=== PATIENT | female | born 1945 | race Caucasian/White ===

== ENCOUNTER 2019-07-26 09:08 | Inpatient (IN) | payer MEDICARE, SELFPAY | END 2019-07-28 12:51 | disposition home health service (06) | DRG 641 | PROVIDERS: Admitting Provider Student in an Organized Health Care Education/Training Program; Emergency Provider Emergency Medicine; Family Provider Family Medicine; Visit Provider Student in an Organized Health Care Education/Training Program | DX: E87.1 Hypo-osmolality and hyponatremia (principal); I50.32 Chronic diastolic (congestive) heart failure; I11.0 Hypertensive heart disease with heart failure; J44.9 Chronic obstructive pulmonary disease, unspecified; Z99.81 Dependence on supplemental oxygen; E86.0 Dehydration; F17.210 Nicotine dependence, cigarettes, uncomplicated ==

== ENCOUNTER → 2019-10-02 11:00 | Outpatient (BNVA) | payer OTHER, SELFPAY | PROVIDERS: Family Provider Family Medicine; PCP Family Medicine; Visit Provider Nurse Practitioner Family | DX: E78.5 Hyperlipidemia, unspecified (principal); E87.1 Hypo-osmolality and hyponatremia; I10 Essential (primary) hypertension; T74.91XA Unspecified adult maltreatment, confirmed, initial encounter; Z51.5 Encounter for palliative care | CPT/HCPCS: 80053; 80061; 81001; 84443; 85025 ==

== ENCOUNTER 2019-10-04 12:58 | Emergency (ER) | payer OTHER, SELFPAY ==
--- NOTE | 2019-10-04 13:02 | ED_ITS ---
Entered by Veda Olivier, acting as scribe for HPI - General Adult General: Chief complaint: Shortness of Breath/Dyspnea Stated complaint: BREATHING PROBLEMS Time Seen by Provider: 10/04/19 13:02 History of Present Illness: HPI narrative: 74 yo female presents with shortness of breath. Pt states that she has issues breathing and has for a few days. Pt is on hospice. Pt states she has been generally weak. She states she feels like she is unable to care for self and wants to go to the assisted. MD complaint: shortness of breath Onset (ago): day(s) Location: chest Radiation: non-radiation Severity: moderate Pain Consistency: constant Relieving factors: none Exacerbating factors: none Associated symptoms: Reports dyspnea; Deny chest pain, headache(s), nausea, rash or vomiting Review of Systems Const: Denies: fever, chills, body aches or change in appetite Eyes: Denies: blurry vision or eye discomfort ENMT: Denies: throat pain or dental pain Card: Denies: chest pain Resp: Reports: shortness of breath GI: Denies: abdominal pain, nausea, vomiting or diarrhea : Denies: painful urination Musc: Denies: neck pain or back pain Skin/Breast: Denies: rash Neuro: Denies: headache Psych: Denies: depression Edouard/Lymph: Denies: easy bruising All/Imm: Denies: hives PFSH ED PFSH: Medical History (Updated 10/04/19 @ 15:25 by Lloyd Clemente MD) Cerebral aneurysm CHF (congestive heart failure) COPD (chronic obstructive pulmonary disease) Hiatal hernia History of squamous cell carcinoma Hyperlipidemia Hypertension Surgical History (Updated 10/04/19 @ 13:06 by Veda Olivier) History of hysterectomy History of repair of hip fracture Family History (Updated 09/25/19 @ 08:47 by Yessenia Nava LPN) Sister Anesthesia complication Mother Cancer Father Embolism Social History (Updated 10/02/19 @ 08:38 by Gardenia Novak LPN, RT) Smoking and tobacco status: current every day smoker Second hand smoke exposure: Yes Alcohol intake: current Alcohol intake frequency: holidays/special occasions only Lives independently: Yes Household members: spouse Marital status: Current occupational status: retired History of recent travel: No Current gender identity: Female Physical Exam Const: COMMON NORMALS: no apparent distress, oriented x3 and healthy appearing HENMT: COMMON NORMALS: normocephalic and head/scalp atraumatic HEAD & SCALP: normocephalic and atraumatic Eye: COMMON NORMALS: PERRL and EOMs intact bilaterally PUPIL: Yes PERRL Neck/C-Spine: COMMON NORMALS: full ROM and supple Chest: COMMONS NORMALS: inspection of chest normal and palpation of chest normal Resp: COMMON NORMALS: normal respiratory effort, no retractions and no use of accessory muscles AUSCULTATION: wheezes scattered wheezes Cardio: COMMON NORMALS: regular rate, regular rhythm and no murmurs RATE: regular rate RHYTHM: regular rhythm GI: COMMON NORMALS: normal to inspection, nondistended, normoactive bowel soun ds, soft to palpation, non-tender and no masses PALPATION: Yes soft Extremity: COMMON NORMALS: normal to inspection and full ROM Neuro: COMMON NORMALS: oriented x3, moves all extremities and no focal motor deficits Psych: COMMON NORMALS: mental status grossly normal, thought process normal and cooperative THOUGHT PROCESS: normal thought process Skin: COMMON NORMALS: no rashes or lesions noted and no wounds GENERAL SKIN EXAM: no rashes or lesions noted Course Vital Signs: Vital signs: Vital Signs Temperature 97.7 F 10/04/19 13:04 Pulse Rate 91 10/04/19 13:39 Respiratory Rate 20 H 10/04/19 13:39 Blood Pressure 198/127 10/04/19 13:04 Pulse Oximetry 94 10/04/19 13:39 MDM - General Adult MDM Narrative: Medical decision making narrative: Patient presents here with multiple complaints but main complaint is of generalized weakness. Patient's hospice nurse arrived and they came to group conclusion to send her to a assisted. She is hyponatremic but they do not want any treatment here. Are sending her to assisted at [facility]. Patient discharged and will set up transfer to assisted Lab Data: Labs: Lab Results 10/04/19 10/04/19 Range/Units 13:16 13:16 WBC 7.6 (4.0-10.0) 10^3/ uL RBC 4.97 (4.1-5.3) 10^6/u L Hgb 12.8 (11.5-15.3) g/dL Hct 37.4 (37.0-47.0) % MCV 75.3 L (81-99) fL MCH 25.8 L (28.0-34.0) pg MCHC 34.2 (30.0-36.0) g/dL RDW 13.3 (12.1-15.1) % Plt Count 426 H (130-400) 10^3/c mm MPV 9.6 (7.4-10.4) fL Neut % (Auto) 76.5 % Lymph % (Auto) 14.8 % [place] % (Auto) 7.7 % Eos % (Auto) 0.5 % Baso % (Auto) 0.4 % Neut # (Auto) 5.8 (1.8-7.7) 10^3/u L Lymph # (Auto) 1.1 (0.8-4.8) 10^3/u L [place] # (Auto) 0.6 (0.2-0.9) 10^3/u L Eos # (Auto) 0.0 (0.0-0.8) 10^3/u L Baso # (Auto) 0.0 (0.0-0.1) 10^3/u L Nucleated RBC % (a uto) 0 % Nucleated RBCs # 0.0 /100WBC Sodium 114 L* (136-145) mmol/L Potassium 4.3 (3.5-5.1) mmol/L Chloride 75 L (98-107) mmol/L Carbon Dioxide 28 (22-29) mmol/L Anion Gap 15.3 (5-19) BUN 7 L (8-23) mg/dL Creatinine 0.5 (0.5-0.9) mg/dL Glucose 141 H (65-115) mg/dL Calculated Osmolal ity 236 L (285-295) mOsm/k g Calcium 9.4 (8.5-10.5) mg/dL Imaging Data^: CXR: Attestation: I personally reviewed and interpreted this imaging study as follows: Radiologist's impression: Ordering Provider/Ordering MD: Lloyd Clemente MD Date of Service: 10/04/19 Procedure(s): XR chest 1V portable [id number] Accession Number(s): [id number] Report Number: [id number] PROCEDURE INFORMATION: Exam: XR Chest, 1 View Exam date and time: 10/04/2019 1:08 PM Age: 74 years old Clinical indication: Shortness of breath; Additional info: SOB TECHNIQUE: Imaging protocol: XR of the chest Views: 1 view. COMPARISON: CR Chest 1 [place] [id number] 07/26/2019 9:27 AM FINDINGS: Lungs: Unremarkable. No consolidation. Pleural space: Unremarkable. No pleural effusion. No pneumothorax. Heart/Mediastinum: Unremarkable. No cardiomegaly. Bones/joints: Unremarkable. XR/XR chest 1V portable [id number] IMPRESSION: No acute findings. Discharge Plan Discharge Patient Disposition: Home, Self-Care Clinical Impression: COPD exacerbation, Hyponatremia Condition: Stable Prescriptions: No Action fluticasone propion-salmeterol [Advair Diskus] 250-50 mcg/dose blister with device 1 inh INHALATION Q12H RF: 0 metoprolol tartrate 50 mg tablet 50 mg PO BID RF: 0 albuterol sulfate [Ventolin HFA] 90 mcg/actuation HFA aerosol inhaler 2 puff INHALATION QID RF: 0 gabapentin 300 mg capsule 300 mg PO TID RF: 0 amlodipine 10 mg tablet 10 mg PO DAILY RF: 0 lisinopril 40 mg tablet 40 mg PO DAILY RF: 0 fluticasone propionate [Flonase Allergy Relief] 50 mcg/actuation spray,suspension 2 spray INTRANASAL DAILY RF: 0 furosemide [Lasix] 20 mg tablet 20 mg PO DAILY PRN (Reason: edema) Qty: 30 RF: 1 potassium chloride 10 mEq tablet extended release 10 meq PO DAILY PRN (Reason: DIURETIC THERAPY) Qty: 30 RF: 1 Discharge Orders: Discharge Order (Routine); Ordered 10/04/19 Ordered By: Lloyd Clemente Referrals: Liudmila Henry MD [Primary Care Provider] - 4-7 days Discharge Diet: Advance as tolerated Discharge Activity: Resume usual activity Patient Instructions: Chronic Obstructive Pulmonary Disease (ED) Coding Level of Care Code ED Yarder Boss for Chg Fwd Exam Comprehensive The documentation recorded by the Soy graham Kialy, accurately reflects the service I personally performed and the decisions made by Chyna goldstein Korby, MD Oct 04, 2019 12:58
[2019-10-04 13:04] VITALS: BP 198/127; PULSE 90; RESP 24; TEMP 36.5; O2SAT 96; BMI 17.2
--- NOTE | 2019-10-04 13:07 | XRR_ITS ---
PROCEDURE INFORMATION: Exam: XR Chest, 1 View Exam date and time: 10/04/2019 1:08 PM Age: 74 years old Clinical indication: Shortness of breath; Additional info: SOB TECHNIQUE: Imaging protocol: XR of the chest Views: 1 view. COMPARISON: CR Chest 1 [place] [id number] 07/26/2019 9:27 AM FINDINGS: Lungs: Unremarkable. No consolidation. Pleural space: Unremarkable. No pleural effusion. No pneumothorax. Heart/Mediastinum: Unremarkable. No cardiomegaly. Bones/joints: Unremarkable. XR/XR chest 1V portable [id number] IMPRESSION: No acute findings.
[2019-10-04 13:24] LABS: Basophils % 0.4 %; Eosinophils % 0.5 %; Hematocrit 37.4 % (37.0-47.0); Hemoglobin 12.8 g/dL (11.5-15.3); Lymphocytes # 1.1 10^3/uL (0.8-4.8); Lymphocytes % 14.8 %; Mean Corpuscular HGB Conc 34.2 g/dL (30.0-36.0); Mean Corpuscular Hemoglobin 25.8 pg (28.0-34.0); Mean Corpuscular Volume 75.3 fL (81-99); Mean Platelet Volume 9.6 fL (7.4-10.4); Monocytes # 0.6 10^3/uL (0.2-0.9); Monocytes % 7.7 %; Neutrophils # 5.8 10^3/uL (1.8-7.7); Neutrophils % 76.5 %; Nucleated Red Blood Cells % 0 %; Platelet Count 426 10^3/cmm (130-400); Red Blood Count 4.97 10^6/uL (4.1-5.3); Red Cell Distribution Width 13.3 % (12.1-15.1); White Blood Count 7.6 10^3/uL (4.0-10.0)
[2019-10-04] MEDS: ipratropium-albuterol 3 mL Neb INHALATION (13:32)
[2019-10-04 13:34] VITALS: PULSE 91; RESP 20; O2SAT 94
[2019-10-04 13:35] LABS: Anion Gap 15.3 (5-19); Blood Urea Nitrogen 7 mg/dL (8-23); Calcium 9.4 mg/dL (8.5-10.5); Carbon Dioxide 28 mmol/L (22-29); Chloride 75 mmol/L (98-107); Glucose 141 mg/dL (65-115); Osmolality Calculated 236 mOsm/kg (285-295); Potassium 4.3 mmol/L (3.5-5.1)
[2019-10-04 13:37] LABS: Slide Review Slide Review Perform
[2019-10-04 13:39] VITALS: PULSE 91; RESP 20; O2SAT 94
[2019-10-04 13:52] LABS: Sodium 114 mmol/L (136-145)
[2019-10-04] MEDS: LORazepam 2 mg/mL INJ 1 mL 0.5 MG IVP (14:10)
[2019-10-04] MEDS: sodium chloride 0.9% 1,000 ML 999 ML IV (14:11)
[2019-10-04] MEDS: predniSONE 20 mg Tablet 60 MG PO (14:12)
--- NOTE | 2019-10-04 17:01 | PC.NURSE ---
Patient is confused and walking down the halls. Patient directed back to treatment room. Hospital sitter with patient. Patient is now resting.
[2019-10-04 17:54] VITALS: O2SAT 96
== END 2019-10-04 17:56 | disposition home or self-care (01) ==
PROVIDERS: Emergency Provider Emergency Medicine; Family Provider Family Medicine; PCP Family Medicine
DX: J44.1 Chronic obstructive pulmonary disease with (acute) exacerbation (principal); E87.1 Hypo-osmolality and hyponatremia; I11.0 Hypertensive heart disease with heart failure; I50.9 Heart failure, unspecified; J44.9 Chronic obstructive pulmonary disease, unspecified; E78.5 Hyperlipidemia, unspecified; F17.200 Nicotine dependence, unspecified, uncomplicated; Z79.51 Long term (current) use of inhaled steroids
CPT/HCPCS: 36415; 71045; 80048; 85025; 94640; 96361; 96374; 96375; 99282; 99283; J2060; J7030; J7512; J7611

== ENCOUNTER → 2019-10-19 15:15 | Outpatient (BNVA) | payer MEDICARE, SELFPAY | PROVIDERS: Family Provider Family Medicine; PCP Family Medicine; Visit Provider Family Medicine | DX: R05 Cough (principal); R50.9 Fever, unspecified | CPT/HCPCS: 87400 ==

== ENCOUNTER 2019-12-17 12:51 | Inpatient (IN) | payer MEDICARE, SELFPAY ==
[2019-12-17] VITALS (12 sets, daily range): BP systolic 169–199; BP diastolic 85–116; PULSE 72–118; RESP 12–22; TEMP 36.9–37.2; O2SAT 85–99; BMI 15.4
--- NOTE | 2019-12-17 13:06 | XR_ITS ---
WS: [id number] RIGHT HIP HISTORY: trauma, hip pain COMPARISON: 06/12/2019 Right hip: Findings are suspicious for femoral neck fracture. Quality of the this examination is limi clifford by body habitus. No soft tissue abnormality. XR/XR hip RT 2-3V wo/w pel* [id number] IMPRESSION: 1. Suspect RIGHT subcapital hip fracture. Study is limited by body habitus. 2. Recommend follow-up RIGHT hip CT to confirm fracture.
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
--- NOTE | 2019-12-17 14:04 | XR_ITS ---
WS: [id number] PORTABLE CHEST HISTORY: fall, fracture COMPARISON: 10/04/2019 Marked pulmonary hyperinflation. Changes of emphysema with no pneumonia. Lung bases have been exclude d from this examination. No pleural effusion or pneumothorax. Cardiac size: Mildly enlarged cardiac silhouette. Mediastinum/Aorta: Mild atherosclerosis aorta. Proximal RIGHT humeral fracture. Known fracture. XR/XR chest 1V portable [id number] IMPRESSION: 1. Chronic emphysema with no pneumonia. 2. Known nondisplaced proximal RIGHT humeral fracture.
[2019-12-17] MEDS: morphine 4 mg/mL SDV 1 mL IM (14:05)
--- NOTE | 2019-12-17 15:16 | ECG_ITS ---
Measurements Intervals [place] Rate: 114 P: DE: 0 QRS: -67 QRSD: 82 T: 71 QT: 300 QTc: 414 Sinus tachycardia with PVCs INDETERMINATE AXIS POSSIBLE RIGHT VENTRICULAR CONDUCTION DELAY [RSR (QR) IN V1/V2] ANTEROSEPTAL MYOCARDIAL INFARCTION , OF INDETERMINATE AGE [40+ ms Q WAVE IN V1-V4] Compared to ECG 07/26/2019 14:45:30 Ventricular premature complex(es) now present Sinus rhythm no longer present Myocardial infarct finding still present Electronically Signed On 12-18-2019 13:02:23 CDT by Mega Maier M.D. [email or web address]
[2019-12-17] MEDS: ondansetron 2 mg/ML SDV 2 mL 4 MG IVP (15:49)
[2019-12-17] MEDS: morphine 4 mg/mL SDV 1 mL 2 MG IVP (15:49)
[2019-12-17 16:31] LABS: Basophils # 0.1 10^3/uL (0.0-0.1); Basophils % 0.5 %; Eosinophils # 0.1 10^3/uL (0.0-0.8); Eosinophils % 0.6 %; Hematocrit 39.3 % (37.0-47.0); Lymphocytes # 1.2 10^3/uL (0.8-4.8); Lymphocytes % 11.8 %; Mean Corpuscular HGB Conc 33.1 g/dL (30.0-36.0); Mean Corpuscular Hemoglobin 28.4 pg (28.0-34.0); Mean Platelet Volume 10.4 fL (7.4-10.4); Monocytes # 0.8 10^3/uL (0.2-0.9); Monocytes % 7.3 %; Neutrophils # 8.3 10^3/uL (1.8-7.7); Neutrophils % 79.2 %; Nucleated Red Blood Cells % 0 %; Platelet Count 363 10^3/cmm (130-400); Red Blood Count 4.57 10^6/uL (4.1-5.3); Red Cell Distribution Width 14.6 % (12.1-15.1); White Blood Count 10.5 10^3/uL (4.0-10.0)
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
[2019-12-17 16:47] LABS: INR 0.99 (0.8-1.2)
[2019-12-17 16:50] LABS: Alanine Aminotransferase 18 U/L (0-33); Albumin Level 4.2 g/dL (3.5-5.2); Alkaline Phosphatase 80 IU/L (35-105); Aspartate Amino Transferase 20 U/L (0-32); Blood Urea Nitrogen 12 mg/dL (8-23); Calcium 9.1 mg/dL (8.5-10.5); Carbon Dioxide 29 mmol/L (22-29); Chloride 91 mmol/L (98-107); Creatinine Clr Calc Pharmacy 37.2706; Globulin 2.4 g/dL (1.3-4.6); Glucose 89 mg/dL (65-115); Osmolality Calculated 270 mOsm/kg (285-295); Sodium 132 mmol/L (136-145); Total Bilirubin 0.5 mg/dL (0.15-1.2); Total Protein 6.6 g/dL (6.6-8.7)
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
[2019-12-17] MEDS: heparin 5,000 unit/mL INJ 1 mL 5000 UNIT SUBCUT (19:21)
[2019-12-17] MEDS: dextrose 5%-sod chloride 0.45% 1,000 ML 100 ML IV (19:21)
[2019-12-17] MEDS: ipratropium-albuterol 3 mL Neb INHALATION (19:51)
--- NOTE | 2019-12-17 19:53 | PC.NURSE ---
resting in bed sling to right arm. Alert and oriented x3 no complaints of pain voiced.
[2019-12-17] MEDS: predniSONE 20 mg Tablet 40 MG PO (20:53)
[2019-12-17] MEDS: gabapentin 300 mg Capsule PO (20:53)
[2019-12-17] MEDS: HYDROcodone-acetaminophen 5-325 mg Tablet 1 TAB PO (21:20)
--- NOTE | 2019-12-17 21:25 | PC.NURSE ---
Rosa Rt notified again of ekg order.
--- NOTE | 2019-12-17 21:26 | PC.NURSE ---
consent signed verified with Arnie Tracy Pt alert and oriented but unable to sign since in sling.
[2019-12-17 21:30] LABS: Thyroid Stimulating Hormone 3.33 uIU/mL (0.27-4.20)
[2019-12-17 21:46] LABS: Estmated Average Glucose 128; Hemoglobin A1C 6.1 % (4.0-6.0)
[2019-12-18] VITALS (19 sets, daily range): BP systolic 110–170; BP diastolic 62–90; PULSE 64–84; RESP 9–19; TEMP 36.3–36.9; O2SAT 90–100
--- NOTE | 2019-12-18 | XRR_ITS ---
PROCEDURE INFORMATION: Exam: XR Right Hip with Pelvis when Performed Exam date and time: 12/18/2019 2:56 PM Age: 74 years old Clinical indication: Condition or disease; Joint replacement status; Prior surgery; Surgery date: Post-operative (0-2 days); Surgery type: Right hip pinning; Additional info: Hip pinning, or pics TECHNIQUE: Imaging protocol: XR Right hip with pelvis when performed. Views: 1 view. COMPARISON: CR XR hip RT 2-3V wo/w pel* [id number] 12/17/2019 2:11 PM FINDINGS: Bones/joints: 2 fluoroscopic views are submitted, demonstrating 3 cannulated screws in the right femoral neck, traversing a subcapital fracture. A total of 87.1 seconds of fluoro time was utilized. XR/XR hip RT 2-3V wo/w pel* [id number] IMPRESSION: Fluoroscopic examination, as above.
--- NOTE | 2019-12-18 | SCC_ITS ---
Procedure Done: Perutaneous pinning right femoral neck fracture using cannulated screws 72.8 seconds of fluoroscopic guidance, for a cumulative dose of 6.83 mGy, was provided to Dr. Casillas by the radiology department. C-arm images of the RIGHT hip were saved for the patient's permanent record. [facility] CENTERAdriana
[2019-12-18 03:57] LABS: Basophils % 0.2 %; Hematocrit 38.7 % (37.0-47.0); Hemoglobin 12.5 g/dL (11.5-15.3); Lymphocytes # 0.2 10^3/uL (0.8-4.8); Lymphocytes % 3.7 %; Mean Corpuscular HGB Conc 32.3 g/dL (30.0-36.0); Mean Corpuscular Volume 86.8 fL (81-99); Mean Platelet Volume 10.4 fL (7.4-10.4); Monocytes # 0.1 10^3/uL (0.2-0.9); Monocytes % 2.1 %; Neutrophils # 5.8 10^3/uL (1.8-7.7); Neutrophils % 93.7 %; Nucleated Red Blood Cells % 0 %; Platelet Count 301 10^3/cmm (130-400); Red Blood Count 4.46 10^6/uL (4.1-5.3); Red Cell Distribution Width 14.6 % (12.1-15.1); White Blood Count 6.2 10^3/uL (4.0-10.0)
[2019-12-18 04:13] LABS: Alanine Aminotransferase 16 U/L (0-33); Alkaline Phosphatase 75 IU/L (35-105); Anion Gap 15.9 (5-19); Aspartate Amino Transferase 19 U/L (0-32); Blood Urea Nitrogen 11 mg/dL (8-23); Calcium 8.9 mg/dL (8.5-10.5); Carbon Dioxide 28 mmol/L (22-29); Chloride 90 mmol/L (98-107); Creatinine Clr Calc Pharmacy 37.2706; Globulin 2.1 g/dL (1.3-4.6); Glucose 245 mg/dL (65-115); Osmolality Calculated 272 mOsm/kg (285-295); Phosphorus 3.5 mg/dL (2.5-4.5); Potassium 4.9 mmol/L (3.5-5.1); Sodium 129 mmol/L (136-145); Total Bilirubin 0.6 mg/dL (0.15-1.2); Total Protein 6.1 g/dL (6.6-8.7)
[2019-12-18] MEDS: dextrose 5%-sod chloride 0.45% 1,000 ML 100 ML IV ×2 (06:43→19:49)
[2019-12-18] MEDS: ipratropium-albuterol 3 mL Neb INHALATION ×2 (07:42→20:13)
[2019-12-18] MEDS: amlodipine 10 mg Tablet PO (08:31)
[2019-12-18] MEDS: metoprolol tartrate 50 mg Tablet PO ×2 (08:31→17:08)
[2019-12-18] MEDS: gabapentin 300 mg Capsule PO ×2 (08:31→21:08)
[2019-12-18] MEDS: lisinopril 20 mg Tablet 40 MG PO (08:31)
[2019-12-18] MEDS: predniSONE 20 mg Tablet 40 MG PO (08:31)
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
[2019-12-18 11:25] LABS: Glucose Point of Care 141 mg/dL (70-110)
[2019-12-18 11:30] LABS: Add Urine Microscopic? YES; Bilirubin Urine Neg (NEGATIVE); Blood Urine 2+ (Negative); Glucose Urine UA 1+ (Normal); Ketones Urine Negative (Negative); Leukocyte Esterase Urine Trace (Negative); Nitrate Urine Negative (Negative); Protein Urine Neg (Negative); Urine Appearance Clear (CLEAR); Urine Color Yellow (Yellow); Urobilinogen Urine Norm (Negative)
[2019-12-18 11:58] LABS: Bacteria Urine TRACE; Mucus Urine 1+; Squamous Epithelial Cell Urine 0-4 (0-5); WBC Urine 15-25 /hpf (0-5)
[2019-12-18 11:59] LABS: Add Urine Culture? Yes
--- NOTE | 2019-12-18 12:20 | P.ANESASSM_ITS ---
Pre-Anesthetic Assessment Pre-Anesthetic Assessment: Height/Weight: Height 1.6 m Weight 39.463 kg Temp Pulse Resp BP Pulse Ox 98.5 F 65 18 151/78 95 12/18/19 12:04 12/18/19 12:04 12/18/19 12:04 12/18/19 12:04 12/18/19 12:04 Preop Diagnosis: hip fracure Proposed Procedure: Operation Date: 12/18/19 12:45 Proposed Procedures p Hip Screw Closed Reduction Percutaneous Pinning Hip Screw(Right) - Vinh Casillas DO Familial anesthetic complications: none Was Beta Niya taken within 24 hours: Yes Last intake: Intake Last Liquid Date 12/17/19 Last Liquid Time 18:00 Last Solid Date 12/17/19 Last Solid Time 18:00 Social: Social History: Tobacco Exam: Pre-Anes Outpt Exam: alert, oriented x 3, clear to auscultation bilaterally and regular rate & rhythm Airway: Cervical ROM: WNL MP: 2 Dentition: Chipped Pulmonary: Pulmonary: COPD (4 L NC) CV/HEM: CV/HEM: CHF and HTN : : None reported Hepatic: Hepatic: None reported GI: GI: None reported Metabolic: Metabolic: None reported Musc/skel: Comments: fracture Hip Neuropsych: Neuropsych: TIA Anesthetic Plan: ASA status: 3 Risk of > 500 ml blood loss (7ml/kg in children): Yes, adequate IV access and fluids planned Meds/Allergies Current Medications: Current Medications Generic Name Dose Route Start Last Admin Trade Name Freq PRN Reason Stop Dose Admin Hydrocodone Bitart /Acetaminophen 1 tab 12/17/19 18:46 12/17/19 21:20 [place] 5-325 Mg PO 1 tab Q4H PRN Administration MODERATE PAIN Albuterol/Ipratrop ium 3 ml 12/17/19 19:30 12/18/19 07:42 Duoneb INHALATION 3 ml Q6H ROSLYN Administration Amlodipine Besylat e 10 mg 12/18/19 09:00 12/18/19 08:31 Norvasc PO 10 mg DAILY ROSLYN Administration Gabapentin 300 mg 12/17/19 21:00 12/18/19 08:31 Neurontin PO 300 mg TID ROSLYN Administration Heparin Sodium (Be ef Lung) 5,000 unit 12/17/19 19:15 12/18/19 11:40 Heparin SUBCUT Not Given Q8H ROSLYN Dextrose/Sodium Ch loride 1,000 mls @ 100 m ls/hr 12/17/19 19:15 12/18/19 06:43 Dextrose 5%-Sod Chloride 0.45% IV 100 mls/hr .Q10H ROSLYN Administration Lisinopril 40 mg 12/18/19 09:00 12/18/19 08:31 Prinivil PO 40 mg DAILY ROSLYN Administration Metoprolol Tartrat e 50 mg 12/18/19 09:00 12/18/19 08:31 Lopressor PO 50 mg BID ROSLYN Administration Mirtazapine 15 mg 12/18/19 09:00 12/18/19 08:27 Remeron PO Not Given DAILY ROSLYN Prednisone 40 mg 12/17/19 19:25 12/18/19 08:31 Prednisone PO 40 mg DAILY ROSLYN Administration Fluticasone/Salmet ezio 1 puff 12/17/19 20:00 12/18/19 07:42 Advair Diskus 25 0-50 INHALATION 1 puff BID.RESPIRATORY S CH Administration PFSH Anesthesia PFSH: Medical History (Updated 12/17/19 @ 19:21 by Barrera Salamanca MD) Cerebral aneurysm CHF (congestive heart failure) Closed fracture of right proximal humerus COPD (chronic obstructive pulmonary disease) Fracture of femoral neck, right, closed Hiatal hernia History of squamous cell carcinoma Hyperlipidemia Hypertension Surgical History History of hysterectomy History of repair of hip fracture Family History Sister Anesthesia complication Mother Cancer Father Embolism Social History Smoking and tobacco status: current every day smoker Second hand smoke exposure: Yes Alcohol intake: current Alcohol intake frequency: holidays/special occasions only Lives independently: Yes Household members: spouse Marital status: Current occupational status: retired History of recent travel: No Current gender identity: Female Data Anesthesia CBC & Chem 7: 12/18/19 03:10 12/18/19 03:10 Other Labs: Laboratory Results - last 48 hr 12/17/19 12/17/19 12/17/19 15:53 15:53 15:53 WBC 10.5 H RBC 4.57 Hgb 13.0 Hct 39.3 MCV 86.0 MCH 28.4 MCHC 33.1 RDW 14.6 Plt Count 363 MPV 10.4 Neut % (Auto) 79.2 Lymph % (Auto) 11.8 [place] % (Auto) 7.3 Eos % (Auto) 0.6 Baso % (Auto) 0.5 Neut # (Auto) 8.3 H Lymph # (Auto) 1.2 [place] # (Auto) 0.8 Eos # (Auto) 0.1 Baso # (Auto) 0.1 Nucleated RBC % (auto) 0 Nucleated RBCs # 0.0 PT 13.40 H INR 0.99 Sodium 132 L Potassium 4.0 Chloride 91 L Carbon Dioxide 29 Anion Gap 16.0 BUN 12 Creatinine 0.8 Glucose 89 POC Glucose Estimat Average Glucose Hemoglobin A1c Calculated Osmolality 270 L Calcium 9.1 Phosphorus Magnesium Total Bilirubin 0.5 AST 20 ALT 18 Alkaline Phosphatase 80 Total Protein 6.6 Albumin 4.2 Globulin 2.4 TSH Urine Color Urine Appearance Urine pH Ur Specific [place] Urine Protein Urine Glucose (UA) Urine Ketones Urine Blood Urine Nitrate Urine Bilirubin Urine Urobilinogen Ur Leukocyte Esterase Urine RBC Urine WBC Ur Squamous Epith Cells Urine Bacteria Urine Mucus Blood Type Rho(D) Type Antibody Screen 12/17/19 12/17/19 12/17/19 15:53 15:53 16:23 WBC RBC Hgb Hct MCV MCH MCHC RDW Plt Count MPV Neut % (Auto) Lymph % (Auto) [place] % (Auto) Eos % (Auto) Baso % (Auto) Neut # (Auto) Lymph # (Auto) [place] # (Auto) Eos # (Auto) Baso # (Auto) Nucleated RBC % (auto) Nucleated RBCs # PT INR Sodium Potassium Chloride Carbon Dioxide Anion Gap BUN Creatinine Glucose POC Glucose Estimat Average Glucose 128 Hemoglobin A1c 6.1 H Calculated Osmolality Calcium Phosphorus Magnesium Total Bilirubin AST ALT Alkaline Phosphatase Total Protein Albumin Globulin TSH 3.33 Urine Color Urine Appearance Urine pH Ur Specific [place] Urine Protein Urine Glucose (UA) Urine Ketones Urine Blood Urine Nitrate Urine Bilirubin Urine Urobilinogen Ur Leukocyte Esterase Urine RBC Urine WBC Ur Squamous Epith Cells Urine Bacteria Urine Mucus Blood Type A Negative Rho(D) Type Negaive Antibody Screen Negative 12/18/19 12/18/19 12/18/19 03:10 03:10 03:10 WBC 6.2 RBC 4.46 Hgb 12.5 Hct 38.7 MCV 86.8 MCH 28.0 MCHC 32.3 RDW 14.6 Plt Count 301 MPV 10.4 Neut % (Auto) 93.7 Lymph % (Auto) 3.7 [place] % (Auto) 2.1 Eos % (Auto) 0.0 Baso % (Auto) 0.2 Neut # (Auto) 5.8 Lymph # (Auto) 0.2 L [place] # (Auto) 0.1 L Eos # (Auto) 0.0 Baso # (Auto) 0.0 Nucleated RBC % (auto) 0 Nucleated RBCs # 0.0 PT 13.50 H INR 1.00 Sodium 129 L Potassium 4.9 Chloride 90 L Carbon Dioxide 28 Anion Gap 15.9 BUN 11 Creatinine 0.7 Glucose 245 H POC Glucose Estimat Average Glucose Hemoglobin A1c Calculated Osmolality 272 L Calcium 8.9 Phosphorus 3.5 Magnesium 2.0 Total Bilirubin 0.6 AST 19 ALT 16 Alkaline Phosphatase 75 Total Protein 6.1 L Albumin 4.0 Globulin 2.1 TSH Urine Color Urine Appearance Urine pH Ur Specific [place] Urine Protein Urine Glucose (UA) Urine Ketones Urine Blood Urine Nitrate Urine Bilirubin Urine Urobilinogen Ur Leukocyte Esterase Urine RBC Urine WBC Ur Squamous Epith Cells Urine Bacteria Urine Mucus Blood Type Rho(D) Type Antibody Screen 12/18/19 12/18/19 10:00 11:14 WBC RBC Hgb Hct MCV MCH MCHC RDW Plt Count MPV Neut % (Auto) Lymph % (Auto) [place] % (Auto) Eos % (Auto) Baso % (Auto) Neut # (Auto) Lymph # (Auto) [place] # (Auto) Eos # (Auto) Baso # (Auto) Nucleated RBC % (auto) Nucleated RBCs # PT INR Sodium Potassium Chloride Carbon Dioxide Anion Gap BUN Creatinine Glucose POC Glucose 141 Estimat Average Glucose Hemoglobin A1c Calculated Osmolality Calcium Phosphorus Magnesium Total Bilirubin AST ALT Alkaline Phosphatase Total Protein Albumin Globulin TSH Urine Color Yellow Urine Appearance Clear Urine pH 5.0 Ur Specific [place] 1.020 Urine Protein Neg Urine Glucose (UA) 1+ Urine Ketones Negative Urine Blood 2+ H Urine Nitrate Negative Urine Bilirubin Neg Urine Urobilinogen Norm Ur Leukocyte Esterase Trace H Urine RBC 5-10 H Urine WBC 15-25 H Ur Squamous Epith Cells 0-4 H Urine Bacteria Trace Urine Mucus 1+ Blood Type Rho(D) Type Antibody Screen Cardiac Studies: No Data to Display
[2019-12-18] MEDS: sodium chloride 0.9% 1,000 ML 30 ML IV (12:33)
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
--- NOTE | 2019-12-18 14:12 | SUR.OPER ---
1405 - Pt's sister updated on surgery progress and pt status via her cell phone.
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
--- NOTE | 2019-12-18 14:42 | SUR.PHASEI ---
1440 PATIENT TO PACU AT THIS TIME FROM OPS. RR EVEN AND UNLABORED. PLACED ON SIMPLE MASK AT 8L, SPO2 100%. DRESSING TO RIGHT HIP, CDI WITH FIRST ICE IN PLACED. RIGHT PEDAL PULSE STRONG, INTACT, MARKED.
--- NOTE | 2019-12-18 15:29 | SUR.PHASEI ---
1516 PATIENT TO MED SURG AT THIS TIME. NO DISTRESS. DENIES NAUSEA. PATIENT RESTING COMFORTABLE IN BED, AROUSES TO VERBAL STIMULI. DRESSING TO RIGHT HIP, CDI WITH FIRST ICE IN PLACE. WALKER IN PLACE, DRAINING CLEAR, YELLOW URINE.
[2019-12-18] MEDS: heparin 5,000 unit/mL INJ 1 mL 5000 UNIT SUBCUT (17:05)
[2019-12-18] MEDS: calcium carbonate 500 mg Chew Tablet 1000 MG PO (17:06)
[2019-12-18] MEDS: HYDROcodone-acetaminophen 5-325 mg Tablet 1 TAB PO ×2 (17:06→21:07)
[2019-12-18] MEDS: sennosides-docusate Tablet 2 TAB PO (17:08)
[2019-12-18] MEDS: iron polysaccharide complex 150 mg Capsule PO (17:08)
--- NOTE | 2019-12-18 18:48 | USCV_ITS ---
Rosario Brock Age: 74 Gender: F : 1945 Exam Date: 12/18/2019 09:40 Ordering Phys: Barrera Salamanca MD Technologist: Manuela Godoy Exam Location: [facility] [place] Indication: PREOP BP: 170 / 90 HR: 60 Rhythm: Sinus Technical Quality: Adequate MEASUREMENTS (Male / Female) Normal Values 2D ECHO LV Diastolic Diameter PLAX 2.5 cm 4.2 - 5.9 / 3.9 - 5.3 cm LV Systolic Diameter PLAX 1.9 cm LV Chamber Size 3.9 cm IVS Diastolic Thickness 0.8 cm 0.6 - 1.0 / 0.6 - 0.9 cm IVS Systolic Thickness 1.3 cm LVPW Diastolic Thickness 1.8 cm 0.6 - 1.0 / 0.6 - 0.9 cm LVPW Systolic Thickness 2.3 cm RV Chamber Size 3.1 cm LVOT Diameter 2.0 cm LV Ejection Fraction 2D Teich 50.9 % LV Ejection Fraction MOD 2C 58.3 % LV Ejection Fraction 2C AL 56.7 % LA Diameter 3.1 cm LA Width 2.9 cm LA Height 4.0 cm RA Width 3.8 cm RA Height 4.5 cm Aorta at Sinotubular Diameter 2.5 cm M-MODE LV Diastolic Diameter MM 3.7 cm 4.2 - 5.9 / 3.9 - 5.3 cm LV Systolic Diameter MM 2.9 cm LV Ejection Fraction MM Teich 48.2 % IVS Diastolic Thickness MM 0.8 cm 0.6 - 1.0 / 0.6 - 0.9 cm IVS Systolic Thickness MM 1.1 cm LVPW Diastolic Thickness MM 0.7 cm 0.6 - 1.0 / 0.6 - 0.9 cm LVPW Systolic Thickness MM 1.1 cm Aortic Annulus Diameter 2.8 cm LA Ao Ratio MM 1.1 MV E Point Septal Separation 0.9 cm DOPPLER AV Peak Velocity 137.0 cm/s LVOT Peak Velocity 105.0 cm/s AV Area Cont Eq vti 2.3 cm squared AV Area Cont Eq pk 2.5 cm squared MV Area PHT 3.1 cm squared Mitral E to A Ratio 0.9 MV E' Velocity 8.0 cm/s Mitral E to MV E' Ratio 9.0 Mitral E to LV E' Lateral Ratio 9.9 Mitral E to LV E' Septal Ratio 8.3 TR Peak Velocity 354.0 cm/s TR Peak Gradient 50.1 mmHg TV Peak E Velocity 63.0 cm/s Right Atrial Pressure 3.0 mmHg Pulmonary Artery Systolic Pressu 53.1 mmHg PV Peak Velocity 52.0 cm/s RV Acceleration Time 0.1 s RV Ejection Time 0.3 s RV AcT/ET 0.5 FINDINGS Left Ventricle Normal left ventricular size, systolic function and wall thickness, with no regional wall motion abnormalities. Left ventricular ejection fraction is estimated at 65-70 %. Normal diastolic function. Right Ventricle Normal right ventricular size and systolic function. Right ventricular systolic pressure 33 mmHg. Right Atrium Normal right atrial size. Left Atrium Normal left atrial size. Mitral Valve Structurally normal mitral valve. No mitral valve stenosis. Trace mitral valve regurgitation. Aortic Valve Aortic valve not well visualized. No aortic valve stenosis. No aortic valve regurgitation. Tricuspid Valve Structurally normal tricuspid valve. Mild tricuspid valve regurgitation. Pulmonic Valve Pulmonic valve not well visualized. Pericardium No pericardial effusion. Aorta Normal-sized aortic root. CONCLUSIONS 1. Normal left ventricular size, systolic function and wall thickness, with no regional wall motion abnormalities. Left ventricular ejection fraction is estimated at 65-70 %. Normal diastolic function. 2. Normal right ventricular size and systolic function. 3. Mild tricuspid valve regurgitation. 4. Pulmonary artery pressure estimated at 33 mmHg. 5. When compared to previous echocardiogram dated 02/04/2019, there may not have been any significant change. Ysabel Ghosh MD (Electronically Signed) Final Date: 18 Dec 2019 14:42 S
[2019-12-19] VITALS (14 sets, daily range): BP systolic 111–157; BP diastolic 60–78; PULSE 62–83; RESP 13–20; TEMP 36.4–37.1; O2SAT 93–99
[2019-12-19] MEDS: heparin 5,000 unit/mL INJ 1 mL 5000 UNIT SUBCUT ×3 (02:21→18:50)
[2019-12-19] MEDS: ipratropium-albuterol 3 mL Neb INHALATION ×4 (02:30→20:27)
[2019-12-19 05:57] LABS: Basophils % 0.1 %; Eosinophils % 0.4 %; Hematocrit 33.3 % (37.0-47.0); Hemoglobin 10.4 g/dL (11.5-15.3); Lymphocytes # 1.2 10^3/uL (0.8-4.8); Lymphocytes % 14.3 %; Mean Corpuscular HGB Conc 31.2 g/dL (30.0-36.0); Mean Corpuscular Hemoglobin 27.5 pg (28.0-34.0); Mean Corpuscular Volume 88.1 fL (81-99); Monocytes # 0.9 10^3/uL (0.2-0.9); Nucleated Red Blood Cells % 0 %; Platelet Count 279 10^3/cmm (130-400); Red Blood Count 3.78 10^6/uL (4.1-5.3); Red Cell Distribution Width 14.4 % (12.1-15.1); White Blood Count 8.1 10^3/uL (4.0-10.0)
[2019-12-19 06:19] LABS: Alanine Aminotransferase 14 U/L (0-33); Albumin Level 3.3 g/dL (3.5-5.2); Alkaline Phosphatase 59 IU/L (35-105); Aspartate Amino Transferase 18 U/L (0-32); Blood Urea Nitrogen 13 mg/dL (8-23); Calcium 9.4 mg/dL (8.5-10.5); Carbon Dioxide 30 mmol/L (22-29); Chloride 91 mmol/L (98-107); Creatinine Clr Calc Pharmacy 37.2706; Globulin 2.4 g/dL (1.3-4.6); Glucose 118 mg/dL (65-115); Magnesium 1.9 mg/dL (1.7-2.3); Osmolality Calculated 265 mOsm/kg (285-295); Phosphorus 4.2 mg/dL (2.5-4.5); Sodium 129 mmol/L (136-145); Total Bilirubin 0.3 mg/dL (0.15-1.2); Total Protein 5.7 g/dL (6.6-8.7)
--- NOTE | 2019-12-19 07:00 | P.PN_ITS ---
Subjective Subjective: Interval history: 74-year-old white female seen at the bedside on 12/19/2019. Patient's postoperative day 1 status post close reduction perkiness pinning of her impacted right femoral neck fracture. She's being treated conservatively for right proximal humeral fracture. Patient with anticipated complaints of pain of right proximal humeral fracture. No significant complaints of pain in and about her right hip. Vitals/I&O/Wt Last Vital Signs Temp 97.9 F 12/22/19 04:00 Pulse 61 12/22/19 04:00 Resp 18 12/22/19 04:00 BP 172/90 12/22/19 04:00 Pulse Ox 99 12/22/19 04:00 12/21/19 12/21/19 12/22/19 14:59 22:59 06:59 Intake Total 580 / 580 420 / 1000 60 / 1060 Output Total 1350 / 1350 Balance -770 / -770 420 / -350 60 / -290 Physical Exam Narrative: EXAM NARRATIVE: 74-year-old white female distress. She is wearing a sling right upper extremity. Mild bruising about the right shoulder. Digits are sensate with normal capillary refill of the right upper extremity. Her lungs are clear heart regular rhythm examination of the sternum shows her dressing be clean dry and intact with no strikethrough. She has no calf tenderness bilaterally. Urinary Catheter Management^: Ortega: Cath Placed During This Visit: yes Urinary Catheter Date of Insertion: 12/17/19 Urinary Catheter Time of Insertion: 17:00 Data : 12/22/19 03:00 12/22/19 03:00 Micro: Microbiology 12/18/19 10:00 Urine Culture - Final Urine,Clean Catch A&P Assessment and plan (1) Fracture of femoral neck, right, closed: partial weightbearing right hip Status: Acute Qualifiers: Encounter type: initial encounter Qualified Code(s): S72.001A - Fracture of unspecified part of neck of right femur, initial encounter for closed fracture (2) Closed fracture of right proximal humerus: minimal use of right shoulder so as not the displaced comminuted proximal humeral fracture. Status: Acute Qualifiers: Encounter type: initial encounter Fracture morphology: other fracture Fracture alignment: nondisplaced Qualified Code(s): S42.294A - Other nondi splaced fracture of upper end of right humerus, initial encounter for closed fracture Attestations Medical Necessity Statement*: patient requires continued inpatient level care until able to be discharged to [facility] facility Time Spent in Patient Care: less than 15 minutes Coding Level of Care Code Acute Pattern Perforating Machine Operator for angelina Fwd Diagnoses Fracture of femoral neck, right, closed S72.001A Encounter type: initial encounter Closed fracture of right proximal humerus S42.294A Encounter type: initial encounter Fracture morphology: other fracture Fracture alignment: nondisplaced
[2019-12-19] MEDS: HYDROcodone-acetaminophen 5-325 mg Tablet 1 TAB PO ×3 (08:04→21:44)
[2019-12-19] MEDS: iron polysaccharide complex 150 mg Capsule PO ×2 (08:04→17:22)
[2019-12-19] MEDS: metoprolol tartrate 50 mg Tablet PO ×2 (08:40→17:22)
[2019-12-19] MEDS: lisinopril 20 mg Tablet 40 MG PO (08:40)
[2019-12-19] MEDS: gabapentin 300 mg Capsule PO ×3 (08:40→21:44)
[2019-12-19] MEDS: calcium carbonate 500 mg Chew Tablet 1000 MG PO ×2 (08:40→17:22)
[2019-12-19] MEDS: multivitamin therapeutic Tablet 1 TAB PO (08:40)
[2019-12-19] MEDS: sennosides-docusate Tablet 2 TAB PO ×2 (08:41→17:22)
[2019-12-19] MEDS: cholecalciferol (vitamin D3) 1,000 unit Tablet 1000 UNIT PO (08:41)
[2019-12-19] MEDS: amlodipine 10 mg Tablet PO (08:41)
[2019-12-19] MEDS: predniSONE 20 mg Tablet 40 MG PO (08:41)
[2019-12-19] MEDS: mirtazapine 15 mg Tablet PO (08:41)
[2019-12-19] MEDS: dextrose 5%-sod chloride 0.45% 1,000 ML 100 ML IV ×2 (08:44→18:51)
[2019-12-19] MEDS: vancomycin 500 MG in sodium chloride 0.9% (plus) 100 ML 200 MG IV (12:06)
--- NOTE | 2019-12-19 14:26 | PC.RESP ---
Smoking Cessation and Pulmonary Rehab information to pt with a schedule of classes.
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
[2019-12-20] VITALS (13 sets, daily range): BP systolic 110–150; BP diastolic 58–74; PULSE 58–87; RESP 14–21; TEMP 36.6–37.1; O2SAT 93–100
[2019-12-20] MEDS: HYDROcodone-acetaminophen 5-325 mg Tablet 1 TAB PO ×4 (01:49→21:34)
[2019-12-20] MEDS: heparin 5,000 unit/mL INJ 1 mL 5000 UNIT SUBCUT ×3 (02:33→19:02)
[2019-12-20] MEDS: ipratropium-albuterol 3 mL Neb INHALATION ×4 (04:17→21:11)
[2019-12-20] MEDS: dextrose 5%-sod chloride 0.45% 1,000 ML 100 ML IV (05:24)
[2019-12-20 06:00] LABS: Basophils % 0.1 %; Eosinophils % 0.2 %; Hematocrit 31.9 % (37.0-47.0); Hemoglobin 10.1 g/dL (11.5-15.3); Lymphocytes # 1.2 10^3/uL (0.8-4.8); Lymphocytes % 15.1 %; Mean Corpuscular HGB Conc 31.7 g/dL (30.0-36.0); Mean Corpuscular Hemoglobin 28.1 pg (28.0-34.0); Mean Corpuscular Volume 88.9 fL (81-99); Mean Platelet Volume 10.6 fL (7.4-10.4); Monocytes % 12.6 %; Neutrophils # 5.8 10^3/uL (1.8-7.7); Neutrophils % 71.6 %; Nucleated Red Blood Cells % 0 %; Platelet Count 283 10^3/cmm (130-400); Red Blood Count 3.59 10^6/uL (4.1-5.3); Red Cell Distribution Width 14.4 % (12.1-15.1); White Blood Count 8.1 10^3/uL (4.0-10.0)
[2019-12-20 06:20] LABS: Alanine Aminotransferase 12 U/L (0-33); Alkaline Phosphatase 57 IU/L (35-105); Anion Gap 10.3 (5-19); Aspartate Amino Transferase 19 U/L (0-32); Blood Urea Nitrogen 13 mg/dL (8-23); Calcium 8.9 mg/dL (8.5-10.5); Carbon Dioxide 31 mmol/L (22-29); Chloride 96 mmol/L (98-107); Creatinine Clr Calc Pharmacy 37.2706; Globulin 2.6 g/dL (1.3-4.6); Glucose 134 mg/dL (65-115); Osmolality Calculated 274 mOsm/kg (285-295); Potassium 4.3 mmol/L (3.5-5.1); Sodium 133 mmol/L (136-145); Total Bilirubin 0.2 mg/dL (0.15-1.2); Total Protein 5.6 g/dL (6.6-8.7)
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
[2019-12-20] MEDS: lisinopril 20 mg Tablet 40 MG PO (08:19)
[2019-12-20] MEDS: calcium carbonate 500 mg Chew Tablet 1000 MG PO ×2 (08:23→17:50)
[2019-12-20] MEDS: cholecalciferol (vitamin D3) 1,000 unit Tablet 1000 UNIT PO (08:23)
[2019-12-20] MEDS: predniSONE 20 mg Tablet 40 MG PO (08:23)
[2019-12-20] MEDS: amlodipine 10 mg Tablet PO (08:23)
[2019-12-20] MEDS: sennosides-docusate Tablet 2 TAB PO ×2 (08:23→17:51)
[2019-12-20] MEDS: metoprolol tartrate 50 mg Tablet PO ×2 (08:23→17:51)
[2019-12-20] MEDS: multivitamin therapeutic Tablet 1 TAB PO (08:24)
[2019-12-20] MEDS: mupirocin oint 22 gm 1 APPLIC NASAL ×2 (08:24→17:52)
[2019-12-20] MEDS: mirtazapine 15 mg Tablet PO (08:24)
[2019-12-20] MEDS: gabapentin 300 mg Capsule PO ×3 (08:24→21:34)
[2019-12-20] MEDS: iron polysaccharide complex 150 mg Capsule PO ×2 (08:24→17:51)
--- NOTE | 2019-12-20 09:40 | PC.SOCIAL ---
IMM Page 2 of IMM given to patient. Initialed, dated, and timed and placed in chart.
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
--- NOTE | 2019-12-20 22:19 | PC.NURSE ---
When entering the room the pt was standing up, chair alarm alarming, and yelling at the day shift nurse she just wants to get up on her own. This script writer attempted to de-escalate pt and she began to calm down after stating I just want to get up by myself and walk around my room. Explained the importance of being carefully d/t being weak and asking for help when ambulating. Pt agreed and bed alarm was set when she laid down.
--- NOTE | 2019-12-20 22:35 | PC.NURSE ---
Pt agreed to let this play writer lock up here money and cigarettes. $400.00 was counted in front of the pt with Elina Birmingham CNA as witness. The $400.00 randall and cigarettes are locked inside the pyxis. A note was placed on the front of the chart to remind to give items back with d/c.
[2019-12-21] VITALS (13 sets, daily range): BP systolic 120–166; BP diastolic 60–86; PULSE 66–77; RESP 16–18; TEMP 36.3–36.9; O2SAT 92–99
[2019-12-21] MEDS: heparin 5,000 unit/mL INJ 1 mL 5000 UNIT SUBCUT ×3 (02:15→20:20)
[2019-12-21] MEDS: ipratropium-albuterol 3 mL Neb INHALATION ×4 (02:30→21:23)
[2019-12-21] MEDS: mupirocin oint 22 gm 1 APPLIC NASAL (08:24)
[2019-12-21] MEDS: calcium carbonate 500 mg Chew Tablet 1000 MG PO ×2 (08:25→17:22)
[2019-12-21] MEDS: lisinopril 20 mg Tablet 40 MG PO (08:25)
[2019-12-21] MEDS: amlodipine 10 mg Tablet PO (08:26)
[2019-12-21] MEDS: gabapentin 300 mg Capsule PO ×3 (08:26→20:19)
[2019-12-21] MEDS: cholecalciferol (vitamin D3) 1,000 unit Tablet 1000 UNIT PO (08:26)
[2019-12-21] MEDS: iron polysaccharide complex 150 mg Capsule PO ×2 (08:26→17:22)
[2019-12-21] MEDS: multivitamin therapeutic Tablet 1 TAB PO (08:26)
[2019-12-21] MEDS: metoprolol tartrate 50 mg Tablet PO ×2 (08:26→17:22)
[2019-12-21] MEDS: sennosides-docusate Tablet 2 TAB PO ×2 (08:26→17:22)
[2019-12-21] MEDS: mirtazapine 15 mg Tablet PO (08:26)
[2019-12-21] MEDS: predniSONE 20 mg Tablet 40 MG PO (08:27)
--- NOTE | 2019-12-21 09:00 | PM.PN ---
Subjective Subjective: Interval history: 74-year-old white female seen at the bedside on 12/21/2019 at the bedside. I believe the plan is for her to be discharged today to a skilled facility. Patient complaints of right shoulder pain. She seemed somewhat confused today about her fracture and plans for discharge. She offers no complaints of right hip pain states is unable to walk without difficulty. Vitals/I&O/Wt Last Vital Signs Temp 97.9 F 12/22/19 04:00 Pulse 61 12/22/19 04:00 Resp 18 12/22/19 04:00 BP 172/90 12/22/19 04:00 Pulse Ox 99 12/22/19 04:00 12/21/19 12/21/19 12/22/19 14:59 22:59 06:59 Intake Total 580 / 580 420 / 1000 60 / 1060 Output Total 1350 / 1350 Balance -770 / -770 420 / -350 60 / -290 Physical Exam Narrative: EXAM NARRATIVE: to 4-year-old white female in acute distress. Patient seems confused this morning. Otherwise she is cooperative. She is alert does not appear obtunded. Her right shoulder is in a sling. She has some bruising as one would anticipate about the right shoulder. Incision in her right hip for perkiness pinning is healing nicely with no evidence of infection no drainage skin is closed with Dermabond and Steri-Strips. She has no calf tenderness bilaterally Urinary Catheter Management^: Ortega: Cath Placed During This Visit: yes Urinary Catheter Date of Insertion: 12/17/19 Urinary Catheter Time of Insertion: 17:00 Data : 12/22/19 03:00 12/22/19 03:00 Micro: Microbiology 12/18/19 10:00 Urine Culture - Final Urine,Clean Catch A&P Assessment and plan (1) Closed fracture of right proximal humerus: continued conservative treatment of her right comminuted proximal humeral fracture with use of the sling. Limited activity to coming out of the sling for range of motion of her elbow forearm and wrist. Pendulum exercises to be started in 2 weeks after f/u x-rays are obtained in the office no interval displacement of her proximal humeral fracture Status: Acute Qualifiers: Encounter type: initial encounter Fracture morphology: other fracture Fracture alignment: nondisplaced Qualified Code(s): S42.294A - Other nondisplaced fracture of upper end of right humerus, initial encounter for closed fracture (2) Fracture of femoral neck, right, closed: Status post percutaneous pinning right femoral neck fracture. Continue partial weightbearing for 4 weeks following surgery. Patient will require reminders to limit her activity to this extent. Prescription written for pain medication as well as enteric-coated baby aspirin one twice a day to be taken for 15 days for VTE prophylaxis upon discharge. Status: Acute Qualifiers: Encounter type: initial encounter Qualified Code(s): S72.001A - Fracture of unspecified part of neck of right femur, initial encounter for closed fracture Attestations Medical Necessity Statement*: patient be discharged to skilled facility from orthopedic perspective. Follow-up in the office December 29 for follow-up x-rays of both the shoulder and right hip Time Spent in Patient Care: less than 15 minutes Coding Level of Care Code Acute Therapeutic Recreation Specialist for [facility] Diagnoses Closed fracture of right proximal humerus S42.294A Encounter type: initial encounter Fracture morphology: other fracture Fracture alignment: nondisplaced Fracture of femoral neck, right, closed S72.001A Encounter type: initial encounter
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
--- NOTE | 2019-12-21 17:46 | CTR_ITS ---
PROCEDURE INFORMATION: Exam: CT Head Without Contrast Exam date and time: 12/21/2019 5:58 PM Age: 74 years old Clinical indication: Altered mental status/memory loss; Additional info: Increased confusion TECHNIQUE: Imaging protocol: Computed tomography of the head without contrast. Radiation optimization: All CT scans at this facility use at least one of these dose optimization techniques: automated exposure control; mA and/or kV adjustment per patient size (includes targeted exams where dose is matched to clinical indication); or iterative reconstruction. COMPARISON: CT head wo con* [id number] 07/26/2019 12:19 PM RADIATION DOSE METRICS: Total DLP: 705.93 mGy-cm FINDINGS: Brain: Moderate diffuse cortical volume loss. Mild hypodensities in supratentorial periventricular and subcortical white matter. No intracranial hemorrhage. Ventricles: Normal. No ventriculomegaly. Bones/joints: Unremarkable. No acute fracture. Sinuses: Visualized sinuses are unremarkable. No fluid levels. Mastoid air cells: Visualized mastoid air cells are well aerated. Soft tissues: Unremarkable. Vasculature: No hyperdense artery. CT/CT head wo con* [id number] IMPRESSION: 1. No acute intracranial abnormality. 2. Mild chronic microangiopathy. Radiation Dose CTDIVOL = (mGy): DLP = 705.93 (mGy-cm)
--- NOTE | 2019-12-21 17:46 | PC.NURSE ---
patient more confused and has no idea where she is or why she is in the hospital. Dr Leon notified. per Dr Leon, continue to reorientate, order fall precautions, bed alarm and CT of head without Contrast stat. health underwriter put orders in.
[2019-12-21] MEDS: donepezil 5 MG Tablet PO (20:19)
[2019-12-22] VITALS (9 sets, daily range): BP systolic 131–190; BP diastolic 70–91; PULSE 59–78; RESP 16–18; TEMP 36.6–36.9; O2SAT 94–100
[2019-12-22] MEDS: heparin 5,000 unit/mL INJ 1 mL 5000 UNIT SUBCUT (03:13)
[2019-12-22 03:17] LABS: Hematocrit 31.8 % (37.0-47.0); Lymphocytes # 1.2 10^3/uL (0.8-4.8); Lymphocytes % 17.2 %; Mean Corpuscular HGB Conc 31.4 g/dL (30.0-36.0); Mean Corpuscular Hemoglobin 27.7 pg (28.0-34.0); Mean Corpuscular Volume 88.1 fL (81-99); Mean Platelet Volume 10.2 fL (7.4-10.4); Monocytes # 0.9 10^3/uL (0.2-0.9); Monocytes % 12.2 %; Neutrophils % 70.2 %; Nucleated Red Blood Cells % 0 %; Platelet Count 304 10^3/cmm (130-400); Red Blood Count 3.61 10^6/uL (4.1-5.3); Red Cell Distribution Width 14.7 % (12.1-15.1); White Blood Count 7.2 10^3/uL (4.0-10.0)
[2019-12-22] MEDS: ipratropium-albuterol 3 mL Neb INHALATION ×2 (03:23→08:32)
[2019-12-22 03:34] LABS: Alanine Aminotransferase 11 U/L (0-33); Albumin Level 3.2 g/dL (3.5-5.2); Alkaline Phosphatase 58 IU/L (35-105); Anion Gap 11.5 (5-19); Aspartate Amino Transferase 14 U/L (0-32); Blood Urea Nitrogen 18 mg/dL (8-23); Calcium 9.8 mg/dL (8.5-10.5); Carbon Dioxide 33 mmol/L (22-29); Chloride 95 mmol/L (98-107); Globulin 2.6 g/dL (1.3-4.6); Glucose 103 mg/dL (65-115); Osmolality Calculated 277 mOsm/kg (285-295); Potassium 4.5 mmol/L (3.5-5.1); Sodium 135 mmol/L (136-145); Total Bilirubin 0.3 mg/dL (0.15-1.2); Total Protein 5.8 g/dL (6.6-8.7)
[2019-12-22] MEDS: calcium carbonate 500 mg Chew Tablet 1000 MG PO (08:51)
[2019-12-22] MEDS: iron polysaccharide complex 150 mg Capsule PO (08:51)
[2019-12-22] MEDS: sennosides-docusate Tablet 2 TAB PO (08:52)
[2019-12-22] MEDS: cholecalciferol (vitamin D3) 1,000 unit Tablet 1000 UNIT PO (08:52)
[2019-12-22] MEDS: lisinopril 20 mg Tablet 40 MG PO (08:52)
[2019-12-22] MEDS: multivitamin therapeutic Tablet 1 TAB PO (08:53)
[2019-12-22] MEDS: amlodipine 10 mg Tablet PO (08:53)
[2019-12-22] MEDS: metoprolol tartrate 50 mg Tablet PO (08:53)
[2019-12-22] MEDS: predniSONE 20 mg Tablet 40 MG PO (08:53)
[2019-12-22] MEDS: mirtazapine 15 mg Tablet PO (08:53)
[2019-12-22] MEDS: gabapentin 300 mg Capsule PO (08:53)
[2019-12-22] MEDS: mupirocin oint 22 gm 1 APPLIC NASAL (08:54)
--- NOTE | 2019-12-22 09:36 | PC.NURSE ---
patient seems more confused today than yesterday. Dr Leon notified of increased confusion. patient wanting to call her , patient gave phone number to marine underwriter. marine underwriter called number as requested. phone when to answering machine. marine underwriter explained to patient that there was no answer and said he might answer if she called him from her cell phone. patient said He is sitting there and he isn't going to answer if I call either but I will call him.
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
--- NOTE | 2019-12-22 11:37 | PC.NURSE ---
PT IS BEING DISCHARGED TO [facility]. GAVE REPORT TO BETI TAVAREZ LPN, NOTIFIED HER THAT THE PT HAD $400 WHEELER AND CIGARETTES, SHE REQUESTED THAT THEY BE SENT IN THE PTS SNF PACKET THAT GOES WITH THE PT UPON DISCHARGE.
--- NOTE | 2019-12-22 11:54 | DCPLANNER ---
pg 2 of IM updated and reviewed with Pt. She states that she is ready to go to rehab! No questions, copy provided.
--- NOTE | 2019-12-22 12:25 | PC.NURSE ---
Patient taken to [facility] by transport in wheelchair. patient's $400.00 and cigarettes sent to [facility] in facility packet as requested by [facility] staff.
== END 2019-12-22 12:27 | disposition skilled nursing facility (03) | DRG 481 ==
LOC: ER 17:27 → MEDSURG 17:57
PROVIDERS: Emergency Medicine; Orthopaedic Surgery; Admitting Provider Family Medicine; PCP Family Medicine; Visit Provider Student in an Organized Health Care Education/Training Program
PROC: 0QH634Z Insertion of Internal Fixation Device into Right Upper Femur, Percutaneous Approach (ICD-10-PCS; CPT 27236; principal; 2019-12-18 12:25)
DX: S72.011A Unspecified intracapsular fracture of right femur, initial encounter for closed fracture (principal); S42.201A Unspecified fracture of upper end of right humerus, initial encounter for closed fracture; I50.30 Unspecified diastolic (congestive) heart failure; E87.1 Hypo-osmolality and hyponatremia; Y04.2XXA Assault by strike against or bumped into by another person, initial encounter; I11.0 Hypertensive heart disease with heart failure; J44.9 Chronic obstructive pulmonary disease, unspecified; K44.9 Diaphragmatic hernia without obstruction or gangrene; Z85.828 Personal history of other malignant neoplasm of skin; E78.5 Hyperlipidemia, unspecified; F17.210 Nicotine dependence, cigarettes, uncomplicated; Z99.81 Dependence on supplemental oxygen; Z79.51 Long term (current) use of inhaled steroids
CPT/HCPCS: 12345; 36415; 36416; 51702; 70450; 71045; 73030; 73502; 73700; 76000; 80053; 81001; 82962; 83036; 83735; 84100; 84443; 85025; 85610; 86850; 86900; 87086; 93005; 93306; 94640; 94664; 96365; 96372; 97110; 97116; 97162; 97167; 97530; 97535; 99283; C1713; J0330; J1580; J1644; J2001; J2270; J2370; J2405; J2704; J2710; J3010; J3490; J7030; J7050; J7512; J7799

== ENCOUNTER → 2020-01-08 10:12 | Outpatient (BNVA) | payer OTHER, SELFPAY | PROVIDERS: PCP Family Medicine; Visit Provider Orthopaedic Surgery | DX: S72.001A Fracture of unspecified part of neck of right femur, initial encounter for closed fracture (principal); S42.294A Other nondisplaced fracture of upper end of right humerus, initial encounter for closed fracture; S72.001D Fracture of unspecified part of neck of right femur, subsequent encounter for closed fracture with routine healing; S42.294D Other nondisplaced fracture of upper end of right humerus, subsequent encounter for fracture with routine healing; T74.91XD Unspecified adult maltreatment, confirmed, subsequent encounter; X58.XXXA Exposure to other specified factors, initial encounter; X58.XXXD Exposure to other specified factors, subsequent encounter | CPT/HCPCS: 73030; 73502 ==

== ENCOUNTER → 2020-02-24 10:59 | Outpatient (BNVA) | payer MEDICARE, SELFPAY | PROVIDERS: PCP Family Medicine; Visit Provider Orthopaedic Surgery | DX: S72.001A Fracture of unspecified part of neck of right femur, initial encounter for closed fracture (principal); S42.294A Other nondisplaced fracture of upper end of right humerus, initial encounter for closed fracture; X58.XXXA Exposure to other specified factors, initial encounter | CPT/HCPCS: 73030; 73502 ==

== ENCOUNTER 2020-03-02 15:22 | Inpatient (IN) | payer MEDICARE, SELFPAY ==
[2020-03-02] VITALS (8 sets, daily range): BP systolic 132–177; BP diastolic 61–101; PULSE 78–99; RESP 18–28; TEMP 36.8–37.4; O2SAT 96–100; BMI 16.1
--- NOTE | 2020-03-02 15:38 | ED_ITS ---
HPI - Altered Mental Status General: Chief Complaint: Altered Mental Status Stated Complaint: AMS, CONFUSED Time Seen by Provider: 03/02/20 15:25 Source: patient and EMS Mode of arrival: EMS History of Present Illness: HPI narrative: Patient is a 75-year-old female with a history of COPD and chronic respiratory failure on oxygen via nasal cannula at 4 L/min. Earlier today she needed to go to the restroom and was confused and did not know what to do. This frightened her and she called the ambulance to be evaluated. The patient states she is back to her normal self. She had a low-grade temperature at home. She has a mild cough, no urinary symptoms. No chest pain, no difficulty breathing. No abdominal pain, no nausea no vomiting MD complaint: confusion Onset (ago): hour(s) Consistency of symptoms: Waxing and Waning Context: COPD Review of Systems General: Reports: 10 or more systems reviewed and unremarkable except in HPI and below Const: Reports: fever(s); Denies: chills or body aches Eyes: Denies: change in vision or blurry vision ENMT: Denies: throat pain, enlarged tonsils, odynophagia, hoarseness, mouth pain or swelling of lips/tongue Card: Denies: palpitations, irregular heart rhythm, edema or swelling of feet/ankles Resp: Reports: non-productive cough; Denies: dyspnea or productive cough GI: Denies: abdominal pain, nausea or vomiting : Denies: flank pain, difficulty voiding, dysuria, urinary frequency, urinary urgency or urinary hesitancy Musc: Denies: neck pain, back pain or extremity swelling Skin/Breast: Denies: rash, pruritus or erythema Neuro: Reports: confusion; Denies: headache(s), numbness in extremities or weakness in extremities Endo: Denies: polyuria, polydipsia or tired all the time PFS ED PFSH: Medical History (Reviewed 03/02/20 @ 15:40 by Rach Frederick MD, [facility] – [place]) Allergic rhinitis Cerebral aneurysm Closed fracture of right proximal humerus COPD (chronic obstructive pulmonary disease) Fracture of femoral neck, right, closed Hiatal hernia History of fracture of left hip History of squamous cell carcinoma Hyperlipidemia Hypertension Surgical History History of hysterectomy History of repair of hip fracture Family History (Reviewed 03/02/20 @ 15:40 by Rach Frederick MD, [facility] – [place]) Sister Anesthesia complication Mother Cancer Father Embolism Social History (Reviewed 03/02/20 @ 15:40 by Rach Frederick MD, [facility] – [place]) Smoking and tobacco status: current every day smoker Second hand smoke exposure: Yes Alcohol intake: current Alcohol intake frequency: holidays/special occasions only Lives independently: Yes Household members: spouse Marital status: Current occupational status: retired History of recent travel: No Current gender identity: Female Physical Exam Const: COMMON NORMALS: no acute distress, average body habitus, patient oriented x3, no limitations, healthy appearing, alert and well nourished HENMT: COMMON NORMALS: normocephalic, atraumatic and moist oral mucous membranes HEAD & SCALP: normocephalic and atraumatic Eye: COMMON NORMALS: Equal, round and reactive pupils present, EOMs intact bilaterally, conjunctivae normal and no scleral icterus CONJUNCTIVA: Yes conjunctivae normal PUPIL: Yes Equal, round and reactive pupils present Neck/C-Spine: COMMON NORMALS: full ROM, supple, no meningeal signs, no JVD and No carotid bruits Resp: COMMON NORMALS: normal respiratory effort, No retractions, No use of accessory muscles, clear to auscultation bilaterally and percussion normal AUSCULTATION: clear to auscultation bilaterally PERCUSSION: percussion normal Cardio: COMMON NORMALS: no JVD, regular rate, regular rhythm, S1 normal heart sound present, S2 normal heart sound present, No gallops present (Cardio), No clicks present (Cardio), No murmurs present (Cardio), No rub (Cardio) and Peripheral pulses 2+ throughout RATE: regular rate RHYTHM: regular rhythm HEART SOUNDS: S1 normal heart sound present and S2 normal heart sound present PERIPHERAL PULSES: Peripheral pulses 2+ throughout GI: COMMON NORMALS: Normal to inspection, nondistended, normoactive bowel sounds present, Soft to palpation, non-tender, No hepatosplenomegaly present, no masses and no bruits PALPATION: Yes Soft to palpation and Yes No hepatosplenomegaly present : COMMON NORMALS: Yes no CVA tenderness BLADDER/KIDNEY EXAM: Yes no CVA tenderness Back/Pelvis: COMMON NORMALS: no CVA tenderness Extremity: COMMON NORMALS: normal to inspection, full ROM, capillary refill normal, no calf tenderness and no pedal edema Neuro: COMMON NORMALS: patient oriented x3 SENSORIUM/ORIENTATION: Yes alert MENINGEAL SIGNS: Yes no meningeal signs OTHER: She is currently alert and oriented to time, place, person, situation. She was able to tell me her name and date of . She knew where she was, she knows what year it is, she knows with the president is. Skin: COMMON NORMALS: no rashes or lesions noted, no wounds, turgor normal, no jaundice, no petechiae and no mottling GENERAL SKIN EXAM: no rashes or lesions noted and turgor normal Course Reevaluation(s): Reevaluation #1: Discussed her labs and imaging findings with her - she has significant hyponatremia, leucocytosis. Negative head CT and cxr. Will advise admission for hyponatremia. She voiced understanding and all questions answered. Time: 17:40 Consultations: Consultation #1: Discussed with Dr. Sagastume, hospitalist and she kindly accepted the patient to her service Time: 17:52 Vital Signs: Vital signs: Vital Signs Temperature 99.3 F 03/02/20 15:23 Pulse Rate 82 03/02/20 19:43 Respiratory Rate 18 03/02/20 19:43 Blood Pressure 132/61 03/02/20 19:43 Pulse Oximetry 98 03/02/20 19:43 MDM - Altered Mental Status MDM Narrative: Medical decision making narrative: Patient with AMS likely secondary to hyponatremia. No other significant findings on evaluation. She is admitted to the hospital for further evaluation and management. Differential Diagnosis: Differential diagnosis altered mental status: Likely altered mental status, dementia, hypoglycemia and hyponatremia Lab Data: Labs: Lab Results 03/02/20 03/02/20 03/02/20 Range/Units 15:49 15:49 15:49 WBC 14.2 H (4.0-10.0) 10^3/ uL RBC 4.17 (4.1-5.3) 10^6/u L Hgb 11.8 (11.5-15.3) g/dL Hct 35.7 L (37.0-47.0) % MCV 85.6 (81-99) fL MCH 28.3 (28.0-34.0) pg MCHC 33.1 (30.0-36.0) g/dL RDW 12.6 (12.1-15.1) % Plt Count 367 (130-400) 10^3/c mm MPV 9.9 (7.4-10.4) fL Neut % (Auto) 90.4 % Lymph % (Auto) 4.2 % [place] % (Auto) 4.7 % Eos % (Auto) 0.1 % Baso % (Auto) 0.2 % Neut # (Auto) 12.86 H (1.8-7.7) 10^3/u L Lymph # (Auto) 0.6 L (0.8-4.8) 10^3/u L [place] # (Auto) 0.7 (0.2-0.9) 10^3/u L Eos # (Auto) 0.0 (0.0-0.8) 10^3/u L Baso # (Auto) 0.0 (0.0-0.1) 10^3/u L Nucleated RBC % (a uto) 0 % Nucleated RBCs # 0.0 /100WBC Sodium 121 L (136-145) mmol/L Potassium 3.9 (3.5-5.1) mmol/L Chloride 86 L (98-107) mmol/L Carbon Dioxide 25 (22-29) mmol/L Anion Gap 13.9 (5-19) BUN 8 (8-23) mg/dL Creatinine 0.4 L (0.5-0.9) mg/dL GFR Calculation Not Reportable Glucose 119 H (65-115) mg/dL Calculated Osmolal ity 249 L (285-295) mOsm/k g Lactate 0.6 (0.5-2.2) mmol/L Calcium 8.1 L (8.5-10.5) mg/dL Total Bilirubin 0.7 (0.15-1.2) mg/dL AST 17 (0-32) U/L ALT 7 (0-33) U/L Alkaline Phosphata se 83 (35-105) IU/L C-Reactive Protein 84.3 H (0.0-4.9) mg/L Total Protein 6.5 L (6.6-8.7) g/dL Albumin 3.4 L (3.5-5.2) g/dL Globulin 3.1 (1.3-4.6) g/dL Urine Color (Yellow) Urine Appearance (CLEAR) Urine pH (5-7) Ur Specific Gravit y (1.005-1.030) Urine Protein (Negative) Urine Glucose (UA) (Normal) Urine Ketones (Negative) Urine Blood (Negative) Urine Nitrate (Negative) Urine Bilirubin (NEGATIVE) Prot Sulfosalicyli c Acd (Negative) Urine Urobilinogen (Negative) mg/dL Ur Leukocyte Lelo ase (Negative) Urine RBC (0-2) /hpf Urine WBC (0-5) /hpf Ur Squamous Epith Cells (0-5) Amorphous Sediment Urine Bacteria (NONE) 03/02/20 Range/Units 16:26 WBC (4.0-10.0) 10^3/ uL RBC (4.1-5.3) 10^6/u L Hgb (11.5-15.3) g/dL Hct (37.0-47.0) % MCV (81-99) fL MCH (28.0-34.0) pg MCHC (30.0-36.0) g/dL RDW (12.1-15.1) % Plt Count (130-400) 10^3/c mm MPV (7.4-10.4) fL Neut % (Auto) % Lymph % (Auto) % [place] % (Auto) % Eos % (Auto) % Baso % (Auto) % Neut # (Auto) (1.8-7.7) 10^3/u L Lymph # (Auto) (0.8-4.8) 10^3/u L [place] # (Auto) (0.2-0.9) 10^3/u L Eos # (Auto) (0.0-0.8) 10^3/u L Baso # (Auto) (0.0-0.1) 10^3/u L Nucleated RBC % (a uto) % Nucleated RBCs # /100WBC Sodium (136-145) mmol/L Potassium (3.5-5.1) mmol/L Chloride (98-107) mmol/L Carbon Dioxide (22-29) mmol/L Anion Gap (5-19) BUN (8-23) mg/dL Creatinine (0.5-0.9) mg/dL GFR Calculation Glucose (65-115) mg/dL Calculated Osmolal ity (285-295) mOsm/k g Lactate (0.5-2.2) mmol/L Calcium (8.5-10.5) mg/dL Total Bilirubin (0.15-1.2) mg/dL AST (0-32) U/L ALT (0-33) U/L Alkaline Phosphata se (35-105) IU/L C-Reactive Protein (0.0-4.9) mg/L Total Protein (6.6-8.7) g/dL Albumin (3.5-5.2) g/dL Globulin (1.3-4.6) g/dL Urine Color Yellow (Yellow) Urine Appearance Clear (CLEAR) Urine pH 8 H (5-7) Ur Specific Gravit y 1.010 (1.005-1.030) Urine Protein Neg (Negative) Urine Glucose (UA) Norm (Normal) Urine Ketones Negative (Negative) Urine Blood 2+ H (Negative) Urine Nitrate Negative (Negative) Urine Bilirubin Neg (NEGATIVE) Prot Sulfosalicyli c Acd Negative (Negative) Urine Urobilinogen Norm (Negative) mg/dL Ur Leukocyte Lelo ase Negative (Negative) Urine RBC 25-40 H (0-2) /hpf Urine WBC None (0-5) /hpf Ur Squamous Epith Cells 15-25 H (0-5) Amorphous Sediment Not Reportable Urine Bacteria Trace (NONE) Imaging Data^: CXR: Radiologist's impression: [address] [address] XRay Report Signed Patient: Gato Brock #: [id number] : 3Acct#:[id number] Age/Sex: 75 / FADM Date: 03/02/20 Loc: ERRoom/Bed: Attending Dr: Ordering Provider/Ordering MD: Rach Frederick MD, [facility] – [place] Date of Service: 03/02/20 Procedure(s): XR chest 1V portable [id number] Accession Number(s): [id number] Report Number: [id number] PROCEDURE INFORMATION: Exam: XR Chest, 1 View Exam date and time: 03/02/2020 4:04 PM Age: 75 years old Clinical indication: Cough and fever; Smoker's cough; Additional info: Cough, fever, AMS TECHNIQUE: Imaging protocol: XR of the chest Views: 1 view. COMPARISON: CR XR chest 1V portable [id number] 12/17/2019 2:33 PM FINDINGS: Lungs: Calcified granuloma in the left upper lobe. Hyperinflated lungs. Pleural space: Unremarkable. No pleural effusion. No pneumothorax. Heart/Mediastinum: Unremarkable. No cardiomegaly. Vasculature: Atherosclerotic calcification of the aortic arch. Bones/joints: Degenerative changes of the spine. Old fracture deformity of the right humeral head. XR/XR chest 1V portable [id number] IMPRESSION: 1. Hyperinflated lungs. Clinical correlation with chronic obstructive airway disease. 2. No acute abnormality. Dictated By:Ko Ferro MD Signed By:Ko Ferro MDSigned Date/Time:03/02/201626 DD/ 24 CT Head: Radiologist's impression: [place] [address] CT Scan Report Signed Patient: Gato Brock #: [id number] : 3Acct#:[id number] Age/Sex: 75 / FADM Date: 03/02/20 [facility] Attending Dr: Ordering Provider/Ordering MD: Rach Frederick MD, [facility] – [place] Date of Service: 03/02/20 Procedure(s): CT head wo con* [id number] Accession Number(s): [id number] Report Number: [id number] PROCEDURE INFORMATION: Exam: CT Head Without Contrast Exam date and time: 03/02/2020 3:50 PM Age: 75 years old Clinical indication: Altered mental status/memory loss; Additional info: AMS TECHNIQUE: Imaging protocol: Computed tomography of the head without contrast. Radiation optimization: All CT scans at this facility use at least one of these dose optimization techniques: automated exposure control; mA and/or kV adjustment per patient size (includes targeted exams where dose is matched to clinical indication); or iterative reconstruction. COMPARISON: CT head wo con* [id number] 12/21/2019 6:08 PM RADIATION DOSE METRICS: Total DLP (mGy-cm): 708.06 FINDINGS: Brain: There are moderate periventricular and subcortical lucencies consistent with chronic microvascular ischemic changes. The lucas-white differentiation is maintained. No hemorrhage. No edema. Ventricles: Normal. No ventriculomegaly. Bones/joints: Unremarkable. No acute fracture. Sinuses: Visualized sinuses are unremarkable. No fluid levels. Mastoid air cells: Visualized mastoid air cells are well aerated. Soft tissues: Unremarkable. CT/CT head wo con* [id number] IMPRESSION: No acute intracranial abnormality. Chronic microvascular ischemic changes. Radiation Dose CTDIVOL = (mGy): DLP = 708.06 (mGy-cm) Dictated By:Ko Ferro MD Signed By:Ko Ferro MDSigned Date/Time:03/02/201623 DD/ 22 EKG Data^: EKG 1: Attestation: I personally reviewed and interpreted this EKG as follows: EKG interpretation date: 03/02/20 EKG interpretation time: 18:12 Prior EKG tracings: not available for review Interpretation: sinus rhythm with PVC heart rate [address] changes. no stemi Discharge Plan Discharge Patient Disposition: Admitted As Inpatient Admit Provider: Sofya Sagastume Clinical Impression: Altered mental status, Hyponatremia, Leukocytosis (leucocytosis) Condition: Stable Interventions: ED Discharge Assessment Last Done: 03/02/20 19:43 ED Charges Last Done: 03/02/20 19:43 Coding Level of Care Code ED Lockstitch Front Maker for Chg Fwd Exam Comprehensive
[2020-03-02 15:57] LABS: Basophils % 0.2 %; Eosinophils % 0.1 %; Hematocrit 35.7 % (37.0-47.0); Hemoglobin 11.8 g/dL (11.5-15.3); Lymphocytes # 0.6 10^3/uL (0.8-4.8); Lymphocytes % 4.2 %; Mean Corpuscular HGB Conc 33.1 g/dL (30.0-36.0); Mean Corpuscular Hemoglobin 28.3 pg (28.0-34.0); Mean Corpuscular Volume 85.6 fL (81-99); Mean Platelet Volume 9.9 fL (7.4-10.4); Monocytes # 0.7 10^3/uL (0.2-0.9); Monocytes % 4.7 %; Neutrophils # 12.86 10^3/uL (1.8-7.7); Neutrophils % 90.4 %; Nucleated Red Blood Cells % 0 %; Platelet Count 367 10^3/cmm (130-400); Red Blood Count 4.17 10^6/uL (4.1-5.3); Red Cell Distribution Width 12.6 % (12.1-15.1); White Blood Count 14.2 10^3/uL (4.0-10.0)
[2020-03-02 16:07] LABS: Lactate (Lactic Acid level) 0.6 mmol/L (0.5-2.2)
[2020-03-02 16:09] LABS: Alanine Aminotransferase 7 U/L (0-33); Albumin Level 3.4 g/dL (3.5-5.2); Alkaline Phosphatase 83 IU/L (35-105); Anion Gap 13.9 (5-19); Aspartate Amino Transferase 17 U/L (0-32); Blood Urea Nitrogen 8 mg/dL (8-23); C Reactive Protein 84.3 mg/L (0.0-4.9); Calcium 8.1 mg/dL (8.5-10.5); Carbon Dioxide 25 mmol/L (22-29); Chloride 86 mmol/L (98-107); Globulin 3.1 g/dL (1.3-4.6); Glucose 119 mg/dL (65-115); Osmolality Calculated 249 mOsm/kg (285-295); Potassium 3.9 mmol/L (3.5-5.1); Sodium 121 mmol/L (136-145); Total Bilirubin 0.7 mg/dL (0.15-1.2); Total Protein 6.5 g/dL (6.6-8.7)
--- NOTE | 2020-03-02 17:55 | ECG_ITS ---
[facility] Test Date: 2020-03-02 Pat Name: Rosario Brock Department: Room: Gender: Female [employer]or: : 1945 Requested By: Rach Frederick I Order Number: [id number] Joel MD: Flory Díaz M.D. Measurements Intervals Early Rate: 90 P: 72 OR: 152 QRS: -21 QRSD: 88 T: 55 QT: 368 QTc: 452 Interpretive Statements SINUS RHYTHM WITH OCCASIONAL VENTRICULAR PREMATURE COMPLEXES VOLTAGE CRITERIA FOR LVH [MEETS CRITERIA IN ONE OF: R(aVL), S(V1), R(V5), R(V5/V6)+S(V1)] POSSIBLE SEPTAL MYOCARDIAL INFARCTION , OF INDETERMINATE AGE [30 ms Q WAVE IN V1/V2] Compared to ECG 12/17/2019 16:42:24 Left ventricular hypertrophy now present Sinus tachycardia no longer present Indeterminate axis no longer present Myocardial infarct finding still present Electronically Signed On 03-03-2020 0:22:25 CDT by Flory Díaz M.D. [email or web address]
[2020-03-02 18:12] LABS: Add Urine Microscopic? YES; Bilirubin Urine Neg (NEGATIVE); Blood Urine 2+ (Negative); Glucose Urine UA Norm (Normal); Ketones Urine Negative (Negative); Leukocyte Esterase Urine Negative (Negative); Nitrate Urine Negative (Negative); Protein Urine Neg (Negative); Sulfosalicylic Acid Urine Negative (Negative); Urine Appearance Clear (CLEAR); Urine Color Yellow (Yellow); Urobilinogen Urine Norm (Negative); pH Urine 8 (5-7)
[2020-03-02 18:26] LABS: RBC Urine 25-40 /hpf (0-2)
[2020-03-02 18:27] LABS: Add Urine Culture? No; Bacteria Urine TRACE; Squamous Epithelial Cell Urine 15-25 (0-5)
[2020-03-02] MEDS: morphine 4 mg/mL SDV 1 mL 2 MG IVP (18:32)
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
[2020-03-02] MEDS: albuterol 8 gm MDI 2 PUFF INHALATION (22:21)
[2020-03-02] MEDS: sodium chloride 0.9% 1,000 ML 30 ML IV (22:42)
[2020-03-02] MEDS: enoxaparin 40 mg/0.4 mL Syringe SUBCUT (22:43)
[2020-03-02] MEDS: gabapentin 300 mg Capsule PO (22:45)
[2020-03-02] MEDS: donepezil 5 MG Tablet PO (22:46)
[2020-03-02 23:57] LABS: Thyroid Stimulating Hormone 1.25 uIU/mL (0.27-4.20); Uric Acid 2.7 mg/dL (2.4-5.7)
[2020-03-03] VITALS (16 sets, daily range): BP systolic 113–159; BP diastolic 62–75; PULSE 62–88; RESP 16–18; TEMP 36.4–37.2; O2SAT 94–100
[2020-03-03] MEDS: albuterol 8 gm MDI 2 PUFF INHALATION ×6 (00:15→20:29)
[2020-03-03 00:24] LABS: Urine Creatinine 18 mg/dL (28-217); Urine Random Sodium 50 mmol/L
[2020-03-03] MEDS: HYDROcodone-acetaminophen 5-325 mg Tablet 1 TAB PO (00:27)
[2020-03-03 01:23] LABS: Sodium 125 mmol/L (136-145)
[2020-03-03 03:20] LABS: Basophils # 0.1 10^3/uL (0.0-0.1); Basophils % 0.4 %; Eosinophils % 0.3 %; Hematocrit 36.9 % (37.0-47.0); Lymphocytes # 0.8 10^3/uL (0.8-4.8); Mean Corpuscular HGB Conc 32.5 g/dL (30.0-36.0); Mean Corpuscular Hemoglobin 27.5 pg (28.0-34.0); Mean Corpuscular Volume 84.6 fL (81-99); Mean Platelet Volume 10.1 fL (7.4-10.4); Monocytes # 0.6 10^3/uL (0.2-0.9); Monocytes % 5.6 %; Neutrophils # 9.94 10^3/uL (1.8-7.7); Neutrophils % 86.5 %; Nucleated Red Blood Cells % 0 %; Platelet Count 372 10^3/cmm (130-400); Red Blood Count 4.36 10^6/uL (4.1-5.3); Red Cell Distribution Width 12.6 % (12.1-15.1); White Blood Count 11.5 10^3/uL (4.0-10.0)
[2020-03-03 03:37] LABS: Anion Gap 11.9 (5-19); Blood Urea Nitrogen 9 mg/dL (8-23); Calcium 8.5 mg/dL (8.5-10.5); Carbon Dioxide 27 mmol/L (22-29); Chloride 89 mmol/L (98-107); Glucose 143 mg/dL (65-115); Osmolality Calculated 256 mOsm/kg (285-295); Potassium 3.9 mmol/L (3.5-5.1); Sodium 124 mmol/L (136-145)
[2020-03-03] MEDS: mirtazapine 15 mg Tablet PO (08:55)
[2020-03-03] MEDS: lisinopril 20 mg Tablet 40 MG PO (08:55)
[2020-03-03] MEDS: metoprolol tartrate 50 mg Tablet PO ×2 (08:55→18:04)
--- NOTE | 2020-03-03 18:52 | PM.PN ---
Subjective Subjective: Interval history: overnight labs, H&p reviewed, no new events, Na at 124 Medications: Reviewed: Yes Vitals/I&O/Wt Last Vital Signs Temp 97.8 F 03/03/20 16:00 Pulse 70 03/03/20 16:00 Resp 16 03/03/20 16:00 BP 149/75 03/03/20 16:00 Pulse Ox 98 03/03/20 16:00 03/03/20 03/03/20 03/03/20 06:59 14:59 22:59 Intake Total 340 / 340 240 / 580 Output Total 1100 / 1100 800 / 800 Balance -1100 / -1100 340 / 340 -560 / -220 Weight last 48 hrs Weight 41.277 kg Physical Exam Narrative: EXAM NARRATIVE: GEN: Awake, alert and oriented, no acute distress CVS: S1S2 N RS: CTA B/L Abd: Soft, nt/nd , bs+ Data : 03/03/20 03:05 03/03/20 03:05 Micro: Microbiology 03/02/20 15:49 Blood Culture - Preliminary Blood NEGATIVE TO DATE 03/02/20 15:43 Blood Culture - Preliminary Blood NEGATIVE TO DATE A&P Assessment and plan (1) Lymphocytopenia: Status: Acute (2) Hyponatremia: Status: Acute (3) Hypertension: Status: Acute (4) COPD (chronic obstructive pulmonary disease): Status: Acute (5) Malnourished: Status: Acute (6) Hypocalcemia: Status: Acute Additional A&P Information Severe hyponatremia Hypovolemic hyponatremia She has had recurrent episode of hyponatremia in the past secondary to poor p.o. intake Patient is endorsing developing aversion to her frozen food and avoiding eating because of change in her taste No recent use of Lasix, diarrhea, vomiting No loss of consciousness, seizure Mild confusion spells at home however none noted in the hospital Slow replenishment of sodium 6 mEq per 24-hour I would use normal saline at 30 cc/h as she looks clinically dry Check TSH, uric acid, urine sodium and osmolarity, I would hold gabapentin for now along Lasix Head CT shows chronic microvascular change, EKG shows multiple PVCs Lymphopenia COVID test has been ordered however she is low risk, she is afebrile, high CRP noted, chest x-ray normal, pending at this time Malnourished secondary to poor p.o. intake Counseled on adequate p.o. intake and supplemental diet Hypocalcemia: Calcium repleted Albumin normal, she is not alkalotic, COPD without acute exacerbation Full code DVT prophylaxis Lovenox Regular diet Attestations Medical Necessity Statement*: Monitoring sodium levels, mental status Coding Level of Care Code Acute Petroleum Geology Faculty Member for Chg Fwd Diagnoses Lymphocytopenia D72.810 Hyponatremia E87.1 Hypertension I10 COPD (chronic obstructive pulmonary disease) J44.9 Malnourished E46 Hypocalcemia E83.51
[2020-03-03] MEDS: enoxaparin 40 mg/0.4 mL Syringe SUBCUT (21:02)
[2020-03-03] MEDS: donepezil 5 MG Tablet PO (21:02)
[2020-03-04] VITALS (13 sets, daily range): BP systolic 118–161; BP diastolic 70–87; PULSE 61–84; RESP 16–20; TEMP 36.6–36.9; O2SAT 92–100
[2020-03-04] MEDS: sodium chloride 0.9% 1,000 ML 30 ML IV (00:14)
[2020-03-04] MEDS: albuterol 8 gm MDI 2 PUFF INHALATION ×4 (00:30→20:02)
[2020-03-04 05:17] LABS: Basophils # 0.1 10^3/uL (0.0-0.1); Basophils % 0.5 %; Eosinophils # 0.1 10^3/uL (0.0-0.8); Eosinophils % 0.8 %; Hematocrit 35.3 % (37.0-47.0); Hemoglobin 11.3 g/dL (11.5-15.3); Lymphocytes # 1.3 10^3/uL (0.8-4.8); Lymphocytes % 11.7 %; Mean Corpuscular Hemoglobin 28.3 pg (28.0-34.0); Mean Corpuscular Volume 88.3 fL (81-99); Mean Platelet Volume 10.8 fL (7.4-10.4); Monocytes # 1.2 10^3/uL (0.2-0.9); Monocytes % 11.1 %; Neutrophils # 8.02 10^3/uL (1.8-7.7); Neutrophils % 75.4 %; Nucleated Red Blood Cells % 0 %; Platelet Count 369 10^3/cmm (130-400); Red Cell Distribution Width 13.1 % (12.1-15.1); White Blood Count 10.6 10^3/uL (4.0-10.0)
[2020-03-04 05:34] LABS: Alanine Aminotransferase < 5 U/L (0-33); Albumin Level 2.8 g/dL (3.5-5.2); Alkaline Phosphatase 74 IU/L (35-105); Anion Gap 10.9 (5-19); Aspartate Amino Transferase 10 U/L (0-32); Blood Urea Nitrogen 9 mg/dL (8-23); Calcium 8.1 mg/dL (8.5-10.5); Carbon Dioxide 29 mmol/L (22-29); Chloride 97 mmol/L (98-107); Globulin 3.1 g/dL (1.3-4.6); Glucose 103 mg/dL (65-115); Osmolality Calculated 272 mOsm/kg (285-295); Potassium 3.9 mmol/L (3.5-5.1); Sodium 133 mmol/L (136-145); Total Bilirubin 0.2 mg/dL (0.15-1.2); Total Protein 5.9 g/dL (6.6-8.7)
[2020-03-04] MEDS: lisinopril 20 mg Tablet 40 MG PO (07:27)
[2020-03-04] MEDS: mirtazapine 15 mg Tablet PO (07:28)
[2020-03-04] MEDS: metoprolol tartrate 50 mg Tablet PO ×2 (07:28→17:28)
--- NOTE | 2020-03-04 13:28 | PC.RESP ---
Smoking Cessation and Pulmonary Rehab information sent to patient.
[2020-03-04 15:34] LABS: Osmolality Urine 185 mOsm/kg (50-1200)
--- NOTE | 2020-03-04 16:15 | PC.NURSE ---
Patient is c/o of abd pain and states she is constipated and is requesting something to help her have a bowel movement. I offered Prune Juice and Applesauce and encourage patient to drink water. She has drank 2 prune juices and has a cup of fresh fruit at bedside. I assisted patient up to chair and encouraged deep breathing, coughing and use of IS. Ambulated with Patient in [place] with mask and Oxygen. WIll continue to monitor. RAJENDRA, ERICKA
--- NOTE | 2020-03-04 16:30 | PM.PN ---
Subjective Subjective: Interval history: sodium improving, leukocytosis trending down, states feeling weak and had dizziness when attempting to get out of bed to chair. Medications: Reviewed: Yes Vitals/I&O/Wt Last Vital Signs Temp 98.4 F 03/04/20 15:43 Pulse 67 03/04/20 15:43 Resp 16 03/04/20 15:43 BP 146/78 03/04/20 15:43 Pulse Ox 92 03/04/20 15:43 03/04/20 03/04/20 03/04/20 06:59 14:59 22:59 Intake Total 766 / 1466 960 / 960 Output Total 750 / 1550 Balance 16 / -84 960 / 960 Physical Exam Narrative: EXAM NARRATIVE: GEN: Awake, alert and oriented, no acute distress CVS: S1S2 N RS: CTA B/L Abd: Soft, nt/nd , bs+ RECORDING STUDIO SET UP WORKER: no focal neuro deficits Data : 03/04/20 04:36 03/04/20 04:36 Micro: Microbiology 03/02/20 15:49 Blood Culture - Preliminary Blood NEGATIVE TO DATE 03/02/20 15:43 Blood Culture - Preliminary Blood NEGATIVE TO DATE A&P Assessment and plan (1) Lymphocytopenia: Status: Acute (2) Hyponatremia: Status: Acute (3) Hypertension: Status: Acute (4) COPD (chronic obstructive pulmonary disease): Status: Acute (5) Malnourished: Status: Acute (6) Hypocalcemia: Status: Acute Additional A&P Information Severe hyponatremia Hypovolemic hyponatremia, now improving She has had recurrent episode of hyponatremia in the past secondary to poor p.o. intake Patient is endorsing developing aversion to her frozen food and avoiding eating because of change in her last Mild confusion spells at home however none noted in the hospital Overall sodium improved now to 133, patient clincially improving, however some dizziness when getting out of bed. check orthostatics. TSH WNL Head CT shows chronic microvascular change, EKG shows multiple PVCs Lymphopenia : COVID negative Malnourished secondary to poor p.o. intake Counseled on adequate p.o. intake and supplemental diet Hypocalcemia: Calcium repleted Albumin normal, she is not alkalotic, COPD without acute exacerbation Full code DVT prophylaxis Lovenox Regular diet Attestations Medical Necessity Statement*: improved, but still with some dizziness on getting out of bed, anticipate discharge in the next 24-48 hrs Coding Level of Care Code Acute Veneer Jointer Returner for Chg Fwd Diagnoses Lymphocytopenia D72.810 Hyponatremia E87.1 Hypertension I10 COPD (chronic obstructive pulmonary disease) J44.9 Malnourished E46 Hypocalcemia E83.51
--- NOTE | 2020-03-04 18:23 | PC.NURSE ---
Patient ambulated 2 laps around entire unit. Patient then assisted to restroom where she had a large BM. Patients dhaliwal catheter removed via order from Dr. Sagastume and IVF have been D/c'd. ERICKA DREW
[2020-03-04] MEDS: donepezil 5 MG Tablet PO (20:44)
--- NOTE | 2020-03-04 20:49 | PC.NURSE ---
LOVENOX Pt refused pm dose of Lovenox. Says she hates to take it and thinks she is going home tomorrow I took it last night but I done't like it Discussed reasons for taking med and voices understanding
[2020-03-05] VITALS (7 sets, daily range): BP systolic 121–170; BP diastolic 78–81; PULSE 63–74; RESP 16–20; TEMP 36.6–37; O2SAT 95–100
[2020-03-05 04:33] LABS: Basophils # 0.1 10^3/uL (0.0-0.1); Basophils % 0.7 %; Eosinophils # 0.2 10^3/uL (0.0-0.8); Hematocrit 33.4 % (37.0-47.0); Hemoglobin 10.6 g/dL (11.5-15.3); Lymphocytes # 1.5 10^3/uL (0.8-4.8); Lymphocytes % 15.6 %; Mean Corpuscular HGB Conc 31.7 g/dL (30.0-36.0); Mean Corpuscular Volume 88.1 fL (81-99); Mean Platelet Volume 10.4 fL (7.4-10.4); Monocytes # 1.1 10^3/uL (0.2-0.9); Monocytes % 11.4 %; Neutrophils # 6.71 10^3/uL (1.8-7.7); Neutrophils % 70.2 %; Nucleated Red Blood Cells % 0 %; Platelet Count 365 10^3/cmm (130-400); Red Blood Count 3.79 10^6/uL (4.1-5.3); Red Cell Distribution Width 12.9 % (12.1-15.1); White Blood Count 9.6 10^3/uL (4.0-10.0)
[2020-03-05 04:58] LABS: Alanine Aminotransferase 8 U/L (0-33); Albumin Level 2.9 g/dL (3.5-5.2); Alkaline Phosphatase 85 IU/L (35-105); Anion Gap 11.1 (5-19); Aspartate Amino Transferase 11 U/L (0-32); Blood Urea Nitrogen 6 mg/dL (8-23); Calcium 8.8 mg/dL (8.5-10.5); Carbon Dioxide 29 mmol/L (22-29); Chloride 96 mmol/L (98-107); Globulin 2.8 g/dL (1.3-4.6); Glucose 104 mg/dL (65-115); Osmolality Calculated 270 mOsm/kg (285-295); Potassium 4.1 mmol/L (3.5-5.1); Sodium 132 mmol/L (136-145); Total Bilirubin 0.3 mg/dL (0.15-1.2); Total Protein 5.7 g/dL (6.6-8.7)
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
[2020-03-05] MEDS: albuterol 8 gm MDI 2 PUFF INHALATION (07:49)
[2020-03-05] MEDS: mirtazapine 15 mg Tablet PO (07:54)
[2020-03-05] MEDS: metoprolol tartrate 50 mg Tablet PO (07:54)
[2020-03-05] MEDS: lisinopril 20 mg Tablet 40 MG PO (07:55)
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
--- NOTE | 2020-03-05 10:40 | DCPLANNER ---
Pg 2 of IM updated and reviewed with pt. No questions, copy provided.
--- NOTE | 2020-03-05 11:22 | PC.NURSE ---
DISCHARGE INSTRUCTIONS DISCHARGE INSTRUCTIONS GIVEN PER THIS NURSE - PT VERBALIZES UNDERSTANDING
--- NOTE | 2020-03-05 11:31 | PC.CHAP ---
Pastoral Care Encounter/Spiritual Assessment Type of Contact [] Declined molded grid and parts inspector visit [] Patient/Family/Request visit [] Outpatient visit [] Follow-up visit [] Physician referral [] Code/Alert [X] Routine visit [] Staff referral [] Actively dying [] Patient sleeping [] Family support [] [] Out of room [] Palliative care [] [X] Receiving care in room [] Pre-surgical visit [] Trauma [] Long length of stay [] ICU visit [] Other: Relational/Emotional Strength [] Patient feels connected with others/family/visitors/staff [] Distress [] Loneliness/isolation [] Abandonment Spirituality of Patient [] Person of Tresa [] Attends Pentecostalism of their Tresa [] Believes in Prayer [] Reads Bible or Oriental Orthodox materials [] There are Spiritual issues to be addressed Junior Data Analyst Interventions [] Prayer [] Active listening [] Non-anxious presence [] Spiritual/emotional support [] Crisis/trauma care [] Spiritual counseling [] Bereavement support [] Provided bereavement packet [] Provided Bible/devotional materials [] Provided toy/stuffed animal, coloring book to patient or family member [] Provided Communion [] Anointing/[place] [] Salvation [] Completed spiritual assessment [] Other: Impact on Illness or Injury [] Angry [] Fearful [] Anxious [] Often cries [] Exhaustion [] Unable to work [] Unable to attend samaritan [] Unable to walk/stand [] Unable to read [] Unable to drive [] Unable to eat/drink [] Unable to sleep [] Unable to be with family [] Patient intubated [] Other: Summary Time spent with patient
--- NOTE | 2020-03-05 12:26 | PC.NURSE ---
DISCHARGED DISCHARGED TO PRIVATE VEHICLE VIA W/C WITH STAFF AT SIDE -
== END 2020-03-05 12:30 | disposition home or self-care (01) | DRG 641 ==
LOC: ER 18:47 → MEDSURG 18:54
PROVIDERS: Internal Medicine; Admitting Provider Student in an Organized Health Care Education/Training Program; Emergency Provider Family Medicine; PCP Family Medicine; Visit Provider Student in an Organized Health Care Education/Training Program
DX: E87.1 Hypo-osmolality and hyponatremia (principal); E46 Unspecified protein-calorie malnutrition; Z68.1 Body mass index [BMI] 19.9 or less, adult; I50.30 Unspecified diastolic (congestive) heart failure; D72.810 Lymphocytopenia; J44.9 Chronic obstructive pulmonary disease, unspecified; E83.51 Hypocalcemia; Z99.81 Dependence on supplemental oxygen; E78.5 Hyperlipidemia, unspecified; E86.0 Dehydration; Z11.59 Encounter for screening for other viral diseases; I11.0 Hypertensive heart disease with heart failure; J30.9 Allergic rhinitis, unspecified; F17.210 Nicotine dependence, cigarettes, uncomplicated
CPT/HCPCS: 12345; 36415; 70450; 71045; 80048; 80053; 81001; 81003; 82570; 83605; 83935; 84295; 84300; 84443; 84550; 85025; 86140; 87040; 87635; 93005; 94640; 96372; 96375; 99281; J0610; J1650; J2270; J3535; J7030

== ENCOUNTER 2020-03-10 12:57 | Inpatient (IN) | payer MEDICARE, SELFPAY ==
[2020-03-10] VITALS (7 sets, daily range): BP systolic 111–152; BP diastolic 63–81; PULSE 75–87; RESP 14–20; TEMP 36.8–37.1; O2SAT 96–100; BMI 15.6
--- NOTE | 2020-03-10 13:22 | XR_ITS ---
WS: [id number] PORTABLE CHEST HISTORY: sob COMPARISON: 03/02/2020 Moderate hyperinflation with emphysema. No pneumonia. Normal vasculature. No pleural effusion or pneu mothorax. Cardiac size: Normal. Mediastinum/Aorta: Mild atherosclerosis aorta. No osseous abnormality seen. XR/XR chest 1V portable [id number] IMPRESSION: Chronic emphysema and calcified thoracic aorta. No pneumonia.
--- NOTE | 2020-03-10 13:22 | CT_ITS ---
WS: [id number] CT HEAD NONCONTRAST HISTORY: confusion TECHNIQUE: Contiguous axial imaging performed through the brain in 2.5 mm imaging. Bone and soft tiss ue windows. Sagittal and coronal reformats reviewed. All CT scans at [facility] use at ast one of these dose optimization techniques: automated exposure control; mA and/or kV adjustment pe r patient size (includes targeted exams where dose is matched to clinical indication); or iterative r econstruction. DLP: 1316.9 mGy.cm COMPARISON: 03/02/2020 No acute intracranial hemorrhage, midline shift or mass effect. Mild atrophy and chronic ischemic disease. No interval change since the prior examination. Ventricles: Normal size with no hydrocephalus. Moderate intracranial atherosclerosis of the carotid arteries. Paranasal sinuses: As visualized are clear. Mastoid air cells: Well pneumatized. Calvarium and scalp: Skull is intact with no soft tissue edema or swelling. CT/CT head wo con* [id number] IMPRESSION: Stable noncontrast head CT. No acute intracranial hemorrhage or edema.
--- NOTE | 2020-03-10 13:23 | ECG_ITS ---
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 Measurements Intervals [place] Rate: 91 P: 88 ID: [id number] QRS: -41 QRSD: 82 T: 60 QT: 324 QTc: 400 Interpretive Statements SINUS RHYTHM WITH SINUS ARRHYTHMIA LEFT AXIS DEVIATION [QRS AXIS < -30] Compared to ECG 03/02/2020 18:12:45 Left-axis deviation now present Ventricular premature complex(es) no longer present Left ventricular hypertrophy no longer present Myocardial infarct finding no longer present Electronically Signed On 03-10-2020 21:07:34 CDT by Flory Díaz M.D. [id number]
--- NOTE | 2020-03-10 13:28 | ED_ITS ---
HPI - General Adult General: Chief complaint: General Medical Stated complaint: sob Time Seen by Provider: 03/10/20 13:17 Source: patient Mode of arrival: ambulatory Limitations: no limitations History of Present Illness: HPI narrative: 75-year-old female who was recently admitted last week for a couple days for hyponatremia. Patient that time is been having some confusion and weakness. Patient states she still does not feel well and just feels generally weak and feels confused. Her mentation here is normal she remembers all of her admission and the date and her name. She has had no confusion when talked her. She denies any fever. She denies any vomiting or diarrhea. Denies any cough. Patient is a chronic COPD on 4 L of oxygen at home. Associated symptoms: Reports confusion; Deny chest pain, dyspnea, nausea, rash or vomiting Review of Systems Const: Denies: fever(s), chills, body aches or change in appetite Eyes: Denies: blurry vision or eye discomfort ENMT: Denies: throat pain or dental pain Card: Denies: chest pain Resp: Denies: dyspnea GI: Denies: abdominal pain, nausea, vomiting or diarrhea : Denies: dysuria Musc: Denies: neck pain or back pain Skin/Breast: Denies: rash Neuro: Reports: confusion Psych: Denies: depression Edouard/Lymph: Denies: easy bruising All/Imm: Denies: urticaria PFSH ED PFSH: Medical History Allergic rhinitis Cerebral aneurysm Closed fracture of right proximal humerus COPD (chronic obstructive pulmonary disease) Fracture of femoral neck, right, closed Hiatal hernia History of fracture of left hip History of squamous cell carcinoma Hyperlipidemia Hypertension Surgical History History of hysterectomy History of repair of hip fracture Family History Sister Anesthesia complication Mother Cancer Father Embolism Social History Smoking and tobacco status: current every day smoker Second hand smoke exposure: Yes Alcohol intake: current Alcohol intake frequency: holidays/special occasions only Lives independently: Yes Household members: spouse Marital status: Current occupational status: retired History of recent travel: No Current gender identity: Female Physical Exam Const: COMMON NORMALS: no acute distress, patient oriented x3 and healthy appearing HENMT: COMMON NORMALS: normocephalic and atraumatic HEAD & SCALP: normocephalic and atraumatic Eye: COMMON NORMALS: Equal, round and reactive pupils present and EOMs intact bilaterally PUPIL: Yes Equal, round and reactive pupils present Neck/C-Spine: COMMON NORMALS: full ROM and supple Chest: COMMONS NORMALS: normal inspection of the chest and normal palpation of entire chest wall Resp: COMMON NORMALS: normal respiratory effort, No retractions, No use of accessory muscles and clear to auscultation bilaterally AUSCULTATION: clear to auscultation bilaterally Cardio: COMMON NORMALS: regular rate, regular rhythm and No murmurs present (Cardio) RATE: regular rate RHYTHM: regular rhythm GI: COMMON NORMALS: Normal to inspection, nondistended, normoactive bowel sounds present, Soft to palpation, non-tender and no masses PALPATION: Yes Soft to palpation Extremity: COMMON NORMALS: normal to inspection and full ROM Neuro: COMMON NORMALS: patient oriented x3, moves all extremities and no focal motor deficits Psych: COMMON NORMALS: mental status grossly normal, Normal thought process present and cooperative THOUGHT PROCESS: Normal thought process present Skin: COMMON NORMALS: no rashes or lesions noted and no wounds GENERAL SKIN EXAM: no rashes or lesions noted Course Vital Signs: Vital signs: Vital Signs Temperature 98.3 F 03/10/20 13:10 Pulse Rate 87 03/10/20 13:10 Respiratory Rate 14 03/10/20 13:10 Blood Pressure 111/63 03/10/20 13:10 Pulse Oximetry 96 03/10/20 13:10 MDM - General Adult MDM Narrative: Medical decision making narrative: Joey presents here with generalized weakness and was found to be hyponatremic again. Patient CT chest is negative. She has no signs of infection. I spoke to the hospitalist and will admit for observation for her hyponatremia. Lab Data: Labs: Lab Results 03/10/20 03/10/20 03/10/20 Range/Units 13:37 13:37 14:00 WBC 16.8 H (4.0-10.0) 10^3/ uL RBC 3.86 L (4.1-5.3) 10^6/u L Hgb 10.6 L (11.5-15.3) g/dL Hct 32.8 L (37.0-47.0) % MCV 85.0 (81-99) fL MCH 27.5 L (28.0-34.0) pg MCHC 32.3 (30.0-36.0) g/dL RDW 12.9 (12.1-15.1) % Plt Count 530 H (130-400) 10^3/c mm MPV 9.7 (7.4-10.4) fL Neut % (Auto) 85.1 % Lymph % (Auto) 5.6 % [place]lette % (Auto) 8.6 % Eos % (Auto) 0.1 % Baso % (Auto) 0.2 % Neut # (Auto) 14.33 H (1.8-7.7) 10^3/u L Lymph # (Auto) 1.0 (0.8-4.8) 10^3/u L Sublette # (Auto) 1.4 H (0.2-0.9) 10^3/u L Eos # (Auto) 0.0 (0.0-0.8) 10^3/u L Baso # (Auto) 0.0 (0.0-0.1) 10^3/u L Nucleated RBC % (a uto) 0 % Nucleated RBCs # 0.0 /100WBC Specimen Type Arterial Sample Site Brachial, left ABG pH 7.47 H (7.35-7.45) ABG pCO2 40.0 (35-45) mmHg ABG pO2 62.7 L (80.0-100.0) mmH g ABG HCO3 29.3 H (22-26) mmol/L ABG Base Excess 5.3 H (-2.0-2.0) mmol/ L Ha Test N/a Hematocrit 36.0 L (37-47) % O2 Delivery Device Nc O2 Liters/Min 1.0 % FiO2 24.0 % [employer] Driver ID glc Blood Gas Notified Time 1410 Sodium 125 L (136-145) mmol/L Potassium 4.2 (3.5-5.1) mmol/L Chloride 88 L (98-107) mmol/L Carbon Dioxide 28 (22-29) mmol/L Anion Gap 13.2 (5-19) BUN 15 (8-23) mg/dL Creatinine 0.5 (0.5-0.9) mg/dL GFR Calculation Not Reportable Glucose 113 (65-115) mg/dL Calculated Osmolal ity 257 L (285-295) mOsm/k g Calcium 8.7 (8.5-10.5) mg/dL Total Bilirubin 0.3 (0.15-1.2) mg/dL AST 9 (0-32) U/L ALT 6 (0-33) U/L Alkaline Phosphata se 94 (35-105) IU/L Total Protein 6.7 (6.6-8.7) g/dL Albumin 3.2 L (3.5-5.2) g/dL Globulin 3.5 (1.3-4.6) g/dL Imaging Data^: CXR: Radiologist's impression: [place] [address] XRay Report Signed Patient: Rosario Brock Unit #: [id number] : 1945 Age/Sex: 75 / F ADM Date: 03/10/20 Loc: ER Room/Bed: Attending Dr: Ordering Provider/Ordering MD: Lloyd Clemente MD Date of Service: 03/10/20 Procedure(s): XR chest 1V portable [id number] Accession Number(s): [id number] Report Number: [id number] WS: [id number] PORTABLE CHEST HISTORY: sob COMPARISON: 03/02/2020 Moderate hyperinflation with emphysema. No pneumonia. Normal vasculature. No pleural effusion or pneumothorax. Cardiac size: Normal. Mediastinum/Aorta: Mild atherosclerosis aorta. No osseous abnormality seen. XR/XR chest 1V portable [id number] IMPRESSION: Chronic emphysema and calcified thoracic aorta. No pneumonia. CT Chest: Radiologist's impression: [place] [address] CT Scan Report Signed Patient: Rosario Brock Unit #: [id number] : 1945 Age/Sex: 75 / F ADM Date: 03/10/20 Loc: ER Room/Bed: Attending Dr: Ordering Provider/Ordering MD: Lloyd Clemente MD Date of Service: 03/10/20 Procedure(s): CT chest w con* [id number] Accession Number(s): [id number] Report Number: [id number] WS: [id number] CT CHEST WITH INTRAVENOUS CONTRAST HISTORY: sob TECHNIQUE: Contiguous 5 mm axial imaging performed on the thorax. Coronal and sagittal reformats are submitted. All CT scans at [facility] use at least one of these dose optimization techniques: automated exposure control; mA and/or kV adjustment per patient size (includes targeted exams where dose is matched to clinical indication); or iterative reconstruction. CONTRAST: Omnipaque 300; 95 mL IV. DLP: 399.97 mGy.cm COMPARISON: 07/18/2019 Lungs and central airway: Marked pulmonary hyperexpansion. No pneumonia. No pulmonary edema, pneumothorax or opacifications. Pleura: Normal. No pleural effusion. Heart and pericardium: Normal size heart. No pericardial effusion. Mediastinum and mariana: No mediastinum or hilar adenopathy. Vessels: Atherosclerosis aorta with ectasia. No aneurysm. Pulmonary artery size is equal to the aorta. Chest wall and lower neck: No soft tissue masses. Upper abdomen: Lobulated hepatic cyst measures 1.5 cm in the LEFT lobe. No bile duct dilatation. Atherosclerosis continues into the upper abdominal aorta. Cyst upper pole LEFT kidney measures 3.9 cm and is stable. Osseous structures: Mild anterior wedging of T11 and T12 no osteoblastic or osteolytic disease. CT/CT chest w con* [id number] IMPRESSION: 1. Severe chronic emphysema with no pneumonia. 2. Continued atherosclerosis aorta with ectasia. 3. Stable mild anterior wedging T11 and T12. CT Head: Radiologist's impression: [address] [place] [address] CT Scan Report Signed Patient: Rosario Brock Unit #: [id number] : 1945 Age/Sex: 75 / F ADM Date: 03/10/20 Loc: ER Room/Bed: Attending Dr: Ordering Provider/Ordering MD: Lloyd Clemente MD Date of Service: 03/10/20 Procedure(s): CT head wo con* [id number] Accession Number(s): [id number] Report Number: [id number] WS: [id number] CT HEAD NONCONTRAST HISTORY: confusion TECHNIQUE: Contiguous axial imaging performed through the brain in 2.5 mm imaging. Bone and soft tissue windows. Sagittal and coronal reformats reviewed. All CT scans at [facility] use at least one of these dose optimization techniques: automated exposure control; mA and/or kV adjustment per patient size (includes targeted exams where dose is matched to clinical indication); or iterative reconstruction. DLP: 1316.9 mGy.cm COMPARISON: 03/02/2020 No acute intracranial hemorrhage, midline shift or mass effect. Mild atrophy and chronic ischemic disease. No interval change since the prior examination. Ventricles: Normal size with no hydrocephalus. Moderate intracranial atherosclerosis of the carotid arteries. Paranasal sinuses: As visualized are clear. Mastoid air cells: Well pneumatized. Calvarium and scalp: Skull is intact with no soft tissue edema or swelling. CT/CT head wo con* [id number] IMPRESSION: Stable noncontrast head CT. No acute intracranial hemorrhage or edema. EKG Data^: EKG 1: Attestation: I personally reviewed and interpreted this EKG as follows: EKG interpretation date: 03/10/20 EKG interpretation time: 13:54 Interpretation: nsr hr [address] or t wave abnormalities qrs 82 qtc 373 Computer generated interpretation: Chest X-Ray 03/10/20 13:22 IMPRESSION: Chronic emphysema and calcified thoracic aorta. No pneumonia. Head CT 03/10/20 13:22 IMPRESSION: Stable noncontrast head CT. No acute intracranial hemorrhage or edema. Chest CT 03/10/20 14:14 IMPRESSION: 1. Severe chronic emphysema with no pneumonia. 2. Continued atherosclerosis aorta with ectasia. 3. Stable mild anterior wedging T11 and T12. Discharge Plan Discharge Condition: Good Prescriptions: No Action fluticasone propion-salmeterol [Advair Diskus] 250-50 mcg/dose blister with device 1 inh INHALATION Q12H RF: 0 albuterol sulfate [Ventolin HFA] 90 mcg/actuation HFA aerosol inhaler 2 puff INHALATION QID PRN (Reason: Shortness Of Breath) RF: 0 gabapentin 300 mg capsule 300 mg PO TID RF: 0 lisinopril 40 mg tablet 40 mg PO DAILY RF: 0 fluticasone propionate [Flonase Allergy Relief] 50 mcg/actuation spray,suspension 2 spray INTRANASAL DAILY RF: 0 betamethasone acet,sod phos [Celestone Soluspan] 6 mg/mL suspension 6 mg IM ONCE Qty: 1 RF: 0 Ed A-Hist 4-10 mg tablet 1 tab PO .q6 PRN (Reason: allergy symptoms) Qty: 30 RF: 0 mirtazapine 15 mg tablet 15 mg PO DAILY Qty: 30 RF: 0 metoprolol tartrate 50 mg tablet 50 mg PO BID Qty: 60 RF: 2 furosemide 20 mg tablet See Rx Instructions .ROUTE .COMPLEX Qty: 30 RF: 1 potassium chloride 10 mEq tablet extended release See Rx Instructions .ROUTE .COMPLEX Qty: 90 RF: 0 oxymetazoline [Afrin (oxymetazoline)] 0.05 % [place],Non-Aerosol See Rx Instructions .ROUTE .COMPLEX RF: 0 hydrocodone-acetaminophen 5-325 mg tablet 1 tab PO Q6H PRN (Reason: pain) Qty: 30 RF: 0 donepezil 5 mg Tablet 5 mg PO BEDTIME Qty: 30 RF: 0 Coding Level of Care Code ED Practicing Md Anesthesiologist for Robg Fwd Exam Comprehensive
[2020-03-10 13:50] LABS: Basophils % 0.2 %; Eosinophils % 0.1 %; Hematocrit 32.8 % (37.0-47.0); Hemoglobin 10.6 g/dL (11.5-15.3); Lymphocytes % 5.6 %; Mean Corpuscular HGB Conc 32.3 g/dL (30.0-36.0); Mean Corpuscular Hemoglobin 27.5 pg (28.0-34.0); Mean Platelet Volume 9.7 fL (7.4-10.4); Monocytes # 1.4 10^3/uL (0.2-0.9); Monocytes % 8.6 %; Neutrophils # 14.33 10^3/uL (1.8-7.7); Neutrophils % 85.1 %; Nucleated Red Blood Cells % 0 %; Platelet Count 530 10^3/cmm (130-400); Red Blood Count 3.86 10^6/uL (4.1-5.3); Red Cell Distribution Width 12.9 % (12.1-15.1); White Blood Count 16.8 10^3/uL (4.0-10.0)
[2020-03-10 14:06] LABS: Alanine Aminotransferase 6 U/L (0-33); Albumin Level 3.2 g/dL (3.5-5.2); Alkaline Phosphatase 94 IU/L (35-105); Anion Gap 13.2 (5-19); Aspartate Amino Transferase 9 U/L (0-32); Blood Urea Nitrogen 15 mg/dL (8-23); Calcium 8.7 mg/dL (8.5-10.5); Carbon Dioxide 28 mmol/L (22-29); Chloride 88 mmol/L (98-107); Globulin 3.5 g/dL (1.3-4.6); Glucose 113 mg/dL (65-115); Osmolality Calculated 257 mOsm/kg (285-295); Potassium 4.2 mmol/L (3.5-5.1); Sodium 125 mmol/L (136-145); Total Bilirubin 0.3 mg/dL (0.15-1.2); Total Protein 6.7 g/dL (6.6-8.7)
[2020-03-10 14:09] LABS: ABG PH Result 7.47 (7.35-7.45); Base Excess ABG 5.3 mmol/L (-2.0-2.0); Blood Gas Operator Identificat glc; Blood Gas Sample Site Brachial, left; Blood Gas Sample Type Arterial; HCO3 ABG 29.3 mmol/L (22-26); Oxygen Device NC; PO2 ABG 62.7 mmHg (80.0-100.0)
[2020-03-10 14:10] LABS: Blood Gas CCRB Time 1410
--- NOTE | 2020-03-10 14:14 | CT_ITS ---
WS: [id number] CT CHEST WITH INTRAVENOUS CONTRAST HISTORY: sob TECHNIQUE: Contiguous 5 mm axial imaging performed on the thorax. Coronal and sagittal reformats are submitted. All CT scans at [facility] use at least one of these dose optimization techniq ues: automated exposure control; mA and/or kV adjustment per patient size (includes targeted exams wh ere dose is matched to clinical indication); or iterative reconstruction. CONTRAST: Omnipaque 300; 95 mL IV. DLP: 399.97 mGy.cm COMPARISON: 07/18/2019 Lungs and central airway: Marked pulmonary hyperexpansion. No pneumonia. No pulmonary edema, pneumoth orax or opacifications. Pleura: Normal. No pleural effusion. Heart and pericardium: Normal size heart. No pericardial effusion. Mediastinum and mariana: No mediastinum or hilar adenopathy. Vessels: Atherosclerosis aorta with ectasia. No aneurysm. Pulmonary artery size is equal to the aorta . Chest wall and lower neck: No soft tissue masses. Upper abdomen: Lobulated hepatic cyst measures 1.5 cm in the LEFT lobe. No bile duct dilatation. Athe rosclerosis continues into the upper abdominal aorta. Cyst upper pole LEFT kidney measures 3.9 cm and is stable. Osseous structures: Mild anterior wedging of T11 and T12 no osteoblastic or osteolytic disease. CT/CT chest w con* [id number] IMPRESSION: 1. Severe chronic emphysema with no pneumonia. 2. Continued atherosclerosis aorta with ectasia. 3. Stable mild anterior wedging T11 and T12.
[2020-03-10] MEDS: iohexol 300 mg/mL 100 mL Btl IV (15:04)
[2020-03-10] MEDS: sodium chloride 0.9% 1,000 ML 999 ML IV (15:28)
[2020-03-10] MEDS: ondansetron 2 mg/ML SDV 2 mL 4 MG IVP (16:30)
[2020-03-10] MEDS: morphine 4 mg/mL SDV 1 mL IVP (16:30)
[2020-03-10 16:55] LABS: Glucose Urine UA Norm (Normal); Protein Urine 1+ (Negative); Specific Gravity, Urine 1.015 (1.005-1.030); Urine Appearance Hazy (CLEAR); Urine Color Yellow (Yellow); pH Urine 6 (5-7)
[2020-03-10 16:56] LABS: Add Urine Microscopic? YES; Bilirubin Urine Neg (NEGATIVE); Blood Urine 2+ (Negative); Ketones Urine Negative (Negative); Leukocyte Esterase Urine 1+ (Negative); Nitrate Urine Positive (Negative); Urobilinogen Urine Norm (Negative)
[2020-03-10 17:05] LABS: Bacteria Urine 4+; RBC Urine 0-4 /hpf (0-2); Renal Epithelial Cells Urine 0-4 /hpf; WBC Urine >100 /hpf (0-5)
[2020-03-10 17:06] LABS: Add Urine Culture? Yes
[2020-03-10] MEDS: gabapentin 300 mg Capsule PO (18:19)
--- NOTE | 2020-03-10 18:44 | P.HP_ITS ---
Providers/Chief Complaint Admitting Physician: Malgorzata Gannon MD Primary Care Provider: Candie Brock MD Chief Complaint: sob History of Present Illness Rosario Brock is a 75 year old female with PMHx noted below returns to hospital after recent discharge following presentation with complaints of generalized weakness, poor appetite, and altered mental status attributed to hyponatremia and malnutrition. Sodium got as low as 121 and had improved to 132 on discharge. Patient symptoms improved with hydration and following evaluation by therapy arrangements for home health were made and she has been receiving services through [facility]. She states that she felt well initially then gradually her symptoms returned and have progressed over the past 2 days to the point where she is noticing continued difficulty gathering her thoughts, has been quite weak with difficulty ambulating. She also reports dysuria and difficulty moving her bowels. All signs are currently stable and she is afebrile. Labs indicate leukocytosis with a white count of 16.8, hemoglobin of 10.6, sodium of 125, potassium of 4.2, BUN of 15, creatinine of 0.5, blood glucose of 113. Head CT is unremarkable for any acute findings, shows chronic microvascular changes. She had a CT scan of the chest done to rule out occult mass which is negative, does show underlying severe chronic emphysema. She is oxygen dependent at this time with a 4 L requirement. She has received a liter of normal saline in the ER. Initially appeared quite anxious upon my arrival in the ER but with some time has begun to relax more. She is very pleasant, very easy to engage with. Urinalysis has been noted and is strongly indicative of infection so will initiate antibiotic treatment. She will require further IV f luid hydration to correct her electrolyte abnormalities and appropriately treat UTI pending culture results. Review of Systems Const: Reports: change in appetite (decreased appetite), fatigue and malaise; Denies: fever(s) or chills Eyes: Denies: change in vision ENMT: Reports: dry mouth Card: Denies: chest pain, swelling of feet/ankles or lightheadedness Resp: Denies: dyspnea, productive cough or non-productive cough GI: Reports: constipation; Denies: abdominal pain, nausea, vomiting, hematemesis or hematochezia : Reports: dysuria and urinary frequency; Denies: difficulty voiding or hematuria Musc: Denies: back pain Skin/Breast: Denies: rash Neuro: Reports: weakness in extremities, difficulty walking and confusion; Denies: numbness in extremities Psych: Denies: anxiety Medications/Allergies Home Medications Medication Instructions Recorded Confirmed Last Taken Type albuterol sulfate 90 mcg/actuation 2 puff INHALATION QID PRN 09/25/19 03/10/20 03/10/20 History aerosol inhaler fluticasone 250 mcg-salmeterol 50 1 inh INHALATION Q12H 09/25/19 03/10/2001/22 History mcg/dose blistr powdr for inhalation fluticasone propionate 50 2 spray INTRANASAL DAILY 09/25/19 03/10/20 03/10/20 History mcg/actuation nasal spray,suspension gabapentin 300 mg capsule 300 mg PO TID 09/25/19 03/10/20 03/10/20 History lisinopril 40 mg tablet 40 mg PO DAILY 09/25/19 03/10/20 03/10/20 History mirtazapine 15 mg tablet 15 mg PO DAILY #30 tab 11/17/19 03/10/20 03/10/20 Rx chlorpheniramine 4 1 tab PO .q6 PRN #30 tab 11/26/19 03/10/20 Unknown Rx mg-phenylephrine 10 mg tablet metoprolol tartrate 50 mg tablet 50 mg PO BID #60 tab 11/26/19 03/10/20 03/10/20 Rx oxymetazoline [Afrin See Rx Instructions .ROUTE .COMPLEX 12/17/19 03/10/20 03/10/20 History (oxymetazoline)] hydrocodone-acetaminophen 1 tab PO Q6H PRN #30 tab 12/20/19 03/10/20 Unknown Rx donepezil 5 mg PO BEDTIME #30 tab 12/22/19 03/10/20 03/09/20 Rx furosemide 20 mg tablet See Rx Instructions .ROUTE 02/02/20 03/10/20 Unknown Rx .COMPLEX #30 tab potassium chloride 10 mEq See Rx Instructions .ROUTE 02/26/20 03/10/20 Unknown Rx tablet,extended release .COMPLEX #90 tab Allergies Allergy/AdvReac Type Severity Reaction Status Date / Time amoxicillin [From Augmentin] Allergy Unknown Unknown Verified 03/10/20 13:58 clavulanic acid Allergy Unknown Unknown Verified 03/10/20 13:58 [From Augmentin] nitrofurantoin Allergy Unknown Unknown Verified 03/10/20 13:58 [From Macrobid] Sulfa (Sulfonamide Allergy Unknown Unknown Verified 03/10/20 13:58 Antibiotics) PFSH Acute PFSH: Medical History (Updated 03/10/20 @ 19:25 by Malgorzata Gannon MD) Allergic rhinitis Cerebral aneurysm Chronic anemia Closed fracture of right proximal humerus COPD (chronic obstructive pulmonary disease) Fracture of femoral neck, right, closed Hiatal hernia History of fracture of left hip History of squamous cell carcinoma Hyperlipidemia Hypertension Surgical History History of hysterectomy History of repair of hip fracture Family History Sister Anesthesia complication Mother Cancer Father Embolism Social History Smoking and tobacco status: current every day smoker Second hand smoke exposure: Yes Alcohol intake: current Alcohol intake frequency: holidays/special occasions only Lives independently: Yes Household members: spouse Marital status: Current occupational status: retired History of recent travel: No Current gender identity: Female Vitals/I&O/Wt Last Vital Signs Temp 98.3 F 03/10/20 17:57 Pulse 84 03/10/20 17:57 Resp 16 03/10/20 17:57 BP 152/72 03/10/20 17:57 Pulse Ox 98 03/10/20 17:57 Weight last 48 hrs Weight 41.277 kg Physical Exam Const: COMMON NORMALS: no acute distress, patient oriented x3 and alert GENERAL APPEARANCE: cooperative, comfortable and frail appearing NUTRITIONAL APPEARANCE: thin ORIENTATION/CONSCIOUSNESS: Yes awake OTHER: -looks appropriate for age HENMT: COMMON NORMALS: normocephalic, atraumatic, hearing grossly normal bilaterally and moist oral mucous membranes HEAD & SCALP: normocephalic and atraumatic Eye: COMMON NORMALS: Equal, round and reactive pupils present, EOMs intact bilaterally and conjunctivae normal CONJUNCTIVA: Yes conjunctivae normal PUPIL: Yes Equal, round and reactive pupils present Neck/C-Spine: COMMON NORMALS: full ROM GENERAL: Yes normal visual inspection and Yes trachea midline Resp: COMMON NORMALS: normal respiratory effort, No retractions, No use of accessory muscles and clear to auscultation bilaterally EFFORT & INSPECTION: Yes able to speak in complete sentences, Yes symmetric chest movement and Yes tachypneic AUSCULTATION: clear to auscultation bilaterally OTHER: -on NC Cardio: COMMON NORMALS: regular rate, regular rhythm, S1 normal heart sound present, S2 normal heart sound present and No murmurs present (Cardio) RATE: regular rate RHYTHM: regular rhythm HEART SOUNDS: S1 normal heart sound present and S2 normal heart sound present GI: COMMON NORMALS: Normal to inspection, nondistended, normoactive bowel sounds present, Soft to palpation and non-tender PALPATION: Yes Soft to palpation Extremity: COMMON NORMALS: normal to inspection, full ROM and no clubbing, cyanosis or edema; negative for no pedal edema Neuro: COMMON NORMALS: patient oriented x3, moves all extremities, no focal motor deficits, no sensory deficits noted and gait normal Psych: COMMON NORMALS: mental status grossly normal, Normal thought process present, cooperative, normal affect and speech normal SPEECH: Yes normal speech THOUGHT PROCESS: Normal thought process present Skin: COMMON NORMALS: no rashes or lesions noted, no jaundice, no petechiae and no mottling GENERAL SKIN EXAM: no rashes or lesions noted Data : 03/10/20 13:37 03/10/20 13:37 Other data: -reviewed CBC, CMP, UA A&P Assessment and plan (1) UTI (urinary tract infection): -UA strongly indicative of infection -f/u blood and urine cx -based on allergy profile, will treat with Ciprofloxacin -noted leukocytosis, symptomatic -trend WBC -some of patient's symptoms including generalized weakness, poor appetite, disorientation and clouded sensorium could be due to infection Status: Acute Qualifiers: Urinary tract infection type: acute cystitis Hematuria presence: without hematuria Qualified Code(s): N30.00 - Acute cystitis without hematuria (2) Malnourished: -at least moderate protein calorie malnutrition: BMI-16 kg/m2 -noted hypoalbuminemia -supplement Ensure to all meals; resume mirtazapine Status: Chronic Qualifiers: Malnutrition type: protein-calorie malnutrition Protein-calorie malnu trition severity: unspecified severity Qualified Code(s): E46 - Unspecified protein-calorie malnutrition (3) Hyponatremia: -has previously been noted -corrected previously with IVF hydration, has received 1 L NS bolus in ED, continue hydration -trend Na -CT chest done to r/o mass; noted severe chronic emphysema, no mass -hold lasix Status: Acute (4) Hypertension: -monitor vital signs -hold lasix, ACEi; resume metoprolol Status: Chronic Qualifiers: Hypertension type: essential hypertension Qualified Code(s): I10 - Essential (primary) hypertension (5) COPD (chronic obstructive pulmonary disease): -has oxygen-dependent COPD, 4 L baseline requirement -monitor respiratory status -no acute exacerbation currently Status: Chronic Qualifiers: COPD type: emphysema Emphysema type: unspecified Qualified Code(s): J43.9 - Emphysema, unspecified (6) Hyperlipidemia: Status: Chronic Qualifiers: Hyperlipidemia type: unspecified Qualified Code(s): E78.5 - Hyperlipidemia, unspecified Additional A&P Information -OA, chronic pain; resume pain meds -Physical deconditioning, overall quite frail and high fall risk; fall precautions, PT/OT evaluations in AM -Chronic normocytic anemia; baseline Hg is around 10; trend H/H -liberal diet -DVT ppx with Lovenox -Dispo: home with , has services recently resumed with [facility] -Code status: FULL code Attestations Medical Necessity Statement*: Rosario Brock's hospital stay will require greater than 2 midnights for treatment of symptomatic UTI, hyponatremia requiring IV fluid hydration and IV antibiotics pending culture results. Time Spent in Patient Care: Greater than 35 minutes (>than 50% of time spent in counselling and/or direct pt care on unit) . 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
[2020-03-10] MEDS: sodium chloride 0.9% 1,000 ML 100 ML IV (20:10)
[2020-03-10] MEDS: ciprofloxacin 400 MG/200 ML PREMIX 200 MG IV (20:22)
[2020-03-10] MEDS: donepezil 5 MG Tablet PO (20:23)
[2020-03-10] MEDS: enoxaparin 30 mg/0.3 mL Syringe SUBCUT (20:23)
[2020-03-10] MEDS: ipratropium-albuterol 3 mL Neb INHALATION (21:17)
[2020-03-11] VITALS (11 sets, daily range): BP systolic 135–160; BP diastolic 63–83; PULSE 70–89; RESP 17–22; TEMP 36.6–37.2; O2SAT 91–100
[2020-03-11 05:00] LABS: Basophils # 0.1 10^3/uL (0.0-0.1); Basophils % 0.4 %; Eosinophils # 0.1 10^3/uL (0.0-0.8); Eosinophils % 0.5 %; Hemoglobin 10.1 g/dL (11.5-15.3); Lymphocytes # 1.2 10^3/uL (0.8-4.8); Lymphocytes % 6.5 %; Mean Corpuscular HGB Conc 31.6 g/dL (30.0-36.0); Mean Corpuscular Hemoglobin 27.5 pg (28.0-34.0); Mean Corpuscular Volume 87.2 fL (81-99); Mean Platelet Volume 9.8 fL (7.4-10.4); Monocytes # 1.5 10^3/uL (0.2-0.9); Monocytes % 8.4 %; Neutrophils # 15.36 10^3/uL (1.8-7.7); Neutrophils % 83.7 %; Nucleated Red Blood Cells % 0 %; Platelet Count 536 10^3/cmm (130-400); Red Blood Count 3.67 10^6/uL (4.1-5.3); Red Cell Distribution Width 13.2 % (12.1-15.1); White Blood Count 18.4 10^3/uL (4.0-10.0)
[2020-03-11 05:31] LABS: Anion Gap 8.4 (5-19); Blood Urea Nitrogen 11 mg/dL (8-23); Calcium 9.1 mg/dL (8.5-10.5); Carbon Dioxide 30 mmol/L (22-29); Chloride 96 mmol/L (98-107); Glucose 102 mg/dL (65-115); Osmolality Calculated 266 mOsm/kg (285-295); Potassium 4.4 mmol/L (3.5-5.1); Sodium 130 mmol/L (136-145)
[2020-03-11] MEDS: sodium chloride 0.9% 1,000 ML 100 ML IV (08:24)
[2020-03-11] MEDS: docusate sodium 100 mg Capsule PO ×2 (08:25→16:31)
[2020-03-11] MEDS: ciprofloxacin 400 MG/200 ML PREMIX 200 MG IV ×2 (08:25→16:31)
[2020-03-11] MEDS: fluticasone nasal spray 16gm Btl 2 SPRAY INTRANASAL (08:25)
[2020-03-11] MEDS: gabapentin 300 mg Capsule PO ×2 (08:26→16:31)
--- NOTE | 2020-03-11 12:00 | P.PN_ITS ---
Subjective Subjective: Interval history: Had 500 mL urine output overnight, hemodynamically stable, afebrile, noted increased leukocytosis from 16.8->18.4 today, sodium improved from 125->130, stable renal function. Reports feeling better today, has spent some time sitting up in a chair by bedside, less dysuria today. Appetite has improved as well. Medications: Reviewed: Yes Medication Review Details: Active Medications Generic Name Dose Route Start Last Admin Trade Name Freq PRN Reason Stop Dose Admin Acetaminophen 650 mg 03/10/20 18:44 Tylenol PO Q6H PRN Mild/Mod Pain Or Temp >/= 101 Hydrocodone Bitart /Acetaminophen 1 tab 03/10/20 17:50 [place] 5-325 Mg PO Q6H PRN SEVERE PAIN Albuterol/Ipratrop ium 3 ml 03/10/20 19:14 03/10/20 21:17 Duoneb INHALATION 3 ml Q6H PRN Administration SHORTNESS OF FIONA TH Bisacodyl 10 mg 03/10/20 18:44 Dulcolax PO DAILY PRN CONSTIPATION Docusate Sodium 100 mg 03/11/20 09:00 03/11/20 08:25 Colace PO 100 mg BID ROSLYN Administration Donepezil HCl 5 mg 03/10/20 21:00 03/10/20 20:33 Aricept PO Not Given BEDTIME ROSLYN Enoxaparin Sodium 30 mg 03/10/20 18:45 03/10/20 20:23 Lovenox SUBCUT 30 mg Q24H ROSLYN Administration Fluticasone Propio mart 2 spray 03/11/20 09:00 03/11/20 08:25 Flonase INTRANASAL 2 spray DAILY ROSLYN Administration Gabapentin 300 mg 03/10/20 18:00 03/11/20 08:26 Neurontin PO 300 mg BID ROSLYN Administration Sodium Chloride 1,000 mls @ 100 m ls/hr 03/10/20 18:45 03/11/20 08:24 Sodium Chloride 0.9% IV 100 mls/hr .Q10H ROSLYN Administration Ciprofloxacin/Dext daniel 400 mg in 200 mls @ 200 mls/hr 03/10/20 19:00 03/11/20 09:25 Cipro IV Infused Q12H ROSLYN Infusion Protocol Ondansetron HCl 4 mg 03/10/20 18:44 Zofran IVP Q6H PRN vomiting, or N/V if npo amoxicillin [From Augmentin] Allergy (Unknown, Verified 03/10/20 13:58) Unknown clavulanic acid [From Augmentin] Allergy (Unknown, Verified 03/10/20 13:58) Unknown nitrofurantoin [From Macrobid] Allergy (Unknown, Verified 03/10/20 13:58) Unknown Sulfa (Sulfonamide Antibiotics) Allergy (Unknown, Verified 03/10/20 13:58) Unknown Vitals/I&O/Wt Last Vital Signs Temp 98.8 F 03/11/20 11:31 Pulse 77 03/11/20 11:31 Resp 18 03/11/20 11:31 BP 141/69 03/11/20 11:31 Pulse Ox 98 03/11/20 11:31 03/10/20 03/11/20 03/11/20 22:59 06:59 14:59 Intake Total 1200 / 1200 1000 / 2200 520 / 520 Output Total 275 / 275 225 / 500 302 / 302 Balance 925 / 925 775 / 1700 218 / 218 Weight last 48 hrs Weight 45.076 kg Weight 41.277 kg Physical Exam Const: COMMON NORMALS: no acute distress, patient oriented x3 and alert GENERAL APPEARANCE: cooperative, comfortable and frail appearing NUTRITIONAL APPEARANCE: thin ORIENTATION/CONSCIOUSNESS: Yes awake OTHER: -looks appropriate for age HENMT: COMMON NORMALS: normocephalic, atraumatic, hearing grossly normal bilaterally and moist oral mucous membranes HEAD & SCALP: normocephalic and atraumatic Eye: COMMON NORMALS: Equal, round and reactive pupils present, EOMs intact bilaterally and conjunctivae normal CONJUNCTIVA: Yes conjunctivae normal PUPIL: Yes Equal, round and reactive pupils present Neck/C-Spine: COMMON NORMALS: full ROM GENERAL: Yes normal visual inspection and Yes trachea midline Resp: COMMON NORMALS: normal respiratory effort, No retractions and No use of accessory muscles EFFORT & INSPECTION: Yes able to speak in complete sentences and Yes symmetric chest movement AUSCULTATION: diminished lung sounds bilateral OTHER: -on 5 L NC Cardio: COMMON NORMALS: regular rate, regular rhythm, S1 normal heart sound present, S2 normal heart sound present and No murmurs present (Cardio) RATE: regular rate RHYTHM: regular rhythm HEART SOUNDS: S1 normal heart sound present and S2 normal heart sound present GI: COMMON NORMALS: Normal to inspection, nondistended, normoactive bowel sounds present, Soft to palpation and non-tender PALPATION: Yes Soft to palpation Extremity: COMMON NORMALS: normal to inspection, full ROM and no clubbing, cyanosis or edema; negative for no pedal edema Neuro: COMMON NORMALS: patient oriented x3, moves all extremities, no focal motor deficits and no sensory deficits noted SENSORIUM/ORIENTATION: Yes alert Psych: COMMON NORMALS: mental status grossly normal, Normal thought process present, cooperative, normal affect and speech normal SPEECH: Yes normal speech THOUGHT PROCESS: Normal thought process present Skin: COMMON NORMALS: no rashes or lesions noted, no jaundice, no petechiae and no mottling GENERAL SKIN EXAM: no rashes or lesions noted Data : 03/11/20 04:37 03/11/20 04:37 Micro: Microbiology 03/10/20 19:05 Blood Culture - Preliminary Blood SPECIMEN COLLECTED 03/10/20 19:00 Blood Culture - Preliminary Blood SPECIMEN COLLECTED A&P Assessment and plan (1) UTI (urinary tract infection): -UA strongly indicative of infection -f/u blood and urine cx -based on allergy profile, is on Ciprofloxacin -noted leukocytosis, symptomatic; increased leukocytosis today; continue to trend WBC -some of patient's symptoms including generalized weakness, poor appetite, disorientation and clouded sensorium could be due to infection -Hemodynamically stable, continue to monitor vital signs Status: Acute Qualifiers: Hematuria presence: without hematuria Urinary tract infection type: acute cystitis Qualified Code(s): N30.00 - Acute cystitis without hematuria (2) Malnourished: -at least moderate protein calorie malnutrition: BMI-16-17 kg/m2 -noted hypoalbuminemia -supplement Ensure to all meals; on mirtazapine Status: Chronic Qualifiers: Malnutrition type: protein-calorie malnutrition Protein-calorie malnutrition severity: unspecified severity Qualified Code(s): E46 - Unspecified protein-calorie malnutrition (3) Hyponatremia: -has previously been noted -corrected previously with IVF hydration, continue hydration -trend Na; improving -CT chest done to r/o mass; noted severe chronic emphysema, no mass -hold lasix Status: Acute (4) Hypertension: -VSS; continue to monitor -hold lasix, ACEi; continue metoprolol Status: Chronic Qualifiers: Hypertension type: essential hypertension Qualified Code(s): I10 - Essential (primary) hypertension (5) COPD (chronic obstructive pulmonary disease): -has oxygen-dependent COPD, 4 L baseline requirement -continue to monitor respiratory status -no acute exacerbation currently Status: Chronic Qualifiers: COPD type: emphysema Emphysema type: unspecified Qualified Code(s): J43.9 - Emphysema, unspecified (6) Hyperlipidemia: Status: Chronic Qualifiers: Hyperlipidemia type: unspecified Qualified Code(s): E78.5 - Hyperlipidemia, unspecified Additional A&P Information -OA, chronic pain; resume pain meds -Physical deconditioning, overall quite frail and high fall risk; fall precautions, PT/OT evaluations -Chronic normocytic anemia; baseline Hg is around 10; trend H/H -liberal diet -DVT ppx with Lovenox -Dispo: home with , has services recently resumed with [facility] -Code status: FULL code Attestations Medical Necessity Statement*: Patient requires hospitalization for continued IV hydration, IV antibiotics for treatment of hyponatremia and UTI respectively, pending culture results. Time Spent in Patient Care: 16 - 35 minutes (>than 50% of time spent in counselling and/or direct pt care on unit) . 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
[2020-03-11] MEDS: enoxaparin 30 mg/0.3 mL Syringe SUBCUT (16:31)
--- NOTE | 2020-03-11 19:06 | PC.RESP ---
SMOKING CESSATION AND PULMONARY REHAB INFORMATION SENT TO PATIENT.
[2020-03-11] MEDS: donepezil 5 MG Tablet PO (20:27)
[2020-03-12] VITALS (8 sets, daily range): BP systolic 122–147; BP diastolic 64–82; PULSE 64–84; RESP 18–20; TEMP 36.9–37.4; O2SAT 94–99
[2020-03-12 04:10] LABS: Basophils # 0.1 10^3/uL (0.0-0.1); Basophils % 0.3 %; Eosinophils # 0.1 10^3/uL (0.0-0.8); Eosinophils % 0.7 %; Hematocrit 30.7 % (37.0-47.0); Hemoglobin 9.7 g/dL (11.5-15.3); Lymphocytes # 1.2 10^3/uL (0.8-4.8); Mean Corpuscular HGB Conc 31.6 g/dL (30.0-36.0); Mean Corpuscular Hemoglobin 27.6 pg (28.0-34.0); Mean Corpuscular Volume 87.5 fL (81-99); Monocytes # 1.3 10^3/uL (0.2-0.9); Monocytes % 7.5 %; Neutrophils # 14.61 10^3/uL (1.8-7.7); Neutrophils % 83.6 %; Nucleated Red Blood Cells % 0 %; Platelet Count 573 10^3/cmm (130-400); Red Blood Count 3.51 10^6/uL (4.1-5.3); Red Cell Distribution Width 13.3 % (12.1-15.1); White Blood Count 17.5 10^3/uL (4.0-10.0)
[2020-03-12 05:20] LABS: Blood Urea Nitrogen 8 mg/dL (8-23); Calcium 9.2 mg/dL (8.5-10.5); Carbon Dioxide 28 mmol/L (22-29); Chloride 96 mmol/L (98-107); Glucose 115 mg/dL (65-115); Osmolality Calculated 269 mOsm/kg (285-295); Sodium 131 mmol/L (136-145)
--- NOTE | 2020-03-12 06:02 | PC.NURSE ---
Shift Summary pt slept well throughout the night. pt's IV infiltrated early in the shift. pt refused another IV, insisting she was going home this AM. pt answered neuro questions appropriately. pt was able to amb to the bathroom without any complications. pt had good urine output. pt stated she has felt gassy tonight. Upon waking pt this AM for 0400 VS and neuro checks, pt stated she was possibly reconsidering going home versus going to SNF for rehab. pt did not voice that she was uncomfortable going home to her but had stated, [facility] cannot care for me the way I need to be cared for, and I don't know that home is the best option for me right now.
[2020-03-12] MEDS: gabapentin 300 mg Capsule PO ×2 (09:42→17:26)
[2020-03-12] MEDS: ciprofloxacin 500 mg Tablet PO ×2 (09:42→17:26)
[2020-03-12] MEDS: docusate sodium 100 mg Capsule PO ×2 (09:42→17:26)
[2020-03-12] MEDS: fluticasone nasal spray 16gm Btl 2 SPRAY INTRANASAL (09:43)
--- NOTE | 2020-03-12 13:51 | PM.PN ---
Subjective Subjective: Interval history: Had 1020 mL urine output overnight, afebrile and hemodynamically stable, leukocytosis continues to decrease, urine cx so far growing GNRs, stable Hg and sodium. Reports wanting to go to [facility], prefers [facility]. Sitting up at the edge of the bed, no complaints, very pleasant and easy to engage with in conversation, reiterates several times during my encounter that she would really like to go to [place] for rehab as she has been there before and benefited greatly from the rehab program. Medications: Reviewed: Yes Medication Review Details: Active Medications Generic Name Dose Route Start Last Admin Trade Name Freq PRN Reason Stop Dose Admin Acetaminophen 650 mg 03/10/20 18:44 Tylenol PO Q6H PRN Mild/Mod Pain Or Temp >/= 101 Hydrocodone Bitart /Acetaminophen 1 tab 03/10/20 17:50 [place] 5-325 Mg PO Q6H PRN SEVERE PAIN Albuterol/Ipratrop ium 3 ml 03/10/20 19:14 03/10/20 21:17 Duoneb INHALATION 3 ml Q6H PRN Administration SHORTNESS OF FIONA TH Bisacodyl 10 mg 03/10/20 18:44 Dulcolax PO DAILY PRN CONSTIPATION Ciprofloxacin HCl 500 mg 03/12/20 09:00 03/12/20 09:42 Cipro PO 500 mg BID ROSLYN Administration Protocol Docusate Sodium 100 mg 03/11/20 09:00 03/12/20 09:42 Colace PO 100 mg BID ROSLYN Administration Donepezil HCl 5 mg 03/10/20 21:00 03/11/20 20:27 Aricept PO 5 mg BEDTIME ROSLYN Administration Enoxaparin Sodium 30 mg 03/10/20 18:45 03/11/20 16:35 Lovenox SUBCUT Not Given Q24H ROSLYN Fluticasone Propio mart 2 spray 03/11/20 09:00 03/12/20 09:43 Flonase INTRANASAL 2 spray DAILY ROSLYN Administration Gabapentin 300 mg 03/10/20 18:00 03/12/20 09:42 Neurontin PO 300 mg BID ROSLYN Administration Ondansetron HCl 4 mg 03/10/20 18:44 Zofran IVP Q6H PRN vomiting, or N/V if npo amoxicillin [From Augmentin] Allergy (Unknown, Verified 03/10/20 13:58) Unknown clavulanic acid [From Augmentin] Allergy (Unknown, Verified 03/10/20 13:58) Unknown nitrofurantoin [From Macrobid] Allergy (Unknown, Verified 03/10/20 13:58) Unknown Sulfa (Sulfonamide Antibiotics) Allergy (Unknown, Verified 03/10/20 13:58) Unknown Vitals/I&O/Wt Last Vital Signs Temp 98.6 F 03/12/20 12:00 Pulse 82 03/12/20 12:00 Resp 20 H 03/12/20 12:00 BP 124/68 03/12/20 12:00 Pulse Ox 94 03/12/20 11:25 03/11/20 03/12/20 03/12/20 22:59 06:59 14:59 Intake Total 1200 / 2320 720 / 720 Output Total 920 / 1223 700 / 1923 Balance 280 / 1097 -700 / 397 720 / 720 Weight last 48 hrs Weight 42.275 kg Weight 45.076 kg Physical Exam Const: COMMON NORMALS: no acute distress, patient oriented x3 and alert GENERAL APPEARANCE: cooperative, comfortable and frail appearing NUTRITIONAL APPEARANCE: thin ORIENTATION/CONSCIOUSNESS: Yes awake OTHER: -looks appropriate for age HENMT: COMMON NORMALS: normocephalic, atraumatic, hearing grossly normal bilaterally and moist oral mucous membranes HEAD & SCALP: normocephalic and atraumatic Eye: COMMON NORMALS: Equal, round and reactive pupils present, EOMs intact bilaterally and conjunctivae normal CONJUNCTIVA: Yes conjunctivae normal PUPIL: Yes Equal, round and reactive pupils present Neck/C-Spine: COMMON NORMALS: full ROM GENERAL: Yes normal visual inspection and Yes trachea midline Resp: COMMON NORMALS: normal respiratory effort, No retractions and No use of accessory muscles EFFORT & INSPECTION: Yes able to speak in complete sentences and Yes symmetric chest movement AUSCULTATION: diminished lung sounds bilateral OTHER: -on 4 L NC Cardio: COMMON NORMALS: regular rate, regular rhythm, S1 normal heart sound present, S2 normal heart sound present and No murmurs present (Cardio) RATE: regular rate RHYTHM: regular rhythm HEART SOUNDS: S1 normal heart sound present and S2 normal heart sound present GI: COMMON NORMALS: Normal to inspection, nondistended, normoactive bowel sounds present, Soft to palpation and non-tender PALPATION: Yes Soft to palpation Extremity: COMMON NORMALS: normal to inspection, full ROM and no clubbing, cyanosis or edema; negative for no pedal edema Neuro: COMMON NORMALS: patient oriented x3, moves all extremities, no focal motor deficits and no sensory deficits noted SENSORIUM/ORIENTATION: Yes alert Psych: COMMON NORMALS: mental status grossly normal, Normal thought process present, cooperative, normal affect and speech normal SPEECH: Yes normal speech THOUGHT PROCESS: Normal thought process present Skin: COMMON NORMALS: no rashes or lesions noted, no jaundice, no petechiae and no mottling GENERAL SKIN EXAM: no rashes or lesions noted Data : 03/12/20 03:29 03/12/20 03:29 Micro: Microbiology 03/10/20 15:25 Urine Culture - Preliminary Urine,Clean Catch Gram Negative Rods 03/10/20 19:05 Blood Culture - Preliminary Blood NEGATIVE TO DATE 03/10/20 19:00 Blood Culture - Preliminary Blood NEGATIVE TO DATE A&P Assessment and plan (1) UTI (urinary tract infection): -UA strongly indicative of infection -blood cx: prelim negative -urine cx: GNRs, pending ID & sensitivity -based on allergy profile, is on Ciprofloxacin (day 3) -decreased leukocytosis; continue to trend WBC -some of patient's symptoms including generalized weakness, poor appetite, disorientation and clouded sensorium could be due to infection -Hemodynamically stable, continue to monitor vital signs Status: Acute Qualifiers: Hematuria presence: without hematuria Urinary tract infection type: acute cystitis Qualified Code(s): N30.00 - Acute cystitis without hematuria (2) Malnourished: -at least moderate protein calorie malnutrition: BMI-16-17 kg/m2 -noted hypoalbuminemia -supplement Ensure to all meals; on mirtazapine Status: Chronic Qualifiers: Malnutrition type: protein-calorie malnutrition Protein-calorie malnutrition severity: unspecified severity Qualified Code(s): E46 - Unspecified protein-calorie malnutrition (3) Hyponatremia: -has previously been noted -corrected previously with IVF hydration, continue hydration -trend Na; improving -CT chest done to r/o mass; noted severe chronic emphysema, no mass -hold lasix Status: Acute (4) Hypertension: -VSS; continue to monitor -hold lasix, ACEi; continue metoprolol Status: Chronic Qualifiers: Hypertension type: essential hypertension Qualified Code(s): I10 - Essential (primary) hypertension (5) COPD (chronic obstructive pulmonary disease): -has oxygen-dependent COPD, 4 L baseline requirement -continue to monitor respiratory status -no acute exacerbation currently Status: Chronic Qualifiers: COPD type: emphysema Emphysema type: unspecified Qualified Code(s): J43.9 - Emphysema, unspecified (6) Hyperlipidemia: Status: Chronic Qualifiers: Hyperlipidemia type: unspecified Qualified Code(s): E78.5 - Hyperlipidemia, unspecified Additional A&P Information -OA, chronic pain; resume pain meds -Physical deconditioning, overall quite frail and high fall risk; fall precautions, PT/OT evaluations -Chronic normocytic anemia; baseline Hg is around 10; trend H/H -liberal diet -DVT ppx with Lovenox -Dispo: would like SNF placement, [facility] is her first choice. Given her overall fraility, deconditioning and unstable home situation, this is the better option in terms of disposition. -Code status: FULL code Attestations Medical Necessity Statement*: Patient requires hospitalization for continued treatment of UTI pending culture results, pending appropriate disposition. Time Spent in Patient Care: 16 - 35 minutes (>than 50% of time spent in counselling and/or direct pt care on unit). Coding Level of Care Code Acute Clinical Professor for Chg Fwd Exam Comprehensive Diagnoses UTI (urinary tract infection) N30.00 Hematuria presence: without hematuria Urinary tract infection type: acute cystitis Malnourished E46 Malnutrition type: protein-calorie malnutrition Protein-calorie malnutrition severity: unspecified severity Hyponatremia E87.1 Hypertension I10 Hypertension type: essential hypertension COPD (chronic obstructive pulmonary disease) J43.9 COPD type: emphysema Emphysema type: unspecified Hyperlipidemia E78.5 Hyperlipidemia type: unspecified
[2020-03-12] MEDS: donepezil 5 MG Tablet PO (20:59)
[2020-03-13] VITALS (8 sets, daily range): BP systolic 135–173; BP diastolic 57–82; PULSE 70–79; RESP 16–20; TEMP 36.8–37.2; O2SAT 96–100
[2020-03-13 04:24] LABS: Basophils # 0.1 10^3/uL (0.0-0.1); Basophils % 0.5 %; Eosinophils # 0.3 10^3/uL (0.0-0.8); Hematocrit 29.5 % (37.0-47.0); Hemoglobin 9.2 g/dL (11.5-15.3); Lymphocytes # 1.4 10^3/uL (0.8-4.8); Mean Corpuscular HGB Conc 31.2 g/dL (30.0-36.0); Mean Corpuscular Volume 86.5 fL (81-99); Mean Platelet Volume 9.8 fL (7.4-10.4); Monocytes # 1.3 10^3/uL (0.2-0.9); Monocytes % 9.7 %; Neutrophils # 9.97 10^3/uL (1.8-7.7); Neutrophils % 76.3 %; Nucleated Red Blood Cells % 0 %; Platelet Count 637 10^3/cmm (130-400); Red Blood Count 3.41 10^6/uL (4.1-5.3); Red Cell Distribution Width 13.4 % (12.1-15.1); White Blood Count 13.1 10^3/uL (4.0-10.0)
[2020-03-13 04:58] LABS: Blood Urea Nitrogen 8 mg/dL (8-23); Calcium 8.9 mg/dL (8.5-10.5); Carbon Dioxide 31 mmol/L (22-29); Chloride 93 mmol/L (98-107); Glucose 107 mg/dL (65-115); Osmolality Calculated 262 mOsm/kg (285-295); Sodium 128 mmol/L (136-145)
--- NOTE | 2020-03-13 09:25 | PC.SOCIAL ---
IMM Page 2 of IMM explained to patient. Initialed, dated, and timed and placed in chart. Copy provided to patient.
[2020-03-13] MEDS: gabapentin 300 mg Capsule PO ×2 (09:41→17:44)
[2020-03-13] MEDS: ciprofloxacin 500 mg Tablet PO ×2 (09:41→17:44)
[2020-03-13] MEDS: fluticasone nasal spray 16gm Btl 2 SPRAY INTRANASAL (09:41)
[2020-03-13] MEDS: docusate sodium 100 mg Capsule PO ×2 (09:41→17:44)
--- NOTE | 2020-03-13 14:18 | P.PN_ITS ---
Subjective Subjective: Interval history: Had 400 mL urine output overnight, hemodynamically stable, afebrile, remains on nasal cannula, leukocytosis continues to decrease, hemoglobin stable at 9.2, noted hyponatremia with sodium dropped to 128, normal renal function. Urine culture has resulted, growing E. coli. Reiterates that she would like to go to [place] for rehab. No particular complaints today though she was noted to have some blood in her brief earlier today, unsure of source. Medications: Reviewed: Yes Medication Review Details: Active Medications Generic Name Dose Route Start Last Admin Trade Name Freq PRN Reason Stop Dose Admin Acetaminophen 650 mg 03/10/20 18:44 Tylenol PO Q6H PRN Mild/Mod Pain Or Temp >/= 101 Hydrocodone Bitart /Acetaminophen 1 tab 03/10/20 17:50 [place] 5-325 Mg PO Q6H PRN SEVERE PAIN Albuterol/Ipratrop ium 3 ml 03/10/20 19:14 03/10/20 21:17 Duoneb INHALATION 3 ml Q6H PRN Administration SHORTNESS OF FIONA TH Bisacodyl 10 mg 03/10/20 18:44 Dulcolax PO DAILY PRN CONSTIPATION Ciprofloxacin HCl 500 mg 03/12/20 09:00 03/13/20 09:41 Cipro PO 500 mg BID ROSLYN Administration Protocol Docusate Sodium 100 mg 03/11/20 09:00 03/13/20 09:41 Colace PO 100 mg BID ROSLYN Administration Donepezil HCl 5 mg 03/10/20 21:00 03/12/20 20:59 Aricept PO 5 mg BEDTIME ROSLYN Administration Enoxaparin Sodium 30 mg 03/10/20 18:45 03/12/20 17:27 Lovenox SUBCUT Not Given Q24H ROSLYN Fluticasone Propio mart 2 spray 03/11/20 09:00 03/13/20 09:41 Flonase INTRANASAL 2 spray DAILY ROSLYN Administration Gabapentin 300 mg 03/10/20 18:00 03/13/20 09:41 Neurontin PO 300 mg BID ROSLYN Administration Sodium Chloride 1,000 mls @ 75 ml s/hr 03/13/20 14:30 Sodium Chloride 0.9% IV .[id number] ROSLYN Ondansetron HCl 4 mg 03/10/20 18:44 Zofran IVP Q6H PRN vomiting, or N/V if npo Sodium Chloride 1 gm 03/13/20 18:00 Salt Tab PO BID ROSLYN amoxicillin [From Augmentin] Allergy (Unknown, Verified 03/10/20 13:58) Unknown clavulanic acid [From Augmentin] Allergy (Unknown, Verified 03/10/20 13:58) Unknown nitrofurantoin [From Macrobid] Allergy (Unknown, Verified 03/10/20 13:58) Unknown Sulfa (Sulfonamide Antibiotics) Allergy (Unknown, Verified 03/10/20 13:58) Unknown Vitals/I&O/Wt Last Vital Signs Temp 98.6 F 03/13/20 11:36 Pulse 75 03/13/20 11:36 Resp 18 03/13/20 11:36 BP 148/70 03/13/20 11:36 Pulse Ox 97 03/13/20 11:36 03/12/20 03/13/20 03/13/20 22:59 06:59 14:59 Intake Total 360 / 1080 280 / 1360 720 / 720 Output Total 400 / 400 Balance 360 / 1080 -120 / 960 720 / 720 Weight last 48 hrs Weight 42.326 kg Weight 42.275 kg Physical Exam Const: COMMON NORMALS: no acute distress, patient oriented x3 and alert GENERAL APPEARANCE: cooperative, comfortable and frail appearing NUTRITIONAL APPEARANCE: thin ORIENTATION/CONSCIOUSNESS: Yes awake OTHER: -looks appropriate for age HENMT: COMMON NORMALS: normocephalic, atraumatic, hearing grossly normal bilaterally and moist oral mucous membranes HEAD & SCALP: normocephalic and atraumatic Eye: COMMON NORMALS: Equal, round and reactive pupils present, EOMs intact bilaterally and conjunctivae normal CONJUNCTIVA: Yes conjunctivae normal PUPIL: Yes Equal, round and reactive pupils present Neck/C-Spine: COMMON NORMALS: full ROM GENERAL: Yes normal visual inspection and Yes trachea midline Resp: COMMON NORMALS: normal respiratory effort, No retractions and No use of accessory muscles EFFORT & INSPECTION: Yes able to speak in complete sentences and Yes symmetric chest movement AUSCULTATION: diminished lung sounds bilateral OTHER: -on 4 L NC Cardio: COMMON NORMALS: regular rate, regular rhythm, S1 normal heart sound present, S2 normal heart sound present and No murmurs present (Cardio) RATE: regular rate RHYTHM: regular rhythm HEART SOUNDS: S1 normal heart sound present and S2 normal heart sound present GI: COMMON NORMALS: Normal to inspection, nondistended, normoactive bowel sounds present, Soft to palpation and non-tender PALPATION: Yes Soft to palpation Extremity: COMMON NORMALS: normal to inspection, full ROM and no clubbing, cyanosis or edema; negative for no pedal edema Neuro: COMMON NORMALS: patient oriented x3, moves all extremities, no focal motor deficits and no sensory deficits noted SENSORIUM/ORIENTATION: Yes alert Psych: COMMON NORMALS: mental status grossly normal, Normal thought process present, cooperative, normal affect and speech normal SPEECH: Yes normal speech THOUGHT PROCESS: Normal thought process present Skin: COMMON NORMALS: no rashes or lesions noted, no jaundice, no petechiae and no mottling GENERAL SKIN EXAM: no rashes or lesions noted Data : 03/13/20 03:54 03/13/20 03:54 Micro: Microbiology 03/10/20 15:25 Urine Culture - Final Urine,Clean Catch Escherichia coli A&P Assessment and plan (1) UTI (urinary tract infection): -UA strongly indicative of infection -blood cx: prelim negative -urine cx: E.coli, sensitivity noted -based on allergy profile, is on Ciprofloxacin (day 4) -decreased leukocytosis; continue to trend WBC -some of patient's symptoms including generalized weakness, poor appetite, disorientation and clouded sensorium could be due to infection -Hemodynamically stable, continue to monitor vital signs Status: Acute Qualifiers: Hematuria presence: without hematuria Urinary tract infection type: acute cystitis Qualified Code(s): N30.00 - Acute cystitis without hematuria (2) Malnourished: -at least moderate protein calorie malnutrition: BMI-16-17 kg/m2 -noted hypoalbuminemia -supplement Ensure to all meals; on mirtazapine Status: Chronic Qualifiers: Malnutrition type: protein-calorie malnutrition Protein-calorie malnutrition severity: unspecified severity Qualified Code(s): E46 - Unspecified protein-calorie malnutrition (3) Hyponatremia: -has previously been noted -corrected previously with IVF hydration, continue hydration -Noted drop in sodium today so will resume gentle IV fluid hydration; add salt tablets -CT chest done to r/o mass; noted severe chronic emphysema, no mass -hold lasix Status: Acute (4) Hypertension: -VSS; continue to monitor -hold lasix, ACEi; continue metoprolol Status: Chronic Qualifiers: Hypertension type: essential hypertension Qualified Code(s): I10 - Essential (primary) hypertension (5) COPD (chronic obstructive pulmonary disease): -has oxygen-dependent COPD, 4 L baseline requirement -continue to monitor respiratory status -no acute exacerbation currently Status: Chronic Qualifiers: COPD type: emphysema Emphysema type: unspecified Qualified Code(s): J43.9 - Emphysema, unspecified (6) Hyperlipidemia: Status: Chronic Qualifiers: Hyperlipidemia type: unspecified Qualified Code(s): E78.5 - Hyperlipidemia, unspecified Additional A&P Information -OA, chronic pain; resume pain meds -Physical deconditioning, overall quite frail and high fall risk; fall precautions, PT/OT evaluations -Chronic normocytic anemia; baseline Hg is around 10; trend H/H -liberal diet -DVT ppx with Lovenox -Dispo: would like SNF placement, [facility] is her first choice. Given her overall fraility, deconditioning and unstable home situation, this is the better option in terms of disposition. Case management working on this -Code status: FULL code Attestations Medical Necessity Statement*: Patient requires hospitalization for continued treatment of UTI, hyponatremia, pending appropriate disposition. Time Spent in Patient Care: 16 - 35 minutes (>than 50% of time spent in co unselling and/or direct pt care on unit) . Coding Level of Care Code Acute House Shorer for g Fwd Exam Comprehensive Diagnoses UTI (urinary tract infection) N30.00 Hematuria presence: without hematuria Urinary tract infection type: acute cystitis Malnourished E46 Malnutrition type: protein-calorie malnutrition Protein-calorie malnutrition severity: unspecified severity Hyponatremia E87.1 Hypertension I10 Hypertension type: essential hypertension COPD (chronic obstructive pulmonary disease) J43.9 COPD type: emphysema Emphysema type: unspecified Hyperlipidemia E78.5 Hyperlipidemia type: unspecified
[2020-03-13] MEDS: sodium chloride 0.9% 1,000 ML 75 ML IV (15:58)
[2020-03-13] MEDS: sodium chloride 1 gm Tablet PO (17:47)
[2020-03-13] MEDS: donepezil 5 MG Tablet PO (20:19)
--- NOTE | 2020-03-13 20:21 | P.EN_ITS ---
Event Note Event Note: Nurse called me with episode of bright red blood in panties, fair amount, 1/4 to 1/3 cup. Abdomen is benign. Patient without significant complaints. States she occasionally has passed bright red blood in her stool in the past when she is constipated. Denies any diarrhea. Last colonoscopy grea ter than 5 years ago, she cannot remember the particulars. At this point I will check a hemoglobin and hematocrit. Repeat this 4 to 6 hours after that. Monitor for any recurrent bleeding. Discontinue Lovenox. Consideration of colonoscopy.
[2020-03-13 21:09] LABS: Hematocrit 29.7 % (37.0-47.0); Hemoglobin 9.4 g/dL (11.5-15.3)
[2020-03-14] VITALS (8 sets, daily range): BP systolic 115–171; BP diastolic 71–88; PULSE 66–81; RESP 16–20; TEMP 36.7–37; O2SAT 91–99
[2020-03-14] MEDS: sodium chloride 0.9% 1,000 ML 75 ML IV (04:02)
[2020-03-14 04:39] LABS: Basophils # 0.1 10^3/uL (0.0-0.1); Basophils % 0.8 %; Eosinophils # 0.3 10^3/uL (0.0-0.8); Eosinophils % 4.1 %; Hematocrit 30.3 % (37.0-47.0); Hemoglobin 9.4 g/dL (11.5-15.3); Lymphocytes # 1.3 10^3/uL (0.8-4.8); Lymphocytes % 17.6 %; Mean Corpuscular Hemoglobin 27.2 pg (28.0-34.0); Mean Corpuscular Volume 87.6 fL (81-99); Mean Platelet Volume 9.8 fL (7.4-10.4); Monocytes # 0.8 10^3/uL (0.2-0.9); Monocytes % 10.5 %; Neutrophils # 4.92 10^3/uL (1.8-7.7); Neutrophils % 66.5 %; Nucleated Red Blood Cells % 0 %; Platelet Count 693 10^3/cmm (130-400); Red Blood Count 3.46 10^6/uL (4.1-5.3); Red Cell Distribution Width 13.2 % (12.1-15.1); White Blood Count 7.4 10^3/uL (4.0-10.0)
[2020-03-14 04:57] LABS: Sodium 133 mmol/L (136-145)
[2020-03-14] MEDS: ciprofloxacin 500 mg Tablet PO ×2 (08:29→17:55)
[2020-03-14] MEDS: sodium chloride 1 gm Tablet PO ×2 (08:29→17:53)
[2020-03-14] MEDS: gabapentin 300 mg Capsule PO ×2 (08:29→17:55)
[2020-03-14] MEDS: docusate sodium 100 mg Capsule PO (08:30)
[2020-03-14] MEDS: fluticasone nasal spray 16gm Btl 2 SPRAY INTRANASAL (08:31)
--- NOTE | 2020-03-14 11:49 | PC.OT ---
Co-signature by Julissa Henry, OTR/L for OT evaluation completed by Eleonora Stevenson OTR/L
--- NOTE | 2020-03-14 17:35 | P.PN_ITS ---
Subjective Subjective: Interval history: Overnight was noted to have another episode of bright red blood per rectum, anticoagulation held, stable hemoglobin this morning at 9.4, improving sodium, currently at 133, hemodynamically stable, remains on 4 L nasal cannula. No bowel movements yet, moderate oral intake. She reports some lower abdominal discomfort. Medications: Reviewed: Yes Medication Review Details: Active Medications Generic Name Dose Route Start Last Admin Trade Name Freq PRN Reason Stop Dose Admin Acetaminophen 650 mg 03/10/20 18:44 Tylenol PO Q6H PRN Mild/Mod Pain Or Temp >/= 101 Hydrocodone Bitart /Acetaminophen 1 tab 03/10/20 17:50 [place] 5-325 Mg PO Q6H PRN SEVERE PAIN Albuterol/Ipratrop ium 3 ml 03/10/20 19:14 03/10/20 21:17 Duoneb INHALATION 3 ml Q6H PRN Administration SHORTNESS OF FIONA TH Bisacodyl 10 mg 03/10/20 18:44 Dulcolax PO DAILY PRN CONSTIPATION Ciprofloxacin HCl 500 mg 03/12/20 09:00 03/14/20 08:29 Cipro PO 500 mg BID ROSLYN Administration Protocol Docusate Sodium 100 mg 03/11/20 09:00 03/14/20 08:30 Colace PO 100 mg BID ROSLYN Administration Donepezil HCl 5 mg 03/10/20 21:00 03/13/20 20:19 Aricept PO 5 mg BEDTIME ROSLYN Administration Fluticasone Propio mart 2 spray 03/11/20 09:00 03/14/20 08:31 Flonase INTRANASAL 2 spray DAILY ROSLYN Administration Gabapentin 300 mg 03/10/20 18:00 03/14/20 08:29 Neurontin PO 300 mg BID ROSLYN Administration Sodium Chloride 1,000 mls @ 75 ml s/hr 03/13/20 14:30 03/14/20 04:02 Sodium Chloride 0.9% IV 75 mls/hr .[id number] ROSLYN Administration Ondansetron HCl 4 mg 03/10/20 18:44 Zofran IVP Q6H PRN vomiting, or N/V if npo Sodium Chloride 1 gm 03/13/20 18:00 03/14/20 08:29 Salt Tab PO 1 gm BID ROSLYN Administration amoxicillin [From Augmentin] Allergy (Unknown, Verified 03/10/20 13:58) Unknown clavulanic acid [From Augmentin] Allergy (Unknown, Verified 03/10/20 13:58) Unknown nitrofurantoin [From Macrobid] Allergy (Unknown, Verified 03/10/20 13:58) Unknown Sulfa (Sulfonamide Antibiotics) Allergy (Unknown, Verified 03/10/20 13:58) Unknown Vitals/I&O/Wt Last Vital Signs Temp 98.6 F 03/14/20 16:21 Pulse 79 03/14/20 16:21 Resp 18 03/14/20 16:21 BP 162/85 03/14/20 16:21 Pulse Ox 92 03/14/20 16:21 03/14/20 03/14/20 03/14/20 06:59 14:59 22:59 Intake Total 1185 / 2265 820 / 820 Output Total 600 / 600 2 / Balance 585 / 1665 818 / 818 -1 / 817 Weight last 48 hrs Weight 42.184 kg Weight 42.326 kg Physical Exam Const: COMMON NORMALS: no acute distress, patient oriented x3 and alert GENERAL APPEARANCE: cooperative, comfortable and frail appearing NUTRITIONAL APPEARANCE: thin ORIENTATION/CONSCIOUSNESS: Yes awake OTHER: -looks appropriate for age HENMT: COMMON NORMALS: normocephalic, atraumatic, hearing grossly normal bilaterally and moist oral mucous membranes HEAD & SCALP: normocephalic and atraumatic Eye: COMMON NORMALS: Equal, round and reactive pupils present, EOMs intact bilaterally and conjunctivae normal CONJUNCTIVA: Yes conjunctivae normal PUPIL: Yes Equal, round and reactive pupils present Neck/C-Spine: COMMON NORMALS: full ROM GENERAL: Yes normal visual inspection and Yes trachea midline Resp: COMMON NORMALS: normal respiratory effort, No retractions and No use of accessory muscles EFFORT & INSPECTION: Yes able to speak in complete s entences and Yes symmetric chest movement AUSCULTATION: diminished lung sounds bilateral OTHER: -on 4 L NC Cardio: COMMON NORMALS: regular rate, regular rhythm, S1 normal heart sound present, S2 normal heart sound present and No murmurs present (Cardio) RATE: regular rate RHYTHM: regular rhythm HEART SOUNDS: S1 normal heart sound present and S2 normal heart sound present GI: COMMON NORMALS: Normal to inspection, nondistended, normoactive bowel sounds present, Soft to palpation and non-tender PALPATION: Yes Soft to palpation RECTAL EXAM: External hemorrhoid(s) present and no fissure noted Extremity: COMMON NORMALS: normal to inspection, full ROM and no clubbing, cyanosis or edema; negative for no pedal edema Neuro: COMMON NORMALS: patient oriented x3, moves all extremities, no focal motor deficits and no sensory deficits noted SENSORIUM/ORIENTATION: Yes alert Psych: COMMON NORMALS: mental status grossly normal, Normal thought process present, cooperative, normal affect and speech normal SPEECH: Yes normal speech THOUGHT PROCESS: Normal thought process present Skin: COMMON NORMALS: no rashes or lesions noted, no jaundice, no petechiae and no mottling GENERAL SKIN EXAM: no rashes or lesions noted Data : 03/14/20 04:07 03/14/20 04:07 A&P Assessment and plan (1) UTI (urinary tract infection): -UA strongly indicative of infection -blood cx: prelim negative -urine cx: E.coli, sensitivity noted -based on allergy profile, is on Ciprofloxacin (day 5) -resolved leukocytosis; continue to trend WBC -some of patient's symptoms including generalized weakness, poor appetite, disorientation and clouded sensorium could be due to infection -Hemodynamically stable, continue to monitor vital signs Status: Acute Qualifiers: Urinary tract infection type: acute cystitis Hematuria presence: without hematuria Qualified Code(s): N30.00 - Acute cystitis without hematuria (2) Malnourished: -at least moderate protein calorie malnutrition: BMI-16-17 kg/m2 -noted hypoalbuminemia -supplement Ensure to all meals; on mirtazapine Status: Chronic Qualifiers: Malnutrition type: protein-calorie malnutrition Protein-calorie malnutrition severity: unspecified severity Qualified Code(s): E46 - Unspecified protein-calorie malnutrition (3) Hyponatremia: -has previously been noted -corrected previously with IVF hydration, continue hydration -Noted drop in sodium today so will resume gentle IV fluid hydration; add salt tablets -CT chest done to r/o mass; noted severe chronic emphysema, no mass -hold lasix Status: Acute (4) Hypertension: -VSS; continue to monitor -hold lasix, ACEi; continue metoprolol Status: Chronic Qualifiers: Hypertension type: essential hypertension Qualified Code(s): I10 - Essential (primary) hypertension (5) COPD (chronic obstructive pulmonary disease): -has oxygen-dependent COPD, 4 L baseline requirement -continue to monitor respiratory status -no acute exacerbation currently Status: Chronic Qualifiers: COPD type: emphysema Emphysema type: unspecified Qualified Code(s): J43.9 - Emphysema, unspecified (6) Hyperlipidemia: Status: Chronic Qualifiers: Hyperlipidemia type: unspecified Qualified Code(s): E78.5 - Hyperlipidemia, unspecified (7) Bright red blood per rectum: -Chronic normocytic anemia; baseline Hg is around 10; trend H/H -Abdominal pain, no BMs yet, noted BRBPR, will order CT A/P for further evaluation. Has had colonoscopy done in 01/2016 showing internal hemorrhoids and severe diverticulosis. Also had endoscopic evaluation at that time with noted Janet esophagitis, small hiatal hernia and mild duodenitis. Add PPI Status: Acute Additional A&P Information -OA, chronic pain; resume pain meds -Physical deconditioning, overall quite frail and high fall risk; fall precautions, PT/OT evaluations appreciated -liberal diet -DVT ppx with SCDs, hold lovenox due to concern for BRBPR -Dispo: would like SNF placement but due to payment issues, will not be a viable option for her. Alternative is home with home health, to resume services with [place] -Code status: FULL code Attestations Medical Necessity Statement*: Patient requires hospitalization for continued treatment of UTI, noted to have episodes of bright red blood per rectum requiring continued close monitoring of hemoglobin, imaging. Time Spent in Patient Care: 16 - 35 minutes (>than 50% of time spent in counselling and/or direct pt care on unit) . Coding Level of Care Code Acute Digital Measurement Advisor for Chg Fwd Diagnoses UTI (urinary tract infection) N30.00 Urinary tract infection type: acute cystitis Hematuria presence: without hematuria Malnourished E46 Malnutrition type: protein-calorie malnutrition Protein-calorie malnutrition severity: unspecified severity Hyponatremia E87.1 Hypertension I10 Hypertension type: essential hypertension COPD (chronic obstructive pulmonary disease) J43.9 COPD type: emphysema Emphysema type: unspecified Hyperlipidemia E78.5 Hyperlipidemia type: unspecified Bright red blood per rectum K62.5
--- NOTE | 2020-03-14 17:35 | CTR_ITS ---
PROCEDURE INFORMATION: Exam: CT Abdomen And Pelvis Without Contrast Exam date and time: 03/14/2020 7:51 PM Age: 75 years old Clinical indication: Abdominal pain; Additional info: Abdominal pain, brbpr TECHNIQUE: Imaging protocol: Computed tomography of the abdomen and pelvis without contrast. Radiation optimization: All CT scans at this facility use at least one of these dose optimization techniques: automated exposure control; mA and/or kV adjustment per patient size (includes targeted exams where dose is matched to clinical indication); or iterative reconstruction. COMPARISON: CT Abdomen/Pelvis [facility] [id number] 05/15/2016 3:28 PM RADIATION DOSE METRICS: Total DLP (mGy-cm): 265.54 FINDINGS: Lungs: Centrilobular emphysematous changes. Bibasilar atelectasis versus minimal infiltrate. Liver: Left hepatic lobe somewhat complex 13 mm cystic lesion likely reflects a cyst. Gallbladder and bile ducts: Cholelithiasis. Pancreas: Normal. No ductal dilation. Spleen: Normal. No splenomegaly. Adrenals: Normal. No mass. Kidneys and ureters: Left kidney benign cyst, no follow-up recommended. Bilateral punctate nonobstructing renal calyceal stones. Stomach and bowel: Constipation. Poorly defined sigmoid colon wall thickening distally may reflect an underlying mass, however, this is poorly visualized given lack of contrast. Appendix: No evidence of appendicitis. Intraperitoneal space: Small amount of fluid suspected in the pelvis, nonspecific. Vasculature: Infrarenal abdominal aortic aneurysm measuring 3.3 cm without rupture. Lymph nodes: Unremarkable. No enlarged lymph nodes. Bladder: Unremarkable as visualized. Reproductive: Unremarkable as visualized. Bones/joints: Unremarkable. No acute fracture. Soft tissues: Unremarkable. CT/CT abdomen pelvis [facility] [id number] IMPRESSION: 1. Poorly defined sigmoid colon wall thickening distally may reflect an underlying mass, however, this is poorly visualized given lack of contrast. 2. Small amount of fluid suspected in the pelvis, nonspecific. 3. Cholelithiasis. 4. Centrilobular emphysematous changes. 5. Bibasilar atelectasis versus minimal infiltrate. 6. Left hepatic lobe somewhat complex 13 mm cystic lesion likely reflects a cyst. 7. Left kidney benign cyst, no follow-up recommended. 8. Bilateral punctate nonobstructing renal calyceal stones. 9. Infrarenal abdominal aortic aneurysm measuring 3.3 cm without rupture. 10. Constipation. COMMENTS: Consistent with the [employer]'s Incidental Findings Committee white paper (J Am Juan Radiol 2018): Any incidental renal lesion less than 1.0 cm or classified as too small to characterize, or any incidental cystic renal lesion characterized as simple-appearing, is likely benign. No follow-up imaging is recommended for these lesions per consensus recommendations based on imaging criteria. Radiation Dose CTDIVOL = (mGy): DLP = 265.54 (mGy-cm)
[2020-03-14] MEDS: pantoprazole DR 40 mg Tablet PO (17:55)
[2020-03-14] MEDS: sennosides-docusate Tablet 2 TAB PO (17:58)
[2020-03-14] MEDS: iohexol 300 mg/mL 50 mL Btl PO (21:34)
[2020-03-14] MEDS: donepezil 5 MG Tablet PO (21:45)
[2020-03-15] VITALS (8 sets, daily range): BP systolic 103–179; BP diastolic 59–91; PULSE 55–82; RESP 15–20; TEMP 36.5–37; O2SAT 94–100
[2020-03-15 05:19] LABS: Hematocrit 30.9 % (37.0-47.0); Hemoglobin 9.6 g/dL (11.5-15.3)
[2020-03-15] MEDS: sodium chloride 1 gm Tablet PO (08:05)
[2020-03-15] MEDS: sennosides-docusate Tablet 2 TAB PO ×2 (08:05→18:13)
[2020-03-15] MEDS: ciprofloxacin 500 mg Tablet PO ×2 (08:05→18:13)
[2020-03-15] MEDS: pantoprazole DR 40 mg Tablet PO ×2 (08:05→18:13)
[2020-03-15] MEDS: gabapentin 300 mg Capsule PO ×2 (08:05→18:13)
[2020-03-15] MEDS: fluticasone nasal spray 16gm Btl 2 SPRAY INTRANASAL (08:06)
--- NOTE | 2020-03-15 10:06 | PC.SOCIAL ---
IMM Updated Updated pt on Pg 2 IMM. No questions voiced. Provided pt a copy. Signed, dated, & timed copy in chart.
--- NOTE | 2020-03-15 14:02 | CTR_ITS ---
PROCEDURE INFORMATION: Exam: CT Abdomen And Pelvis With Contrast Exam date and time: 03/15/2020 4:24 PM Age: 75 years old Clinical indication: Bloating and other: Blood in stool; Abdominal pain; Additional info: Sigmoid wall thickening, possible mass TECHNIQUE: Imaging protocol: Computed tomography of the abdomen and pelvis with intravenous contrast. Radiation optimization: All CT scans at this facility use at least one of these dose optimization techniques: automated exposure control; mA and/or kV adjustment per patient size (includes targeted exams where dose is matched to clinical indication); or iterative reconstruction. Contrast material: OMNI 300; Contrast volume: 75 ml; Contrast route: INTRAVENOUS (IV); COMPARISON: CT abdomen pelvis wo con [id number] 03/14/2020 9:23 PM RADIATION DOSE METRICS: Total DLP (mGy-cm): 186.55 FINDINGS: Liver: Hypodensities in the liver are too small to characterize but most likely cysts. No follow-up is recommended. Gallbladder and bile ducts: Contracted gallbladder fundus with mild wall thickening. The bile ducts are within normal limits. Pancreas: Normal. No ductal dilation. Spleen: Normal. No splenomegaly. Adrenals: Normal. No mass. Kidneys and ureters: Fluid density lesion in the left kidney, Hounsfield units less than 20. Subcentimeter hypodensities in both kidneys are most likely cysts. No follow-up is recommended. Stomach and bowel: Scattered gas within the small bowel. No obstruction identified. Scattered fluid and stool in the colon. Increased fluid in the distal colon with mild wall enhancement. No definite visible mass. Appendix: The the appendix is not visualized. Intraperitoneal space: Trace pelvic ascites. Vasculature: Mild aneurysmal dilatation of the infrarenal abdominal aorta measuring 3.3 cm. Lymph nodes: Unremarkable. No enlarged lymph nodes. Bladder: Unremarkable as visualized. Reproductive: Unremarkable as visualized. Bones/joints: Hardware in the bilateral proximal femurs. Stable mild T12 compression fracture. Soft tissues: Unremarkable. CT/CT abdomen pelvis w con* [id number] IMPRESSION: 1. Mild wall enhancement and fluid within the distal sigmoid colon. No mass definitely visualized. Mild infectious versus inflammatory colitis is not excluded. 2. Stable trace pelvic ascites. 3. Scattered gas within the small bowel measuring up to 3 cm could represent mild enteritis or ileus. 4. Mild wall thickening and enhancement in the gallbladder fundus. Further evaluation with ultrasound is recommended. Radiation Dose CTDIVOL = (mGy): DLP = 186.55 (mGy-cm)
--- NOTE | 2020-03-15 14:03 | P.PN_ITS ---
Subjective Subjective: Interval history: Pressure trending up, afebrile, remains on her baseline oxygen requirement of 4 L nasal cannula. Hemoglobin slightly improved to 9.6. Reviewed CT of the abdomen and pelvis with noted possible sigmoid colon wall thickening and questionable mass that would require further evaluation so will order CT of the abdomen and pelvis with contrast. Had quite a large bowel movement earlier this afternoon. Seems to be quite fatigued from that so resting quietly in bed. Reviewed CT scan findings. Seen ambulating earlier with physical therapy. Medications: Reviewed: Yes Medication Review Details: Current Medications Generic Name Dose Route Start Last Admin Trade Name Freq PRN Reason Stop Dose Admin Albuterol/Ipratrop ium 3 ml 03/10/20 19:14 03/10/20 21:17 Duoneb INHALATION 3 ml Q6H PRN Administration SHORTNESS OF FIONA TH Ciprofloxacin HCl 500 mg 03/12/20 09:00 03/15/20 08:05 Cipro PO 500 mg BID ROSLYN Administration Protocol Donepezil HCl 5 mg 03/10/20 21:00 03/14/20 21:45 Aricept PO 5 mg BEDTIME ROSLYN Administration Fluticasone Propio mart 2 spray 03/11/20 09:00 03/15/20 08:06 Flonase INTRANASAL 2 spray DAILY ROSLYN Administration Gabapentin 300 mg 03/10/20 18:00 03/15/20 08:05 Neurontin PO 300 mg BID ROSLYN Administration Sodium Chloride 1,000 mls @ 75 ml s/hr 03/13/20 14:30 03/14/20 04:02 Sodium Chloride 0.9% IV 75 mls/hr .[id number] ROSLYN Administration Pantoprazole Sodiu m 40 mg 03/14/20 18:00 03/15/20 08:05 Protonix PO 40 mg BID ROSLYN Administration Senna/Docusate Sod ium 2 tab 03/14/20 18:00 03/15/20 08:05 Senna-S PO 2 tab BID ROSLYN Administration Sodium Chloride 1 gm 03/13/20 18:00 03/15/20 08:05 Salt Tab PO 1 gm BID ROSLYN Administration Vitals/I&O/Wt Last Vital Signs Temp 97.9 F 03/15/20 11:22 Pulse 75 03/15/20 11:22 Resp 16 03/15/20 11:22 BP 161/82 03/15/20 11:22 Pulse Ox 99 03/15/20 11:22 03/14/20 03/15/20 03/15/20 22:59 06:59 14:59 Intake Total 360 / 360 Output Total Balance - 360 / 360 Weight last 48 hrs Weight 42.184 kg Physical Exam Const: COMMON NORMALS: no acute distress, patient oriented x3 and alert GENERAL APPEARANCE: cooperative, comfortable and frail appearing NUTRITIONAL APPEARANCE: thin ORIENTATION/CONSCIOUSNESS: Yes awake OTHER: -looks appropriate for age HENMT: COMMON NORMALS: normocephalic, atraumatic, hearing grossly normal bilaterally and moist oral mucous membranes HEAD & SCALP: normocephalic and atraumatic Eye: COMMON NORMALS: Equal, round and reactive pupils present, EOMs intact bilaterally and conjunctivae normal CONJUNCTIVA: Yes conjunctivae normal PUPIL: Yes Equal, round and reactive pupils present Neck/C-Spine: COMMON NORMALS: full ROM GENERAL: Yes normal visual inspection and Yes trachea midline Resp: COMMON NORMALS: normal respiratory effort, No retractions and No use of accessory muscles EFFORT & INSPECTION: Yes able to speak in complete sentences and Yes symmetric chest movement AUSCULTATION: diminished lung sounds bilateral OTHER: -on 4 L NC Cardio: COMMON NORMALS: regular rate, regular rhythm, S1 normal heart sound present, S2 normal heart sound present and No murmurs present (Cardio) RATE: regular rate RHYTHM: regular rhythm HEART SOUNDS: S1 normal heart sound present and S2 normal heart sound present GI: COMMON NORMALS: Normal to inspection, nondistended, normoactive bowel sounds present, Soft to palpation and non-tender PALPATION: Yes Soft to palpation RECTAL EXAM: External hemorrhoid(s) present and no fissure noted Extremity: COMMON NORMALS: normal to inspection, full ROM and no clubbing, cyanosis or edema; negative for no pedal edema Neuro: COMMON NORMALS: patient oriented x3, moves all extremities, no focal motor deficits and no sensory deficits noted SENSORIUM/ORIENTATION: Yes alert Psych: COMMON NORMALS: mental status grossly normal, Normal thought process present, cooperative, normal affect and speech normal SPEECH: Yes normal speech THOUGHT PROCESS: Normal thought process present Skin: COMMON NORMALS: no rashes or lesions noted, no jaundice, no petechiae and no mottling GENERAL SKIN EXAM: no rashes or lesions noted Data : 03/15/20 04:09 08/10/20 04:07 A&P Assessment and plan (1) Bright red blood per rectum: -Chronic normocytic anemia; baseline Hg is around 10; trend H/H -Abdominal pain, no BMs yet, noted BRBPR. Has had colonoscopy done in 01/2016 showing internal hemorrhoids and severe diverticulosis. Also had endoscopic evaluation at that time with noted Janet esophagitis, small hiatal hernia and mild duodenitis. -on PPI -CT of the abdomen and pelvis without contrast showed cholelithiasis, left hepatic lobe complex lesion, likely cyst, bilateral renal stones, left renal cyst, constipation, poorly defined sigmoid colon wall thickening distally with questionable mass that will require further evaluation with contrast study which shows findings consistent with colitis versus enteritis. Noted mild gallbladder wall thickening with recommendation made for ultrasound for further evaluation -Escalate bowel regimen due to noted fecal retention; had a large bowel movement today -Is already on ciprofloxacin, will add Flagyl for anaerobic coverage given CT findings Status: Acute (2) UTI (urinary tract infection): -UA strongly indicative of infection -blood cx: prelim negative -urine cx: E.coli, sensitivity noted -based on allergy profile, is on Ciprofloxacin (day 6) -resolved leukocytosis; continue to trend WBC -some of patient's symptoms including generalized weakness, poor appetite, disorientation and clouded sensorium could be due to infection -Hemodynamically stable, continue to monitor vital signs Status: Acute Qualifiers: Hematuria presence: without hematuria Urinary tract infection type: acute cystitis Qualified Code(s): N30.00 - Acute cystitis without hematuria (3) Malnourished: -at least moderate protein calorie malnutrition: BMI-16-17 kg/m2 -noted hypoalbuminemia -supplement Ensure to all meals; on mirtazapine Status: Chronic Qualifiers: Malnutrition type: protein-calorie malnutrition Protein-calorie malnutrition severity: unspecified severity Qualified Code(s): E46 - Unspecified protein-calorie malnutrition (4) Hyponatremia: -has previously been noted -corrected previously with IVF hydration, continue hydration -d/c IV fluid hydration; hold salt tablets -CT chest done to r/o mass; noted severe chronic emphysema, no mass -hold lasix Status: Acute (5) Hypertension: -hypertensive, continue to monitor vital signs -hold Lasix; resume BB, lower dose of ACEi Status: Chronic Qualifiers: Hypertension type: essential hypertension Qualified Code(s): I10 - Essential (primary) hypertension (6) COPD (chronic obstructive pulmonary disease): -has oxygen-dependent COPD, 4 L baseline requirement -continue to monitor respiratory status -no acute exacerbation currently Status: Chronic Qualifiers: COPD type: emphysema Emphysema type: unspecified Qualified Code(s): J43.9 - Emphysema, unspecified (7) Hyperlipidemia: Status: Chronic Qualifiers: Hyperlipidemia type: unspecified Qualified Code(s): E78.5 - Hyperlipidemia, unspecified Additional A&P Information -OA, chronic pain; resume pain meds -Physical deconditioning, overall quite frail and high fall risk; fall precautions, PT/OT evaluations appreciated -liberal diet -DVT ppx with SCDs, hold lovenox due to concern for BRBPR -Dispo: would like SNF placement but due to payment issues, will not be a viable option for her. Alternative is home with home health, to resume services with [facility] -Code status: FULL code Attestations Medical Necessity Statement*: Patient requires hospitalization for continued management of hyponatremia, anemia, constipation, further work-up for noted abnormality on CT scan of the abdomen and pelvis including possible underlying sigmoid colon mass. Time Spent in Patient Care: 16 - 35 minutes (>than 50% of time spent in counselling and/or direct pt care on unit) . Coding Level of Care Code Acute Jig Boring Machine Operator For Metal for Chg Fwd Exam Comprehensive Diagnoses Bright red blood per rectum K62.5 UTI (urinary tract infection) N30.00 Hematuria presence: without hematuria Urinary tract infection type: acute cystitis Malnourished E46 Malnutrition type: protein-calorie malnutrition Protein-calorie malnutrition severity: unspecified severity Hyponatremia E87.1 Hypertension I10 Hypertension type: essential hypertension COPD (chronic obstructive pulmonary disease) J43.9 COPD type: emphysema Emphysema type: unspecified Hyperlipidemia E78.5 Hyperlipidemia type: unspecified
[2020-03-15] MEDS: lisinopril 20 mg Tablet PO (14:43)
[2020-03-15] MEDS: metroNIDAZOLE IV 500 MG/100 ML PREMIX 100 MG IV ×2 (14:43→20:56)
[2020-03-15] MEDS: ondansetron 2 mg/ML SDV 2 mL 4 MG IVP (15:16)
[2020-03-15] MEDS: HYDROcodone-acetaminophen 5-325 mg Tablet 1 TAB PO (15:19)
[2020-03-15] MEDS: iohexol 300 mg/mL 100 mL Btl IV (16:52)
[2020-03-15] MEDS: metoprolol tartrate 50 mg Tablet PO (18:13)
[2020-03-15] MEDS: donepezil 5 MG Tablet PO (20:55)
[2020-03-16] VITALS (9 sets, daily range): BP systolic 113–143; BP diastolic 62–76; PULSE 54–78; RESP 16–18; TEMP 36.5–37; O2SAT 97–100
[2020-03-16] MEDS: metroNIDAZOLE IV 500 MG/100 ML PREMIX 100 MG IV ×2 (05:58→13:22)
--- NOTE | 2020-03-16 06:00 | US_ITS ---
WS: [id number] ULTRASOUND ABDOMEN LIMITED CLINICAL INFORMATION: Gallbladder wall thickening noted on CT scan COMPARISON: None. FINDINGS: Liver Size: Normal. Craniocaudal length: 11.8 cm. Echogenicity: Coarse Surface nodularity: None. Mass (size and location): None. Bile ducts Intrahepatic ducts: Normal. Common bile duct diameter: 0.2 cm. Gallbladder Small amount of pericholecystic fluid likely on the basis of hepatocellular disease Gallstones: None. Gallbladder sludge: None. Gallbladder wall thickening: None. Pericholecystic fluid: Minimal Sonographic Holm sign: Absent. Pancreas Not well visualized Right kidney: Normal. Hydronephrosis: None. Size: 10.2 cm x 4.0 cm x 3.4 cm. Aneurysmal infrarenal abdominal aorta measuring 2.9 x 2.7 cm with moderate atheromatous disease. Ascites: Present US/US gall bladder 26511 IMPRESSION: 1. Coarse hepatic echogenicity likely due to hepatocellular disease and/or fat ty infiltration. Recommend correlation with liver function tests. 2. No significant gallbladder wall thickening. Mild pericholecystic fluid like ly on the basis of hepatic disease. 3. Aneurysmal infrarenal abdominal aorta measuring 2.9 x 2.7 CM. 4. No hydronephrosis in right kidney.
[2020-03-16 06:02] LABS: Hematocrit 29.4 % (37.0-47.0); Hemoglobin 9.1 g/dL (11.5-15.3)
[2020-03-16 06:58] LABS: Anion Gap 10.6 (5-19); Blood Urea Nitrogen 11 mg/dL (8-23); Calcium 8.6 mg/dL (8.5-10.5); Carbon Dioxide 30 mmol/L (22-29); Chloride 96 mmol/L (98-107); Glucose 93 mg/dL (65-115); Osmolality Calculated 270 mOsm/kg (285-295); Potassium 4.6 mmol/L (3.5-5.1); Sodium 132 mmol/L (136-145)
--- NOTE | 2020-03-16 07:06 | PC.NURSE ---
Patient sitting on side of bed, alert and oriented X2-3 with intermittent confusion, denies pain or discomfort, fall precautions in place, call light in reach.
[2020-03-16] MEDS: gabapentin 300 mg Capsule PO (08:43)
[2020-03-16] MEDS: ciprofloxacin 500 mg Tablet PO (08:43)
[2020-03-16] MEDS: metoprolol tartrate 50 mg Tablet PO (08:43)
[2020-03-16] MEDS: sennosides-docusate Tablet 2 TAB PO (08:43)
[2020-03-16] MEDS: lisinopril 20 mg Tablet PO (08:43)
[2020-03-16] MEDS: pantoprazole DR 40 mg Tablet PO (08:48)
[2020-03-16] MEDS: fluticasone nasal spray 16gm Btl 2 SPRAY INTRANASAL (08:48)
--- NOTE | 2020-03-16 10:49 | PC.CHAP ---
Pastoral Care Encounter/Spiritual Assessment Type of Contact [] Declined senior lead developer visit [] Patient/Family/Request visit [] Outpatient visit [] Follow-up visit [] Physician referral [] Code/Alert [x] Routine visit [] Staff referral [] Actively dying [] Patient sleeping [] Family support [] [] Out of room [] Palliative care [] [] Receiving care in room [] Pre-surgical visit [] Trauma [] Long length of stay [] ICU visit [] Other: Relational/Emotional Strength [] Patient feels connected with others/family/visitors/staff [] Distress [] Loneliness/isolation [] Abandonment Spirituality of Patient [] Person of Tresa [] Attends Buddhist of their Tresa [] Believes in Prayer [] Reads Bible or Tenriism materials [] There are Spiritual issues to be addressed Wealth Management Director Interventions [x] Prayer [x] Active listening [x] Non-anxious presence [x] Spiritual/emotional support [] Crisis/trauma care [] Spiritual counseling [] Bereavement support [] Provided bereavement packet [] Provided Bible/devotional materials [] Provided toy/stuffed animal, coloring book to patient or family member [] Provided Communion [] Anointing/Henry [] Salvation [x] Completed spiritual assessment [] Other: Impact on Illness or Injury [] Angry [] Fearful [] Anxious [] Often cries [] Exhaustion [] Unable to work [] Unable to attend judaism [] Unable to walk/stand [] Unable to read [] Unable to drive [] Unable to eat/drink [] Unable to sleep [] Unable to be with family [] Patient intubated [] Other: Summary Patient resting, but is cold..blankets added but she still has discomfort Time spent with patient 5 min
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
--- NOTE | 2020-03-16 14:47 | PC.NURSE ---
Milieu Manager called patient's Shayan [phone] for ride home and went over discharge instructions with , sports writer notified patient's that scripts were sent to [facility] pharmacy and patient's said he knows where [facility] pharmacy is located. patient's said he will be here in about 1 hour to black pickler patient. Discharge instructions given to patient and patient verbalized understanding of instructions. IV removed and IV intact.
== END 2020-03-16 15:39 | disposition home health service (06) | DRG 690 ==
LOC: ER 16:39 → MEDSURG 16:50
PROVIDERS: Emergency Medicine; Internal Medicine; Admitting Provider Family Medicine; PCP Family Medicine; Visit Provider Family Medicine
DX: N30.00 Acute cystitis without hematuria (principal); E87.1 Hypo-osmolality and hyponatremia; E44.0 Moderate protein-calorie malnutrition; Z68.1 Body mass index [BMI] 19.9 or less, adult; Z99.81 Dependence on supplemental oxygen; I10 Essential (primary) hypertension; E78.5 Hyperlipidemia, unspecified; M19.90 Unspecified osteoarthritis, unspecified site; G89.29 Other chronic pain; J43.9 Emphysema, unspecified; F17.210 Nicotine dependence, cigarettes, uncomplicated; D64.9 Anemia, unspecified
CPT/HCPCS: 12345; 36415; 36600; 70450; 71045; 71260; 74176; 74177; 76705; 80048; 80053; 81001; 82803; 84295; 85014; 85018; 85025; 87040; 87077; 87086; 87186; 93005; 94640; 96372; 96375; 97116; 97161; 97165; 97530; 97535; 99283; J0744; J1650; J2270; J2405; J7030; Q9967; S0030

== ENCOUNTER → 2020-03-23 11:58 | Outpatient (BNVA) | payer MEDICARE, SELFPAY | PROVIDERS: PCP Family Medicine; Visit Provider Family Medicine | DX: K62.5 Hemorrhage of anus and rectum (principal); Z68.1 Body mass index [BMI] 19.9 or less, adult; F17.210 Nicotine dependence, cigarettes, uncomplicated; Z71.89 Other specified counseling | CPT/HCPCS: 85025 ==

== ENCOUNTER 2020-11-16 15:02 | Observation (INO) | payer MEDICARE, SELFPAY ==
[2020-11-16] VITALS (11 sets, daily range): BP systolic 150–175; BP diastolic 80–136; PULSE 81–118; RESP 15–25; TEMP 36.8–37; O2SAT 90–100; BMI 16.2
--- NOTE | 2020-11-16 15:14 | XR_ITS ---
WS: [id number] Portable AP upright chest, 11/16/2020 Clinical Data: dyspnea Comparison: Portable chest, 03/10/2020. Findings: No nodules or masses are seen. There is a small left effusion. The heart is slightly enlarg ed. The pulmonary vascularity is not increased. No pneumonia or pneumothorax is seen. Aortic arch and descending aorta show calcification and tortuosity. The diaphragms are flattened. Monitor leads are on the chest wall. There is a slight dextroscoliosis of the lower thoracic spine. XR/XR chest 1V portable [id number] Impression: 1. Cardiomegaly and atherosclerosis. 2. Small left pleural effusion. 3. Hyperinflation.
--- NOTE | 2020-11-16 15:16 | ECG_ITS ---
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 Measurements Intervals [place] Rate: 108 P: [place]: QRS: -81 QRSD: 78 T: 91 QT: 358 QTc: 481 Interpretive Statements Possible ATRIAL FIBRILLATION WITH RAPID VENTRICULAR RESPONSE WITH ABERRANT CONDUCTION OR VENTRICULAR PREMATURE COMPLEXES POSSIBLE RIGHT VENTRICULAR CONDUCTION DELAY [RSR (QR) IN V1/V2] LEFT ANTERIOR FASCICULAR BLOCK [QRS AXIS <= -45, QR IN I, RS IN II] VOLTAGE CRITERIA FOR LVH [MEETS CRITERIA IN ONE OF: R(aVL), S(V1), R(V5), R(V5/V6)+S(V1)] POSSIBLE SEPTAL MYOCARDIAL INFARCTION , PROBABLY OLD [30 ms Q WAVE IN V1/V2] Compared to ECG 03/10/2020 13:54:14 Aberrant conduction of supraventricular beat(s) now present Ventricular premature complex(es) now present Left anterior fascicular block now present.Left ventricular hypertrophy now present.Left-axis deviation no longer present In view of the heavy baseline artifact, the rhythm is difficult to discern. Need to repeat the study Electronically Signed On 11-16-2020 23:58:34 CDT by Flory Díaz M.D. [id number]
[2020-11-16 15:39] LABS: ABG PCO2 49.7 mmHg (35-45); Arterial Blood Gas Hematocrit 42.9 % (37-47); Base Excess ABG 4.9 mmol/L (-2.0-2.0); Blood Gas Allen Test Pos; Blood Gas Operator Identificat CAK; Blood Gas Sample Site Radial, left; Blood Gas Sample Type Arterial; HCO3 ABG 30.9 mmol/L (22-26); Oxygen Device NC
--- NOTE | 2020-11-16 15:41 | PC.NURSE ---
Bedside commode placed at patients bedside. patient educated urine sample is needed as soon as she is able to provide one.
[2020-11-16 15:47] LABS: Basophils # 0.1 10^3/uL (0.0-0.1); Basophils % 1.5 %; Eosinophils # 0.3 10^3/uL (0.0-0.8); Eosinophils % 4.7 %; Hematocrit 42.1 % (37.0-47.0); Hemoglobin 13.6 g/dL (11.5-15.3); Lymphocytes # 1.1 10^3/uL (0.8-4.8); Lymphocytes % 15.1 %; Mean Corpuscular HGB Conc 32.3 g/dL (30.0-36.0); Mean Corpuscular Hemoglobin 27.8 pg (28.0-34.0); Mean Corpuscular Volume 85.9 fL (81-99); Mean Platelet Volume 11.3 fL (7.4-10.4); Monocytes # 0.5 10^3/uL (0.2-0.9); Neutrophils # 5.21 10^3/uL (1.8-7.7); Neutrophils % 71.6 %; Nucleated Red Blood Cells % 0 %; Platelet Count 266 10^3/cmm (130-400); Red Cell Distribution Width 13.8 % (12.1-15.1); White Blood Count 7.3 10^3/uL (4.0-10.0)
--- NOTE | 2020-11-16 16:20 | PC.NURSE ---
Notified physician that patient is unable to urinate still. Patient is okay with no urine sample at this time.
[2020-11-16 16:25] LABS: Lactate (Lactic Acid level) 1.2 mmol/L (0.5-2.2)
[2020-11-16 17:01] LABS: Alanine Aminotransferase 31 U/L (0-33); Albumin Level 4.3 g/dL (3.5-5.2); Alkaline Phosphatase 96 IU/L (35-105); Aspartate Amino Transferase 32 U/L (0-32); Blood Urea Nitrogen 11 mg/dL (8-23); Calcium 8.9 mg/dL (8.5-10.5); Carbon Dioxide 29 mmol/L (22-29); Chloride 90 mmol/L (98-107); Globulin 2.5 g/dL (1.3-4.6); Glucose 97 mg/dL (65-115); NT Pro B Type Natriuretic Pept 3564 pg/mL (0-450); Osmolality Calculated 265 mOsm/kg (285-295); Sodium 128 mmol/L (136-145); Thyroid Stimulating Hormone 2.39 uIU/mL (0.27-4.20); Total Bilirubin 0.5 mg/dL (0.15-1.2); Total Protein 6.8 g/dL (6.6-8.7)
[2020-11-16 17:03] LABS: Troponin(5th) Baseline 35 ng/L (0-10)
[2020-11-16 17:04] LABS: Anion Gap 13.4 (5-19); Potassium 4.4 mmol/L (3.5-5.1)
--- NOTE | 2020-11-16 17:16 | ECG_ITS ---
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 Measurements Intervals [place] Rate: 101 P: [place]: QRS: -81 QRSD: 86 T: 83 QT: 362 QTc: 471 Interpretive Statements Sinus rhythm with frequent PVCs and occasional supraventricular ectopics. POSSIBLE RIGHT VENTRICULAR CONDUCTION DELAY [RSR (QR) IN V1/V2] LEFT ANTERIOR FASCICULAR BLOCK [QRS AXIS <= -45, QR IN I, RS IN II] VOLTAGE CRITERIA FOR LVH [MEETS CRITERIA IN ONE OF: R(aVL), S(V1), R(V5), R(V5/V6)+S(V1)] POSSIBLE SEPTAL MYOCARDIAL INFARCTION [30 ms Q WAVE IN V1/V2], OF INDETERMINATE AGE MODERATE T-WAVE ABNORMALITY, CONSIDER ANTERIOR ISCHEMIA [-0.1+ mV T WAVE IN V3/V4] Compared to ECG 11/16/2020 15:10:25 T-wave abnormality now present Possible ischemia now present Myocardial infarct finding still present Electronically Signed On 11-17-2020 0:08:26 CDT by Flory Díaz M.D. [id number] f
--- NOTE | 2020-11-16 17:39 | CTR_ITS ---
PROCEDURE INFORMATION: Exam: CTA Chest With Contrast Exam date and time: 11/16/2020 6:04 PM Age: 75 years old Clinical indication: Shortness of breath; Additional info: Dyspnea; Irregular heart rhythm TECHNIQUE: Imaging protocol: Computed tomographic angiography of the chest with contrast. 3D rendering (Not supervised by radiologist): MIP and/or 3D reconstructed images were created by the technologist. Radiation optimization: All CT scans at this facility use at least one of these dose optimization techniques: automated exposure control; mA and/or kV adjustment per patient size (includes targeted exams where dose is matched to clinical indication); or iterative reconstruction. Contrast material: OMNI 350; Contrast volume: 79 ml; Contrast route: INTRAVENOUS (IV); COMPARISON: CTA Chest-Pulmonary Emb [id number] 07/18/2019 2:40 PM RADIATION DOSE METRICS: Total DLP (mGy-cm): 341.96 FINDINGS: Pulmonary arteries: There is linear web in central right lower lobe pulmonary artery branch such as an image number 318 of series 2. This may be a chronic finding related to a remote episode of pulmonary embolism. There is no filling defect to suggest presence of acute pulmonary embolism. Aorta: There are atherosclerotic calcifications in the thoracic aorta.There is no thoracic aortic aneurysm or dissection. Lungs: There is some mild dependent atelectasis at the right lung base. There is some mild bronchial wall thickening in the right lower lobe and some mucous or debris within right lower lobe bronchi in keeping with some bronchitis. There is some mild peripheral tree-in-bud type nodular opacities in the posterior right lung which may represent some mild infectious bronchiolitis. There is moderate centrilobular emphysema with apical predominance. Pleural spaces: Unremarkable. No pneumothorax. No pleural effusion. Heart: Unremarkable. No cardiomegaly. No pericardial effusion. Lymph nodes: Unremarkable. No enlarged lymph nodes. Bones/joints: There is mild scoliosis of the thoracic spine concave to the left. Soft tissues: Unremarkable. CT/CT angio chest PE protcl [id number] IMPRESSION: 1. No evidence of acute pulmonary embolism. 2. Bronchitis and bronchiolitis in the right lower lobe. 3. Pulmonary emphysema. Radiation Dose CTDIVOL = (mGy): DLP = 341.96 (mGy-cm)
[2020-11-16] MEDS: FUROsemide 10 mg/mL SDV 4mL 20 MG IVP (17:48)
--- NOTE | 2020-11-16 18:02 | W.ED.SOB ---
HPI - SOB/Dyspnea General: Chief Complaint: Shortness of Breath/Dyspnea Stated Complaint: Resp Distress Time Seen by Provider: 11/16/20 15:06 History of Present Illness: HPI Narrative: The patient is a 75-year-old female with past medical history COPD with 4 L oxygen baseline, CHF who comes to the ER complaining of shortness of breath. EMS arrived to her in respiratory distress at home and gave her an albuterol nebulization with improvement of her wheezing. They also gave her Solu-Medrol 125 prior to arrival. On arrival she is talking in full sentences and says her wheezing is much improved. Her rhythm is irregular filled with many PVCs. There is no mention of this in her recent admission. Previous EKG from March 10, 2020 shows sinus rhythm. She has not had Covid and got both of her vaccinations. MD elicited complaint: shortness of breath and cough Pertinent past history: COPD and congestive heart failure Severity: moderate Exacerbating factors: exertion Relieving factors: oxygen Known history of: COPD Associated symptoms: Reports no associated symptoms; Deny abdominal pain, chest pain, dizziness, extremity pain, orthopnea, palpitations or polyuria Treatment prior to arrival: oxygen and bronchodilator Review of Systems General: Reports: 10 or more systems reviewed and unremarkable except in HPI and below Const: Denies: fatigue Eyes: Denies: change in vision, blurry vision or eye redness ENMT: Denies: throat pain, swelling of lips/tongue, ear or mastoid pain or nasal congestion Card: Denies: chest pain, palpitations, irregular heart rhythm, edema, dyspnea on exertion or orthopnea Resp: Reports: dyspnea and non-productive cough; Denies: productive cough GI: Denies: abdominal pain, diarrhea or GI cramping : Denies: flank pain, difficulty voiding, urinary frequency or urinary urgency Musc: Denies: neck pain, back pain, extremity pain, joint pain, joint redness, limited range of motion or muscle weakness Skin/Breast: Denies: rash, pruritus, erythema, skin pain or skin tenderness Neuro: Denies: headache(s), numbness in extremities, weakness in extremities, sensory changes, difficulty walking, dizziness, confusion or Slurred speech present Psych: Denies: anxiety or depression Endo: Denies: polyuria All/Imm: Denies: urticaria, throat swelling or tongue swelling PFS ED PFSH: Medical History (Updated 11/16/20 @ 22:30 by Fabiola Martin MD) Allergic rhinitis Cerebral aneurysm Chronic anemia Closed fracture of right proximal humerus COPD (chronic obstructive pulmonary disease) Fracture of femoral neck, right, closed Hiatal hernia History of fracture of left hip History of squamous cell carcinoma Hyperlipidemia Hypertension Hyponatremia Malnourished Surgical History History of hysterectomy History of repair of hip fracture Family History Sister Anesthesia complication Mother Cancer Father Embolism Social History Smoking and tobacco status: current every day smoker Second hand smoke exposure: Yes Alcohol intake: current Alcohol intake frequency: holidays/special occasions only Lives independently: Yes Household members: spouse Marital status: Current occupational status: retired History of recent travel: No Current gender identity: Female Physical Exam Const: COMMON NORMALS: no acute distress, average body habitus, patient oriented x3, no limitations, healthy appearing, alert and well nourished GENERAL APPEARANCE: cooperative, comfortable, well kempt and well developed ORIENTATION/CONSCIOUSNESS: Yes awake, Yes oriented to person, Yes oriented to place and Yes oriented to time HENMT: COMMON NORMALS: normocephalic, external ears normal and Normal external nose present HEAD & SCALP: normal to inspection and normocephalic NOSE: Normal external nose present EXTERNAL EAR: Yes external ears normal MOUTH: Normal oral and palatal mucosa present THROAT: posterior oropharynx normal Eye: COMMON NORMALS: Equal, round and reactive pupils present and EOMs intact bilaterally GENERAL EYE: appearance normal, both eyes and all related structures PUPIL: Yes Equal, round and reactive pupils present Neck/C-Spine: COMMON NORMALS: full ROM, no lymphadenopathy, no meningeal signs and no JVD GENERAL: Yes normal visual inspection Lymph: LYMPHATIC: no lymphadenopathy noted Chest: COMMONS NORMALS: normal inspection of the chest and normal palpation of entire chest wall Resp: COMMON NORMALS: No retractions and percussion normal EFFORT & INSPECTION: Yes able to speak in complete sentences, Yes tachypneic, Yes pursed lip breathing and Yes uses accessory muscles AUSCULTATION: wheezes expiratory wheezes PERCUSSION: percussion normal Cardio: COMMON NORMALS: no JVD, S1 normal heart sound present, S2 normal heart sound present and Peripheral pulses 2+ throughout RATE: tachycardic RHYTHM: abnormal rhythm irregularly irregular HEART SOUNDS: S1 normal heart sound present and S2 normal heart sound present PERIPHERAL PULSES: Peripheral pulses 2+ throughout GI: COMMON NORMALS: Normal to inspection, nondistended, normoactive bowel sounds present, Soft to palpation, non-tender and no masses INSPECTION: Yes normal to inspection PALPATION: Yes Soft to palpation : COMMON NORMALS: Yes no CVA tenderness BLADDER/KIDNEY EXAM: Yes no CVA tenderness Back/Pelvis: COMMON NORMALS: no CVA tenderness, thoracic and lumbar spine normal to inspection, no thoracic nor lumbar tenderness and thoraco-lumbar ROM normal Extremity: COMMON NORMALS: normal to inspection, full ROM, capillary refill normal, no joint enlargement and no pedal edema GENERAL: Yes normal exam except as noted Neuro: COMMON NORMALS: patient oriented x3, CN's II-XII intact bilaterally, moves all extremities, no focal motor deficits, no sensory deficits noted and gait normal SENSORIUM/ORIENTATION: Yes alert, Yes oriented to person, Yes oriented to place and Yes oriented to time MENINGEAL SIGNS: Yes no meningeal signs Psych: COMMON NORMALS: mental status grossly normal, Normal thought process present, cooperative, normal affect and speech normal APPEARANCE: Yes well kempt ATTITUDE: Yes calm SPEECH: Yes normal speech THOUGHT PROCESS: Normal thought process present Skin: COMMON NORMALS: no rashes or lesions noted GENERAL SKIN EXAM: no rashes or lesions noted Course Vital Signs: Vital signs: Vital Signs Temperature 97.6 F 11/17/20 07:31 Pulse Rate 50 L 11/17/20 07:35 Respiratory Rate 18 11/17/20 07:31 Blood Pressure 150/82 11/17/20 07:31 Pulse Oximetry 97 11/17/20 07:31 MDM - SOB/Dyspnea MDM Narrative: Medical decision making narrative: The patient is a 75-year-old female with past medical history COPD wearing 4 L baseline comes to the ER complaining of increasing shortness of breath at home. She was given a DuoNeb and Solu-Medrol prior to arrival by EMS with significant improvement of her symptoms. She however has these irregular heart rhythm with multiple PVCs which is new for her. It is not A. fib. Discussed with Dr. Bourne who accepts observation. Lab Data: Labs: Lab Results 11/16/20 11/16/20 11/16/20 Range/Units 15:15 15:15 15:15 WBC 7.3 (4.0-10.0) 10^3/ uL RBC 4.90 (4.1-5.3) 10^6/u L Hgb 13.6 (11.5-15.3) g/dL Hct 42.1 (37.0-47.0) % MCV 85.9 (81-99) fL MCH 27.8 L (28.0-34.0) pg MCHC 32.3 (30.0-36.0) g/dL RDW 13.8 (12.1-15.1) % Plt Count 266 (130-400) 10^3/c mm MPV 11.3 H (7.4-10.4) fL Neut % (Auto) 71.6 % Lymph % (Auto) 15.1 % [place] % (Auto) 7.0 % Eos % (Auto) 4.7 % Baso % (Auto) 1.5 % Neut # (Auto) 5.21 (1.8-7.7) 10^3/u L Lymph # (Auto) 1.1 (0.8-4.8) 10^3/u L [place] # (Auto) 0.5 (0.2-0.9) 10^3/u L Eos # (Auto) 0.3 (0.0-0.8) 10^3/u L Baso # (Auto) 0.1 (0.0-0.1) 10^3/u L Nucleated RBC % (a uto) 0 % Nucleated RBCs # 0.0 /100WBC Specimen Type Sample Site ABG pH (7.35-7.45) ABG pCO2 (35-45) mmHg ABG pO2 (80.0-100.0) mmH g ABG HCO3 (22-26) mmol/L ABG Base Excess (-2.0-2.0) mmol/ L Ha Test Hematocrit (37-47) % O2 Delivery Device O2 Liters/Min % FiO2 % Auto Service Writer ID Sodium 128 L (136-145) mmol/L Potassium 4.4 (3.5-5.1) mmol/L Chloride 90 L (98-107) mmol/L Carbon Dioxide 29 (22-29) mmol/L Anion Gap 13.4 (5-19) BUN 11 (8-23) mg/dL Creatinine 0.5 (0.5-0.9) mg/dL GFR Calculation Not Reportable Glucose 97 (65-115) mg/dL Calculated Osmolal ity 265 L (285-295) mOsm/k g Lactate 1.2 (0.5-2.2) mmol/L Calcium 8.9 (8.5-10.5) mg/dL Magnesium (1.7-2.3) mg/dL Total Bilirubin 0.5 (0.15-1.2) mg/dL AST 32 (0-32) U/L ALT 31 (0-33) U/L Alkaline Phosphata se 96 (35-105) IU/L Troponin T Baselin e (0-10) ng/L Troponin T 120 Min [place] (0-10) ng/L Delta Troponin T (0-10) ABS# NT-Pro-B Natriuret Pep 3564 H (0-450) pg/mL Total Protein 6.8 (6.6-8.7) g/dL Albumin 4.3 (3.5-5.2) g/dL Globulin 2.5 (1.3-4.6) g/dL TSH 2.39 (0.27-4.20) uIU/ mL Urine Color (Yellow) Urine Appearance (CLEAR) Urine pH (5-7) Ur Specific Gravit y (1.005-1.030) Urine Protein (Negative) Urine Glucose (UA) (Normal) Urine Ketones (Negative) Urine Blood (Negative) Urine Nitrate (Negative) Urine Bilirubin (Negative) Urine Urobilinogen (Negative) mg/dL Ur Leukocyte Lelo ase (Negative) Urine RBC (0-2) /hpf Urine WBC (0-5) /hpf Ur Squamous Epith Cells (0-5) /hpf Amorphous Sediment Urine Bacteria (NONE) /hpf 11/16/20 11/16/20 11/16/20 Range/Units 15:15 15:15 15:27 WBC (4.0-10.0) 10^3/ uL RBC (4.1-5.3) 10^6/u L Hgb (11.5-15.3) g/dL Hct (37.0-47.0) % MCV (81-99) fL MCH (28.0-34.0) pg MCHC (30.0-36.0) g/dL RDW (12.1-15.1) % Plt Count (130-400) 10^3/c mm MPV (7.4-10.4) fL Neut % (Auto) % Lymph % (Auto) % [place] % (Auto) % Eos % (Auto) % Baso % (Auto) % Neut # (Auto) (1.8-7.7) 10^3/u L Lymph # (Auto) (0.8-4.8) 10^3/u L [place] # (Auto) (0.2-0.9) 10^3/u L Eos # (Auto) (0.0-0.8) 10^3/u L Baso # (Auto) (0.0-0.1) 10^3/u L Nucleated RBC % (a uto) % Nucleated RBCs # /100WBC Specimen Type Arterial Sample Site Radial, left ABG pH 7.40 (7.35-7.45) ABG pCO2 49.7 H (35-45) mmHg ABG pO2 105.0 H (80.0-100.0) mmH g ABG HCO3 30.9 H (22-26) mmol/L ABG Base Excess 4.9 H (-2.0-2.0) mmol/ L Ha Test Pos Hematocrit 42.9 (37-47) % O2 Delivery Device Nc O2 Liters/Min 4.0 % FiO2 36.0 % Auto Service Writer ID Cak Sodium (136-145) mmol/L Potassium (3.5-5.1) mmol/L Chloride (98-107) mmol/L Carbon Dioxide (22-29) mmol/L Anion Gap (5-19) BUN (8-23) mg/dL Creatinine (0.5-0.9) mg/dL GFR Calculation Glucose (65-115) mg/dL Calculated Osmolal ity (285-295) mOsm/k g Lactate (0.5-2.2) mmol/L Calcium (8.5-10.5) mg/dL Magnesium 2.0 (1.7-2.3) mg/dL Total Bilirubin (0.15-1.2) mg/dL AST (0-32) U/L ALT (0-33) U/L Alkaline Phosphata se (35-105) IU/L Troponin T Baselin e 35 H (0-10) ng/L Troponin T 120 Min [place] (0-10) ng/L Delta Troponin T (0-10) ABS# NT-Pro-B Natriuret Pep (0-450) pg/mL Total Protein (6.6-8.7) g/dL Albumin (3.5-5.2) g/dL Globulin (1.3-4.6) g/dL TSH (0.27-4.20) uIU/ mL Urine Color (Yellow) Urine Appearance (CLEAR) Urine pH (5-7) Ur Specific Gravit y (1.005-1.030) Urine Protein (Negative) Urine Glucose (UA) (Normal) Urine Ketones (Negative) Urine Blood (Negative) Urine Nitrate (Negative) Urine Bilirubin (Negative) Urine Urobilinogen (Negative) mg/dL Ur Leukocyte Lelo ase (Negative) Urine RBC (0-2) /hpf Urine WBC (0-5) /hpf Ur Squamous Epith Cells (0-5) /hpf Amorphous Sediment Urine Bacteria (NONE) /hpf 11/16/20 11/16/20 Range/Units 17:25 17:30 WBC (4.0-10.0) 10^3/ uL RBC (4.1-5.3) 10^6/u L Hgb (11.5-15.3) g/dL Hct (37.0-47.0) % MCV (81-99) fL MCH (28.0-34.0) pg MCHC (30.0-36.0) g/dL RDW (12.1-15.1) % Plt Count (130-400) 10^3/c mm MPV (7.4-10.4) fL Neut % (Auto) % Lymph % (Auto) % [place] % (Auto) % Eos % (Auto) % Baso % (Auto) % Neut # (Auto) (1.8-7.7) 10^3/u L Lymph # (Auto) (0.8-4.8) 10^3/u L [place] # (Auto) (0.2-0.9) 10^3/u L Eos # (Auto) (0.0-0.8) 10^3/u L Baso # (Auto) (0.0-0.1) 10^3/u L Nucleated RBC % (a uto) % Nucleated RBCs # /100WBC Specimen Type Sample Site ABG pH (7.35-7.45) ABG pCO2 (35-45) mmHg ABG pO2 (80.0-100.0) mmH g ABG HCO3 (22-26) mmol/L ABG Base Excess (-2.0-2.0) mmol/ L Ha Test Hematocrit (37-47) % O2 Delivery Device O2 Liters/Min % FiO2 % Auto Service Writer ID Sodium (136-145) mmol/L Potassium (3.5-5.1) mmol/L Chloride (98-107) mmol/L Carbon Dioxide (22-29) mmol/L Anion Gap (5-19) BUN (8-23) mg/dL Creatinine (0.5-0.9) mg/dL GFR Calculation Glucose (65-115) mg/dL Calculated Osmolal ity (285-295) mOsm/k g Lactate (0.5-2.2) mmol/L Calcium (8.5-10.5) mg/dL Magnesium (1.7-2.3) mg/dL Total Bilirubin (0.15-1.2) mg/dL AST (0-32) U/L ALT (0-33) U/L Alkaline Phosphata se (35-105) IU/L Troponin T Baselin e (0-10) ng/L Troponin T 120 Min [place] 42.62 H (0-10) ng/L Delta Troponin T 7.62 (0-10) ABS# NT-Pro-B Natriuret Pep (0-450) pg/mL Total Protein (6.6-8.7) g/dL Albumin (3.5-5.2) g/dL Globulin (1.3-4.6) g/dL TSH (0.27-4.20) uIU/ mL Urine Color Yellow (Yellow) Urine Appearance Clear (CLEAR) Urine pH 7 (5-7) Ur Specific Gravit y 1.005 (1.005-1.030) Urine Protein 1+ H (Negative) Urine Glucose (UA) Norm (Normal) Urine Ketones 1+ H (Negative) Urine Blood Neg (Negative) Urine Nitrate Negative (Negative) Urine Bilirubin Neg (Negative) Urine Urobilinogen Norm (Negative) mg/dL Ur Leukocyte Lelo ase Negative (Negative) Urine RBC 0-4 H (0-2) /hpf Urine WBC 0-4 H (0-5) /hpf Ur Squamous Epith Cells 0-4 H (0-5) /hpf Amorphous Sediment Not Reportable Urine Bacteria Trace (NONE) /hpf Discharge Plan Discharge Patient Disposition: Placed in Observation Admit Provider: Shawna Bourne Clinical Impression: COPD (chronic obstructive pulmonary disease), Irregular heart rhythm Coding Level of Care Code ED Dial Mounter for Chg Fwd Exam Comprehensive
[2020-11-16 18:16] LABS: Add Urine Microscopic? YES; Bacteria Urine TRACE /hpf; Bilirubin Urine Neg (Negative); Blood Urine Neg (Negative); Glucose Urine UA Norm (Normal); Ketones Urine 1+ (Negative); Leukocyte Esterase Urine Negative (Negative); Nitrate Urine Negative (Negative); Protein Urine 1+ (Negative); RBC Urine 0-4 /hpf (0-2); Specific Gravity, Urine 1.005 (1.005-1.030); Squamous Epithelial Cell Urine 0-4 /hpf (0-5); Urine Appearance Clear (CLEAR); Urine Color Yellow (Yellow); Urobilinogen Urine Norm (Negative); WBC Urine 0-4 /hpf (0-5); pH Urine 7 (5-7)
[2020-11-16 18:19] LABS: Troponin 5 2HR 42.62 ng/L (0-10); Troponin 5 2HR Delta 7.62 ABS# (0-10)
[2020-11-16] MEDS: iohexol 350 mg/mL 100 mL Btl IV (18:40)
--- NOTE | 2020-11-16 19:00 | PC.NURSE ---
report received from NIRU Urena and care transferred to NIRU Alegria
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
--- NOTE | 2020-11-16 21:16 | ECG_ITS ---
[facility] Test Date: 2020-11-16 Pat Name: Rosario Brock Department: Room: 256 Gender: Female Ironer Machine: : [id number] Requested By: Chapincito Grant Order Number: [id number] Joel MD: Flory Díaz M.D. Measurements Intervals [place] Rate: 101 P: TN: QRS: -81 QRSD: 86 T: 83 QT: 362 QTc: 471 Interpretive Statements Normal sinus rhythms with a frequent ventricular arrhythmias in the form of couplets and isolated beats .POSSIBLE RIGHT VENTRICULAR CONDUCTION DELAY [RSR (QR) IN V1/V2] LEFT ANTERIOR FASCICULAR BLOCK [QRS AXIS <= -45, QR IN I, RS IN II] VOLTAGE CRITERIA FOR LVH [MEETS CRITERIA IN ONE OF: R(aVL), S(V1), R(V5), R(V5/V6)+S(V1)] POSSIBLE SEPTAL MYOCARDIAL INFARCTION [30 ms Q WAVE IN V1/V2], OF INDETERMINATE AGE MODERATE T-WAVE ABNORMALITY, CONSIDER ANTERIOR ISCHEMIA [-0.1+ mV T WAVE IN V3/V4] Compared to ECG 11/16/2020 15:10:25 T-wave abnormality now present Possible ischemia now present Myocardial infarct finding still present Electronically Signed On 11-17-2020 0:09:44 CDT by Flory Díaz M.D. [id number] [email or web address]
[2020-11-16 21:32] LABS: Troponin 5 6HR 44.32 ng/L (0-10); Troponin 5 6HR Delta 9.32 ng/L (0-12)
[2020-11-16] MEDS: azithromycin 250 mg Tablet 500 MG PO (22:12)
[2020-11-16] MEDS: enoxaparin 40 mg/0.4 mL Syringe SUBCUT (22:12)
--- NOTE | 2020-11-16 22:42 | ECG_ITS ---
[facility] ED Test Date: 2020-11-16 Pat Name: Rosario Brock Department: Room: 256 Gender: Female Specifications Writer: : 1945 Requested By: Fabiola Martin Order Number: [id number] Joel MD: Ysabel Ghosh M.D. Measurements Intervals [place] Rate: 104 P: VT: QRS: -76 QRSD: 74 T: 88 QT: 365 QTc: 481 Interpretive Statements Sinus rhythm with frequent PVCs and occasional supraventricular ectopics. MARKED LEFT AXIS DEVIATION [QRS AXIS < -30] POSSIBLE RIGHT VENTRICULAR CONDUCTION DELAY [RSR (QR) IN V1/V2] ANTEROSEPTAL MYOCARDIAL INFARCTION,OF INDETERMINATE AGE Compared to ECG 11/16/2020 17:02:05 Left-axis deviation now present Left anterior fascicular block no longer present Left ventricular hypertrophy no longer present T-wave abnormality no longer present Possible ischemia no longer present Myocardial infarct finding still present Electronically Signed On 11-22-2020 12:31:15 CDT by Ysabel Ghosh M.D. [id number]
[2020-11-16] MEDS: ipratropium-albuterol 3 mL Neb INHALATION (23:33)
[2020-11-17] VITALS (12 sets, daily range): BP systolic 118–161; BP diastolic 61–84; PULSE 44–98; RESP 17–18; TEMP 36.1–36.8; O2SAT 92–100
[2020-11-17 06:54] LABS: Anion Gap 12.8 (5-19); Blood Urea Nitrogen 20 mg/dL (8-23); Calcium 9.2 mg/dL (8.5-10.5); Carbon Dioxide 32 mmol/L (22-29); Chloride 95 mmol/L (98-107); Glucose 112 mg/dL (65-115); Osmolality Calculated 285 mOsm/kg (285-295); Potassium 3.8 mmol/L (3.5-5.1); Sodium 136 mmol/L (136-145)
[2020-11-17] MEDS: ipratropium-albuterol 3 mL Neb INHALATION ×2 (07:29→14:08)
[2020-11-17] MEDS: metoprolol tartrate 50 mg Tablet PO (08:12)
[2020-11-17] MEDS: lisinopril 20 mg Tablet PO (08:12)
[2020-11-17] MEDS: azithromycin 250 mg Tablet 500 MG PO (08:12)
[2020-11-17] MEDS: predniSONE 20 mg Tablet 40 MG PO (08:12)
[2020-11-17] MEDS: gabapentin 300 mg Capsule PO ×2 (08:12→11:55)
[2020-11-17] MEDS: pantoprazole DR 40 mg Tablet PO (08:12)
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
--- NOTE | 2020-11-17 17:06 | PC.NURSE ---
pt iv taken out and intact. pt discharge instructions explained and all questions answered. pt taken to exit via wheelchair.
--- NOTE | 2020-11-17 18:08 | PC.NURSE ---
called and told Juan M at [facility] department of patient departure time.
--- NOTE | 2020-11-18 12:47 | PC.RESP ---
Smoking Cessation and Pulmonary Rehab information sent to patient
== END 2020-11-17 17:07 | disposition home or self-care (01) ==
LOC: ER 18:17 → MEDSURG 18:46
PROVIDERS: Internal Medicine; Admitting Provider Hospitalist; Emergency Provider Family Medicine; PCP Family Medicine; Visit Provider Hospitalist
DX: J40 Bronchitis, not specified as acute or chronic (principal); J44.9 Chronic obstructive pulmonary disease, unspecified; F17.210 Nicotine dependence, cigarettes, uncomplicated; Z87.898 Personal history of other specified conditions; E46 Unspecified protein-calorie malnutrition; Z99.81 Dependence on supplemental oxygen; E78.5 Hyperlipidemia, unspecified; I10 Essential (primary) hypertension
CPT/HCPCS: 36415; 36600; 71045; 71275; 80048; 80053; 81001; 82803; 83605; 83735; 83880; 84443; 84484; 85025; 93005; 94640; 96372; G0378; J1650; J1940; J7512; Q0144; Q9967

== ENCOUNTER 2021-04-11 15:11 | Inpatient (IN) | payer MEDICARE, SELFPAY ==
[2021-04-11] VITALS (7 sets, daily range): BP systolic 158–180; BP diastolic 75–88; PULSE 90–100; RESP 12–24; TEMP 36.6–37.2; O2SAT 93–100; BMI 19.8
--- NOTE | 2021-04-11 16:00 | ECG_ITS ---
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 Measurements Intervals [place] Rate: 90 P: DC: QRS: -62 QRSD: 81 T: 90 QT: 383 QTc: 470 Interpretive Statements Sinus rhythm with frequent PVCs and PAC's POSSIBLE RIGHT VENTRICULAR CONDUCTION DELAY [RSR (QR) IN V1/V2] LEFT ANTERIOR FASCICULAR BLOCK [QRS AXIS <= -45, QR IN I, RS IN II] LEFT VENTRICULAR HYPERTROPHY AND ST-T CHANGE Compared to ECG 11/16/2020 23:28:21 Left anterior fascicular block now present Left ventricular hypertrophy now present ST (T wave) deviation now present Myocardial infarct finding no longer present Electronically Signed On 04-13-2021 9:03:05 CDT by Ysabel Ghosh M.D. [id number]
--- NOTE | 2021-04-11 16:00 | XRR_ITS ---
PROCEDURE INFORMATION: Exam: XR Chest Exam date and time: 04/11/2021 4:00 PM Age: 76 years old Clinical indication: Dyspnea TECHNIQUE: Imaging protocol: XR of the chest. Views: 1 view. COMPARISON: CR XR chest 1V portable [id number] 11/16/2020 3:16 PM FINDINGS: Lungs: Stable mild hyperinflation of the lungs. Stable scarring in both lower lobes. No focal consolidation. No pulmonary edema. Pleural spaces: No pleural effusion. No pneumothorax. Heart/Mediastinum: Stable marked enlargement of the cardiac silhouette. Mediastinal contours are unremarkable. Vasculature: Stable vascular calcifications in the aorta. Bones/joints: Unremarkable for age. XR/XR chest 1V portable [id number] IMPRESSION: 1. No acute cardiopulmonary process. 2. Incidental/nonacute findings are listed in the report.
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
--- NOTE | 2021-04-11 16:28 | USR_ITS ---
PROCEDURE INFORMATION: Exam: US Duplex Lower Extremity Veins, Bilateral Exam date and time: 04/11/2021 4:28 PM Age: 76 years old Clinical indication: Edema, localized; Lower extremity, bilateral; Patient HX: Swelling of legs off and on; Additional info: Swelling, redness TECHNIQUE: Imaging protocol: Real-time duplex ultrasound of the extremities with 2-D lucas scale, color Doppler flow and spectral waveform analysis with image documentation. Complete exam focused on the bilateral lower extremity veins. COMPARISON: No relevant prior studies available. FINDINGS: Right deep veins: The common femoral, femoral, proximal profunda femoral, popliteal, posterior tibial, and peroneal veins are patent without thrombus. Normal compressibility and/or augmentation response. Right superficial veins: Saphenofemoral junction is patent without thrombus. Left deep veins: The common femoral, femoral, proximal profunda femoral, popliteal, posterior tibial, and peroneal veins are patent without thrombus. Normal compressibility and/or augmentation response. Left superficial veins: Saphenofemoral junction is patent without thrombus. Soft tissues: Mild bilateral lower extremity subcutaneous [place]. US/[place] [id number] IMPRESSION: 1. No evidence for deep venous thrombosis. 2. Mild bilateral lower extremity subcutaneous edema.
[2021-04-11 17:59] LABS: SARS Covid-2 Antigen Negative (Negative)
[2021-04-11] MEDS: magnesium sulfate premix 2 GM/50 ML PIGGYBACK IV (18:27)
[2021-04-11 20:12] LABS: Basophils % 0.8 %; Eosinophils % 0.4 %; Hematocrit 38.3 % (37.0-47.0); Lymphocytes # 0.2 10^3/uL (0.8-4.8); Lymphocytes % 4.4 %; Mean Corpuscular HGB Conc 31.3 g/dL (30.0-36.0); Mean Corpuscular Hemoglobin 28.1 pg (28.0-34.0); Mean Corpuscular Volume 89.7 fl (81-99); Mean Platelet Volume 11.5 fL (7.4-10.4); Monocytes # 0.1 10^3/uL (0.2-0.9); Neutrophils # 4.89 10^3/uL (1.8-7.7); Nucleated Red Blood Cells % 0 %; Platelet Count 361 10^3/cmm (130-400); Red Blood Count 4.27 10^6/uL (4.1-5.3); Red Cell Distribution Width 13.7 % (12.1-15.1); White Blood Count 5.3 10^3/uL (4.0-10.0)
[2021-04-11 20:29] LABS: Alanine Aminotransferase 42 U/L (0-33); Albumin Level 3.5 g/dL (3.5-5.2); Alkaline Phosphatase 88 IU/L (35-105); Blood Urea Nitrogen 14 mg/dL (8-23); Calcium 8.4 mg/dL (8.5-10.5); Carbon Dioxide 32 mmol/L (22-29); Chloride 96 mmol/L (98-107); Globulin 2.7 g/dL (1.3-4.6); Glucose 126 mg/dL (65-115); NT Pro B Type Natriuretic Pept 4049 pg/mL (0-450); Osmolality Calculated 282 mOsm/kg (285-295); Sodium 135 mmol/L (136-145); Total Bilirubin 0.4 mg/dL (0.15-1.2); Total Protein 6.2 g/dL (6.6-8.7)
[2021-04-11 20:37] LABS: Anion Gap 11.4 (5-19)
[2021-04-11 20:38] LABS: Aspartate Amino Transferase 28 U/L (0-32); Potassium 4.4 mmol/L (3.5-5.1)
[2021-04-11] MEDS: acetaminophen 325 mg Tablet 650 MG PO (20:47)
[2021-04-11] MEDS: nitroglycerin 1 gm/inch oint Pkt 1 INCH TOPICAL (20:48)
[2021-04-11] MEDS: FUROsemide 10 mg/mL SDV 4mL 40 MG IVP (20:48)
--- NOTE | 2021-04-11 20:48 | ECG_ITS ---
[facility] Test Date: 2021-04-11 Pat Name: Rosario Brock Department: Room: Gender: Female Fusion Operator: : 1945 Requested By: Dylan Jung Order Number: [id number] Joel MD: Ysabel Ghosh M.D. Measurements Intervals [place] Rate: 94 P: CT: QRS: -75 QRSD: 94 T: 87 QT: 376 QTc: 472 Interpretive Statements SINUS RHYTHM WITH FREQUENT PVC'S IN TRIGEMINAL PATTERN LEFT ANTERIOR FASCICULAR BLOCK [QRS AXIS <= -45, QR IN I, RS IN II] VOLTAGE CRITERIA FOR LVH POSSIBLE ANTEROSEPTAL MYOCARDIAL INFARCTION , OF INDETERMINATE AGE Compared to ECG 04/11/2021 16:33:19 Myocardial infarct finding now present ST (T wave) deviation no longer present Electronically Signed On 04-13-2021 9:00:01 CDT by Ysabel Ghosh M.D. [id number] f
--- NOTE | 2021-04-11 21:07 | CTR_ITS ---
PROCEDURE INFORMATION: Exam: CTA Chest With Contrast Exam date and time: 04/11/2021 9:07 PM Age: 76 years old Clinical indication: Shortness of breath; Patient HX: SOB, dyspnea, and hypoxia. ; Additional info: Dyspnea, jvd, hypoxia TECHNIQUE: Imaging protocol: Computed tomographic angiography of the chest with contrast. 3D rendering (Not supervised by radiologist): MIP and/or 3D reconstructed images were created by the technologist. Radiation optimization: All CT scans at this facility use at least one of these dose optimization techniques: automated exposure control; mA and/or kV adjustment per patient size (includes targeted exams where dose is matched to clinical indication); or iterative reconstruction. Contrast material: OMNI 350; Contrast volume: 57 ml; Contrast route: INTRAVENOUS (IV); COMPARISON: CT angio chest PE protcl [id number] 11/16/2020 6:52 PM RADIATION DOSE METRICS: Total DLP (mGy-cm): 279.82 FINDINGS: Pulmonary arteries: No filling defects in the pulmonary arteries to suggest pulmonary embolism. Aorta: Stable mild aneurysmal dilatation of the descending thoracic aorta measuring 3.3 cm (series 2, image 388). Evaluation for aortic dissection is limited due to the phase of contrast-enhancement. Lungs: Mucous plugging in multiple segmental bronchi in the right lower lobe. Fullness in the pulmonary vasculature suggesting volume overload in the lungs. Patchy ground-glass opacification suspicious for pneumonitis in the right lower lobe. Mild centrilobular emphysematous changes in the lungs. No pulmonary parenchymal nodules or masses. Pleural spaces: Small right pleural effusion. No pneumothorax. Heart: Marked enlargement of the heart. Mediastinal space: No mediastinal hematoma. No pneumomediastinum. Lymph nodes: No lymphadenopathy. Liver: The visualized liver is unremarkable. Pancreas: The visualized pancreas is unremarkable. No pancreatic ductal dilatation. Spleen: The spleen is unremarkable. Kidneys and ureters: Parenchymal calcifications in both visualized kidneys mildly complex cyst with focal calcification in the visualized left kidney measuring 4.3 x 3.3 cm suggesting a Bosniak type 2 cyst. Mild left hydronephrosis is stable. Etiology is uncertain. Bones/joints: Multilevel degenerative changes of varying severity in the visualized spine. Old, mild compression deformities of T11 and T12. Bones are diffusely osteopenic. Soft tissues: No acute abnormality in the extrathoracic soft tissues. CT/CT angio chest PE protcl [id number] IMPRESSION: 1. Fullness in the pulmonary vasculature suggesting volume overload in the lungs. 2. Patchy ground-glass opacification suspicious for pneumonitis in the right lower lobe. 3. Mild left hydronephrosis is stable. Etiology is uncertain. Recommend clinical correlation. Dedicated imaging of the abdomen/pelvis recommended as clinically indicated for further evaluation. 4. No evidence for pulmonary embolism. 5. Mucous plugging in multiple segmental bronchi in the right lower lobe. 6. Small right pleural effusion. 7. 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 8. Stable mild aneurysmal dilatation of the descending thoracic aorta. 9. Incidental/nonacute findings are listed in the report. COMMENTS: Consistent with the [employer]'s Incidental Findings Committee white paper (J Am Juan Radiol 2018): Any incidental renal lesion less than 1 cm or classified as too small to characterize, or any incidental cystic renal lesion characterized as simple-appearing, is likely benign. No follow-up imaging is recommended for these lesions per consensus recommendations based on imaging criteria. Radiation Dose CTDIVOL = (mGy): DLP = 279.82 (mGy-cm)
[2021-04-11 21:24] LABS: ABG PH Result 7.43 (7.35-7.45); Arterial Blood Gas Hematocrit 41.1 % (37-47); Base Excess ABG 9.5 mmol/L (-2.0-2.0); Blood Gas Operator Identificat HARKR; Blood Gas Sample Site Brachial, right; Blood Gas Sample Type Arterial; HCO3 ABG 35.8 mmol/L (22-26); Oxygen Device NC; PO2 ABG 81.9 mmHg (80.0-100.0)
[2021-04-11 21:34] LABS: Troponin(5th) Baseline 50 ng/L (0-10)
[2021-04-11] MEDS: iohexol 350 mg/mL 100 mL Btl IV (21:36)
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
--- NOTE | 2021-04-11 23:54 | PC.NURSE ---
[id number] This nurse has taken over care of this patient at this time
[2021-04-12] VITALS (15 sets, daily range): BP systolic 130–169; BP diastolic 80–104; PULSE 89–101; RESP 18–26; TEMP 36.6–36.8; O2SAT 90–98; BMI 17.2; BMI 17.0
[2021-04-12] MEDS: azithromycin 500 MG in sodium chloride 0.9% 250 ML 250 MG IV (00:08)
[2021-04-12] MEDS: enoxaparin 40 mg/0.4 mL Syringe SUBCUT ×2 (00:09→21:54)
[2021-04-12] MEDS: FUROsemide 10 mg/mL SDV 4mL 40 MG IVP ×2 (00:09→09:50)
[2021-04-12 02:09] LABS: Troponin 5 6HR 43.87 ng/L (0-10); Troponin 5 6HR Delta -6.13 ng/L (0-12)
[2021-04-12 02:11] LABS: Hematocrit 40.5 % (37.0-47.0); Hemoglobin 13.2 g/dL (11.5-15.3); Lymphocytes # 0.2 10^3/uL (0.8-4.8); Lymphocytes % 7.2 %; Mean Corpuscular HGB Conc 32.6 g/dL (30.0-36.0); Mean Corpuscular Hemoglobin 28.3 pg (28.0-34.0); Mean Corpuscular Volume 86.7 fl (81-99); Mean Platelet Volume 11.6 fL (7.4-10.4); Monocytes % 1.1 %; Neutrophils # 2.52 10^3/uL (1.8-7.7); Neutrophils % 91.3 %; Nucleated Red Blood Cells % 0 %; Platelet Count 274 10^3/cmm (130-400); Red Blood Count 4.67 10^6/uL (4.1-5.3); Red Cell Distribution Width 13.5 % (12.1-15.1); White Blood Count 2.8 10^3/uL (4.0-10.0)
[2021-04-12 02:13] LABS: Alanine Aminotransferase 39 U/L (0-33); Albumin Level 3.5 g/dL (3.5-5.2); Alkaline Phosphatase 97 IU/L (35-105); Anion Gap 13.9 (5-19); Aspartate Amino Transferase 22 U/L (0-32); Blood Urea Nitrogen 11 mg/dL (8-23); Calcium 8.6 mg/dL (8.5-10.5); Carbon Dioxide 33 mmol/L (22-29); Chloride 95 mmol/L (98-107); Globulin 2.7 g/dL (1.3-4.6); Glucose 167 mg/dL (65-115); Osmolality Calculated 289 mOsm/kg (285-295); Potassium 3.9 mmol/L (3.5-5.1); Sodium 138 mmol/L (136-145); Total Bilirubin 0.4 mg/dL (0.15-1.2); Total Protein 6.2 g/dL (6.6-8.7)
[2021-04-12 02:23] LABS: Procalcitonin 0.06 ng/mL (0-0.5)
[2021-04-12] MEDS: saline nasal spray 44mL Btl 1 SPRAY NASAL (03:22)
[2021-04-12] MEDS: ipratropium-albuterol 3 mL Neb INHALATION ×4 (04:16→20:49)
[2021-04-12] MEDS: budesonide 0.5 mg/2 mL Neb INHALATION ×2 (09:32→20:49)
--- NOTE | 2021-04-12 09:33 | PC.PHAR ---
PT STATES SHE TAKES CARE OF HER OWN MEDICATIONS-PT STATES SHE TAKES THE MEDICATIONS ENTERED-[facility] STATES THEY FILLED THE RXS ON 01/26/21 AND 01/27/21 FOR 30D/S AND STATES THE PT JUST PICKED THEM UP ON 03/07/21-NOTES ARE MADE IN THE PHARMACY COMMENTS-PT STATES SHE HASNT STARTED USING THE IMIQUIMOD-[facility] STATES THEY HAVE DALIRESP ON HOLD PT STATES SHE IS NOT TAKING RX WRITTEN IN 11/24/20
[2021-04-12] MEDS: zinc gluconate 50 mg Tablet PO (09:46)
[2021-04-12] MEDS: ascorbic acid 500 mg Tablet PO ×2 (09:46→17:43)
[2021-04-12] MEDS: pantoprazole DR 40 mg Tablet PO (09:46)
[2021-04-12] MEDS: cholecalciferol (vitamin D3) 1,000 unit Tablet 1000 UNIT PO (09:46)
[2021-04-12] MEDS: cefepime 2,000 MG in sodium chloride 0.9% (plus) 50 ML 100 MG IV ×2 (09:47→19:48)
[2021-04-12] MEDS: dexamethasone 10 mg/mL INJ 6 MG IVP (09:47)
[2021-04-12] MEDS: potassium chloride ER 20 mEq Tablet PO ×2 (09:49→17:43)
[2021-04-12] MEDS: vancomycin 750 MG in sodium chloride 0.9% 250 ML 250 MG IV (11:58)
--- NOTE | 2021-04-12 13:16 | PC.NURSE ---
REPORT GIVEN TO MADHAVI ON CSU FLOOR AT [id number]
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
[2021-04-12 17:47] LABS: Coronavirus Test Green County Not Detected
--- NOTE | 2021-04-12 20:16 | PC.NURSE ---
Admit Note Patient admitted to [room 112-2] from [er] via [bed]. Covering service notified. Patient presents with [copd exac]. Orders reviewed & will continue to monitor. Patient and/or videotape sales representative oriented to environment, equipment, and informed of the following as found in the admission booklet: patient rights & responsibilities, visitor policy, hand and respiratory hygiene practice. Other education includes: [orientation to room]. Patient and/or videotape sales representative [verb understanding of instructions].
--- NOTE | 2021-04-12 20:18 | PC.NURSE ---
Shift Note Frequent safety and comfort rounds continue. Orders and/or nursing care completed as indicated. Patient monitored for response to intervention and treatment(s). Education provided includes[antibiotics]. Patient and/or new accounts representative verb understanding of instruction]. Will continue to monitor.
[2021-04-12 20:33] LABS: Add Urine Microscopic? NO; Charge for UA Resulting for Rev
--- NOTE | 2021-04-12 20:47 | USCV_ITS ---
Rosario Brock Age: 76 Gender: F : 1945 Exam Date: 04/12/2021 05:46 Ordering Phys: Dylan Jung MD Technologist: Chichi Paige [place] [facility] [place]: ?PERICARDIAL EFFUSION AND HF BP: 172 / 101 HR: 86 Rhythm: Atrial fibrillation Technical Quality: Adequate MEASUREMENTS (Male / Female) Normal Values 2D ECHO LV Diastolic Diameter PLAX 4.9 cm 4.2 - 5.9 / 3.9 - 5.3 cm LV Systolic Diameter PLAX 3.5 cm LV Chamber Size 2.7 cm IVS Diastolic Thickness 1.0 cm 0.6 - 1.0 / 0.6 - 0.9 cm IVS Systolic Thickness 1.6 cm LVPW Diastolic Thickness 1.1 cm 0.6 - 1.0 / 0.6 - 0.9 cm LVPW Systolic Thickness 1.7 cm RV Chamber Size 2.2 cm LVOT Diameter 2.0 cm LV Ejection Fraction 2D Teich 56.3 % LA Diameter 3.9 cm LA Width 3.6 cm LA Height 4.5 cm RA Width 3.3 cm RA Height 3.9 cm Aorta at Sinotubular Diameter 2.6 cm M-MODE LV Diastolic Diameter MM 4.6 cm 4.2 - 5.9 / 3.9 - 5.3 cm LV Systolic Diameter MM 2.9 cm LV Ejection Fraction MM Teich 66.9 % IVS Diastolic Thickness MM 1.2 cm 0.6 - 1.0 / 0.6 - 0.9 cm IVS Systolic Thickness MM 1.4 cm LVPW Diastolic Thickness MM 1.1 cm 0.6 - 1.0 / 0.6 - 0.9 cm LVPW Systolic Thickness MM 1.7 cm Aortic Annulus Diameter 2.9 cm LA Ao Ratio MM 1.4 MV E Point Septal Separation 1.0 cm DOPPLER AV Peak Velocity 146.0 cm/s LVOT Peak Velocity 84.0 cm/s AV Area Cont Eq vti 2.2 cm squared AV Area Cont Eq pk 1.9 cm squared MV Area PHT 4.9 cm squared MV E' Velocity 48.5 cm/s Mitral E to MV E' Ratio 10.8 Mitral E to LV E' Lateral Ratio 14.6 Mitral E to LV E' Septal Ratio 8.6 TR Peak Velocity 161.7 cm/s TR Peak Gradient 10.5 mmHg TR Mean Velocity 124.3 cm/s TR Mean Gradient 7.3 mmHg TR Velocity Time Integral 47.3 cm TV Peak E Velocity 50.0 cm/s Right Atrial Pressure 3.0 mmHg Pulmonary Artery Systolic Pressu 13.5 mmHg PV Peak Velocity 52.0 cm/s RV Acceleration Time 0.2 s RV Ejection Time 0.5 s RV AcT/ET 0.3 FINDINGS Left Ventricle Normal left ventricular size. LV systolic function is mildly reduced. Accurate EF assessment not possible because of rhythm abnormality. Mild global hypokinesis. Right Ventricle The right ventricle is normal in size and function. Right Atrium The right atrium is normal in size. Left Atrium The left atrium is enlarged Mitral Valve Structurally normal mitral valve without significant stenosis or prolapse. There is mild mitral regurgitation. Aortic Valve Structurally normal aortic valve without significant sclerosis or stenosis. There is no aortic regurgitation. Tricuspid Valve Structurally normal tricuspid valve without significant stenosis or regurgitation. Insufficient TR jet to calculate RVSP Pulmonic Valve Structurally normal pulmonic valve without significant stenosis. There is no pulmonic regurgitation. Pericardium Minimal pericardial effusion noted Aorta Normal ascending aorta dimension. CONCLUSIONS LV systolic function is mildly reduced. Accurate assessment of EF not possible because of rhythm abnormality Mild global hypokinesis Left atrium is enlarged Mild mitral regurgitation Minimal pericardial effusion noted Compared to prior echocardiogram from 12/2019, LV systolic function appears to be mildly reduced. Small pericardial effusion noted Kaushik Adams MD (Electronically Signed) Final Date: 12 April 2021 09:24 S
[2021-04-12 20:52] LABS: Urine Appearance Clear (CLEAR); Urine Color Yellow (Yellow)
[2021-04-12 20:53] LABS: Bilirubin Urine Neg (Negative); Blood Urine Neg (Negative); Glucose Urine UA Norm (Normal); Ketones Urine Negative (Negative); Leukocyte Esterase Urine Negative (Negative); Nitrate Urine Negative (Negative); Protein Urine Neg (Negative); Urobilinogen Urine Norm (Negative); pH Urine 5 (5-7)
[2021-04-13] VITALS (53 sets, daily range): BP systolic 143–177; BP diastolic 87–114; PULSE 69–100; RESP 12–23; TEMP 36.4–36.6; O2SAT 93–100
[2021-04-13] MEDS: ipratropium-albuterol 3 mL Neb INHALATION ×4 (02:51→19:48)
[2021-04-13] MEDS: vancomycin 750 MG in sodium chloride 0.9% 250 ML 250 MG IV ×2 (03:46→21:22)
[2021-04-13 04:28] LABS: Basophils % 0.1 %; Eosinophils % 0.1 %; Hematocrit 38.3 % (37.0-47.0); Hemoglobin 12.3 g/dL (11.5-15.3); Lymphocytes # 1.1 10^3/uL (0.8-4.8); Lymphocytes % 12.9 %; Mean Corpuscular HGB Conc 32.1 g/dL (30.0-36.0); Mean Corpuscular Hemoglobin 27.8 pg (28.0-34.0); Mean Corpuscular Volume 86.7 fl (81-99); Mean Platelet Volume 11.4 fL (7.4-10.4); Monocytes # 0.9 10^3/uL (0.2-0.9); Monocytes % 11.1 %; Neutrophils # 6.28 10^3/uL (1.8-7.7); Neutrophils % 75.6 %; Nucleated Red Blood Cells % 0 %; Platelet Count 273 10^3/cmm (130-400); Red Blood Count 4.42 10^6/uL (4.1-5.3); Red Cell Distribution Width 13.7 % (12.1-15.1); White Blood Count 8.3 10^3/uL (4.0-10.0)
[2021-04-13 04:44] LABS: Alanine Aminotransferase 30 U/L (0-33); Albumin Level 3.4 g/dL (3.5-5.2); Alkaline Phosphatase 82 IU/L (35-105); Anion Gap 12.4 (5-19); Aspartate Amino Transferase 17 U/L (0-32); Blood Urea Nitrogen 25 mg/dL (8-23); C Reactive Protein 4.1 mg/L (0.0-4.9); Calcium 8.4 mg/dL (8.5-10.5); Carbon Dioxide 33 mmol/L (22-29); Chloride 97 mmol/L (98-107); Globulin 2.5 g/dL (1.3-4.6); Glucose 98 mg/dL (65-115); Osmolality Calculated 290 mOsm/kg (285-295); Phosphorus 3.3 mg/dL (2.5-4.5); Potassium 4.4 mmol/L (3.5-5.1); Sodium 138 mmol/L (136-145); Total Bilirubin 0.2 mg/dL (0.15-1.2); Total Protein 5.9 g/dL (6.6-8.7)
[2021-04-13] MEDS: saline nasal spray 44mL Btl 1 SPRAY NASAL (04:47)
[2021-04-13 04:51] LABS: NT Pro B Type Natriuretic Pept 4823 pg/mL (0-450); Procalcitonin 0.07 ng/mL (0-0.5)
[2021-04-13] MEDS: budesonide 0.5 mg/2 mL Neb INHALATION ×2 (08:19→19:48)
--- NOTE | 2021-04-13 08:53 | US_ITS ---
WS: [id number] ULTRASOUND RENAL TECHNIQUE: Ultrasound examination of both kidneys. CLINICAL INFORMATION: hydronephrosis COMPARISON: CTA April 11, 2021 FINDINGS: Technically difficult examination RIGHT: Right kidney is normal in size and appearance. Echogenicity: Normal. Cortical thickness: 0.9 cm; Normal. Hydronephrosis: None. Perinephric fluid: None. Right kidney measures: 9.7 cm x 3.8 cm x 3.5 cm. LEFT: Moderate left hydronephrosis with proximal ureterectasis. Simple left upper pole renal cyst renate suring 3.5 x 2.7 cm Left kidney is normal in size and appearance. Echogenicity: Normal. Cortical thickness: 1.8 cm; Normal. Hydronephrosis: Moderate Perinephric fluid: None. Left kidney measures: 11.1 cm x 4.0 cm x 5.8 cm. Infrarenal abdominal aortic aneurysm measuring 3.5 x 3.7 cm AP by transverse with peripheral mural th rombus. Moderate aortic atheromatous disease. US/US renal BI* [id number] IMPRESSION: Technically difficult examination 1. Moderate left hydronephrosis with proximal ureterectasis. This can be furth er evaluated with contrast-enhanced CT abdomen pelvis. 2. No hydronephrosis in right kidney. 3. Normal bladder. 4. Simple left upper pole renal cyst measuring 3.5 x 2.7 cm 5. Infrarenal abdominal aortic aneurysm measuring 3.5 x 3.7 cm AP by transvers e with peripheral mural thrombus. Moderate aortic atheromatous disease.
[2021-04-13] MEDS: ascorbic acid 500 mg Tablet PO ×2 (09:11→18:40)
[2021-04-13] MEDS: metoprolol tartrate 25 mg Tablet 12.5 MG PO ×2 (09:11→21:18)
[2021-04-13] MEDS: zinc gluconate 50 mg Tablet PO (09:11)
[2021-04-13] MEDS: predniSONE 20 mg Tablet 40 MG PO (09:11)
[2021-04-13] MEDS: cholecalciferol (vitamin D3) 1,000 unit Tablet 1000 UNIT PO (09:11)
[2021-04-13] MEDS: FUROsemide 10 mg/mL SDV 4mL 40 MG IVP ×2 (09:12→21:21)
[2021-04-13] MEDS: cefepime 2,000 MG in sodium chloride 0.9% (plus) 50 ML 100 MG IV ×2 (09:12→21:19)
[2021-04-13] MEDS: pantoprazole DR 40 mg Tablet PO (09:12)
[2021-04-13] MEDS: potassium chloride ER 20 mEq Tablet PO ×2 (09:12→18:40)
[2021-04-13] MEDS: ALPRAZolam 0.5 mg Tablet PO ×2 (09:21→21:18)
--- NOTE | 2021-04-13 11:02 | PC.CHAP ---
Pastoral Care Encounter/Spiritual Assessment Type of Contact [] Declined planting supervisor visit [] Patient/Family/Request visit [] Outpatient visit [] Follow-up visit [] Physician referral [] Code/Alert [x] Routine visit [] Staff referral [] Actively dying [] Patient sleeping [] Family support [] [] Out of room [] Palliative care [] [x] Receiving care in room [] Pre-surgical visit [] Trauma [x] Long length of stay [] ICU visit [] Other: Relational/Emotional Strength [] Patient feels connected with others/family/visitors/staff [] Distress [] Loneliness/isolation [] Abandonment Spirituality of Patient [] Person of Tresa [] Attends Tenriism of their Tresa [] Believes in Prayer [] Reads Bible or Yazidism materials [] There are Spiritual issues to be addressed [employer] Senior Project Manager Interventions [] Prayer [] Active listening [] Non-anxious presence [] Spiritual/emotional support [] Crisis/trauma care [] Spiritual counseling [] Bereavement support [] Provided bereavement packet [] Provided Bible/devotional materials [] Provided toy/stuffed animal, coloring book to patient or family member [] Provided Communion [] Anointing/[place] [] Salvation [] Completed spiritual assessment [] Other: Impact on Illness or Injury [] Angry [x] Fearful [] Anxious [] Often cries [] Exhaustion [x] Unable to work [] Unable to attend catholic [] Unable to walk/stand [] Unable to read [] Unable to drive [] Unable to eat/drink [] Unable to sleep [] Unable to be with family [] Patient intubated [] Other: Summary unable to communate doctor waiting to find out about her health Time spent with patient 5 mins
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
--- NOTE | 2021-04-13 15:07 | PC.SOCIAL ---
David Record with [facility] health and senior services called regarding hotline. he will make a visit with patient.
--- NOTE | 2021-04-13 16:04 | PC.NUTR ---
Nutrition Note: Consult for malnutrition completed. Pt reports usual body weight 117 lbs. Pt did not seem interested in supplement choices. Received pt preferences, will let dietary staff know. Continue to encourage po intake of meals and fluids. Provide preferences as available. See full assessment for more details.
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
[2021-04-13] MEDS: enoxaparin 40 mg/0.4 mL Syringe SUBCUT (21:20)
[2021-04-14] VITALS (22 sets, daily range): BP systolic 117–165; BP diastolic 85–114; PULSE 73–90; RESP 11–23; TEMP 36.4–36.6; O2SAT 95–100
[2021-04-14] MEDS: ipratropium-albuterol 3 mL Neb INHALATION ×6 (03:04→22:27)
[2021-04-14 04:26] LABS: Basophils % 0.1 %; Eosinophils % 0.1 %; Hematocrit 41.4 % (37.0-47.0); Lymphocytes % 14.2 %; Mean Corpuscular HGB Conc 31.4 g/dL (30.0-36.0); Mean Platelet Volume 11.2 fL (7.4-10.4); Monocytes # 0.7 10^3/uL (0.2-0.9); Monocytes % 9.7 %; Neutrophils # 5.53 10^3/uL (1.8-7.7); Neutrophils % 75.6 %; Nucleated Red Blood Cells % 0 %; Platelet Count 272 10^3/cmm (130-400); Red Blood Count 4.65 10^6/uL (4.1-5.3); Red Cell Distribution Width 13.8 % (12.1-15.1); White Blood Count 7.3 10^3/uL (4.0-10.0)
[2021-04-14 04:45] LABS: Alanine Aminotransferase 25 U/L (0-33); Albumin Level 3.3 g/dL (3.5-5.2); Alkaline Phosphatase 78 IU/L (35-105); Anion Gap 10.6 (5-19); Aspartate Amino Transferase 14 U/L (0-32); Blood Urea Nitrogen 25 mg/dL (8-23); C Reactive Protein 2.4 mg/L (0.0-4.9); Calcium 8.3 mg/dL (8.5-10.5); Carbon Dioxide 36 mmol/L (22-29); Chloride 95 mmol/L (98-107); Globulin 2.6 g/dL (1.3-4.6); Glucose 97 mg/dL (65-115); Magnesium 2.2 mg/dL (1.7-2.3); Osmolality Calculated 288 mOsm/kg (285-295); Phosphorus 4.1 mg/dL (2.5-4.5); Potassium 4.6 mmol/L (3.5-5.1); Sodium 137 mmol/L (136-145); Total Bilirubin 0.2 mg/dL (0.15-1.2); Total Protein 5.9 g/dL (6.6-8.7)
[2021-04-14 04:53] LABS: NT Pro B Type Natriuretic Pept 5339 pg/mL (0-450); Procalcitonin 0.07 ng/mL (0-0.5)
--- NOTE | 2021-04-14 06:42 | NUR.SHIFT ---
Patient alert and oriented. Sleeping through most of shift. Xanax given for anxiety at bedtime. Finished dinner tray. Afebrile.
[2021-04-14] MEDS: ALPRAZolam 0.5 mg Tablet PO ×2 (08:07→21:09)
[2021-04-14] MEDS: budesonide 0.5 mg/2 mL Neb INHALATION ×2 (08:20→22:26)
[2021-04-14] MEDS: zinc gluconate 50 mg Tablet PO (08:53)
[2021-04-14] MEDS: ascorbic acid 500 mg Tablet PO ×2 (08:53→17:50)
[2021-04-14] MEDS: predniSONE 20 mg Tablet 40 MG PO (08:53)
[2021-04-14] MEDS: metoprolol tartrate 25 mg Tablet 12.5 MG PO ×2 (08:54→10:49)
[2021-04-14] MEDS: cholecalciferol (vitamin D3) 1,000 unit Tablet 1000 UNIT PO (08:54)
[2021-04-14] MEDS: pantoprazole DR 40 mg Tablet PO (08:54)
[2021-04-14] MEDS: potassium chloride ER 20 mEq Tablet PO ×2 (08:54→17:50)
[2021-04-14] MEDS: FUROsemide 10 mg/mL SDV 4mL 40 MG IVP (08:55)
[2021-04-14] MEDS: cefepime 2,000 MG in sodium chloride 0.9% (plus) 50 ML 100 MG IV (08:57)
[2021-04-14] MEDS: vancomycin 750 MG in sodium chloride 0.9% 250 ML 250 MG IV (10:49)
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
--- NOTE | 2021-04-14 14:23 | PC.CHAP ---
Pastoral Care Encounter/Spiritual Assessment Type of Contact [] Declined library information technician visit [] Patient/Family/Request visit [] Outpatient visit [xx] Follow-up visit [] Physician referral [] Code/Alert [xx] Routine visit [] Staff referral [] Actively dying [] Patient sleeping [] Family support [] [] Out of room [] Palliative care [] [] Receiving care in room [] Pre-surgical visit [] Trauma [xx] Long length of stay [] ICU visit [] Other: Relational/Emotional Strength [xx] Patient feels connected with others/family/visitors/staff [] Distress [] Loneliness/isolation [] Abandonment Spirituality of Patient [xx] Person of Tresa [] Attends Mandaeism of their Tresa [xx] Believes in Prayer [xx] Reads Bible or Jain materials [] There are Spiritual issues to be addressed Order Booker Interventions [xx] Prayer [xx] Active listening [xx] Non-anxious presence [] Spiritual/emotional support [] Crisis/trauma care [] Spiritual counseling [] Bereavement support [] Provided bereavement packet [] Provided Bible/devotional materials [] Provided toy/stuffed animal, coloring book to patient or family member [] Provided Communion [] Anointing/[place] [] Salvation [xx] Completed spiritual assessment [] Other: Impact on Illness or Injury [] Angry [] Fearful [] Anxious [] Often cries [] Exhaustion [] Unable to work [] Unable to attend baptism [] Unable to walk/stand [] Unable to read [] Unable to drive [] Unable to eat/drink [] Unable to sleep [] Unable to be with family [] Patient intubated [] Other: Summary Patient stated she is confused about how/why she is in hospital. She also feels like there is something she must do but can't remember what. Her sister is adamant about her going to [place] to vis[place] and she is just as adamant about not going there. She hates [place]. Time spent with patient 7 minutes
--- NOTE | 2021-04-14 14:26 | PM.PN ---
Subjective Subjective: Interval history: Patient is overall doing better. No chest pain, shortness of breath is stable Vitals/I&O/Wt Last Vital Signs Temp 97.6 F 04/14/21 04:07 Pulse 80 04/14/21 07:55 Resp 16 04/14/21 07:55 BP 143/108 04/14/21 04:07 Pulse Ox 95 04/14/21 07:55 04/13/21 04/14/21 04/14/21 22:59 06:59 14:59 Intake Total 240 / 290 300 / 590 50 / 50 Balance 240 / 290 300 / 590 50 / 50 Weight last 48 hrs Weight 95 lb 3.2 oz Weight 96 lb 6.4 oz Weight 96 lb 4.8 oz Physical Exam Const: COMMON NORMALS: no acute distress and patient oriented x3 ORIENTATION/CONSCIOUSNESS: Yes awake, Yes oriented to person, Yes oriented to place and Yes oriented to time Resp: COMMON NORMALS: normal respiratory effort and No retractions AUSCULTATION: crackles and wheezes Cardio: COMMON NORMALS: regular rate, regular rhythm, S1 normal heart sound present and S2 normal heart sound present RATE: regular rate RHYTHM: regular rhythm HEART SOUNDS: S1 normal heart sound present and S2 normal heart sound present GI: COMMON NORMALS: Soft to palpation and non-tender PALPATION: Yes Soft to palpation Extremity: COMMON NORMALS: no pedal edema Neuro: COMMON NORMALS: patient oriented x3 SENSORIUM/ORIENTATION: Yes oriented to person, Yes oriented to place and Yes oriented to time Psych: COMMON NORMALS: mental status grossly normal Data : 04/16/21 05:16 04/16/21 05:16 Micro: Microbiology 04/12/21 16:30 Gram Stain - Final Sputum - Expectorated Sputum Sputum Culture - Preliminary 04/12/21 20:25 Urine Culture - Preliminary Urine,Voided 04/12/21 15:46 Blood Culture - Preliminary Blood NEGATIVE TO DATE 04/12/21 15:40 Blood Culture - Preliminary Blood NEGATIVE TO DATE 04/12/21 16:30 MRSA Culture - Final Nose A&P Assessment and plan (1) Hyperlipidemia: Status: Acute Qualifiers: Hyperlipidemia type: unspecified Qualified Code(s): E78.5 - Hyperlipidemia, unspecified (2) Hypertension: Status: Acute Qualifiers: Hypertension type: essential hypertension Qualified Code(s): I10 - Essential (primary) hypertension (3) Congestive heart failure: Status: Acute (4) Troponin level elevated: Status: Resolved Patient has mildly reduced LV function. She has remained stable since yesterday Switch to PO lasix Ischemic work up can be done with a stress test. Troponin elevation was secondary to demand ischemia. Stress test to be done as outpatient Pneumonia treatment per primary team Aspirin and meoprolol Thank you for involving us with care of this patient. We will sign off. Please call with questions. Attestations Medical Necessity Statement*: Care expected to cross 2 midnights. Coding Level of Care Code Acute Rigger for [facility] Diagnoses Hyperlipidemia E78.5 Hyperlipidemia type: unspecified Hypertension I10 Hypertension type: essential hypertension Congestive heart failure I50.9 Troponin level elevated R77.8
--- NOTE | 2021-04-14 18:12 | PC.SLP ---
SMOKING CESSATION AND PULMONARY REHAB INFORMATION SENT TO PATIENT.
--- NOTE | 2021-04-14 20:58 | PC.NURSE ---
Shift Note Frequent safety and comfort rounds continue. Orders and/or nursing care completed as indicated. Patient monitored for response to intervention and treatment(s). Education provided includes antibiotics, iv diuresis. Patient and/or chain sales representative verbalizes understanding. Will continue to monitor.
[2021-04-14] MEDS: saline nasal spray 44mL Btl 1 SPRAY NASAL (21:09)
[2021-04-14] MEDS: metoprolol tartrate 25 mg Tablet PO (21:10)
[2021-04-14] MEDS: enoxaparin 40 mg/0.4 mL Syringe SUBCUT (22:37)
[2021-04-15] VITALS (19 sets, daily range): BP systolic 132–163; BP diastolic 74–116; PULSE 76–87; RESP 15–23; TEMP 36.4–36.6; O2SAT 92–100
[2021-04-15] MEDS: ipratropium-albuterol 3 mL Neb INHALATION ×6 (01:51→20:50)
[2021-04-15 04:59] LABS: Basophils % 0.1 %; Eosinophils % 0.1 %; Hematocrit 43.1 % (37.0-47.0); Hemoglobin 13.5 g/dL (11.5-15.3); Lymphocytes # 0.9 10^3/uL (0.8-4.8); Lymphocytes % 13.6 %; Mean Corpuscular HGB Conc 31.3 g/dL (30.0-36.0); Mean Corpuscular Volume 89.4 fl (81-99); Mean Platelet Volume 10.9 fL (7.4-10.4); Monocytes # 0.9 10^3/uL (0.2-0.9); Monocytes % 12.3 %; Neutrophils # 5.07 10^3/uL (1.8-7.7); Neutrophils % 73.5 %; Nucleated Red Blood Cells % 0 %; Platelet Count 241 10^3/cmm (130-400); Red Blood Count 4.82 10^6/uL (4.1-5.3); Red Cell Distribution Width 13.3 % (12.1-15.1); White Blood Count 6.9 10^3/uL (4.0-10.0)
[2021-04-15 05:29] LABS: Alanine Aminotransferase 22 U/L (0-33); Albumin Level 3.3 g/dL (3.5-5.2); Alkaline Phosphatase 81 IU/L (35-105); Anion Gap 10.7 (5-19); Aspartate Amino Transferase 14 U/L (0-32); Blood Urea Nitrogen 22 mg/dL (8-23); Calcium 8.2 mg/dL (8.5-10.5); Carbon Dioxide 35 mmol/L (22-29); Chloride 94 mmol/L (98-107); Globulin 2.6 g/dL (1.3-4.6); Glucose 86 mg/dL (65-115); Magnesium 1.8 mg/dL (1.7-2.3); Osmolality Calculated 283 mOsm/kg (285-295); Phosphorus 3.7 mg/dL (2.5-4.5); Potassium 4.7 mmol/L (3.5-5.1); Sodium 135 mmol/L (136-145); Total Bilirubin 0.3 mg/dL (0.15-1.2); Total Protein 5.9 g/dL (6.6-8.7)
[2021-04-15 05:38] LABS: NT Pro B Type Natriuretic Pept 5479 pg/mL (0-450); Procalcitonin 0.07 ng/mL (0-0.5)
[2021-04-15] MEDS: ALPRAZolam 0.5 mg Tablet PO ×2 (05:58→20:42)
[2021-04-15] MEDS: levoFLOXacin 750 mg Tablet PO (05:58)
[2021-04-15] MEDS: cholecalciferol (vitamin D3) 1,000 unit Tablet 1000 UNIT PO (08:45)
[2021-04-15] MEDS: predniSONE 20 mg Tablet 40 MG PO (08:45)
[2021-04-15] MEDS: potassium chloride ER 20 mEq Tablet PO ×2 (08:46→17:21)
[2021-04-15] MEDS: metoprolol tartrate 25 mg Tablet PO ×2 (08:46→20:42)
[2021-04-15] MEDS: lisinopril 20 mg Tablet PO ×2 (08:46→17:21)
[2021-04-15] MEDS: ascorbic acid 500 mg Tablet PO ×2 (08:46→17:23)
[2021-04-15] MEDS: FUROsemide 40 mg Tablet PO (08:46)
[2021-04-15] MEDS: zinc gluconate 50 mg Tablet PO (08:46)
[2021-04-15] MEDS: pantoprazole DR 40 mg Tablet PO (08:46)
[2021-04-15] MEDS: budesonide 0.5 mg/2 mL Neb INHALATION ×2 (08:48→20:50)
--- NOTE | 2021-04-15 10:09 | PC.SOCIAL ---
IMM Update pg 2 of IMM Updated and copy provided to the patient.
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
--- NOTE | 2021-04-15 20:02 | PC.NURSE ---
Shift Note Frequent safety and comfort rounds continue. Orders and/or nursing care completed as indicated. Patient monitored for response to intervention and treatment(s). Education provided includes instruction in all medications.. Patient verb understanding of instructions,but needs reinforcement.pt confused off and on today.amb with assist to bathroom. Will continue to monitor.
[2021-04-15] MEDS: saline nasal spray 44mL Btl 1 SPRAY NASAL (20:43)
[2021-04-15] MEDS: enoxaparin 40 mg/0.4 mL Syringe SUBCUT (23:00)
[2021-04-16] VITALS (10 sets, daily range): BP systolic 143–177; BP diastolic 99–108; PULSE 79–90; RESP 13–27; TEMP 36.4–37.1; O2SAT 94–100
[2021-04-16] MEDS: ipratropium-albuterol 3 mL Neb INHALATION ×4 (00:20→12:23)
[2021-04-16 05:36] LABS: Positive M 1
[2021-04-16 05:39] LABS: Basophils % 0.1 %; Eosinophils % 0.3 %; Hematocrit 42.7 % (37.0-47.0); Hemoglobin 13.6 g/dL (11.5-15.3); Lymphocytes # 1.3 10^3/uL (0.8-4.8); Lymphocytes % 19.1 %; Mean Corpuscular HGB Conc 31.9 g/dL (30.0-36.0); Mean Corpuscular Hemoglobin 28.1 pg (28.0-34.0); Mean Corpuscular Volume 88.2 fl (81-99); Mean Platelet Volume 11.2 fL (7.4-10.4); Monocytes # 0.8 10^3/uL (0.2-0.9); Monocytes % 11.1 %; Neutrophils # 4.83 10^3/uL (1.8-7.7); Neutrophils % 69.1 %; Nucleated Red Blood Cells % 0 %; Platelet Count 260 10^3/cmm (130-400); Red Blood Count 4.84 10^6/uL (4.1-5.3); Red Cell Distribution Width 13.2 % (12.1-15.1)
[2021-04-16 06:11] LABS: Alanine Aminotransferase 20 U/L (0-33); Albumin Level 3.3 g/dL (3.5-5.2); Alkaline Phosphatase 74 IU/L (35-105); Anion Gap 8.2 (5-19); Aspartate Amino Transferase 13 U/L (0-32); Blood Urea Nitrogen 25 mg/dL (8-23); Calcium 8.3 mg/dL (8.5-10.5); Carbon Dioxide 37 mmol/L (22-29); Chloride 94 mmol/L (98-107); Creatinine Clr Calc Pharmacy 38.1801; Globulin 2.5 g/dL (1.3-4.6); Glucose 82 mg/dL (65-115); Osmolality Calculated 281 mOsm/kg (285-295); Phosphorus 3.3 mg/dL (2.5-4.5); Potassium 5.2 mmol/L (3.5-5.1); Sodium 134 mmol/L (136-145); Total Bilirubin 0.4 mg/dL (0.15-1.2); Total Protein 5.8 g/dL (6.6-8.7)
[2021-04-16] MEDS: budesonide 0.5 mg/2 mL Neb INHALATION (08:06)
[2021-04-16] MEDS: predniSONE 20 mg Tablet 40 MG PO (09:58)
[2021-04-16] MEDS: ascorbic acid 500 mg Tablet PO (09:58)
[2021-04-16] MEDS: metoprolol tartrate 25 mg Tablet PO ×2 (09:58→12:12)
[2021-04-16] MEDS: cholecalciferol (vitamin D3) 1,000 unit Tablet 1000 UNIT PO (09:58)
[2021-04-16] MEDS: FUROsemide 40 mg Tablet PO (09:58)
[2021-04-16] MEDS: lisinopril 20 mg Tablet PO (09:58)
[2021-04-16] MEDS: zinc gluconate 50 mg Tablet PO (09:58)
[2021-04-16] MEDS: pantoprazole DR 40 mg Tablet PO (09:58)
[2021-04-16] MEDS: potassium chloride ER 20 mEq Tablet PO (09:59)
[2021-04-16] MEDS: fluoxetine 20 mg Capsule PO (12:12)
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
--- NOTE | 2021-04-16 14:49 | PC.NURSE ---
Discharge Note Patient discharged to [home] via [w/c] accompanied by [spouse]. Discharge instructions reviewed with patient and/or lifeline representatives. Mobile pharmacy medications and/or prescriptions provided. Belongings/home medications returned.
--- NOTE | 2021-04-17 13:31 | PC.SOCIAL ---
discharge follow up call made. all appointment date and times given to patient. 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 patient reports she is safe and voices no needs.
== END 2021-04-16 14:50 | disposition home or self-care (01) | DRG 280 ==
LOC: ER 20:45 → ER IP 04-12 00:11 → CSU 04-12 13:07
PROVIDERS: Admitting Provider Student in an Organized Health Care Education/Training Program; Emergency Provider Emergency Medicine; PCP Family Medicine; Visit Provider Family Medicine
DX: I11.0 Hypertensive heart disease with heart failure (principal); J96.20 Acute and chronic respiratory failure, unspecified whether with hypoxia or hypercapnia; I21.4 Non-ST elevation (NSTEMI) myocardial infarction; J18.9 Pneumonia, unspecified organism; J44.1 Chronic obstructive pulmonary disease with (acute) exacerbation; J44.0 Chronic obstructive pulmonary disease with (acute) lower respiratory infection; E46 Unspecified protein-calorie malnutrition; Z68.1 Body mass index [BMI] 19.9 or less, adult; E87.1 Hypo-osmolality and hyponatremia; T74.11XA Adult physical abuse, confirmed, initial encounter; N13.30 Unspecified hydronephrosis; I50.33 Acute on chronic diastolic (congestive) heart failure; Z99.81 Dependence on supplemental oxygen; D64.9 Anemia, unspecified; E78.5 Hyperlipidemia, unspecified; F17.210 Nicotine dependence, cigarettes, uncomplicated; T74.31XA Adult psychological abuse, confirmed, initial encounter; Y07.01 Husband, perpetrator of maltreatment and neglect; Z66 Do not resuscitate; Z79.51 Long term (current) use of inhaled steroids
CPT/HCPCS: 36415; 36600; 71045; 71275; 76770; 80053; 80202; 81003; 82803; 83735; 83880; 84100; 84145; 84484; 85025; 86140; 87040; 87070; 87086; 87205; 87426; 87635; 87641; 93005; 93306; 93970; 94640; 96365; 96367; 96372; 96375; 96376; 99285; J0456; J0692; J1100; J1650; J1940; J2930; J3370; J3475; J7050; J7512; J7626; Q9967

== ENCOUNTER 2021-05-02 10:56 | Observation (INO) | payer MEDICARE, SELFPAY ==
[2021-05-02] VITALS (55 sets, daily range): BP systolic 152–186; BP diastolic 75–114; PULSE 52–72; RESP 9–21; TEMP 36.4–36.8; O2SAT 95–100; BMI 14.6; BMI 16.7
--- NOTE | 2021-05-02 11:00 | XR_ITS ---
WS: [id number] Exam: XR chest 1V portable [id number] Date/Time of Exam: 05/02/2021 11:03 AM Reason For Exam: Cough Comparison 04/11/2021. The lungs are hyperinflated and clear. Mild cardiac enlargement unchanged. No pleural effusions. No p neumothorax. The mediastinum and osseous thorax are unremarkable. Monitoring leads superimpose the ch est. XR/XR chest 1V portable [id number] IMPRESSION: 1. Pulmonary hyperinflation which might indicate obstructive lung disease. 2. Cardiac enlargement unchanged.
--- NOTE | 2021-05-02 11:00 | ECG_ITS ---
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[employer]: : [id number] Requested By: Yovanny Perez Order Number: [id number] Joel MD: ANTHONY ROY Measurements Intervals [place] Rate: 61 P: 80 OK: 173 QRS: -64 QRSD: 85 T: 90 QT: 403 QTc: 407 Interpretive Statements SINUS RHYTHM POSSIBLE RIGHT VENTRICULAR CONDUCTION DELAY [RSR (QR) IN V1/V2] LEFT ANTERIOR FASCICULAR BLOCK [QRS AXIS <= -45, QR IN I, RS IN II] VOLTAGE CRITERIA FOR LVH [MEETS CRITERIA IN ONE OF: R(aVL), S(V1), R(V5), R(V5/V6)+S(V1)] POSSIBLE SEPTAL MYOCARDIAL INFARCTION , OF INDETERMINATE AGE [30 ms Q WAVE IN V1/V2] Compared to ECG 04/11/2021 21:19:35 No significant changes Electronically Signed On 05-02-2021 20:03:02 CDT by ANTHONY ROY [email or web address]
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
[2021-05-02 11:38] LABS: Basophils # 0.1 10^3/uL (0.0-0.1); Basophils % 0.9 %; Eosinophils % 0.6 %; Hemoglobin 11.2 g/dL (11.5-15.3); Lymphocytes # 0.6 10^3/uL (0.8-4.8); Lymphocytes % 9.3 %; Mean Corpuscular HGB Conc 32.9 g/dL (30.0-36.0); Mean Corpuscular Hemoglobin 28.7 pg (28.0-34.0); Mean Corpuscular Volume 87.2 fl (81-99); Monocytes # 0.6 10^3/uL (0.2-0.9); Monocytes % 9.7 %; Neutrophils # 5.22 10^3/uL (1.8-7.7); Neutrophils % 79.3 %; Nucleated Red Blood Cells % 0 %; Platelet Count 295 10^3/cmm (130-400); Red Cell Distribution Width 13.6 % (12.1-15.1); White Blood Count 6.6 10^3/uL (4.0-10.0)
[2021-05-02 11:41] LABS: ABG PCO2 53.2 mmHg (35-45); ABG PH Result 7.43 (7.35-7.45); Arterial Blood Gas Hematocrit 34.4 % (37-47); Blood Gas Allen Test Pos; Blood Gas Sample Site Radial, left; Blood Gas Sample Type Arterial; HCO3 ABG 34.9 mmol/L (22-26); HGB O2 Sat 96.2 % (95-100); Ionized Calcium Level - ABG 1.1 mmol/L (1.1-1.4); Methemoglobin 0.9 % (0.4-1.5); Oxygen Device NC; Oxygen Saturation ABG > 100.0; Potassium Level - ABG 4.5 mmol/L (3.5-5.0); Total Hemoglobin 11.2 g/dL (12-16)
[2021-05-02 11:54] LABS: SARS Covid-2 Antigen Negative (Negative)
--- NOTE | 2021-05-02 12:05 | PC.PHAR ---
PT WONT STAY AWAKE TO VERIFY MEDICATIONS-[facility] STATES THEY HAVE STARTED PILL PACKING THE PTS MEDICATIONS STATES ASPIRIN 81MG DAILY,ATORVASTATIN 40MG DAILY, PROZAC 20MG DAILY,LASIX 20MG DAILY, GABAPENTIN 300MG TID,KCL 20MEQ DAILY,LISINOPRIL 20MG BID, METOPROLOL TARTRATE 50MG BID,PANTOPRAZOLE 40MG BID ARE ALL IN THE PILL PACKS-THE VENTOLIN,NITRO,ADVAIR DISKUS,FLONASE AND IPRATROPIUM-ALBUTEROL WERE ALL ON A PREVIOUS ENTERED MED LIST-NOTES ARE MADE IN THE PHARMACY COMMENTS
[2021-05-02 12:36] LABS: Troponin T (5th) Once 31 ng/L (0-10)
[2021-05-02 12:50] LABS: Alanine Aminotransferase 11 U/L (0-33); Albumin Level 3.3 g/dL (3.5-5.2); Alkaline Phosphatase 67 IU/L (35-105); Aspartate Amino Transferase 11 U/L (0-32); Blood Urea Nitrogen 15 mg/dL (8-23); Calcium 8.5 mg/dL (8.5-10.5); Carbon Dioxide 31 mmol/L (22-29); Chloride 91 mmol/L (98-107); Globulin 2.1 g/dL (1.3-4.6); Glucose 82 mg/dL (65-115); NT Pro B Type Natriuretic Pept 5010 pg/mL (0-450); Osmolality Calculated 268 mOsm/kg (285-295); Sodium 129 mmol/L (136-145); Total Bilirubin 0.4 mg/dL (0.15-1.2); Total Protein 5.4 g/dL (6.6-8.7)
[2021-05-02 12:56] LABS: Anion Gap 11.7 (5-19); Potassium 4.7 mmol/L (3.5-5.1)
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
[2021-05-02 13:48] LABS: ABG PCO2 57.4 mmHg (35-45); ABG PH Result 7.39 (7.35-7.45); Arterial Blood Gas Hematocrit 35.5 % (37-47); Base Excess ABG 8.3 mmol/L (-2.0-2.0); Blood Gas Allen Test Pos; Blood Gas Sample Site Brachial, right; Blood Gas Sample Type Arterial; Carboxyhemoglobin 2.5 %THgb (0.4-20.1); HCO3 ABG 34.9 mmol/L (22-26); HGB O2 Sat 96.7 % (95-100); Ionized Calcium Level - ABG 1.2 mmol/L (1.1-1.4); Methemoglobin 0.9 % (0.4-1.5); Oxygen Device NC; Oxygen Saturation ABG > 100.0; Potassium Level - ABG 4.5 mmol/L (3.5-5.0); Total Hemoglobin 11.6 g/dL (12-16)
[2021-05-02] MEDS: FUROsemide 10 mg/mL SDV 4mL 40 MG IVP (13:48)
[2021-05-02 14:46] LABS: Troponin 5 2HR 31.76 ng/L (0-10)
[2021-05-02 15:04] LABS: Troponin 5 2HR Delta 0.76 ABS# (0-10)
--- NOTE | 2021-05-02 15:13 | ECG_ITS ---
[facility] Test Date: 2021-05-02 Pat Name: Rosario Brock Department: Room: 255 Gender: Female Employee Communications Manager: : 1945 Requested By: Yovanny Perez Order Number: [id number] Joel MD: ANTHONY ROY Measurements Intervals [place] Rate: 58 P: 82 NC: 190 QRS: -63 QRSD: 89 T: 91 QT: 427 QTc: 423 Interpretive Statements SINUS BRADYCARDIA POSSIBLE RIGHT VENTRICULAR CONDUCTION DELAY [RSR (QR) IN V1/V2] LEFT ANTERIOR FASCICULAR BLOCK [QRS AXIS <= -45, QR IN I, RS IN II] VOLTAGE CRITERIA FOR LVH [MEETS CRITERIA IN ONE OF: R(aVL), S(V1), R(V5), R(V5/V6)+S(V1)] POSSIBLE SEPTAL MYOCARDIAL INFARCTION , OF INDETERMINATE AGE [30 ms Q WAVE IN V1/V2] Compared to ECG 05/02/2021 11:40:56 Sinus rhythm no longer present Myocardial infarct finding still present Electronically Signed On 05-02-2021 20:03:19 CDT by ANTHONY ROY [id number]
[2021-05-02 15:16] LABS: Add Urine Microscopic? NO; Charge for UA Resulting for Rev
[2021-05-02 15:35] LABS: Bilirubin Urine Neg (Negative); Blood Urine Neg (Negative); Glucose Urine UA Norm (Normal); Ketones Urine Negative (Negative); Leukocyte Esterase Urine Negative (Negative); Nitrate Urine Negative (Negative); Protein Urine Neg (Negative); Sulfosalicylic Acid Urine Negative (Negative); Urine Appearance Clear (CLEAR); Urine Color Yellow (Yellow); Urobilinogen Urine Norm (Negative); pH Urine 8 (5-7)
[2021-05-02 18:14] LABS: Troponin 5 6HR 32.06 ng/L (0-10)
[2021-05-02 18:16] LABS: Troponin 5 6HR Delta 1.06 ng/L (0-12)
--- NOTE | 2021-05-02 19:13 | ECG_ITS ---
[facility] Test Date: 2021-05-02 Pat Name: Rosario Brock Department: Room: 255 Gender: Female Hand Sewer: : 1945 Requested By: Yovanny Perez Order Number: [id number] Joel MD: Flory Díza M.D. Measurements Intervals [place] Rate: 59 P: 80 NV: 171 QRS: -64 QRSD: 86 T: 83 QT: 426 QTc: 424 Interpretive Statements SINUS BRADYCARDIA WITH OCCASIONAL VENTRICULAR PREMATURE COMPLEXES POSSIBLE RIGHT VENTRICULAR CONDUCTION DELAY [RSR (QR) IN V1/V2] LEFT ANTERIOR FASCICULAR BLOCK [QRS AXIS <= -45, QR IN I, RS IN II] VOLTAGE CRITERIA FOR LVH [MEETS CRITERIA IN ONE OF: R(aVL), S(V1), R(V5), R(V5/V6)+S(V1)] POSSIBLE ANTEROSEPTAL MYOCARDIAL INFARCTION , OF INDETERMINATE AGE [30 ms Q WAVE IN V1-V4] Compared to ECG 05/02/2021 17:23:16 Ventricular premature complex(es) now present Myocardial infarct finding still present Electronically Signed On 05-03-2021 21:44:49 CDT by Flory Díaz M.D. [id number]
[2021-05-03] VITALS (9 sets, daily range): BP systolic 120–178; BP diastolic 62–86; PULSE 57–65; RESP 16–20; TEMP 36.6–36.8; O2SAT 93–98
[2021-05-03 05:34] LABS: Basophils # 0.1 10^3/uL (0.0-0.1); Basophils % 0.8 %; Eosinophils # 0.1 10^3/uL (0.0-0.8); Eosinophils % 1.7 %; Hematocrit 38.9 % (37.0-47.0); Hemoglobin 12.6 g/dL (11.5-15.3); Lymphocytes # 1.1 10^3/uL (0.8-4.8); Lymphocytes % 14.5 %; Mean Corpuscular HGB Conc 32.4 g/dL (30.0-36.0); Mean Corpuscular Hemoglobin 28.3 pg (28.0-34.0); Mean Corpuscular Volume 87.4 fl (81-99); Mean Platelet Volume 10.3 fL (7.4-10.4); Monocytes # 0.7 10^3/uL (0.2-0.9); Neutrophils # 5.33 10^3/uL (1.8-7.7); Neutrophils % 73.6 %; Nucleated Red Blood Cells % 0 %; Platelet Count 331 10^3/cmm (130-400); Red Blood Count 4.45 10^6/uL (4.1-5.3); Red Cell Distribution Width 13.3 % (12.1-15.1); White Blood Count 7.2 10^3/uL (4.0-10.0)
[2021-05-03 05:53] LABS: Anion Gap 11.1 (5-19); Blood Urea Nitrogen 14 mg/dL (8-23); Calcium 8.6 mg/dL (8.5-10.5); Carbon Dioxide 33 mmol/L (22-29); Chloride 89 mmol/L (98-107); Glucose 89 mg/dL (65-115); Magnesium 1.8 mg/dL (1.7-2.3); Osmolality Calculated 268 mOsm/kg (285-295); Potassium 4.1 mmol/L (3.5-5.1); Sodium 129 mmol/L (136-145)
[2021-05-03] MEDS: potassium chloride ER 20 mEq Tablet PO (07:45)
[2021-05-03] MEDS: gabapentin 300 mg Capsule PO ×3 (07:45→20:59)
[2021-05-03] MEDS: fluoxetine 20 mg Capsule PO (07:45)
[2021-05-03] MEDS: pantoprazole DR 40 mg Tablet PO ×2 (07:45→17:08)
[2021-05-03] MEDS: metoprolol tartrate 50 mg Tablet PO ×2 (07:45→17:08)
[2021-05-03] MEDS: atorvastatin 40 mg Tablet PO (07:45)
[2021-05-03] MEDS: ALPRAZolam 0.5 mg Tablet 0.25 MG PO (07:45)
[2021-05-03] MEDS: aspirin 81 mg EC Tablet PO (07:46)
[2021-05-03] MEDS: lisinopril 20 mg Tablet PO ×2 (07:46→17:08)
[2021-05-03] MEDS: fluticasone nasal spray 16gm Btl 2 SPRAY INTRANASAL (07:46)
[2021-05-03] MEDS: FUROsemide 10 mg/mL SDV 4mL 40 MG IVP (07:46)
[2021-05-03] MEDS: ipratropium-albuterol 3 mL Neb INHALATION (07:47)
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
--- NOTE | 2021-05-03 10:34 | PC.CHAP ---
Pastoral Care Encounter/Spiritual Assessment Type of Contact [] Declined utility mechanic visit [] Patient/Family/Request visit [] Outpatient visit [] Follow-up visit [] Physician referral [] Code/Alert [x] Routine visit [] Staff referral [] Actively dying [] Patient sleeping [] Family support [] [] Out of room [] Palliative care [] [] Receiving care in room [] Pre-surgical visit [] Trauma [] Long length of stay [] ICU visit [] Other: Relational/Emotional Strength [x] Patient feels connected with others/family/visitors/staff [] Distress [] Loneliness/isolation [] Abandonment Spirituality of Patient [x] Person of Tresa [] Attends Scientologist of their Tresa [x] Believes in Prayer [] Reads Bible or Gnosticist materials [] There are Spiritual issues to be addressed Gear Machine Operator Interventions [x] Prayer [x] Active listening [x] Non-anxious presence [x] Spiritual/emotional support [] Crisis/trauma care [] Spiritual counseling [] Bereavement support [] Provided bereavement packet [] Provided Bible/devotional materials [] Provided toy/stuffed animal, coloring book to patient or family member [] Provided Communion [] Anointing/[place] [] Salvation [x] Completed spiritual assessment [] Other: Impact on Illness or Injury [] Angry [] Fearful [] Anxious [] Often cries [] Exhaustion [] Unable to work [] Unable to attend sabianist [] Unable to walk/stand [] Unable to read [] Unable to drive [] Unable to eat/drink [] Unable to sleep [] Unable to be with family [] Patient intubated [] Other: Summary Time spent with patient 10 min
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
--- NOTE | 2021-05-03 16:19 | PC.RESP ---
sent smoking cessation and pulmonary rehab information
[2021-05-04] VITALS (8 sets, daily range): BP systolic 120–164; BP diastolic 63–82; PULSE 51–64; RESP 16–18; TEMP 36.7–36.9; O2SAT 92–97
--- NOTE | 2021-05-04 05:29 | PC.NURSE ---
i reported low pulse 54 to nurse
[2021-05-04] MEDS: pantoprazole DR 40 mg Tablet PO (08:21)
[2021-05-04] MEDS: gabapentin 300 mg Capsule PO (08:21)
[2021-05-04] MEDS: fluoxetine 20 mg Capsule PO (08:21)
[2021-05-04] MEDS: potassium chloride ER 20 mEq Tablet PO (08:21)
[2021-05-04] MEDS: metoprolol tartrate 50 mg Tablet PO (08:21)
[2021-05-04] MEDS: lisinopril 20 mg Tablet PO (08:22)
[2021-05-04] MEDS: fluticasone nasal spray 16gm Btl 2 SPRAY INTRANASAL (08:22)
[2021-05-04] MEDS: aspirin 81 mg EC Tablet PO (08:22)
[2021-05-04] MEDS: FUROsemide 40 mg Tablet PO (08:22)
[2021-05-04] MEDS: atorvastatin 40 mg Tablet PO (08:22)
[2021-05-04] MEDS: ipratropium-albuterol 3 mL Neb INHALATION (09:21)
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
--- NOTE | 2021-05-04 13:20 | PC.NURSE ---
Ortega Catheter removed at this time. Patient tolerated well. Patient requests that we call her to pick her up and to bring her portable oxygen.
--- NOTE | 2021-05-04 13:26 | PC.NURSE ---
Attempted to call Shayan at this time without success a message left.
--- NOTE | 2021-05-04 15:47 | PC.NURSE ---
IV removed intact. Patient tolerated well. Patient is A&Ox3. Respirations even on 2 liters NC. Reviewed patient discharge with patient who verbalized understanding of discharge instruction. Patient was brought oxygen by HOME. Patient veronicall chaired to private car.
--- NOTE | 2021-05-05 10:16 | PC.SOCIAL ---
discharge follow up call made, spoke with patient. she reports she is feeling good. she continues to use her O2 at 3L NC. No new medications prescribed at discharge. Discussed with patient the change in lasix, and the importance of taking her Lasix daily to prevent fluid overload which causes her shortness of breath. patient verbalizes understanding. patient given follow up appointment date and time for pcp and she has transportation to her appointment.
== END 2021-05-04 16:47 | disposition home or self-care (01) ==
LOC: ER 15:45 → MEDSURG 17:11
PROVIDERS: Admitting Provider Internal Medicine; Emergency Provider Emergency Medicine; PCP Family Medicine; Visit Provider Internal Medicine
DX: E87.1 Hypo-osmolality and hyponatremia (principal); E78.5 Hyperlipidemia, unspecified; I11.0 Hypertensive heart disease with heart failure; I50.9 Heart failure, unspecified; J44.9 Chronic obstructive pulmonary disease, unspecified; T74.91XA Unspecified adult maltreatment, confirmed, initial encounter; Z79.82 Long term (current) use of aspirin
CPT/HCPCS: 36415; 36600; 51702; 71045; 80048; 80051; 80053; 81003; 82330; 82805; 83735; 83880; 84484; 85025; 85610; 85730; 87426; 93005; 94640; 96374; 96376; 97110; 97116; 97162; 99285; G0378; J1940

== ENCOUNTER 2021-05-23 08:40 | Emergency (ER) | payer MEDICARE, SELFPAY ==
[2021-05-23 08:42] VITALS: TEMP 37.1; BMI 16.5
[2021-05-23 09:01] VITALS: BP 176/108; PULSE 82; RESP 20; O2SAT 100
--- NOTE | 2021-05-23 09:08 | XRR_ITS ---
PROCEDURE INFORMATION: Exam: XR Chest Exam date and time: 05/23/2021 9:08 AM Age: 76 years old Clinical indication: Dyspnea/cough TECHNIQUE: Imaging protocol: XR of the chest. Views: 1 view. COMPARISON: CR XR chest 1V portable [id number] 05/02/2021 11:07 AM FINDINGS: Lungs: The lungs are hyperinflated and hyperlucent compatible with COPD. No focal peripheral lung consolidation, air bronchogram formation, or silhouette sign. Pleural spaces: No pleural effusion or pneumothorax. Heart/Mediastinum: The cardiac silhouette is not enlarged. The mediastinal contours are normal. Vasculature: The aorta is atherosclerotic. Bones/joints: S-shaped curvature of the thoracolumbar spine associated with multilevel disc degeneration. XR/XR chest 1V portable [id number] IMPRESSION: 1. COPD. 2. No sign of pneumonia. Radiation Dose CTDIVOL = (mGy): DLP = (mGy-cm)
--- NOTE | 2021-05-23 09:08 | ECG_ITS ---
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: : 1945 Requested By: Chris Do Order Number: [id number] Reading MD: ANTHONY ROY Measurements Intervals [place] Rate: 82 P: 84 DE: 159 QRS: -69 QRSD: 85 T: 73 QT: 377 QTc: 440 Interpretive Statements SINUS RHYTHM POSSIBLE LEFT ATRIAL ENLARGEMENT [-0.1mV P-WAVE IN V1/V2] POSSIBLE RIGHT VENTRICULAR CONDUCTION DELAY [RSR (QR) IN V1/V2] LEFT ANTERIOR FASCICULAR BLOCK [QRS AXIS <= -45, QR IN I, RS IN II] POSSIBLE LEFT VENTRICULAR HYPERTROPHY [VOLTAGE CRITERIA PLUS LAE OR QRS WIDENING] POSSIBLE SEPTAL MYOCARDIAL INFARCTION , OF INDETERMINATE AGE [30 ms Q WAVE IN V1/V2] Compared to ECG 05/02/2021 23:13:43 Sinus bradycardia no longer present Ventricular premature complex(es) no longer present Myocardial infarct finding still present Electronically Signed On 05-23-2021 22:57:18 CDT by ANTHONY ROY [id number]
[2021-05-23 09:31] LABS: Basophils % 0.8 %; Eosinophils # 0.1 10^3/uL (0.0-0.8); Eosinophils % 1.9 %; Hematocrit 35.7 % (37.0-47.0); Hemoglobin 11.9 g/dL (11.5-15.3); Lymphocytes # 1.1 10^3/uL (0.8-4.8); Lymphocytes % 22.9 %; Mean Corpuscular HGB Conc 33.3 g/dL (30.0-36.0); Mean Corpuscular Hemoglobin 28.3 pg (28.0-34.0); Mean Platelet Volume 10.3 fL (7.4-10.4); Monocytes # 0.4 10^3/uL (0.2-0.9); Monocytes % 8.9 %; Neutrophils # 3.18 10^3/uL (1.8-7.7); Neutrophils % 65.5 %; Nucleated Red Blood Cells % 0 %; Platelet Count 284 10^3/cmm (130-400); White Blood Count 4.9 10^3/uL (4.0-10.0)
[2021-05-23 09:37] VITALS: BP 187/108; PULSE 83; RESP 19; O2SAT 100
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
[2021-05-23 09:49] LABS: Troponin(5th) Baseline 39 ng/L (0-10)
[2021-05-23 09:52] LABS: Alanine Aminotransferase 8 U/L (0-33); Albumin Level 3.7 g/dL (3.5-5.2); Alkaline Phosphatase 67 IU/L (35-105); Anion Gap 12.9 (5-19); Aspartate Amino Transferase 14 U/L (0-32); Blood Urea Nitrogen 16 mg/dL (8-23); Calcium 8.9 mg/dL (8.5-10.5); Carbon Dioxide 30 mmol/L (22-29); Chloride 96 mmol/L (98-107); Creatinine Clr Calc Pharmacy 37.3502; Globulin 2.6 g/dL (1.3-4.6); Glucose 91 mg/dL (65-115); Osmolality Calculated 281 mOsm/kg (285-295); Potassium 3.9 mmol/L (3.5-5.1); Sodium 135 mmol/L (136-145); Total Bilirubin 0.5 mg/dL (0.15-1.2); Total Protein 6.3 g/dL (6.6-8.7)
[2021-05-23] MEDS: LORazepam 2 mg/mL INJ 1 mL 1 MG IVP (10:13)
[2021-05-23 11:56] LABS: Troponin 5 2HR 37.08 ng/L (0-10)
[2021-05-23 12:04] LABS: Troponin 5 2HR Delta -1.92 ABS# (0-10)
[2021-05-23 12:46] VITALS: BP 165/74; PULSE 71; RESP 17; O2SAT 99
== END 2021-05-23 13:43 | disposition home or self-care (01) ==
PROVIDERS: Emergency Provider Family Medicine; PCP Family Medicine
DX: J44.1 Chronic obstructive pulmonary disease with (acute) exacerbation (principal); E78.5 Hyperlipidemia, unspecified; I10 Essential (primary) hypertension; F17.210 Nicotine dependence, cigarettes, uncomplicated; Z99.81 Dependence on supplemental oxygen
CPT/HCPCS: 36415; 71045; 80053; 84484; 85025; 93005; 96374; 99283; J2060

== ENCOUNTER 2021-05-29 15:05 | Emergency (ER) | payer MEDICARE, SELFPAY ==
[2021-05-29 15:53] VITALS: BP 162/99; PULSE 93; RESP 22; TEMP 37; O2SAT 98; BMI 14.6
[2021-05-29 16:29] VITALS: BP 172/102; PULSE 93; RESP 22; O2SAT 98
--- NOTE | 2021-05-29 16:33 | XRR_ITS ---
PROCEDURE INFORMATION: Exam: XR Chest Exam date and time: 05/29/2021 4:33 PM Age: 76 years old Clinical indication: Shortness of breath; Prior surgery; Surgery date: 6+ months; Surgery type: Stents; Additional info: Dyspnea TECHNIQUE: Imaging protocol: XR of the chest. Views: 1 view. Total images: 1 COMPARISON: 1. CT angio chest PE protcl [id number] 04/11/2021 9:31:29 PM 2. CR XR chest 1V portable [id number] 05/23/2021 9:23 AM FINDINGS: Lungs: COPD/chronic bronchitis/emphysema. No visible active interstitial or alveolar airspace disease. Pleural spaces: Unremarkable. No pleural effusion. No pneumothorax. Heart/Mediastinum: Cardiac structures and configuration with cardiomegaly and arteriosclerosis. Tortuous thoracic aorta which is often seen in hypertensive cardiovascular disease. Bones/joints: Scoliosis. XR/XR chest 1V portable [id number] IMPRESSION: Nonacute. Radiation Dose CTDIVOL = (mGy): DLP = (mGy-cm)
--- NOTE | 2021-05-29 16:34 | ECG_ITS ---
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 Measurements Intervals Doyle Rate: 85 P: 85 TX: 157 QRS: -66 QRSD: 90 T: 74 QT: 375 QTc: 447 Interpretive Statements SINUS RHYTHM WITH OCCASIONAL VENTRICULAR PREMATURE COMPLEXES POSSIBLE LEFT ATRIAL ENLARGEMENT [-0.1mV P-WAVE IN V1/V2] POSSIBLE RIGHT VENTRICULAR CONDUCTION DELAY [RSR (QR) IN V1/V2] LEFT ANTERIOR FASCICULAR BLOCK [QRS AXIS <= -45, QR IN I, RS IN II] POSSIBLE LEFT VENTRICULAR HYPERTROPHY [VOLTAGE CRITERIA PLUS LAE OR QRS WIDENING] ANTEROSEPTAL MYOCARDIAL INFARCTION , PROBABLY RECENT [40+ ms Q WAVE IN V1-V4] ACUTE VA Compared to ECG 05/23/2021 08:53:25 Ventricular premature complex(es) now present Myocardial infarct finding still present Electronically Signed On 05-29-2021 23:49:57 CDT by Flory Díaz M.D. [email or web address]
[2021-05-29 17:22] LABS: Basophils # 0.1 10^3/uL (0.0-0.1); Basophils % 0.9 %; Eosinophils # 0.2 10^3/uL (0.0-0.8); Eosinophils % 2.8 %; Hematocrit 37.2 % (37.0-47.0); Hemoglobin 12.2 g/dL (11.5-15.3); Lymphocytes # 1.6 10^3/uL (0.8-4.8); Lymphocytes % 28.3 %; Mean Corpuscular HGB Conc 32.8 g/dL (30.0-36.0); Mean Corpuscular Hemoglobin 28.5 pg (28.0-34.0); Mean Corpuscular Volume 86.9 fl (81-99); Mean Platelet Volume 10.1 fL (7.4-10.4); Monocytes # 0.6 10^3/uL (0.2-0.9); Monocytes % 10.9 %; Neutrophils # 3.24 10^3/uL (1.8-7.7); Neutrophils % 56.9 %; Nucleated Red Blood Cells % 0 %; Platelet Count 310 10^3/cmm (130-400); Red Blood Count 4.28 10^6/uL (4.1-5.3); Red Cell Distribution Width 13.3 % (12.1-15.1); White Blood Count 5.7 10^3/uL (4.0-10.0)
[2021-05-29 17:29] VITALS: BP 195/114; PULSE 77; O2SAT 100
[2021-05-29] MEDS: ipratropium-albuterol 3 mL Neb INHALATION ×3 (17:41→18:02)
[2021-05-29 17:45] VITALS: PULSE 76; RESP 20; O2SAT 100
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
[2021-05-29 17:56] LABS: Troponin(5th) Baseline 35 ng/L (0-10)
[2021-05-29 17:58] LABS: SARS Covid-2 Antigen Negative (Negative)
[2021-05-29 18:04] LABS: Anion Gap 12.1 (5-19); Blood Urea Nitrogen 10 mg/dL (8-23); Calcium 9.1 mg/dL (8.5-10.5); Carbon Dioxide 29 mmol/L (22-29); Chloride 98 mmol/L (98-107); Glucose 95 mg/dL (65-115); NT Pro B Type Natriuretic Pept 2474 pg/mL (0-450); Osmolality Calculated 279 mOsm/kg (285-295); Potassium 4.1 mmol/L (3.5-5.1); Sodium 135 mmol/L (136-145)
[2021-05-29 18:32] LABS: D Dimer 1.35 ug/mIFEU (0-0.59)
--- NOTE | 2021-05-29 18:45 | CTR_ITS ---
PROCEDURE INFORMATION: Exam: CTA Chest With Contrast Exam date and time: 05/29/2021 6:45 PM Age: 76 years old Clinical indication: Shortness of breath; Prior surgery; Surgery type: Lumpectomy; Patient HX: SOB, elevated d-dimer. HX of copd; Additional info: Eval pe TECHNIQUE: Imaging protocol: Computed tomographic angiography of the chest with contrast. 3D rendering (Not supervised by radiologist): MIP and/or 3D reconstructed images were created by the technologist. Radiation optimization: All CT scans at this facility use at least one of these dose optimization techniques: automated exposure control; mA and/or kV adjustment per patient size (includes targeted exams where dose is matched to clinical indication); or iterative reconstruction. Contrast material: OMNI 350; Contrast volume: 67 ml; Contrast route: INTRAVENOUS (IV); COMPARISON: CT angio chest PE protcl [id number] 04/11/2021 9:31 PM RADIATION DOSE METRICS: Total DLP (mGy-cm): 347.17 FINDINGS: Pulmonary arteries: Normal. No pulmonary emboli. Aorta: Unremarkable. No aortic aneurysm. No aortic dissection. Lungs: Emphysema. No consolidation or mass. Central airways normal caliber and patent. Pleural spaces: Unremarkable. No pneumothorax. No pleural effusion. Heart: Unremarkable. No cardiomegaly. No pericardial effusion. Lymph nodes: Unremarkable. No enlarged lymph nodes. Intraperitoneal space: No acute findings within the included upper abdomen. 4.1 cm left upper pole hypodense renal cyst within partially calcified septum is unchanged since at least March 15, 2020 and requires no follow-up. Bones/joints: Generalized osteopenia. Mild compression fractures of T12 and L1 are chronic. No acute bony abnormality. Soft tissues: Unremarkable. CT/CT angio chest PE protcl [id number] IMPRESSION: 1. No pulmonary embolism or other acute abnormality. 2. Emphysema. 3. Other chronic and incidental findings as described. Radiation Dose CTDIVOL = (mGy): DLP = 347.17 (mGy-cm)
[2021-05-29] MEDS: iohexol 350 mg/mL 100 mL Btl IV (19:51)
[2021-05-29 20:09] LABS: Troponin 5 2HR 34.51 ng/L (0-10)
[2021-05-29 20:10] LABS: Troponin 5 2HR Delta -0.49 ABS# (0-10)
[2021-05-29 20:30] VITALS: PULSE 82; RESP 16; O2SAT 99
[2021-05-29 21:11] VITALS: BP 173/105; RESP 20; O2SAT 95
[2021-05-31 11:02] LABS: Coronavirus Test Green County Not Detected
--- NOTE | 2021-05-31 16:46 | PC.NURSE ---
Notified pt via phone call of Js GARRIDO
== END 2021-05-29 21:42 | disposition home or self-care (01) ==
PROVIDERS: Emergency Provider Emergency Medicine; PCP Family Medicine
DX: J44.1 Chronic obstructive pulmonary disease with (acute) exacerbation (principal); E78.5 Hyperlipidemia, unspecified; D64.9 Anemia, unspecified; I11.0 Hypertensive heart disease with heart failure; I50.9 Heart failure, unspecified
CPT/HCPCS: 71045; 71275; 80048; 83880; 84484; 85025; 85378; 87426; 87635; 93005; 94640; 99283; Q9967

== ENCOUNTER 2021-09-28 11:20 | Emergency (ER) | payer MEDICARE, SELFPAY ==
[2021-09-28 11:26] VITALS: BP 167/121; PULSE 109; RESP 20; TEMP 36.9; O2SAT 96; BMI 16.0
--- NOTE | 2021-09-28 11:35 | XR_ITS ---
WS: [id number] Exam: XR chest 1V portable [id number] Date/Time of Exam: 09/28/2021 11:38 AM Reason For Exam: sob Comparison 05/29/2021. The lungs are hyperinflated and clear. Heart size is top limits normal. Trace right pleural effusion noted. The mediastinum is normal in contour. Bony structures are intact. Old right proximal humeral f racture. XR/XR chest 1V portable [id number] IMPRESSION: 1. Pulmonary hyperinflation which probably indicates obstructive lung disease. 2. Trace right basal pleural effusion. 3. No acute process noted.
[2021-09-28] MEDS: ipratropium-albuterol 3 mL Neb INHALATION (11:49)
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
[2021-09-28 11:53] VITALS: PULSE 102; RESP 20; O2SAT 92
[2021-09-28 12:20] LABS: Basophils # 0.1 10^3/uL (0.0-0.1); Basophils % 1.1 %; Eosinophils # 0.2 10^3/uL (0.0-0.8); Eosinophils % 3.3 %; Hematocrit 36.4 % (37.0-47.0); Hemoglobin 11.8 g/dL (11.5-15.3); Lymphocytes # 0.8 10^3/uL (0.8-4.8); Lymphocytes % 11.7 %; Mean Corpuscular HGB Conc 32.4 g/dL (30.0-36.0); Mean Corpuscular Hemoglobin 27.2 pg (28.0-34.0); Mean Corpuscular Volume 83.9 fl (81-99); Mean Platelet Volume 9.9 fL (7.4-10.4); Monocytes # 0.5 10^3/uL (0.2-0.9); Monocytes % 7.8 %; Neutrophils # 5.04 10^3/uL (1.8-7.7); Neutrophils % 75.9 %; Nucleated Red Blood Cells % 0 %; Platelet Count 343 10^3/cmm (130-400); Red Blood Count 4.34 10^6/uL (4.1-5.3); Red Cell Distribution Width 12.8 % (12.1-15.1); White Blood Count 6.6 10^3/uL (4.0-10.0)
[2021-09-28 12:23] LABS: D Dimer 1.43 ug/mIFEU (0-0.59)
--- NOTE | 2021-09-28 12:29 | CT_ITS ---
WS: [id number] CT CHEST ANGIOGRAPHY WITH REFORMATS HISTORY: pe TECHNIQUE: Contiguous axial images are obtained through the chest during arterial injection of intrav enous contrast. Images are reconstructed to evaluate the pulmonary arteries. MIP imaging also reviewe d. All CT scans at [facility] use at least one of these dose optimization techniques: automat ed exposure control; mA and/or kV adjustment per patient size (includes targeted exams where dose is matched to clinical indication); or iterative reconstruction. CONTRAST: Omnipaque 350; 62 mL IV. DLP: 348.52 mGy.cm COMPARISON: 05/29/2021 Good opacification of the pulmonary arteries. Normal size pulmonary artery. No filling defects or pul monary embolism is identified. Marked ectasia thoracic aorta. No focal dilatation or aneurysm. Modera te enlargement of the LEFT heart chambers. Mild diffuse LEFT ventricular hypertrophy. No pericardial or pleural effusions. Hyperinflated lungs. No pneumonia or nodule. No mediastinal or hilar adenopathy. Dilated ectatic aort a continues into the suprarenal aorta with a maximum diameter of 3.3 cm. Suboptimal visualization of the upper abdominal structures due to body habitus. There is cortical thinning and atrophy superior p ole RIGHT kidney. Cyst upper pole LEFT kidney measures 3.1 x 2.7 cm. Very mild dilatation of the LEFT renal pelvis. Hydronephrosis was previously described on 04/13/2021. Mild RIGHT long curvature thoracic spine. Mild anterior wedging of T12 by 10%. CT/CT angio chest PE protcl [id number] IMPRESSION: 1. No pulmonary embolism. 2. Diffuse ectatic mildly dilated thoracic aorta extending into the suprarenal aorta. 3. No pneumonia. 4. No adenopathy. 5. Marked enlargement of the LEFT heart chambers.
[2021-09-28 12:35] LABS: Troponin(5th) Baseline 34 ng/L (0-10)
[2021-09-28 12:42] LABS: Alanine Aminotransferase 17 U/L (0-33); Albumin Level 4.3 g/dL (3.5-5.2); Alkaline Phosphatase 96 IU/L (35-105); Aspartate Amino Transferase 26 U/L (0-32); Blood Urea Nitrogen 18 mg/dL (8-23); Calcium 9.4 mg/dL (8.5-10.5); Carbon Dioxide 30 mmol/L (22-29); Chloride 93 mmol/L (98-107); Globulin 2.8 g/dL (1.3-4.6); Glucose 99 mg/dL (65-115); NT Pro B Type Natriuretic Pept 3680 pg/mL (0-450); Osmolality Calculated 276 mOsm/kg (285-295); Sodium 132 mmol/L (136-145); Total Bilirubin 0.3 mg/dL (0.15-1.2); Total Protein 7.1 g/dL (6.6-8.7)
[2021-09-28 12:44] LABS: Anion Gap 13.4 (5-19); Potassium 4.4 mmol/L (3.5-5.1)
[2021-09-28] MEDS: FUROsemide 10 mg/mL SDV 4mL 40 MG IVP (13:17)
--- NOTE | 2021-09-28 13:21 | PC.NURSE ---
Pt placed on continuous cardiac, bp, and spo2 monitoring upon arrival into room.
[2021-09-28 13:22] VITALS: BP 146/95; PULSE 93; RESP 15; O2SAT 100
[2021-09-28 13:32] VITALS: O2SAT 83
--- NOTE | 2021-09-28 13:36 | ECG_ITS ---
[facility] Test Date: 2021-09-28 Pat Name: Rosario Brock Department: Room: Gender: Female Neurological Surgery Teacher: : 1945 Requested By: Romain Rm Order Number: [id number] Joel MD: Mega Maier M.D. Measurements Intervals [place] Rate: 94 P: 79 MO: 161 QRS: -40 QRSD: 92 T: 85 QT: 404 QTc: 506 Interpretive Statements SINUS RHYTHM WITH FREQUENT SUPRAVENTRICULAR PREMATURE COMPLEXES LEFT AXIS DEVIATION [QRS AXIS < -30] VOLTAGE CRITERIA FOR LVH [MEETS CRITERIA IN ONE OF: R(aVL), S(V1), R(V5), R(V5/V6)+S(V1)] POSSIBLE SEPTAL MYOCARDIAL INFARCTION , OF INDETERMINATE AGE [30 ms Q WAVE IN V1/V2] Compared to ECG 05/29/2021 17:05:49 Left-axis deviation now present Ventricular premature complex(es) no longer present Left anterior fascicular block no longer present Myocardial infarct finding still present Electronically Signed On 09-29-2021 12:28:47 WATER RECLAMATION SYSTEMS OPERATOR by Mega Maier M.D. [id number]
[2021-09-28 13:41] LABS: SARS Covid-2 Antigen Negative (Negative)
[2021-09-28] MEDS: iohexol 350 mg/mL 100 mL Btl IV (14:10)
[2021-09-28 14:51] LABS: Troponin 5 2HR 40.27 ng/L (0-10); Troponin 5 2HR Delta 6.27 ABS# (0-10)
--- NOTE | 2021-09-28 15:41 | PC.PHAR ---
MEDS VERIFIED BY [facility] ON 09/28/21.
[2021-09-28 17:59] LABS: Troponin 5 6HR 40.16 ng/L (0-10); Troponin 5 6HR Delta 6.16 ng/L (0-12)
[2021-09-28 22:09] VITALS: BP 141/93; PULSE 84; RESP 16; O2SAT 95
[2021-09-29] VITALS: BP 165/94; PULSE 76; RESP 20; O2SAT 98
[2021-09-29 04:00] VITALS: BP 168/94; RESP 26
[2021-09-29 08:13] VITALS: BP 133/64; PULSE 100; RESP 15
== END 2021-09-29 08:15 | disposition home or self-care (01) ==
PROVIDERS: Emergency Provider Emergency Medicine; PCP Family Medicine
DX: J44.1 Chronic obstructive pulmonary disease with (acute) exacerbation (principal); I11.0 Hypertensive heart disease with heart failure; I50.9 Heart failure, unspecified; E78.5 Hyperlipidemia, unspecified; Z20.822 Contact with and (suspected) exposure to COVID-19
CPT/HCPCS: 71045; 71275; 80053; 83880; 84484; 85025; 85378; 87426; 93005; 94640; 96374; 96375; 99284; J1940; J2930; Q9967

== ENCOUNTER 2021-11-16 11:33 | Emergency (ER) | payer MEDICARE, SELFPAY ==
[2021-11-16] VITALS (7 sets, daily range): BP systolic 148–169; BP diastolic 79–94; PULSE 76–105; RESP 16–24; TEMP 36.6–36.7; O2SAT 93–100; BMI 15.0
--- NOTE | 2021-11-16 11:40 | XR_ITS ---
WS: [id number] Portable AP upright chest, 11/16/2021 Clinical Data: dyspnea Comparison: Portable chest, 09/28/2021. Findings: No nodules, masses or effusions are seen. The heart is normal. The pulmonary vascularity is not increased. No pneumonia or pneumothorax is seen. The aortic arch and descending thoracic aorta s how calcification and tortuosity. The diaphragms are flattened. XR/XR chest 1V portable [id number] Impression: Atherosclerosis and hyperinflation.
--- NOTE | 2021-11-16 11:40 | ECG_ITS ---
[facility] Test Date: 2021-11-16 Pat Name: Rosario Brock Department: Room: Gender: Female Manual Arts Teacher: : 1945 Requested By: Patrizia Rascon Order Number: [id number] Joel MD: Kaushik Adams M.D. Measurements Intervals [place] Rate: 81 P: 84 DC: 154 QRS: -66 QRSD: 96 T: 73 QT: 419 QTc: 488 Interpretive Statements SINUS RHYTHM WITH OCCASIONAL VENTRICULAR PREMATURE COMPLEXES WITH OCCASIONAL SUPRAVENTRICULAR PREMATURE COMPLEXES POSSIBLE RIGHT VENTRICULAR CONDUCTION DELAY [RSR (QR) IN V1/V2] LEFT ANTERIOR FASCICULAR BLOCK [QRS AXIS <= -45, QR IN I, RS IN II] LEFT VENTRICULAR HYPERTROPHY AND ST-T CHANGE [VOLTAGE CRITERIA PLUS ST/T ABNORMALITY] POSSIBLE SEPTAL MYOCARDIAL INFARCTION , OF INDETERMINATE AGE [30 ms Q WAVE IN V1/V2] Compared to ECG 09/28/2021 14:29:53 Ventricular premature complex(es) now present ST (T wave) deviation now present Myocardial infarct finding still present Electronically Signed On 11-16-2021 18:07:54 CDT by Kaushik Adams M.D. [id number]
[2021-11-16 12:23] LABS: Basophils # 0.1 10^3/uL (0.0-0.1); Basophils % 1.3 %; Eosinophils # 0.1 10^3/uL (0.0-0.8); Eosinophils % 1.5 %; Hematocrit 36.8 % (37.0-47.0); Hemoglobin 11.5 g/dL (11.5-15.3); Lymphocytes # 0.7 10^3/uL (0.8-4.8); Lymphocytes % 11.3 %; Mean Corpuscular HGB Conc 31.3 g/dL (30.0-36.0); Mean Corpuscular Volume 83.1 fl (81-99); Mean Platelet Volume 10.2 fL (7.4-10.4); Monocytes # 0.4 10^3/uL (0.2-0.9); Monocytes % 6.3 %; Neutrophils # 4.79 10^3/uL (1.8-7.7); Neutrophils % 79.4 %; Nucleated Red Blood Cells % 0 %; Platelet Count 411 10^3/cmm (130-400); Red Blood Count 4.43 10^6/uL (4.1-5.3); Red Cell Distribution Width 13.9 % (12.1-15.1)
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
--- NOTE | 2021-11-16 12:50 | PC.NURSE ---
PLACED ON RELAY SHOP TESTER
[2021-11-16 13:27] LABS: Blood Urine 2+ (Negative); Glucose Urine UA Norm (Normal); Ketones Urine 1+ (Negative); Protein Urine Trace (Negative); Specific Gravity, Urine 1.015 (1.005-1.030); Urine Appearance Clear (CLEAR); Urine Color Yellow (Yellow); pH Urine 8 (5-7)
[2021-11-16 13:28] LABS: Add Urine Microscopic? YES; Bilirubin Urine Neg (Negative); Leukocyte Esterase Urine 2+ (Negative); Nitrate Urine Negative (Negative); Sulfosalicylic Acid Urine Negative (Negative); Urobilinogen Urine Norm (Negative)
[2021-11-16 13:30] LABS: Bacteria Urine 3+ /hpf; RBC Urine 0-4 /hpf (0-2); Squamous Epithelial Cell Urine 0-4 /hpf (0-5); WBC Urine 25-40 /hpf (0-5)
[2021-11-16 13:31] LABS: Add Urine Culture? Yes; Mucus Urine 1+ /hpf
--- NOTE | 2021-11-16 13:40 | ECG_ITS ---
[facility] Test Date: 2021-11-16 Pat Name: Rosario Brock Department: Room: Gender: Female Occupational Therapist Assistant: : 1945 Requested By: Patrizia Rascon Order Number: [id number] Maldonado MD: Kaushik Adams M.D. Measurements Intervals [place] Rate: 80 P: 82 UT: 161 QRS: -66 QRSD: 91 T: 71 QT: 396 QTc: 458 Interpretive Statements SINUS RHYTHM WITH OCCASIONAL SUPRAVENTRICULAR PREMATURE COMPLEXES INCOMPLETE RIGHT BUNDLE BRANCH BLOCK [90+ ms QRS DURATION, TERMINAL R IN V1/V2, 40+ ms S IN I/aVL/V4/V5/V6] LEFT ANTERIOR FASCICULAR BLOCK [QRS AXIS <= -45, QR IN I, RS IN II] VOLTAGE CRITERIA FOR LVH [MEETS CRITERIA IN ONE OF: R(aVL), S(V1), R(V5), R(V5/V6)+S(V1)] POSSIBLE SEPTAL MYOCARDIAL INFARCTION , OF INDETERMINATE AGE [30 ms Q WAVE IN V1/V2] Compared to ECG 09/28/2021 14:29:53 Incomplete right bundle-branch block now present Left anterior fascicular block now present T-wave abnormality now present Possible ischemia now present Left-axis deviation no longer present Myocardial infarct finding still present Electronically Signed On 11-16-2021 18:11:45 CDT by Kaushik Adams M.D. [id number]
[2021-11-16 13:59] LABS: ABG PCO2 47.9 mmHg (35-45); Arterial Blood Gas Hematocrit 35.9 % (37-47); Blood Gas Sample Site Brachial, right; Blood Gas Sample Type Arterial; HCO3 ABG 29.6 mmol/L (22-26); Oxygen Device NC
[2021-11-16] MEDS: ipratropium-albuterol 3 mL Neb INHALATION (14:08)
--- NOTE | 2021-11-16 14:49 | PC.NURSE ---
Solumedrol 125mg given by EMS
[2021-11-16 14:55] LABS: Troponin(5th) Baseline 34 ng/L (0-10)
[2021-11-16] MEDS: cefTRIAXone 1,000 MG in sodium chloride 0.9% (plus) 50 ML 100 MG IV (15:00)
[2021-11-16 15:06] LABS: Anion Gap 14.1 (5-19); Blood Urea Nitrogen 14 mg/dL (8-23); Calcium 9.3 mg/dL (8.5-10.5); Carbon Dioxide 28 mmol/L (22-29); Chloride 95 mmol/L (98-107); Creatinine Clr Calc Pharmacy 37.3502; Glucose 109 mg/dL (65-115); NT Pro B Type Natriuretic Pept 2557 pg/mL (0-450); Osmolality Calculated 277 mOsm/kg (285-295); Potassium 4.1 mmol/L (3.5-5.1); Sodium 133 mmol/L (136-145)
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
--- NOTE | 2021-11-16 15:30 | PC.NURSE ---
PT SPO2 82%, PT SHAKY AND ANXIOUS. O2 NOTED TO BE AT 2L/NC, I INCREASED IT TO 6L/NC PT STATES SHE WEARS 6-7L/NC AT HOME REGULARLY. PROVIDED INFORMED THAT PT O2 SATS ARE IN THE LOW 80S WITH O2 AT 2L/NC.
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
--- NOTE | 2021-11-16 16:09 | PC.NURSE ---
PT'S SISTER CALLED CONCERNED ABOUT PT'S HOME SITUATION BUT SHE LIVES IN [facility]. SISTER NAME: LORRIE SMITH PHONE: [phone]
[2021-11-16 17:01] LABS: Troponin 5 2HR 30.96 ng/L (0-10)
[2021-11-16 17:02] LABS: Troponin 5 2HR Delta -3.04 ABS# (0-10)
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
== END 2021-11-16 18:40 | disposition home or self-care (01) ==
PROVIDERS: Emergency Provider Emergency Medicine; PCP Family Medicine
DX: J44.1 Chronic obstructive pulmonary disease with (acute) exacerbation (principal); Z99.81 Dependence on supplemental oxygen; I10 Essential (primary) hypertension; E78.5 Hyperlipidemia, unspecified; I67.1 Cerebral aneurysm, nonruptured; N39.0 Urinary tract infection, site not specified; Z79.51 Long term (current) use of inhaled steroids; Z79.82 Long term (current) use of aspirin
CPT/HCPCS: 36600; 71045; 80048; 81001; 82803; 83880; 84484; 85025; 87077; 87086; 87186; 93005; 94640; 96365; 96375; 99284; J0696

== ENCOUNTER 2021-11-16 22:20 | Emergency (ER) | payer MEDICARE, SELFPAY ==
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
[2021-11-16 22:28] VITALS: BP 151/88; PULSE 95; RESP 16; TEMP 36.6; O2SAT 99; BMI 15.4
[2021-11-16 22:41] VITALS: BP 151/100; PULSE 87; RESP 22; O2SAT 96
--- NOTE | 2021-11-16 22:47 | ECG_ITS ---
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 Measurements Intervals [place] Rate: 84 P: 269 [place]: 225 QRS: 4 QRSD: 85 T: 80 QT: 386 QTc: 457 Interpretive Statements Multifocal atrial rhythm POSSIBLE RIGHT VENTRICULAR CONDUCTION DELAY [RSR (QR) IN V1/V2] VOLTAGE CRITERIA FOR LVH [MEETS CRITERIA IN ONE OF: R(aVL), S(V1), R(V5), R(V5/V6)+S(V1)] POSSIBLE SEPTAL MYOCARDIAL INFARCTION , OF INDETERMINATE AGE [30 ms Q WAVE IN V1/V2] Compared to ECG 11/16/2021 13:32:18 Sinus rhythm no longer present Incomplete right bundle-branch block no longer present Left anterior fascicular block no longer present Myocardial infarct finding still present Electronically Signed On 11-17-2021 18:16:24 CDT by Flory Díaz M.D. [id number]
--- NOTE | 2021-11-16 22:47 | XRR_ITS ---
PROCEDURE INFORMATION: Exam: XR Chest Exam date and time: 11/16/2021 11:02 PM Age: 76 years old Clinical indication: Shortness of breath; Patient HX: SOB. History of copd. TECHNIQUE: Imaging protocol: XR of the chest. Views: 1 view. COMPARISON: CR XR chest 1V portable [id number] 11/16/2021 12:20 PM FINDINGS: Lungs: Emphysematous changes. Left upper lobe calcified granuloma. Pleural spaces: Unremarkable. No pleural effusion. No pneumothorax. Heart/Mediastinum: Cardiomegaly. Bones/joints: Unremarkable. XR/XR chest 1V portable [id number] IMPRESSION: 1. Negative for infiltrate 2. Cardiomegaly. 3. Emphysematous changes. 4. Left upper lobe calcified granuloma.
[2021-11-16 23:20] LABS: Basophils % 0.3 %; Hematocrit 36.9 % (37.0-47.0); Hemoglobin 11.8 g/dL (11.5-15.3); Lymphocytes # 0.5 10^3/uL (0.8-4.8); Lymphocytes % 13.6 %; Mean Corpuscular Hemoglobin 26.3 pg (28.0-34.0); Mean Corpuscular Volume 82.2 fl (81-99); Mean Platelet Volume 10.2 fL (7.4-10.4); Monocytes # 0.2 10^3/uL (0.2-0.9); Monocytes % 4.6 %; Neutrophils # 2.81 10^3/uL (1.8-7.7); Neutrophils % 81.5 %; Nucleated Red Blood Cells % 0 %; Platelet Count 381 10^3/cmm (130-400); Red Blood Count 4.49 10^6/uL (4.1-5.3); Red Cell Distribution Width 13.9 % (12.1-15.1); White Blood Count 3.5 10^3/uL (4.0-10.0)
[2021-11-16 23:30] VITALS: PULSE 82; RESP 16; O2SAT 94
[2021-11-16] MEDS: ipratropium-albuterol 3 mL Neb INHALATION (23:30)
[2021-11-16 23:47] LABS: Troponin(5th) Baseline 35 ng/L (0-10)
[2021-11-16 23:53] LABS: NT Pro B Type Natriuretic Pept 3786 pg/mL (0-450); Procalcitonin 0.05 ng/mL (0-0.5); Thyroid Stimulating Hormone 0.72 uIU/mL (0.27-4.20)
[2021-11-17 00:05] LABS: Alanine Aminotransferase 13 U/L (0-33); Albumin Level 4.2 g/dL (3.5-5.2); Alkaline Phosphatase 96 IU/L (35-105); Anion Gap 17.9 (5-19); Aspartate Amino Transferase 18 U/L (0-32); Blood Urea Nitrogen 24 mg/dL (8-23); Calcium 8.8 mg/dL (8.5-10.5); Carbon Dioxide 26 mmol/L (22-29); Chloride 94 mmol/L (98-107); Creatinine Clr Calc Pharmacy 37.3502; Globulin 2.6 g/dL (1.3-4.6); Glucose 155 mg/dL (65-115); Osmolality Calculated 285 mOsm/kg (285-295); Potassium 3.9 mmol/L (3.5-5.1); Sodium 134 mmol/L (136-145); Total Bilirubin 0.2 mg/dL (0.15-1.2); Total Protein 6.8 g/dL (6.6-8.7)
[2021-11-17 00:21] VITALS: BP 152/79; PULSE 87; RESP 20; O2SAT 99
--- NOTE | 2021-11-17 00:47 | ECG_ITS ---
[facility] Test Date: 2021-11-17 Pat Name: Rosario Brock Department: Room: Gender: Female Test Preparation Tutor: : 1945 Requested By: Jos Martinez Order Number: [id number] Joel MD: Flory Díaz M.D. Measurements Intervals [place] Rate: 80 P: 82 [place]: 172 QRS: -63 QRSD: 78 T: 88 QT: 391 QTc: 453 Interpretive Statements SINUS RHYTHM WITH FREQUENT VENTRICULAR PREMATURE COMPLEXES LEFT AXIS DEVIATION [QRS AXIS < -30] POSSIBLE RIGHT VENTRICULAR CONDUCTION DELAY [RSR (QR) IN V1/V2] VOLTAGE CRITERIA FOR LVH [MEETS CRITERIA IN ONE OF: R(aVL), S(V1), R(V5), R(V5/V6)+S(V1)] POSSIBLE SEPTAL MYOCARDIAL INFARCTION , OF INDETERMINATE AGE [30 ms Q WAVE IN V1/V2] Compared to ECG 11/16/2021 23:13:17 Ventricular premature complex(es) now present Left-axis deviation now present Myocardial infarct finding still present Electronically Signed On 11-17-2021 18:22:38 CDT by Flory Díaz M.D. [id number]
[2021-11-17 01:41] LABS: Troponin 5 2HR 30.51 ng/L (0-10)
[2021-11-17 02:13] LABS: Troponin 5 2HR Delta -4.49 ABS# (0-10)
[2021-11-17 02:22] LABS: ABG PCO2 42.5 mmHg (35-45); ABG PH Result 7.45 (7.35-7.45); Arterial Blood Gas Hematocrit 34.7 % (37-47); Base Excess ABG 5.2 mmol/L (-2.0-2.0); Blood Gas Allen Test Pos; Blood Gas Sample Site Radial, right; Blood Gas Sample Type Arterial; HCO3 ABG 29.7 mmol/L (22-26); Oxygen Device NC; PO2 ABG 71.9 mmHg (80.0-100.0)
[2021-11-17 03:30] VITALS: BP 148/76; PULSE 60; RESP 18; O2SAT 98
[2021-11-17 05:56] VITALS: BP 187/93; PULSE 81; RESP 25; O2SAT 97
[2021-11-17] MEDS: saline nasal spray 44mL Btl 1 SPRAY NASAL (07:00)
[2021-11-17 08:59] VITALS: BP 140/91; PULSE 100; RESP 20; TEMP 36.9; O2SAT 94
== END 2021-11-17 10:39 | disposition home or self-care (01) ==
PROVIDERS: Emergency Provider Emergency Medicine; PCP Family Medicine
DX: J44.1 Chronic obstructive pulmonary disease with (acute) exacerbation (principal); I51.7 Cardiomegaly; J84.10 Pulmonary fibrosis, unspecified; D72.819 Decreased white blood cell count, unspecified; I10 Essential (primary) hypertension; E78.5 Hyperlipidemia, unspecified; Z99.81 Dependence on supplemental oxygen; I67.1 Cerebral aneurysm, nonruptured; N39.0 Urinary tract infection, site not specified; Z79.51 Long term (current) use of inhaled steroids; Z79.82 Long term (current) use of aspirin
CPT/HCPCS: 36600; 71045; 80048; 80053; 81001; 82803; 83880; 84145; 84443; 84484; 85025; 87077; 87086; 87186; 93005; 94640; 96365; 96375; 99284; J0696

== ENCOUNTER 2022-01-25 05:16 | Emergency (ER) | payer MEDICARE, SELFPAY ==
[2022-01-25 05:16] VITALS: BP 185/110; PULSE 87; RESP 22; TEMP 36.6; O2SAT 99; BMI 14.6
--- NOTE | 2022-01-25 05:20 | XRR_ITS ---
PROCEDURE INFORMATION: Exam: XR Cervical Spine Exam date and time: 01/25/2022 5:25 AM Age: 77 years old Clinical indication: Patient HX: Neck pain since last pm no injury TECHNIQUE: Imaging protocol: Radiologic exam of the cervical spine. Views: 2 or 3 views. COMPARISON: CR XR chest 1V portable [id number] 11/16/2021 11:02 PM FINDINGS: Bones/joints: Posterior vertebral line and the spinal laminar line are normal. odontoid process normal. no fracture. Degenerative changes C3-C4 C4-C5, C5-C6 and C6-C7 reflected as disc.space narrowing and anterior osteophyte formation. reversal of the normal cervical lordosis centered at C3. Correlate. There a history of trauma?. Consider MRI. Soft tissues: Unremarkable. XR/XR cervical spine 3V* [id number] IMPRESSION: 1. No fracture. 2. Degenerative changes C3-C4 C4-C5, C5-C6 and C6-C7 reflected as disc.space narrowing and anterior osteophyte formation. 3. Reversal of the normal cervical lordosis centered at C3. Correlate. There a history of trauma?. Consider MRI.
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
[2022-01-25 05:23] VITALS: BP 179/107; PULSE 70; RESP 18; O2SAT 99
[2022-01-25] MEDS: HYDROcodone-acetaminophen 5-325 mg Tablet 1 TAB PO (05:29)
[2022-01-25 06:46] VITALS: BP 179/107; PULSE 70; RESP 18; O2SAT 99
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
--- NOTE | 2022-01-25 10:30 | PC.SOCIAL ---
Placement; Spoke with patient and she is agreeable to SNF. She states that she cannot afford private pay. Pippa Santizo, from [facility] is at bedside and states that patient already has a [facility] DCN number and would just need assistance in applying for vendor medicaid. She provided DCN Number. She prefers [facility] as she has been there before. Called and spoke with Elba who reports that they are all out of office right now, but should be back after lunch. Referral faxed. Also faxed [facility]. Breann is in a meeting but will call back.
--- NOTE | 2022-01-25 12:55 | PC.SOCIAL ---
Natacha at [facility] reports that they are reviewing; she will give CM an update as soon as she can Breann at [facility] reports that they are trying to get documentation from patient's PCP; to see if she would qualify to be there under medicaid.
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
--- NOTE | 2022-01-25 14:11 | PC.SOCIAL ---
Placement/Discharge Per ED staff; patient changed her mind and wanted to go home so she was released. Elba at [facility] reported that they are unable to accept patient. [facility] was working on referral; updated Breann that patient decided to go home instead. Attempted to update Pippa Santizo with [facility]. Left voicemail on work phone provided ([phone]), cell phone reports that mailbox is full and unable to leave message ([phone]).
--- NOTE | 2022-01-26 12:37 | DCPLANNER ---
support manager was updated on patient and what had been done with patient from [place] with care coordination. support manager was updated that [facility] called and stated that patient does not qualify to go to the detention due to not having enough points to meet qualification. support manager informed the ER physician, patients nurse, Pippa at the [facility] and patient that patient does not meet qualifications to go the detention. support manager asked patient again if she would be able to private pay and patient stated that she would not be able to. Patient stated that she would go home. support manager asked patient if she felt safe at home, patient stated that she felt safe to go home. support manager offered patient retirement placement, patient declined.
== END 2022-01-25 13:18 | disposition home or self-care (01) ==
PROVIDERS: Emergency Provider Emergency Medicine; PCP Family Medicine
DX: S16.1XXA Strain of muscle, fascia and tendon at neck level, initial encounter (principal); Z79.82 Long term (current) use of aspirin; J44.9 Chronic obstructive pulmonary disease, unspecified; E78.5 Hyperlipidemia, unspecified; I10 Essential (primary) hypertension; X50.9XXA Other and unspecified overexertion or strenuous movements or postures, initial encounter
CPT/HCPCS: 72040; 99283

== ENCOUNTER 2022-01-25 16:25 | Emergency (ER) | payer MEDICARE, SELFPAY ==
[2022-01-25 16:32] VITALS: BP 163/91; PULSE 91; RESP 24; TEMP 36.6; O2SAT 96; BMI 14.2
--- NOTE | 2022-01-25 16:36 | XRR_ITS ---
PROCEDURE INFORMATION: Exam: XR Chest Exam date and time: 01/25/2022 5:11 PM Age: 77 years old Clinical indication: Shortness of breath; Additional info: AMS TECHNIQUE: Imaging protocol: Radiologic exam of the chest. Views: 1 view. COMPARISON: CR XR chest 1V portable [id number] 11/16/2021 11:02 PM FINDINGS: Lungs: Hyperinflated lungs. No consolidation. Pleural spaces: No pleural effusion. No pneumothorax. Heart/Mediastinum: No cardiomegaly. Bones/joints: Visualized osseous structures are intact. XR/XR chest 1V portable [id number] IMPRESSION: No acute findings.
--- NOTE | 2022-01-25 16:36 | ECG_ITS ---
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 Measurements Intervals [place] Rate: 92 P: 86 KS: 170 QRS: -60 QRSD: 80 T: 55 QT: 340 QTc: 422 Interpretive Statements SINUS RHYTHM WITH FREQUENT SUPRAVENTRICULAR PREMATURE COMPLEXES LEFT AXIS DEVIATION [QRS AXIS < -30] POSSIBLE RIGHT VENTRICULAR CONDUCTION DELAY [RSR (QR) IN V1/V2] VOLTAGE CRITERIA FOR LVH [MEETS CRITERIA IN ONE OF: R(aVL), S(V1), R(V5), R(V5/V6)+S(V1)] POSSIBLE SEPTAL MYOCARDIAL INFARCTION , OF INDETERMINATE AGE [30 ms Q WAVE IN V1/V2] Compared to ECG 11/17/2021 01:27:21 Ventricular premature complex(es) no longer present Myocardial infarct finding still present Electronically Signed On 01-25-2022 22:29:25 CDT by Kaushik Adams M.D. [id number]
--- NOTE | 2022-01-25 16:37 | CTR_ITS ---
PROCEDURE INFORMATION: Exam: CT Head Without Contrast Exam date and time: 01/25/2022 4:58 PM Age: 77 years old Clinical indication: Altered mental status/memory loss; Additional info: AMS, confusion, hypoxia, no trauma TECHNIQUE: Imaging protocol: Computed tomography of the head without contrast. Radiation optimization: All CT scans at this facility use at least one of these dose optimization techniques: automated exposure control; mA and/or kV adjustment per patient size (includes targeted exams where dose is matched to clinical indication); or iterative reconstruction. COMPARISON: CT head wo con* [id number] 03/10/2020 2:51 PM RADIATION DOSE METRICS: Total DLP (mGy-cm): 842.23 FINDINGS: Brain: No hemorrhage. No edema. Moderate diffuse cerebral atrophy and sequela of chronic small vessel ischemic disease. No mass effect. Cerebral ventricles: No ventriculomegaly. Paranasal sinuses: Visualized sinuses are unremarkable. No fluid levels. Mastoid air cells: Visualized mastoid air cells are well aerated. Bones/joints: Unremarkable. No acute fracture. Soft tissues: Unremarkable. CT/CT head wo con* [id number] IMPRESSION: 1. No acute intracranial abnormality. 2. Moderate diffuse cerebral atrophy and sequela of chronic small vessel ischemic disease.
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
--- NOTE | 2022-01-25 17:21 | PC.NURSE ---
EKG done at 1715 and shown to ER doctor
[2022-01-25] MEDS: nicotine 21 mg Patch 1 PATCH TRANSDERMA (17:23)
[2022-01-25 17:25] VITALS: BP 169/121; PULSE 78; RESP 21; TEMP 37.1; O2SAT 93
[2022-01-25 17:54] LABS: Basophils # 0.1 10^3/uL (0.0-0.1); Eosinophils # 0.2 10^3/uL (0.0-0.8); Lymphocytes # 1.1 10^3/uL (0.8-4.8); Monocytes # 0.9 10^3/uL (0.2-0.9); Nucleated Red Blood Cells % 0 %; Red Cell Distribution Width 14.3 % (12.1-15.1)
[2022-01-25 18:05] LABS: Basophils % 0.9 %; Eosinophils % 2.5 %; Hematocrit 36.5 % (37.0-47.0); Hemoglobin 11.7 g/dL (11.5-15.3); Lymphocytes % 13.5 %; Mean Corpuscular HGB Conc 32.1 g/dL (30.0-36.0); Mean Corpuscular Hemoglobin 26.3 pg (28.0-34.0); Mean Platelet Volume 10.4 fL (7.4-10.4); Monocytes % 11.8 %; Neutrophils # 5.67 10^3/uL (1.8-7.7); Platelet Count 330 10^3/cmm (130-400); Red Blood Count 4.45 10^6/uL (4.1-5.3)
[2022-01-25 18:13] LABS: Add Urine Microscopic? NO; Charge for UA Resulting for Rev
[2022-01-25 18:20] LABS: Ammonia 13 umol/L (11-51)
[2022-01-25 18:20] LABS: Bilirubin Urine Neg (Negative); Blood Urine Neg (Negative); Glucose Urine UA Norm (Normal); Ketones Urine Negative (Negative); Leukocyte Esterase Urine Negative (Negative); Nitrate Urine Negative (Negative); Protein Urine Neg (Negative); Specific Gravity, Urine 1.005 (1.005-1.030); Urine Appearance Clear (CLEAR); Urine Color Yellow (Yellow); Urobilinogen Urine Norm (Negative); pH Urine 7 (5-7)
[2022-01-25 18:24] VITALS: BP 168/112; PULSE 82; RESP 23; O2SAT 96
[2022-01-25 18:24] LABS: Troponin(5th) Baseline 32 ng/L (0-10)
--- NOTE | 2022-01-25 18:30 | PC.NURSE ---
PT PLACED ON CONTINUOUS NIBP, SPO2, AND CM
[2022-01-25 18:34] LABS: Alanine Aminotransferase 14 U/L (0-33); Alkaline Phosphatase 81 IU/L (35-105); Anion Gap 14.9 (5-19); Aspartate Amino Transferase 20 U/L (0-32); Blood Urea Nitrogen 12 mg/dL (8-23); Calcium 9.2 mg/dL (8.5-10.5); Carbon Dioxide 31 mmol/L (22-29); Chloride 92 mmol/L (98-107); Creatinine Clr Calc Pharmacy 33.8897; Globulin 2.8 g/dL (1.3-4.6); Glucose 94 mg/dL (65-115); Lipase 24 U/L (13-60); NT Pro B Type Natriuretic Pept 3794 pg/mL (0-450); Osmolality Calculated 278 mOsm/kg (285-295); Potassium 3.9 mmol/L (3.5-5.1); Sodium 134 mmol/L (136-145); Thyroid Stimulating Hormone 1.98 uIU/mL (0.27-4.20); Total Bilirubin 0.4 mg/dL (0.15-1.2); Total Protein 6.8 g/dL (6.6-8.7)
[2022-01-25 18:35] LABS: Acetaminophen < 5.0 ug/mL (10-30); Salicylate < 0.3 mg/dL (3-10)
[2022-01-25 21:15] LABS: Free T4 Free Thyroxine 1.41 ng/dL (0.82-1.77)
--- NOTE | 2022-01-25 22:00 | PC.NURSE ---
Attempted to call pt's multiple times, goes to voicemail with no option to leave a message. Talked with pt's sister on the phone trying to arrange discharge transportation but pt does not have O2 tank and can not travel without supplemental oxygen.
[2022-01-26 01:00] VITALS: BP 167/92; PULSE 92; RESP 18; O2SAT 94
[2022-01-26 05:21] VITALS: BP 186/94; PULSE 94; RESP 18; TEMP 36.7; O2SAT 95
[2022-01-26] MEDS: lisinopril 20 mg Tablet PO (05:33)
[2022-01-26 10:58] VITALS: BP 152/126; PULSE 110; RESP 20; O2SAT 93
[2022-01-26 12:14] VITALS: BP 148/97; PULSE 100; O2SAT 97
[2022-01-26 14:07] VITALS: BP 129/84; PULSE 81; RESP 20; O2SAT 92
== END 2022-01-26 14:08 | disposition home or self-care (01) ==
PROVIDERS: Emergency Provider Emergency Medicine; PCP Family Medicine
DX: R41.0 Disorientation, unspecified (principal); Z79.82 Long term (current) use of aspirin; J44.9 Chronic obstructive pulmonary disease, unspecified; E78.5 Hyperlipidemia, unspecified; I10 Essential (primary) hypertension
CPT/HCPCS: 36415; 70450; 71045; 80053; 80307; 81003; 82140; 83690; 83880; 84439; 84443; 84484; 85025; 93005; 99284

== ENCOUNTER 2022-03-11 13:25 | Emergency (ER) | payer MEDICARE, SELFPAY ==
[2022-03-11 13:30] VITALS: BP 167/115; PULSE 96; RESP 16; TEMP 36.4; O2SAT 93; BMI 13.7
--- NOTE | 2022-03-11 13:46 | ECG_ITS ---
[facility] Test Date: 2022-03-11 Pat Name: Rosario Brock Department: Room: Gender: Female [employer]: : 1945 Requested By: Chris Do Order Number: [id number] Joel MD: Flory Díaz M.D. Measurements Intervals [place] Rate: 93 P: 85 ND: 167 QRS: -57 QRSD: 87 T: 80 QT: 340 QTc: 425 Interpretive Statements SINUS RHYTHM WITH FREQUENT SUPRAVENTRICULAR PREMATURE COMPLEXES POSSIBLE LEFT ATRIAL ENLARGEMENT [-0.1mV P-WAVE IN V1/V2] POSSIBLE RIGHT VENTRICULAR CONDUCTION DELAY [RSR (QR) IN V1/V2] LEFT ANTERIOR FASCICULAR BLOCK [QRS AXIS <= -45, QR IN I, RS IN II] POSSIBLE LEFT VENTRICULAR HYPERTROPHY [VOLTAGE CRITERIA PLUS LAE OR QRS WIDENING] POSSIBLE SEPTAL MYOCARDIAL INFARCTION , OF INDETERMINATE AGE [30 ms Q WAVE IN V1/V2] Compared to ECG 01/25/2022 17:16:19 Left anterior fascicular block now present Left-axis deviation no longer present Myocardial infarct finding still present Electronically Signed On 03-11-2022 19:04:50 CDT by Flory Díaz M.D. [id number]
--- NOTE | 2022-03-11 13:53 | CTR_ITS ---
PROCEDURE INFORMATION: Exam: CT Head Without Contrast Exam date and time: 03/11/2022 2:07 PM Age: 77 years old Clinical indication: Numbness / parasthesia; Right; Additional info: R arm numbness TECHNIQUE: Imaging protocol: Computed tomography of the head without contrast. Radiation optimization: All CT scans at this facility use at least one of these dose optimization techniques: automated exposure control; mA and/or kV adjustment per patient size (includes targeted exams where dose is matched to clinical indication); or iterative reconstruction. COMPARISON: CT head wo con* [id number] 01/25/2022 4:58 PM RADIATION DOSE METRICS: Total DLP (mGy-cm): 970.28 FINDINGS: Brain: Severe calcified intracranial atherosclerotic vessel disease. Cerebral ventricles: No ventriculomegaly. Paranasal sinuses: Visualized sinuses are unremarkable. No fluid levels. Mastoid air cells: Visualized mastoid air cells are well aerated. Bones/joints: Unremarkable. No acute fracture. Soft tissues: Unremarkable. CT/CT head wo con* [id number] IMPRESSION: No acute intracranial findings.
[2022-03-11 14:03] LABS: Basophils # 0.1 10^3/uL (0.0-0.1); Basophils % 1.1 %; Eosinophils # 0.1 10^3/uL (0.0-0.8); Eosinophils % 1.1 %; Hematocrit 34.1 % (37.0-47.0); Lymphocytes % 14.6 %; Mean Corpuscular HGB Conc 32.3 g/dL (30.0-36.0); Mean Corpuscular Hemoglobin 26.4 pg (28.0-34.0); Mean Platelet Volume 10.6 fL (7.4-10.4); Monocytes # 0.6 10^3/uL (0.2-0.9); Monocytes % 9.7 %; Neutrophils # 4.78 10^3/uL (1.8-7.7); Neutrophils % 73.3 %; Nucleated Red Blood Cells % 0 %; Platelet Count 357 10^3/cmm (130-400); Red Blood Count 4.16 10^6/uL (4.1-5.3); Red Cell Distribution Width 13.9 % (12.1-15.1); White Blood Count 6.5 10^3/uL (4.0-10.0)
[2022-03-11 14:07] VITALS: BP 167/121; PULSE 87; O2SAT 92
[2022-03-11 14:21] LABS: Alanine Aminotransferase 16 U/L (0-33); Albumin Level 3.6 g/dL (3.5-5.2); Alkaline Phosphatase 83 IU/L (35-105); Anion Gap 15.9 (5-19); Aspartate Amino Transferase 23 U/L (0-32); Blood Urea Nitrogen 14 mg/dL (8-23); Calcium 8.9 mg/dL (8.5-10.5); Carbon Dioxide 30 mmol/L (22-29); Chloride 89 mmol/L (98-107); Creatinine Clr Calc Pharmacy 32.6646; Globulin 2.7 g/dL (1.3-4.6); Glucose 81 mg/dL (65-115); Osmolality Calculated 272 mOsm/kg (285-295); Potassium 3.9 mmol/L (3.5-5.1); Sodium 131 mmol/L (136-145); Total Bilirubin 0.5 mg/dL (0.15-1.2); Total Protein 6.3 g/dL (6.6-8.7)
[2022-03-11 14:27] LABS: ABG PCO2 46.4 mmHg (35-45); ABG PH Result 7.44 (7.35-7.45); Alveolar-Arterial Oxygen Gradi 10.2 mmHg (5-10); Arterial Blood Gas Hematocrit 34.9 % (37-47); Base Excess ABG 6.1 mmol/L (-2.0-2.0); Blood Gas Allen Test Pos; Blood Gas Operator Identificat MONRO; Blood Gas Sample Site Femoral, left; Blood Gas Sample Type Arterial; Carboxyhemoglobin 1.3 %THgb (0.4-20.1); HCO3 ABG 31.2 mmol/L (22-26); Ionized Calcium Level - ABG 1.2 mmol/L (1.1-1.4); Methemoglobin 0.8 % (0.4-1.5); Oxygen Device NC; Oxygen Saturation ABG 93.9; Potassium Level - ABG 3.5 mmol/L (3.5-5.0); Total Hemoglobin 11.4 g/dL (12-16)
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
[2022-03-11 15:00] VITALS: BP 166/101; PULSE 90; O2SAT 96
[2022-03-11 16:00] VITALS: BP 154/98; PULSE 85; O2SAT 98
[2022-03-11 17:00] VITALS: BP 171/132; PULSE 89; O2SAT 93
[2022-03-11 17:30] VITALS: BP 139/111; PULSE 90; RESP 20; O2SAT 93
== END 2022-03-11 17:40 | disposition home or self-care (01) ==
PROVIDERS: Emergency Provider Family Medicine; PCP Family Medicine
DX: J44.9 Chronic obstructive pulmonary disease, unspecified (principal); R20.2 Paresthesia of skin; Z79.82 Long term (current) use of aspirin; E78.5 Hyperlipidemia, unspecified; I10 Essential (primary) hypertension
CPT/HCPCS: 36600; 70450; 80051; 80053; 82330; 82805; 85025; 93005; 99284

== ENCOUNTER 2022-03-22 15:32 | Inpatient (IN) | payer MEDICARE, SELFPAY ==
[2022-03-22] VITALS (9 sets, daily range): BP systolic 149–181; BP diastolic 79–115; PULSE 75–93; RESP 12–20; TEMP 36.3–37; O2SAT 90–97
--- NOTE | 2022-03-22 15:40 | XR_ITS ---
WS: [id number] Portable AP upright chest, 03/22/2022 Clinical Data: chest pain Comparison: Portable chest, 01/25/2022. Findings: No nodules, masses or effusions are seen. The heart is likely enlarged. The pulmonary vascu larity is not increased. No pneumonia or pneumothorax is seen. There is radiopaque material overlying the right lateral chest at the level of the seventh rib. The aortic arch and descending thoracic aorta show calcification and tortuosity. The diaphragms are f lattened. Monitor leads are on the chest wall. XR/XR chest 1V portable [id number] Impression: 1. Atherosclerosis and cardiomegaly. 2. Hyperinflation.
--- NOTE | 2022-03-22 15:40 | ECG_ITS ---
[facility] Test Date: 2022-03-22 Pat Name: Rosario Borck Department: Room: Gender: Female Lead Teacher: : 1945 Requested By: Chris Do Order Number: [id number] Joel MD: Flory Díaz M.D. Measurements Intervals [place] Rate: 86 P: 86 MO: 158 QRS: -78 QRSD: 88 T: 80 QT: 359 QTc: 430 Interpretive Statements SINUS RHYTHM WITH FREQUENT SUPRAVENTRICULAR PREMATURE COMPLEXES LEFT ANTERIOR FASCICULAR BLOCK [QRS AXIS <= -45, QR IN I, RS IN II] LEFT VENTRICULAR HYPERTROPHY AND ST-T CHANGE [VOLTAGE CRITERIA PLUS ST/T ABNORMALITY] POSSIBLE SEPTAL MYOCARDIAL INFARCTION , PROBABLY OLD [30 ms Q WAVE IN V1/V2] Compared to ECG 03/11/2022 13:46:00 ST (T wave) deviation now present Myocardial infarct finding still present Electronically Signed On 03-22-2022 22:46:53 CDT by Flory Díaz M.D. [id number]
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
--- NOTE | 2022-03-22 16:14 | PC.NURSE ---
PT PLACED ON CONTINUOUS NIBP, SPO2, AND CM
[2022-03-22 16:24] LABS: Alanine Aminotransferase 13 U/L (0-33); Albumin Level 3.2 g/dL (3.5-5.2); Alkaline Phosphatase 65 U/L (35-105); Blood Urea Nitrogen 18 mg/dL (8-23); Calcium 8.2 mg/dL (8.5-10.5); Carbon Dioxide 31 mmol/L (22-29); Chloride 99 mmol/L (98-107); Creatinine Clr Calc Pharmacy 32.6646; Globulin 2.6 g/dL (1.3-4.6); Glucose 78 mg/dL (65-115); Osmolality Calculated 285 mOsm/kg (285-295); Sodium 137 mmol/L (136-145); Total Bilirubin 0.2 mg/dL (0.15-1.2); Total Protein 5.8 g/dL (6.6-8.7)
[2022-03-22 16:25] LABS: Basophils # 0.1 10^3/uL (0.0-0.1); Basophils % 1.5 %; Eosinophils # 0.3 10^3/uL (0.0-0.8); Hematocrit 31.6 % (37.0-47.0); Hemoglobin 9.9 g/dL (11.5-15.3); Lymphocytes # 1.2 10^3/uL (0.8-4.8); Lymphocytes % 21.3 %; Mean Corpuscular HGB Conc 31.3 g/dL (30.0-36.0); Mean Corpuscular Hemoglobin 26.8 pg (28.0-34.0); Mean Corpuscular Volume 85.4 fl (81-99); Mean Platelet Volume 10.8 fL (7.4-10.4); Monocytes # 0.8 10^3/uL (0.2-0.9); Neutrophils # 3.17 10^3/uL (1.8-7.7); Neutrophils % 58.2 %; Nucleated Red Blood Cells % 0 %; Platelet Count 263 10^3/cmm (130-400); Red Cell Distribution Width 14.6 % (12.1-15.1); White Blood Count 5.4 10^3/uL (4.0-10.0)
[2022-03-22 16:35] LABS: Troponin(5th) Baseline 41 ng/L (0-10)
[2022-03-22 16:47] LABS: Anion Gap 11.3 (5-19); Aspartate Amino Transferase 20 U/L (0-32); Potassium 4.3 mmol/L (3.5-5.1)
--- NOTE | 2022-03-22 17:40 | ECG_ITS ---
[facility] Test Date: 2022-03-22 Pat Name: Rosario Brock Department: Room: Gender: Female Superintendent Gas Distribution: : 1945 Requested By: Chris Do Order Number: [id number] Joel MD: Flory Díaz M.D. Measurements Intervals [place] Rate: 81 P: 81 NM: 161 QRS: -59 QRSD: 93 T: 80 QT: 381 QTc: 445 Interpretive Statements SINUS RHYTHM WITH FREQUENT SUPRAVENTRICULAR PREMATURE COMPLEXES INCOMPLETE RIGHT BUNDLE BRANCH BLOCK [90+ ms QRS DURATION, TERMINAL R IN V1/V2, 40+ ms S IN I/aVL/V4/V5/V6] LEFT ANTERIOR FASCICULAR BLOCK [QRS AXIS <= -45, QR IN I, RS IN II] VOLTAGE CRITERIA FOR LVH [MEETS CRITERIA IN ONE OF: R(aVL), S(V1), R(V5), R(V5/V6)+S(V1)] POSSIBLE ANTEROSEPTAL MYOCARDIAL INFARCTION , OF INDETERMINATE AGE [30 ms Q WAVE IN V1-V4] Compared to ECG 03/22/2022 15:47:11 Incomplete right bundle-branch block now present ST (T wave) deviation no longer present Myocardial infarct finding still present Electronically Signed On 03-22-2022 22:57:19 CDT by Flory Daíz M.D. [id number]
[2022-03-22] MEDS: levalbuterol 1.25 mg/3 mL Neb INHALATION (18:05)
--- NOTE | 2022-03-22 18:23 | XRR_ITS ---
PROCEDURE INFORMATION: Exam: XR Pelvis Exam date and time: 03/22/2022 6:35 PM Age: 77 years old Clinical indication: Injury or trauma; Fall; Blunt trauma (contusions or hematomas); Bilateral; Sacrum; Additional info: Sacral pain after fall TECHNIQUE: Imaging protocol: Radiologic exam of the pelvis. Views: 1 or 2 view. COMPARISON: CT abdomen pelvis w con* [id number] 03/15/2020 4:45 PM FINDINGS: Bones/joints: Surgical hardware seen in place in the proximal femurs bilaterally. Soft tissues: Unremarkable. XR/XR pelvis min 3V [id number] IMPRESSION: 1. Negative for fracture or dislocation. 2. Surgical hardware seen in place in the proximal femurs bilaterally.
--- NOTE | 2022-03-22 18:23 | USCV_ITS ---
Rosario Brock Age: 77 Gender: F : 1945 Exam Date: 03/22/2022 18:44 Ordering Phys: Diego Hernandez MD Technologist: MELO [place]am Location[place] [facility] [place]: chest pressure, syncope. No history of cardiac intervention per patient. BP: 158 / 100 HR: 84 Rhythm: Sinus Technical Quality: Adequate MEASUREMENTS (Male / Female) Normal Values 2D ECHO LV Diastolic Diameter PLAX 4.6 cm 4.2 - 5.9 / 3.9 - 5.3 cm LV Systolic Diameter PLAX 3.3 cm IVS Diastolic Thickness 1.1 cm 0.6 - 1.0 / 0.6 - 0.9 cm IVS Systolic Thickness 1.4 cm LVPW Diastolic Thickness 1.4 cm 0.6 - 1.0 / 0.6 - 0.9 cm LVPW Systolic Thickness 1.8 cm LVOT Diameter 1.8 cm LV Ejection Fraction 2D Teich 55.3 % LV Ejection Fraction MOD 2C 65.4 % LV Ejection Fraction 2C AL 67.3 % LA Diameter 4.2 cm LA Width 4.1 cm LA Height 5.4 cm RA Width 5.3 cm RA Height 5.0 cm Aorta at Sinotubular Diameter 2.6 cm IVC Diameter 1.7 cm M-MODE Aortic Annulus Diameter 2.4 cm LA Ao Ratio MM 1.7 MV E Point Septal Separation 1.0 cm DOPPLER AV Peak Velocity 120.0 cm/s LVOT Peak Velocity 71.0 cm/s AV Area Cont Eq vti 1.8 cm squared AV Area Cont Eq pk 1.5 cm squared MV Area PHT 4.8 cm squared Mitral E to A Ratio 1.1 MV E' Velocity 76.0 cm/s Mitral E to MV E' Ratio 19.9 Mitral E to LV E' Lateral Ratio 17.3 Mitral E to LV E' Septal Ratio 23.5 TR Peak Velocity 250.3 cm/s TR Peak Gradient 25.1 mmHg TV Peak E Velocity 51.0 cm/s Right Atrial Pressure 10.0 mmHg Pulmonary Artery Systolic Pressu 35.1 mmHg PV Peak Velocity 68.0 cm/s RV Acceleration Time 0.2 s RV Ejection Time 0.4 s RV AcT/ET 0.5 FINDINGS Left Ventricle Normal left ventricular size. LV systolic function is borderline normal with EF of 50-55%. Mild to moderate inferior and inferolateral hypokinesis. Mild left ventricular hypertrophy is seen Right Ventricle The right ventricle is normal in size and function. Right Atrium The right atrium is dilated Left Atrium The left atrium is dilated Mitral Valve Structurally normal mitral valve without significant stenosis or prolapse. There is mild to moderate mitral regurgitation. Aortic Valve Aortic valve is thickened. No significant stenosis or regurgitation. Tricuspid Valve Mild tricuspid regurgitation. Insufficient TR jet to calculate RVSP Pulmonic Valve Not well-visualized. Pericardium Normal pericardium without effusion. Aorta Normal ascending aorta dimension. IVC CONCLUSIONS LV systolic function is borderline normal with EF of 50-55%. Mild to moderate inferior and inferolateral hypokinesis. Mild left ventricular hypertrophy noted. Biatrial enlargement. Mild to moderate mitral regurgitation. Aortic valve is thickened. Mild tricuspid regurgitation. Compared to prior echocardiogram from 04/12/2021, no significant changes are seen Kaushik Adams MD (Electronically Signed) Final Date: 23 March 2022 16:44 S
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
[2022-03-22 18:45] LABS: D Dimer 1.65 ug/mIFEU (0-0.59)
[2022-03-22 18:52] LABS: Troponin 5 2HR 41.76 ng/L (0-10)
[2022-03-22 19:00] LABS: Troponin 5 2HR Delta 0.76 ABS# (0-10)
[2022-03-22] MEDS: heparin 5,000 unit/mL INJ 1 mL 5000 UNIT SUBCUT (21:33)
[2022-03-22 21:42] LABS: Troponin 5 6HR 42.29 ng/L (0-10)
[2022-03-22 21:53] LABS: Troponin 5 6HR Delta 1.29 ng/L (0-12)
--- NOTE | 2022-03-22 22:10 | ECG_ITS ---
[facility] Test Date: 2022-03-22 Pat Name: Rosario Brock Department: Room: 277 Gender: Female Payroll Officer: : 1945 Requested By: Chris Do Order Number: [id number] Joel MD: Flory Díaz M.D. Measurements Intervals [place] Rate: 91 P: GA: QRS: -62 QRSD: 103 T: 75 QT: 370 QTc: 456 Interpretive Statements Sinus rhythm with a frequent PACs LEFT AXIS DEVIATION [QRS AXIS < -30] INCOMPLETE RIGHT BUNDLE BRANCH BLOCK [90+ ms QRS DURATION, TERMINAL R IN V1/V2, 40+ ms S IN I/aVL/V4/V5/V6] ANTEROSEPTAL MYOCARDIAL INFARCTION , OF INDETERMINATE AGE [40+ ms Q WAVE IN V1-V4] Compared to ECG 03/22/2022 17:42:18 Left-axis deviation now present Left anterior fascicular block no longer present Left ventricular hypertrophy no longer present Myocardial infarct finding still present Electronically Signed On 03-22-2022 22:59:00 CDT by Flory Díaz M.D. [id number]
[2022-03-23] VITALS (16 sets, daily range): BP systolic 148–173; BP diastolic 77–111; PULSE 54–90; RESP 14–22; TEMP 36.3–36.7; O2SAT 85–100
--- NOTE | 2022-03-23 00:13 | PC.NURSE ---
Patient c/o not being able to breathe. Patient's SpO2 currently is 95% on 6L NC. Patient does have wheezes or crackles presently. Patient does not want to be left alone and appears extremely anxious. Spoke with Dr Salamanca and received onetime order for hydroxzine 25mg PO.
[2022-03-23] MEDS: hyDROXYzine 25 mg Capsule PO (00:31)
[2022-03-23 02:28] LABS: Basophils # 0.1 10^3/uL (0.0-0.1); Basophils % 1.1 %; Eosinophils # 0.2 10^3/uL (0.0-0.8); Eosinophils % 4.2 %; Hematocrit 32.7 % (37.0-47.0); Lymphocytes # 1.2 10^3/uL (0.8-4.8); Lymphocytes % 20.8 %; Mean Corpuscular HGB Conc 30.6 g/dL (30.0-36.0); Mean Corpuscular Hemoglobin 26.6 pg (28.0-34.0); Mean Platelet Volume 10.6 fL (7.4-10.4); Monocytes # 0.8 10^3/uL (0.2-0.9); Monocytes % 13.6 %; Neutrophils # 3.32 10^3/uL (1.8-7.7); Neutrophils % 60.1 %; Nucleated Red Blood Cells % 0 %; Platelet Count 248 10^3/cmm (130-400); Red Blood Count 3.76 10^6/uL (4.1-5.3); Red Cell Distribution Width 14.6 % (12.1-15.1); White Blood Count 5.5 10^3/uL (4.0-10.0)
[2022-03-23] MEDS: ipratropium-albuterol 3 mL Neb INHALATION ×4 (02:36→21:06)
[2022-03-23 02:59] LABS: Anion Gap 9.6 (5-19); Blood Urea Nitrogen 19 mg/dL (8-23); Calcium 8.6 mg/dL (8.5-10.5); Carbon Dioxide 34 mmol/L (22-29); Chloride 97 mmol/L (98-107); Creatinine Clr Calc Pharmacy 32.6646; Glucose 104 mg/dL (65-115); Osmolality Calculated 285 mOsm/kg (285-295); Potassium 4.6 mmol/L (3.5-5.1); Sodium 136 mmol/L (136-145)
--- NOTE | 2022-03-23 08:44 | CTR_ITS ---
PROCEDURE INFORMATION: Exam: CTA Chest With Contrast Exam date and time: 03/23/2022 3:49 PM Age: 77 years old Clinical indication: Dyspnea and shortness of breath; Additional info: Chest pain, syncope, collapse, abnormal ddimer TECHNIQUE: Imaging protocol: Computed tomographic angiography of the chest with contrast. 3D rendering (Not supervised by radiologist): MIP and/or 3D reconstructed images were created by the technologist. Radiation optimization: All CT scans at this facility use at least one of these dose optimization techniques: automated exposure control; mA and/or kV adjustment per patient size (includes targeted exams where dose is matched to clinical indication); or iterative reconstruction. Contrast material: OMNIAPQUE 350; Contrast volume: 95 ml; Contrast route: INTRAVENOUS (IV); COMPARISON: CT angio chest PE protcl [id number] 09/28/2021 2:07 PM RADIATION DOSE METRICS: Total DLP (mGy-cm): 158.35 FINDINGS: Pulmonary arteries: There is filling defects along the wall of segmental and subsegmental pulmonary artery branches in both lower lobes, suggestive of chronic pulmonary emboli. Aorta: Unremarkable. No aortic aneurysm. No aortic dissection. Lungs: Extensive centrilobular emphysema is present. There is patchy airspace opacities in the lower lobes. Right greater than left. There is mosaic pattern of attenuation of the lungs, in association with paraseptal thickening and small right pleural effusion, which in the setting of cardiomegaly suggestive of pulmonary edema. No pneumothorax. Pleural spaces: See Lungs finding. Heart: Mildly enlarged heart. Coronary atherosclerotic calcifications seen. No pericardial effusion. Lymph nodes: Unremarkable. No enlarged lymph nodes. Bones/joints: Degenerative changes of the spine seen. Unchanged mild anterior wedge compression fracture deformity of T11 and T12. Soft tissues: Unremarkable. CT/CT angio chest PE protcl [id number] IMPRESSION: 1. 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 No clear evidence of acute pulmonary embolus. 2. Bilateral lower lobe opacities concerning for pneumonia. 3. Imaging findings of superimposed pulmonary edema with small right pleural effusion. 4. Extensive centrilobular emphysema.
[2022-03-23] MEDS: pantoprazole DR 40 mg Tablet PO ×2 (08:59→18:29)
[2022-03-23] MEDS: metoprolol tartrate 50 mg Tablet PO ×2 (08:59→18:29)
[2022-03-23] MEDS: heparin 5,000 unit/mL INJ 1 mL 5000 UNIT SUBCUT (08:59)
[2022-03-23] MEDS: atorvastatin 40 mg Tablet PO (08:59)
[2022-03-23] MEDS: aspirin 81 mg EC Tablet PO (08:59)
[2022-03-23] MEDS: iohexol 350 mg/mL 100 mL Btl IV (15:58)
[2022-03-23] MEDS: lisinopril 2.5 mg Tablet PO (16:37)
--- NOTE | 2022-03-23 20:27 | PM.PN ---
Subjective Subjective: She feels she has been somewhat more short of breath. Cannot catch a good breath. Mild chest pressure. Vitals/I&O/Wt Last Vital Signs Temp 98.0 F 03/23/22 16:00 Pulse 64 03/23/22 16:00 Resp 22 H 03/23/22 16:00 BP 173/90 03/23/22 16:00 Pulse Ox 95 03/23/22 16:00 O2 Del Method 03/23/22 16:00 O2 Flow Rate 6 03/23/22 15:11 03/23/22 03/23/22 03/23/22 06:59 14:59 22:59 Intake Total 240 / 480 360 / 360 120 / 480 Balance 240 / 480 360 / 360 120 / 480 Weight last 48 hrs Weight 36.287 kg Weight 36.287 kg Physical Exam Const: COMMON NORMALS: patient oriented x3 and alert GENERAL APPEARANCE: cooperative and frail appearing ORIENTATION/CONSCIOUSNESS: Yes awake HENMT: COMMON NORMALS: oropharynx normal Neck/C-Spine: COMMON NORMALS: no JVD Chest: OTHER: Nontender to palpation Resp: COMMON NORMALS: normal respiratory effort and clear to auscultation bilaterally AUSCULTATION: clear to auscultation bilaterally and wheezes (Minimal wheeze RLL) Cardio: COMMON NORMALS: no JVD, regular rhythm, S1 normal heart sound present, S2 normal heart sound present and No murmurs present (Cardio) RHYTHM: regular rhythm HEART SOUNDS: S1 normal heart sound present and S2 normal heart sound present GI: COMMON NORMALS: Normal to inspection, nondistended, normoactive bowel sounds present, Soft to palpation and non-tender PALPATION: Yes Soft to palpation Extremity: COMMON NORMALS: no joint enlargement and no pedal edema OTHER: Appearance of chronic stasis in bilateral lower extremity with mild pink discoloration. No swelling. Neuro: COMMON NORMALS: patient oriented x3 and moves all extremities SENSORIUM/ORIENTATION: Yes alert Skin: COMMON NORMALS: no rashes or lesions noted GENERAL SKIN EXAM: no rashes or lesions noted Data : 03/23/22 01:56 03/23/22 01:56 A&P Assessment and plan (1) Chest pressure: Chest pressure improved, although some dyspnea today, mild chest pressure. Requested assessment by CTA with finding of chronic PEs in lower lobes. No clear evidence of acute PE. Bilateral lower opacities concerning for pneumonia. Additionally superimposed pulmonary edema with small right pleural effusion. Extensive centrilobular emphysema. With worse acute on chronic anemia on admission, for now continues on low-dose prophylactic Lovenox, reassess hemoglobin, if remained steady, perhaps may be able to tolerate trial of therapeutic anticoagulation. Start Levaquin for possible pneumonia. Add Lasix 20 mg IV daily for acute diastolic CHF. Would benefit from stress test, but unavailable on weekends. TTE with borderline normal ejection fraction. Mild to moderate inferior and inferolateral hypokinesis. Mild LV hypertrophy. Biatrial enlargement. Mild to moderate MVR. Aortic valve thickened. Mild TVR. No significant change from prior. Status: Acute (2) Syncope and collapse: Suspect this is likely due to desaturation as she does appear perhaps sometimes forget her oxygen. Per APS not very good support at home, currently at the hospital. She seems to forget to keep her oxygen on at all times. Syncope I suspect was due to complication with chronic PEs, acute diastolic CHF, possibly pneumonia. As well as orthostatic hypotension noted on orthostatic vitals. Requested UA. Sacral discomfort, no wound noted, minimal erythema. She states I do not have much padding . Apply foam dressing to possible stage I pressure ulcer. Image x-ray pelvis after fall. Status: Acute Plan COPD on chronic 6 L of oxygen History of CHF, does not appear currently in exacerbation. HTN HLD Hiatal hernia Chronic anemia, hemoglobin is somewhat lower than previously. 9.9. She denies any active bleeding, denies any hematuria, hematochezia or melena. Recheck hemoglobin. Will check Hemoccult. Other chronic problems. Attestations Medical Necessity Statement*: Continue hospitalization for additional assessment and management of chest pressure, syncope and collapse, acute diastolic CHF, chronic PE in the setting of acute on chronic anemia, possible pneumonia. Coding Level of Care Code Acute Accounting Advisory Services Manager for Payam Wilkinson Diagnoses Chest pressure R07.89 Syncope and collapse R55
[2022-03-23] MEDS: FUROsemide 10 mg/mL SDV 2mL 20 MG IVP (21:32)
[2022-03-23] MEDS: enoxaparin 30 mg/0.3 mL Syringe SUBCUT (21:33)
[2022-03-23] MEDS: levofloxacin-dextrose 5 % 500 MG/100 ML PREMIX 100 MG IV (21:33)
[2022-03-24] VITALS (14 sets, daily range): BP systolic 126–169; BP diastolic 54–90; PULSE 52–69; RESP 15–22; TEMP 36.3–36.7; O2SAT 91–100
[2022-03-24] MEDS: levalbuterol 1.25 mg/3 mL Neb INHALATION (05:12)
[2022-03-24 05:47] LABS: Basophils # 0.1 10^3/uL (0.0-0.1); Basophils % 1.4 %; Eosinophils # 0.3 10^3/uL (0.0-0.8); Eosinophils % 4.6 %; Hematocrit 36.4 % (37.0-47.0); Hemoglobin 11.3 g/dL (11.5-15.3); Lymphocytes # 1.1 10^3/uL (0.8-4.8); Lymphocytes % 19.5 %; Mean Corpuscular Hemoglobin 26.3 pg (28.0-34.0); Mean Corpuscular Volume 84.8 fl (81-99); Mean Platelet Volume 11.6 fL (7.4-10.4); Monocytes # 0.7 10^3/uL (0.2-0.9); Monocytes % 11.8 %; Neutrophils # 3.56 10^3/uL (1.8-7.7); Neutrophils % 62.3 %; Nucleated Red Blood Cells % 0 %; Platelet Count 227 10^3/cmm (130-400); Red Blood Count 4.29 10^6/uL (4.1-5.3); Red Cell Distribution Width 14.6 % (12.1-15.1); White Blood Count 5.7 10^3/uL (4.0-10.0)
[2022-03-24 06:15] LABS: Anion Gap 10.5 (5-19); Blood Urea Nitrogen 19 mg/dL (8-23); Calcium 8.6 mg/dL (8.5-10.5); Carbon Dioxide 35 mmol/L (22-29); Chloride 94 mmol/L (98-107); Glucose 83 mg/dL (65-115); Osmolality Calculated 281 mOsm/kg (285-295); Potassium 4.5 mmol/L (3.5-5.1); Sodium 135 mmol/L (136-145)
--- NOTE | 2022-03-24 06:40 | PC.NURSE ---
Patient c/o increased work of breathing yelling, I cannot breathe. Provided [place] Nasal [place] as ordered. Patient appears very anxious during the spells of increased work of breathing with a decrease in SpO2 to 72% on 6L NC. Sat with patient and held her hand and spoke with her about possible panic attacks related to not being able to breathe. Patient also concerned she has not spoke to her since her admission and is not sure where he is. She is also worried about the care of her dogs. She is afraid they are at home alone. Patient resting more comfortably now and stated, I am feeling better now. Patient's SpO2 up to 92% continuing with 6L NC.
[2022-03-24] MEDS: ipratropium-albuterol 3 mL Neb INHALATION ×3 (08:46→21:54)
[2022-03-24] MEDS: metoprolol tartrate 50 mg Tablet PO ×2 (09:00→17:55)
[2022-03-24] MEDS: pantoprazole DR 40 mg Tablet PO ×2 (09:00→17:56)
[2022-03-24] MEDS: lisinopril 2.5 mg Tablet PO (09:00)
[2022-03-24] MEDS: FUROsemide 10 mg/mL SDV 2mL 20 MG IVP (09:00)
[2022-03-24] MEDS: atorvastatin 40 mg Tablet PO (09:00)
[2022-03-24] MEDS: aspirin 81 mg EC Tablet PO (09:01)
[2022-03-24] MEDS: ALPRAZolam 0.5 mg Tablet 0.25 MG PO ×2 (09:01→20:23)
[2022-03-24 14:49] LABS: Add Urine Microscopic? NO; Charge for UA Resulting for Rev
[2022-03-24 14:56] LABS: Urine Appearance Clear (CLEAR); Urine Color Yellow (Yellow)
[2022-03-24 14:57] LABS: Bilirubin Urine Neg (Negative); Blood Urine Neg (Negative); Glucose Urine UA Norm (Normal); Ketones Urine Negative (Negative); Leukocyte Esterase Urine Negative (Negative); Nitrate Urine Negative (Negative); Protein Urine Neg (Negative); Urobilinogen Urine Norm (Negative); pH Urine 5 (5-7)
[2022-03-24] MEDS: levofloxacin-dextrose 5 % 500 MG/100 ML PREMIX 100 MG IV (20:23)
--- NOTE | 2022-03-24 21:35 | P.PN_ITS ---
Subjective Subjective: This morning she was dyspneic, anxious, did better with a dose of Xanax. Subsequently denies chest pain or pressure. Gets easily out of breath with exertion. Agreeable to get assessment with PT. Denies chest pain. Vitals/I&O/Wt Last Vital Signs Temp 97.7 F 03/24/22 20:00 Pulse 61 03/24/22 20:00 Resp 20 H 03/24/22 20:00 BP 140/73 03/24/22 20:00 Pulse Ox 98 03/24/22 20:00 O2 Del Method 03/24/22 16:00 O2 Flow Rate 6 03/24/22 14:28 03/24/22 03/24/22 03/24/22 06:59 14:59 22:59 Intake Total 260 / 1460 480 / 480 240 / 720 Output Total 1200 / 1200 650 / 650 Balance -940 / 260 -170 / -170 240 / 70 Weight last 48 hrs Weight 39.19 kg Weight 36.287 kg Physical Exam Narrative: Poor historian. Const: COMMON NORMALS: patient oriented x3 and alert GENERAL APPEARANCE: cooperative and frail appearing ORIENTATION/CONSCIOUSNESS: Yes awake HENMT: COMMON NORMALS: oropharynx normal Neck/C-Spine: COMMON NORMALS: no JVD Chest: OTHER: Nontender to palpation Resp: COMMON NORMALS: normal respiratory effort and clear to auscultation bilaterally AUSCULTATION: clear to auscultation bilaterally and wheezes (Minimal wheeze RLL) Cardio: COMMON NORMALS: no JVD, regular rhythm, S1 normal heart sound present, S2 normal heart sound present and No murmurs present (Cardio) RHYTHM: regular rhythm HEART SOUNDS: S1 normal heart sound present and S2 normal heart sound present GI: COMMON NORMALS: Normal to inspection, nondistended, normoactive bowel sounds present, Soft to palpation and non-tender PALPATION: Yes Soft to palpation Extremity: COMMON NORMALS: no joint enlargement and no pedal edema OTHER: Appearance of chronic stasis in bilateral lower extremity with mild pink discoloration. No swelling. Neuro: COMMON NORMALS: patient oriented x3 and moves all extremities SENSORIUM/ORIENTATION: Yes alert Skin: COMMON NORMALS: no rashes or lesions noted GENERAL SKIN EXAM: no rashes or lesions noted Data : 03/24/22 05:26 03/24/22 05:26 A&P Assessment and plan (1) Dyspnea: Acute on chronic hypoxic respiratory failure requiring 6 L of oxygen, previously requiring only 2 L nasal cannula. Multifactorial secondary to pneumonia, acute CHF, as well as PEs. Underlying emphysema. Continue Levaquin. Continue diuretic. Change to therapeutic anticoagulation with Lovenox. Oxygen support. At baseline she is supposed to apparently be on 2 L nasal cannula. However, reportedly chronically is on 6 L. Likely would suspect component of chronic PEs contributing to this, as well as CHF. Status: Acute (2) Chest pressure: Chest pressure improved CTA with finding of chronic PEs in lower lobes. No clear evidence of acute PE. Bilateral lower opacities concerning for pneumonia. Additionally superimposed pulmonary edema with small right pleural effusion. Extensive centrilobular emphysema. With worse acute on chronic anemia on admission, for now continues on low-dose prophylactic Lovenox, reassess hemoglobin, if remained steady, perhaps may be able to tolerate trial of therapeutic anticoagulation. Would benefit from stress test, but unavailable on weekends. TTE with borderline normal ejection fraction. Mild to moderate inferior and inferolateral hypokinesis. Mild LV hypertrophy. Biatrial enlargement. Mild to moderate MVR. Aortic valve thickened. Mild TVR. No significant change from prior. Status: Acute (3) Syncope and collapse: Continue treatment of pneumonia, CHF. We will follow-up orthostatics. Suspect this is likely due to desaturation as she does appear perhaps sometimes forget her oxygen. Per APS not very good support at home, currently at the hospital. She seems to forget to keep her oxygen on at all times. Syncope I suspect was due to complication with chronic PEs, acute diastolic CHF, possibly pneumonia. As well as orthostatic hypotension noted on orthostatic vitals. Unremarkable UA. Sacral discomfort, no wound noted, minimal erythema. She states I do not have much padding . Apply foam dressing to possible stage I pressure ulcer. Unremarkable image x-ray pelvis after fall. Status: Acute (4) Orthostatic hypotension: Status: Acute Plan COPD on chronic 6 L of oxygen History of CHF, does not appear currently in exacerbation. HTN HLD Hiatal hernia Chronic anemia, hemoglobin is somewhat lower than previously. 9.9. She denies any active bleeding, denies any hematuria, hematochezia or melena. Recheck hemoglobin. Will check Hemoccult. Other chronic problems. Attestations Medical Necessity Statement*: Requiring admission for assessment management of acute on chronic hypoxic respiratory failure. Syncopal episode. Coding Level of Care Code Acute Academic Affairs Assistant for g Fwd Diagnoses Dyspnea R06.00 Chest pressure R07.89 Syncope and collapse R55 Orthostatic hypotension I95.1
[2022-03-25] VITALS (13 sets, daily range): BP systolic 127–178; BP diastolic 60–88; PULSE 52–68; RESP 16–22; TEMP 36.3–36.8; O2SAT 91–100
[2022-03-25 05:56] LABS: Basophils # 0.1 10^3/uL (0.0-0.1); Basophils % 1.2 %; Eosinophils # 0.3 10^3/uL (0.0-0.8); Eosinophils % 5.1 %; Hematocrit 36.8 % (37.0-47.0); Lymphocytes % 20.7 %; Mean Corpuscular HGB Conc 29.9 g/dL (30.0-36.0); Mean Platelet Volume 11.6 fL (7.4-10.4); Monocytes # 0.7 10^3/uL (0.2-0.9); Monocytes % 14.4 %; Neutrophils # 2.84 10^3/uL (1.8-7.7); Neutrophils % 58.4 %; Nucleated Red Blood Cells % 0 %; Platelet Count 246 10^3/cmm (130-400); Red Blood Count 4.23 10^6/uL (4.1-5.3); Red Cell Distribution Width 14.5 % (12.1-15.1); White Blood Count 4.9 10^3/uL (4.0-10.0)
[2022-03-25 06:27] LABS: Anion Gap 11.3 (5-19); Blood Urea Nitrogen 24 mg/dL (8-23); Calcium 8.6 mg/dL (8.5-10.5); Carbon Dioxide 32 mmol/L (22-29); Chloride 95 mmol/L (98-107); Glucose 92 mg/dL (65-115); Osmolality Calculated 282 mOsm/kg (285-295); Potassium 4.3 mmol/L (3.5-5.1); Sodium 134 mmol/L (136-145)
[2022-03-25] MEDS: ipratropium-albuterol 3 mL Neb INHALATION ×3 (08:29→20:24)
[2022-03-25] MEDS: ALPRAZolam 0.5 mg Tablet 0.25 MG PO ×2 (08:57→21:51)
[2022-03-25] MEDS: atorvastatin 40 mg Tablet PO (08:58)
[2022-03-25] MEDS: lisinopril 2.5 mg Tablet PO (08:58)
[2022-03-25] MEDS: pantoprazole DR 40 mg Tablet PO ×2 (08:58→18:12)
[2022-03-25] MEDS: aspirin 81 mg EC Tablet PO (08:58)
[2022-03-25] MEDS: metoprolol tartrate 50 mg Tablet PO ×2 (08:58→18:12)
[2022-03-25] MEDS: enoxaparin 40 mg/0.4 mL Syringe SUBCUT ×2 (08:59→21:10)
[2022-03-25] MEDS: FUROsemide 10 mg/mL SDV 2mL 20 MG IVP (08:59)
[2022-03-25] MEDS: saline nasal spray 44mL Btl 1 SPRAY NASAL (09:01)
--- NOTE | 2022-03-25 14:11 | PM.PN ---
Subjective Subjective: She reports today she is feeling slightly better. She worked with occupational therapy. Denies chest pain or pressure. Vitals/I&O/Wt Last Vital Signs Temp 97.7 F 03/25/22 12:00 Pulse 68 03/25/22 12:00 Resp 17 03/25/22 12:00 BP 145/62 03/25/22 12:00 Pulse Ox 94 03/25/22 12:00 O2 Del Method 03/25/22 12:00 O2 Flow Rate 5 03/25/22 12:00 03/24/22 03/25/22 03/25/22 22:59 06:59 14:59 Intake Total 460 / 940 540 / 1480 240 / 240 Output Total 0 / 650 240 / 240 Balance 460 / 290 540 / 830 0 / 0 Weight last 48 hrs Weight 39.009 kg Weight 39.19 kg Physical Exam Narrative: Poor historian. Const: COMMON NORMALS: patient oriented x3 and alert GENERAL APPEARANCE: cooperative and frail appearing ORIENTATION/CONSCIOUSNESS: Yes awake HENMT: COMMON NORMALS: oropharynx normal Neck/C-Spine: COMMON NORMALS: no JVD Chest: OTHER: Nontender to palpation Resp: COMMON NORMALS: normal respiratory effort and clear to auscultation bilaterally AUSCULTATION: clear to auscultation bilaterally and wheezes (Minimal wheeze RLL) Cardio: COMMON NORMALS: no JVD, regular rhythm, S1 normal heart sound present, S2 normal heart sound present and No murmurs present (Cardio) RHYTHM: regular rhythm HEART SOUNDS: S1 normal heart sound present and S2 normal heart sound present GI: COMMON NORMALS: Normal to inspection, nondistended, normoactive bowel sounds present, Soft to palpation and non-tender PALPATION: Yes Soft to palpation Extremity: COMMON NORMALS: no joint enlargement and no pedal edema OTHER: Appearance of chronic stasis in bilateral lower extremity with mild pink discoloration. No swelling. Neuro: COMMON NORMALS: patient oriented x3 and moves all extremities SENSORIUM/ORIENTATION: Yes alert Skin: COMMON NORMALS: no rashes or lesions noted GENERAL SKIN EXAM: no rashes or lesions noted Data : 03/25/22 05:00 03/25/22 05:00 A&P Assessment and plan (1) Dyspnea: Acute on chronic hypoxic respiratory failure requiring 6 L of oxygen, previously requiring only 2 L nasal cannula. Multifactorial secondary to pneumonia, acute CHF, as well as PEs. Underlying emphysema. Continue Levaquin. Continue diuretic. Change to therapeutic anticoagulation with Lovenox. Oxygen support. At baseline she is supposed to apparently be on 2 L nasal cannula. However, reportedly chronically is on 6 L. Likely would suspect component of chronic PEs contributing to this, as well as CHF. Status: Acute (2) Chest pressure: Chest pressure improved Obtain stress test in the morning. CTA with finding of chronic PEs in lower lobes. No clear evidence of acute PE. Bilateral lower opacities concerning for pneumonia. Additionally superimposed pulmonary edema with small right pleural effusion. Extensive centrilobular emphysema. With worse acute on chronic anemia on admission, for now continues on low-dose prophylactic Lovenox, reassess hemoglobin, if remained steady, perhaps may be able to tolerate trial of therapeutic anticoagulation. Would benefit from stress test, but unavailable on weekends. TTE with borderline normal ejection fraction. Mild to moderate inferior and inferolateral hypokinesis. Mild LV hypertrophy. Biatrial enlargement. Mild to moderate MVR. Aortic valve thickened. Mild TVR. No significant change from prior. Status: Acute (3) Syncope and collapse: Continue treatment of pneumonia, CHF. We will follow-up orthostatics. Suspect this is likely due to desaturation as she does appear perhaps sometimes forget her oxygen. Per APS not very good support at home, currently at the hospital. She seems to forget to keep her oxygen on at all times. Syncope I suspect was due to complication with chronic PEs, acute diastolic CHF, possibly pneumonia. As well as orthostatic hypotension noted on orthostatic vitals. Unremarkable UA. Sacral discomfort, no wound noted, minimal erythema. She states I do not have much padding . Apply foam dressing to possible stage I pressure ulcer. Unremarkable image x-ray pelvis after fall. Status: Acute (4) Orthostatic hypotension: Status: Acute Plan COPD on chronic 6 L of oxygen History of CHF, does not appear currently in exacerbation. HTN HLD Hiatal hernia Chronic anemia, hemoglobin is somewhat lower than previously. 9.9. She denies any active bleeding, denies any hematuria, hematochezia or melena. Recheck hemoglobin. Will check Hemoccult. Other chronic problems. Attestations Medical Necessity Statement*: Continue admission for assessment management of hypoxic respite failure, assessment of chest pressure with cardiac risk factors and after syncopal episode. Coding Level of Care Code Acute Commercial Roofing Estimator for Chg Fwd Diagnoses Dyspnea R06.00 Chest pressure R07.89 Syncope and collapse R55 Orthostatic hypotension I95.1
--- NOTE | 2022-03-25 14:45 | PC.NURSE ---
pt very anxious and concerned that has not called or visited.staff state that they have not been able to get in touch with hime despite several attempts yesterday...thought he might be hospitalized.finally got through to suman..poor cell phone service in his area.he was in hospital..but is now home.states he has been trying to call pt via bedside land phone in pt's room...but calls keep getting dropped
[2022-03-25] MEDS: levofloxacin-dextrose 5 % 500 MG/100 ML PREMIX 100 MG IV (20:12)
[2022-03-26] VITALS (15 sets, daily range): BP systolic 127–164; BP diastolic 69–104; PULSE 54–74; RESP 16–20; TEMP 36.2–37; O2SAT 91–99
[2022-03-26] MEDS: ipratropium-albuterol 3 mL Neb INHALATION ×3 (02:20→15:33)
[2022-03-26 02:28] LABS: Basophils # 0.1 10^3/uL (0.0-0.1); Basophils % 1.3 %; Eosinophils # 0.4 10^3/uL (0.0-0.8); Eosinophils % 5.8 %; Hematocrit 34.5 % (37.0-47.0); Hemoglobin 10.6 g/dL (11.5-15.3); Lymphocytes # 1.1 10^3/uL (0.8-4.8); Lymphocytes % 18.1 %; Mean Corpuscular HGB Conc 30.7 g/dL (30.0-36.0); Mean Corpuscular Hemoglobin 26.4 pg (28.0-34.0); Mean Corpuscular Volume 85.8 fl (81-99); Mean Platelet Volume 11.2 fL (7.4-10.4); Monocytes # 0.8 10^3/uL (0.2-0.9); Monocytes % 13.8 %; Neutrophils # 3.66 10^3/uL (1.8-7.7); Neutrophils % 60.8 %; Nucleated Red Blood Cells % 0 %; Platelet Count 235 10^3/cmm (130-400); Red Blood Count 4.02 10^6/uL (4.1-5.3); Red Cell Distribution Width 14.3 % (12.1-15.1)
[2022-03-26 02:51] LABS: Anion Gap 8.5 (5-19); Blood Urea Nitrogen 26 mg/dL (8-23); Calcium 8.7 mg/dL (8.5-10.5); Carbon Dioxide 36 mmol/L (22-29); Chloride 94 mmol/L (98-107); Glucose 103 mg/dL (65-115); Osmolality Calculated 283 mOsm/kg (285-295); Potassium 4.5 mmol/L (3.5-5.1); Sodium 134 mmol/L (136-145)
[2022-03-26] MEDS: aspirin 81 mg EC Tablet PO (10:02)
[2022-03-26] MEDS: atorvastatin 40 mg Tablet PO (10:02)
[2022-03-26] MEDS: fluticasone nasal spray 16gm Btl 2 SPRAY NASAL (10:03)
[2022-03-26] MEDS: lisinopril 2.5 mg Tablet PO (10:03)
[2022-03-26] MEDS: FUROsemide 10 mg/mL SDV 2mL 20 MG IVP (10:03)
[2022-03-26] MEDS: pantoprazole DR 40 mg Tablet PO ×2 (10:03→17:18)
[2022-03-26] MEDS: metoprolol tartrate 50 mg Tablet PO ×2 (10:03→17:18)
[2022-03-26] MEDS: enoxaparin 40 mg/0.4 mL Syringe SUBCUT ×2 (10:04→22:27)
--- NOTE | 2022-03-26 10:04 | PC.NURSE ---
medications administration verified by scanner however was unable to save administrations due to another user in chart and computer time out
--- NOTE | 2022-03-26 12:44 | USCV_ITS ---
BrockTriniRosario Age: 77 Gender: F : 1945 Exam Date: 03/26/2022 13:19 Ordering Phys: Keaton Leon MD Technologist: Lg Escobar Exam Location: [facility] [place]_ Indication: bilat edema PROCEDURES: The venous duplex Doppler examination of both lower extremities was performed in the standard fashion. The following venous structures were evaluated: common femoral vein, profunda vein, proximal portion of the greater saphenous vein, superficial femoral vein, and the popliteal vein. FINDINGS: Normal 2-D Doppler and augmentation and compressibility throughout the lower extremity venous structures. Additional imaging through the proximal calf veins also reveals no thrombus. Limited evaluation of the greater saphenous vein is patent with no thrombus. CONCLUSIONS No DVT bilateral lower extremities. Dr. Dionne Severino DO (Electronically Signed) Final Date: 26 March 2022 14:38 S
[2022-03-26] MEDS: levoFLOXacin 500 mg Tablet PO (13:28)
[2022-03-26 14:28] LABS: Iron 25 ug/dL (37-145); NT Pro B Type Natriuretic Pept 1756 pg/mL (0-450); Percent Saturation 8.5 % (20-50); Total Iron Binding Capacity 292 mcg/dl; Unsaturated Iron Binding 267 ug/dL (112-347)
[2022-03-26] MEDS: ALPRAZolam 0.5 mg Tablet 0.25 MG PO ×2 (17:17→22:26)
--- NOTE | 2022-03-26 17:27 | PM.PN ---
Subjective Subjective: No acute vents overnight. Denies any nausea, vomiting, headache. Today morning patient was supposed to go for Lexiscan stress test but she could not undergo as patient had a panic attack and stated she could not lie down flat. Examination patient lying comfortably in bed. As per patient she is supposed to be on 6 L oxygen supplementation which has been going up for last year and a half. Prior to that she was on 2 L. She denies any chest pain. Saturating more than 95% on 6 L. During examination turned down to 3 L patient continued to saturate over 90%. Vitals/I&O/Wt Last Vital Signs Temp 98.6 F 03/26/22 16:00 Pulse 74 03/26/22 16:00 Resp 18 03/26/22 16:00 BP 145/76 03/26/22 16:00 Pulse Ox 94 03/26/22 16:00 O2 Del Method 03/26/22 16:00 O2 Flow Rate 6 03/26/22 16:00 03/26/22 03/26/22 03/26/22 06:59 14:59 22:59 Output Total 1050 / 1050 Balance -1050 / -1050 Weight last 48 hrs Weight 39.009 kg Physical Exam Narrative: Poor historian. Const: COMMON NORMALS: patient oriented x3 and alert GENERAL APPEARANCE: cooperative and frail appearing ORIENTATION/CONSCIOUSNESS: Yes awake HENMT: COMMON NORMALS: oropharynx normal Neck/C-Spine: COMMON NORMALS: no JVD Chest: OTHER: Nontender to palpation Resp: COMMON NORMALS: normal respiratory effort and clear to auscultation bilaterally AUSCULTATION: clear to auscultation bilaterally and wheezes (Minimal wheeze RLL) Cardio: COMMON NORMALS: no JVD, regular rhythm, S1 normal heart sound present, S2 normal heart sound present and No murmurs present (Cardio) RHYTHM: regular rhythm HEART SOUNDS: S1 normal heart sound present and S2 normal heart sound present GI: COMMON NORMALS: Normal to inspection, nondistended, normoactive bowel sounds present, Soft to palpation and non-tender PALPATION: Yes Soft to palpation Extremity: COMMON NORMALS: no joint enlargement and no pedal edema OTHER: Appearance of chronic stasis in bilateral lower extremity with mild pink discoloration. No swelling. Neuro: COMMON NORMALS: patient oriented x3 and moves all extremities SENSORIUM/ORIENTATION: Yes alert Skin: COMMON NORMALS: no rashes or lesions noted GENERAL SKIN EXAM: no rashes or lesions noted Data : 03/26/22 02:14 03/26/22 02:14 A&P Assessment and plan (1) Dyspnea: Acute on chronic hypoxic respiratory failure requiring 6 L of oxygen, previously requiring only 2 L nasal cannula. Oxygen supplementation has been going up to 6 L over a year and a half. Most likely multifactorial secondary to combination of COPD exacerbation, mild CHF, chronic PEs as seen on CTA. Unlikely secondary to pneumonia. Continue to finish her Levaquin dose five 5-day course. Continued IV Lasix. Echocardiogram done earlier in this admission shows an EF 50 to 55%, mild to moderate inferior and inferior lateral hypokinesis, mild LVH, biatrial enlargement, moderate to mild MR which seems to be stable since June 2021. Start on Spiriva and Advair. Oxygen supplementation keeping saturation over 88%. D-dimer elevated. CT consistent with chronic PEs. Lower limb Doppler. For now continue with full dose Lovenox. Status: Acute (2) Chest pressure: Chest pressure improved Patient noncompliant with requirements of stress test. Does not want to go forward. Has remained chest pain-free. No new changes or regional wall motion normality on echocardiogram. CTA did show chronic PEs. Symptoms most likely secondary to anxiety. Does have history of anxiety as an outpatient. Status: Acute (3) Syncope and collapse: Combination of hypoxia along with anxiety. Per APS not very good support at home, currently at the hospital. She seems to forget to keep her oxygen on at all times. Unremarkable UA. Sacral discomfort, no wound noted, minimal erythema. She states I do not have much padding . Apply foam dressing to possible stage I pressure ulcer. Unremarkable image x-ray pelvis after fall. Status: Acute (4) Orthostatic hypotension: Status: Acute Plan COPD on chronic 2-6 L of oxygen History of CHF, does not appear currently in exacerbation. HTN HLD Hiatal hernia Chronic anemia, hemoglobin is somewhat lower than previously. 9.9. She denies any active bleeding, denies any hematuria, hematochezia or melena. Recheck hemoglobin. Will check Hemoccult. Other chronic problems. Discharge planning: Discussed in detail with the patient. Discussed her possible transfer to SNF for long-term care. Patient states she would eventually want to go home. States APS continue to follow. States things have been improving at home but have occasional fevers at home. But also does state that she feels safe to go back home and no way she would go to SNF for long-term. Physical therapy evaluation appreciated. Attestations Medical Necessity Statement*: Requires further hospitalization for management of shortness of breath secondary to COPD exacerbation, mild CHF, chronic PEs Time Spent in Patient Care: Greater than 35 minutes Coding Level of Care Code Acute Public Health Epidemiologist for Robg Fwd Diagnoses Dyspnea R06.00 Chest pressure R07.89 Syncope and collapse R55 Orthostatic hypotension I95.1
[2022-03-27] VITALS (11 sets, daily range): BP systolic 116–188; BP diastolic 32–99; PULSE 54–73; RESP 10–20; TEMP 36.6–36.8; O2SAT 83–100
[2022-03-27 03:21] LABS: Basophils % 0.7 %; Eosinophils # 0.3 10^3/uL (0.0-0.8); Eosinophils % 4.8 %; Hematocrit 39.1 % (37.0-47.0); Hemoglobin 11.8 g/dL (11.5-15.3); Lymphocytes # 1.2 10^3/uL (0.8-4.8); Lymphocytes % 21.5 %; Mean Corpuscular HGB Conc 30.2 g/dL (30.0-36.0); Mean Corpuscular Volume 86.1 fl (81-99); Mean Platelet Volume 11.1 fL (7.4-10.4); Monocytes # 0.7 10^3/uL (0.2-0.9); Monocytes % 12.1 %; Neutrophils # 3.26 10^3/uL (1.8-7.7); Neutrophils % 60.5 %; Nucleated Red Blood Cells % 0 %; Platelet Count 263 10^3/cmm (130-400); Red Blood Count 4.54 10^6/uL (4.1-5.3); Red Cell Distribution Width 14.6 % (12.1-15.1); White Blood Count 5.4 10^3/uL (4.0-10.0)
[2022-03-27 03:50] LABS: Alanine Aminotransferase 17 U/L (0-33); Albumin Level 3.3 g/dL (3.5-5.2); Alkaline Phosphatase 82 U/L (35-105); Anion Gap 7.5 (5-19); Aspartate Amino Transferase 18 U/L (0-32); Blood Urea Nitrogen 25 mg/dL (8-23); Calcium 8.9 mg/dL (8.5-10.5); Carbon Dioxide 39 mmol/L (22-29); Chloride 93 mmol/L (98-107); Chol HDL Ratio 2.74 mg/dL (0.0-4.40); Cholesterol 156 mg/dL (0-200); Globulin 3.2 g/dL (1.3-4.6); Glucose 99 mg/dL (65-115); HDL Cholesterol 57 mg/dL (60-100); LDL Cholesterol Calculated 76 mg/dL (50-129); Osmolality Calculated 284 mOsm/kg (285-295); Potassium 4.5 mmol/L (3.5-5.1); Sodium 135 mmol/L (136-145); Total Bilirubin 0.2 mg/dL (0.15-1.2); Total Protein 6.5 g/dL (6.6-8.7); Triglycerides 116 mg/dL (0-150); VLDL Cholestrol Calculation 23 mg/dL (0-30)
[2022-03-27 03:53] LABS: Estmated Average Glucose 120; Hemoglobin A1C 5.8 % (4.0-6.0)
[2022-03-27] MEDS: levoFLOXacin 500 mg Tablet PO (05:21)
[2022-03-27] MEDS: amlodipine 10 mg Tablet PO (05:21)
[2022-03-27] MEDS: lisinopril 10 mg Tablet PO (08:45)
[2022-03-27] MEDS: aspirin 81 mg EC Tablet PO (08:46)
[2022-03-27] MEDS: metoprolol tartrate 50 mg Tablet PO (08:46)
[2022-03-27] MEDS: pantoprazole DR 40 mg Tablet PO (08:46)
[2022-03-27] MEDS: atorvastatin 40 mg Tablet PO (08:46)
[2022-03-27] MEDS: enoxaparin 40 mg/0.4 mL Syringe SUBCUT (08:47)
[2022-03-27] MEDS: FUROsemide 10 mg/mL SDV 4mL 40 MG IVP (08:47)
[2022-03-27] MEDS: fluticasone nasal spray 16gm Btl 2 SPRAY NASAL (08:49)
--- NOTE | 2022-03-27 11:53 | PC.CHAP ---
Pastoral Care Encounter/Spiritual Assessment Type of Contact [] Declined tack cutter visit [] Patient/Family/Request visit [] Outpatient visit [] Follow-up visit [] Physician referral [] Code/Alert [x] Routine visit [] Staff referral [] Actively dying [] Patient sleeping [] Family support [] [] Out of room [] Palliative care [] [x] Receiving care in room [] Pre-surgical visit [] Trauma [] Long length of stay [] ICU visit [] Other: Relational/Emotional Strength [] Patient feels connected with others/family/visitors/staff [] Distress [] Loneliness/isolation [] Abandonment Spirituality of Patient [] Person of Tresa [] Attends Ep[employer] of their Tresa [] Believes in Prayer [] Reads Bible or Sikhism materials [] There are Spiritual issues to be addressed Digital Printer Interventions [] Prayer [] Active listening [] Non-anxious presence [] Spiritual/emotional support [] Crisis/trauma care [] Spiritual counseling [] Bereavement support [] Provided bereavement packet [] Provided Bible/devotional materials [] Provided toy/stuffed animal, coloring book to patient or family member [] Provided Communion [] Anointing/[place] [] Salvation [] Completed spiritual assessment [] Other: Impact on Illness or Injury [] Angry [] Fearful [] Anxious [] Often cries [] Exhaustion [] Unable to work [] Unable to attend islam [] Unable to walk/stand [] Unable to read [] Unable to drive [] Unable to eat/drink [] Unable to sleep [] Unable to be with family [] Patient intubated [] Other: Summary Time spent with patient
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
== END 2022-03-27 18:10 | disposition home or self-care (01) | DRG 291 ==
LOC: ER 19:05 → MEDSURG 21:08
PROVIDERS: Admitting Provider Internal Medicine; Emergency Provider Family Medicine; PCP Family Medicine; Visit Provider Student in an Organized Health Care Education/Training Program
DX: I11.0 Hypertensive heart disease with heart failure (principal); I50.33 Acute on chronic diastolic (congestive) heart failure; I27.82 Chronic pulmonary embolism; I25.10 Atherosclerotic heart disease of native coronary artery without angina pectoris; Z99.81 Dependence on supplemental oxygen; J43.2 Centrilobular emphysema; E78.5 Hyperlipidemia, unspecified; K44.9 Diaphragmatic hernia without obstruction or gangrene; I95.1 Orthostatic hypotension; L89.151 Pressure ulcer of sacral region, stage 1; D64.9 Anemia, unspecified; F41.0 Panic disorder [episodic paroxysmal anxiety]; Z91.410 Personal history of adult physical and sexual abuse; Z79.51 Long term (current) use of inhaled steroids; Z79.82 Long term (current) use of aspirin
CPT/HCPCS: 36415; 71045; 71275; 72190; 80048; 80053; 80061; 81003; 83036; 83540; 83550; 83880; 84484; 85025; 85378; 93005; 93306; 93970; 94640; 94664; 94760; 96372; 97110; 97116; 97161; 97166; 97530; 97535; 99285; G0378; J1644; J1650; J1940; J1956; J2250; J3010; J7614; Q9967

== ENCOUNTER 2022-04-04 20:17 | Emergency (ER) | payer MEDICARE, SELFPAY ==
[2022-04-04 20:19] VITALS: BP 159/113; PULSE 91; RESP 18; TEMP 36.8; O2SAT 96; BMI 17.2
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
[2022-04-04] MEDS: acetaminophen 500 mg Tablet PO (21:12)
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
== END 2022-04-05 11:04 | disposition home or self-care (01) ==
PROVIDERS: Emergency Provider Emergency Medicine; PCP Family Medicine
DX: M79.602 Pain in left arm (principal); Y04.8XXA Assault by other bodily force, initial encounter; Z79.82 Long term (current) use of aspirin; J44.9 Chronic obstructive pulmonary disease, unspecified; E78.5 Hyperlipidemia, unspecified; I10 Essential (primary) hypertension
CPT/HCPCS: 70450; 73070; 73090; 73100; 99285

== ENCOUNTER 2022-05-12 06:49 | Emergency (ER) | payer MEDICARE, SELFPAY ==
[2022-05-12] VITALS (8 sets, daily range): BP systolic 130–173; BP diastolic 54–111; PULSE 65–101; RESP 13–27; TEMP 37.2; O2SAT 87–99; BMI 14.4
--- NOTE | 2022-05-12 07:16 | XRR_ITS ---
PROCEDURE INFORMATION: Exam: XR Chest Exam date and time: 05/12/2022 7:22 AM Age: 77 years old Clinical indication: Cough and dyspnea; Additional info: Dyspnea/cough TECHNIQUE: Imaging protocol: Radiologic exam of the chest. Views: 1 view. COMPARISON: CR XR chest 1V portable [id number] 03/22/2022 3:58 PM FINDINGS: Lungs: Hyperinflated lungs. No consolidation. Pleural spaces: No pleural effusion. No pneumothorax. Heart/Mediastinum: Mild cardiomegaly. Bones/joints: Visualized osseous structures are intact. XR/XR chest 1V portable [id number] IMPRESSION: No acute findings.
[2022-05-12 07:28] LABS: Basophils # 0.1 10^3/uL (0.0-0.1); Basophils % 1.1 %; Eosinophils # 0.2 10^3/uL (0.0-0.8); Eosinophils % 2.8 %; Hematocrit 33.1 % (37.0-47.0); Hemoglobin 10.7 g/dL (11.5-15.3); Lymphocytes # 0.9 10^3/uL (0.8-4.8); Lymphocytes % 15.6 %; Mean Corpuscular HGB Conc 32.3 g/dL (30.0-36.0); Mean Corpuscular Hemoglobin 26.8 pg (28.0-34.0); Mean Corpuscular Volume 82.8 fl (81-99); Mean Platelet Volume 10.2 fL (7.4-10.4); Monocytes # 0.5 10^3/uL (0.2-0.9); Monocytes % 9.7 %; Neutrophils # 3.85 10^3/uL (1.8-7.7); Neutrophils % 70.6 %; Nucleated Red Blood Cells % 0 %; Platelet Count 301 10^3/cmm (130-400); Red Cell Distribution Width 15.1 % (12.1-15.1); White Blood Count 5.5 10^3/uL (4.0-10.0)
[2022-05-12 07:44] LABS: Alanine Aminotransferase 17 U/L (0-33); Albumin Level 3.5 g/dL (3.5-5.2); Alkaline Phosphatase 80 U/L (35-105); Anion Gap 11.9 (5-19); Aspartate Amino Transferase 29 U/L (0-32); Blood Urea Nitrogen 14 mg/dL (8-23); Calcium 8.3 mg/dL (8.5-10.5); Carbon Dioxide 30 mmol/L (22-29); Chloride 91 mmol/L (98-107); Globulin 2.9 g/dL (1.3-4.6); Glucose 140 mg/dL (65-115); Osmolality Calculated 271 mOsm/kg (285-295); Potassium 3.9 mmol/L (3.5-5.1); Sodium 129 mmol/L (136-145); Total Bilirubin 0.4 mg/dL (0.15-1.2); Total Protein 6.4 g/dL (6.6-8.7)
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
[2022-05-12 07:53] LABS: ABG PH Result 7.41 (7.35-7.45); Alveolar-Arterial Oxygen Gradi 7.9 mmHg (5-10); Arterial Blood Gas Hematocrit 34.3 % (37-47); Base Excess ABG 5.2 mmol/L (-2.0-2.0); Blood Gas Allen Test Pos; Blood Gas Operator Identificat CAK; Blood Gas Sample Site Radial, left; Blood Gas Sample Type Arterial; HCO3 ABG 30.6 mmol/L (22-26); HGB O2 Sat 92.5 % (95-100); Ionized Calcium Level - ABG 1.2 mmol/L (1.1-1.4); Methemoglobin 0.9 % (0.4-1.5); Oxygen Device NC; Oxygen Saturation ABG 97.3; PO2 ABG 82.7 mmHg (80.0-100.0); Potassium Level - ABG 3.4 mmol/L (3.5-5.0); Total Hemoglobin 11.2 g/dL (12-16)
[2022-05-12] MEDS: metoprolol tartrate 50 mg Tablet PO (08:14)
[2022-05-12] MEDS: LORazepam 1 mg Tablet PO (08:14)
[2022-05-12] MEDS: lisinopril 10 mg Tablet PO (08:15)
[2022-05-12 09:28] LABS: ABG PCO2 49.5 mmHg (35-45); Alveolar-Arterial Oxygen Gradi 7.1 mmHg (5-10); Arterial Blood Gas Hematocrit 34.2 % (37-47); Base Excess ABG 5.1 mmol/L (-2.0-2.0); Blood Gas Allen Test Pos; Blood Gas Operator Identificat CAK; Blood Gas Sample Site Radial, left; Blood Gas Sample Type Arterial; Carboxyhemoglobin 3.5 %THgb (0.4-20.1); HCO3 ABG 30.8 mmol/L (22-26); Ionized Calcium Level - ABG 1.2 mmol/L (1.1-1.4); Methemoglobin 0.9 % (0.4-1.5); Oxygen Device NC; Oxygen Saturation ABG 97.4; PO2 ABG 86.9 mmHg (80.0-100.0); Potassium Level - ABG 3.6 mmol/L (3.5-5.0); Total Hemoglobin 11.2 g/dL (12-16)
== END 2022-05-12 10:05 | disposition home or self-care (01) ==
PROVIDERS: Emergency Provider Family Medicine; PCP Family Medicine
DX: J44.1 Chronic obstructive pulmonary disease with (acute) exacerbation (principal); Z79.82 Long term (current) use of aspirin; F17.210 Nicotine dependence, cigarettes, uncomplicated; E78.5 Hyperlipidemia, unspecified; I10 Essential (primary) hypertension
CPT/HCPCS: 36600; 71045; 80051; 80053; 82330; 82805; 85025; 99284

== ENCOUNTER 2022-06-04 15:42 | Emergency (ER) | payer MEDICARE, SELFPAY ==
[2022-06-04] VITALS (16 sets, daily range): BP systolic 160–184; BP diastolic 110–132; PULSE 86–105; RESP 15–24; TEMP 36.8; O2SAT 87–100; BMI 13.7
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
--- NOTE | 2022-06-04 16:15 | XRR_ITS ---
PROCEDURE INFORMATION: Exam: XR Chest Exam date and time: 06/04/2022 4:53 PM Age: 77 years old Clinical indication: Cough and dyspnea; Additional info: Dyspnea/cough TECHNIQUE: Imaging protocol: Radiologic exam of the chest. Views: 1 view. COMPARISON: CR (CHEST, ) 05/12/2022 7:22 AM FINDINGS: Lungs: Changes of emphysema. Mild chronic interstitial scarring in both lungs. No consolidation. Pleural spaces: Unremarkable. No pleural effusion. No pneumothorax. Heart/Mediastinum: Unremarkable. No cardiomegaly. Bones/joints: Old proximal right humerus fracture. Mild thoracic curvature. XR/XR chest 1V portable [id number] IMPRESSION: No acute findings.
--- NOTE | 2022-06-04 16:15 | ECG_ITS ---
[facility] Test Date: 2022-06-04 Pat Name: Rosario Brock Department: Room: Gender: Female Shop Tailor: : 1945 Requested By: Chris Do Order Number: [id number] Joel MD: Flory Díaz M.D. Measurements Intervals [place] Rate: 99 P: 81 MD: 156 QRS: -67 QRSD: 88 T: 85 QT: 357 QTc: 458 Interpretive Statements SINUS RHYTHM WITH FREQUENT SUPRAVENTRICULAR PREMATURE COMPLEXES POSSIBLE RIGHT VENTRICULAR CONDUCTION DELAY [RSR (QR) IN V1/V2] LEFT ANTERIOR FASCICULAR BLOCK [QRS AXIS <= -45, QR IN I, RS IN II] VOLTAGE CRITERIA FOR LVH [MEETS CRITERIA IN ONE OF: R(aVL), S(V1), R(V5), R(V5/V6)+S(V1)] POSSIBLE ANTEROSEPTAL MYOCARDIAL INFARCTION , OF INDETERMINATE AGE [30 ms Q WAVE IN V1-V4] Compared to ECG 03/22/2022 22:10:01 Left anterior fascicular block now present Left ventricular hypertrophy now present Left-axis deviation no longer present Incomplete right bundle-branch block no longer present Myocardial infarct finding still present Electronically Signed On 06-05-2022 21:40:00 CDT by Flory Díaz M.D. [email or web address].[employer]/store/OM/[id number]
[2022-06-04 16:48] LABS: Basophils # 0.1 10^3/uL (0.0-0.1); Basophils % 0.8 %; Eosinophils # 0.1 10^3/uL (0.0-0.8); Eosinophils % 1.5 %; Hematocrit 34.3 % (37.0-47.0); Hemoglobin 10.9 g/dL (11.5-15.3); Lymphocytes # 0.7 10^3/uL (0.8-4.8); Lymphocytes % 9.3 %; Mean Corpuscular HGB Conc 31.8 g/dL (30.0-36.0); Mean Corpuscular Hemoglobin 26.5 pg (28.0-34.0); Mean Corpuscular Volume 83.5 fl (81-99); Mean Platelet Volume 11.1 fL (7.4-10.4); Monocytes # 0.6 10^3/uL (0.2-0.9); Monocytes % 7.6 %; Neutrophils # 6.32 10^3/uL (1.8-7.7); Neutrophils % 80.5 %; Nucleated Red Blood Cells % 0 %; Platelet Count 313 10^3/cmm (130-400); Red Blood Count 4.11 10^6/uL (4.1-5.3); Red Cell Distribution Width 14.3 % (12.1-15.1); White Blood Count 7.9 10^3/uL (4.0-10.0)
[2022-06-04 17:07] LABS: Blood Urea Nitrogen 16 mg/dL (8-23); Calcium 8.7 mg/dL (8.5-10.5); Carbon Dioxide 29 mmol/L (22-29); Chloride 92 mmol/L (98-107); Creatinine Clr Calc Pharmacy 32.6646; Glucose 103 mg/dL (65-115); Osmolality Calculated 271 mOsm/kg (285-295); Sodium 130 mmol/L (136-145)
[2022-06-04 17:11] LABS: Anion Gap 13.3 (5-19); Potassium 4.3 mmol/L (3.5-5.1)
== END 2022-06-04 21:33 | disposition home or self-care (01) ==
PROVIDERS: Emergency Provider Family Medicine; PCP Family Medicine
DX: F45.8 Other somatoform disorders (principal); J44.9 Chronic obstructive pulmonary disease, unspecified; Z79.82 Long term (current) use of aspirin; F17.210 Nicotine dependence, cigarettes, uncomplicated; E78.5 Hyperlipidemia, unspecified; I10 Essential (primary) hypertension
CPT/HCPCS: 71045; 80048; 85025; 93005; 99285

== ENCOUNTER 2022-06-22 16:32 | Inpatient (IN) | payer MEDICARE, SELFPAY ==
[2022-06-22] VITALS (38 sets, daily range): BP systolic 88–196; BP diastolic 48–144; PULSE 64–126; RESP 12–36; TEMP 36.6–37; O2SAT 79–97
--- NOTE | 2022-06-22 16:35 | XRR_ITS ---
PROCEDURE INFORMATION: Exam: XR Chest Exam date and time: 06/22/2022 5:41 PM Age: 77 years old Clinical indication: Dyspnea and shortness of breath; Additional info: Dyspnea/cough TECHNIQUE: Imaging protocol: Radiologic exam of the chest. Views: 1 view. COMPARISON: CR (CHEST, ) 06/04/2022 4:53 PM FINDINGS: Lungs: Severe emphysema. Diffuse interstitial opacities appear increased in both lungs. No consolidation. Pleural spaces: Unremarkable. No pleural effusion. No pneumothorax. Heart/Mediastinum: Unremarkable. No cardiomegaly. Bones/joints: Old proximal right humerus fracture. Thoracolumbar scoliosis. No visible fracture. XR/XR chest 1V portable [id number] IMPRESSION: Increased interstitial opacities in both lungs may represent pulmonary edema or atypical infection, on a background mild chronic scarring.
--- NOTE | 2022-06-22 16:45 | ECG_ITS ---
[facility] Test Date: 2022-06-22 Pat Name: Rosario Brock Department: Room: Gender: Female Assistant Director Of Plant Operations: : 1945 Requested By: Chris Do Order Number: [id number] Joel MD: Kaushik Adams M.D. Measurements Intervals [place] Rate: 123 P: 0 IA: 0 QRS: -62 QRSD: 82 T: 88 QT: 290 QTc: 415 Interpretive Statements SINUS RHYTHM WITH PACs LEFT AXIS DEVIATION [QRS AXIS < -30] POSSIBLE RIGHT VENTRICULAR CONDUCTION DELAY [RSR (QR) IN V1/V2] VOLTAGE CRITERIA FOR LVH [MEETS CRITERIA IN ONE OF: R(aVL), S(V1), R(V5), R(V5/V6)+S(V1)] POSSIBLE ANTEROSEPTAL MYOCARDIAL INFARCTION , OF INDETERMINATE AGE [30 ms Q WAVE IN V1-V4] MODERATE T-WAVE ABNORMALITY, CONSIDER LATERAL ISCHEMIA [-0.1+ mV T-WAVE IN I/aVL/V5/V6] Compared to ECG 06/04/2022 16:38:49 T-wave abnormality now present Possible ischemia now present Sinus rhythm no longer present Left anterior fascicular block no longer present Myocardial infarct finding still present Electronically Signed On 06-25-2022 18:26:26 PETROL TANKER DRIVER by Kaushik Adams M.D. [email or web address].[employer]/store/OM/[id number]
[2022-06-22] MEDS: dilTIAZem 5 mg/mL SDV 5 mL 20 MG IVP (16:55)
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
[2022-06-22 17:06] LABS: ABG PH Result 7.24 (7.35-7.45); Alveolar-Arterial Oxygen Gradi 12.3 mmHg (5-10); Arterial Blood Gas Hematocrit 39.3 % (37-47); Base Excess ABG 2.9 mmol/L (-2.0-2.0); Blood Gas Allen Test Pos; Blood Gas Operator Identificat glc; Blood Gas Sample Site Radial, right; Blood Gas Sample Type Arterial; Carboxyhemoglobin 4.1 %THgb (0.4-20.1); HCO3 ABG 32.5 mmol/L (22-26); Ionized Calcium Level - ABG 1.2 mmol/L (1.1-1.4); Methemoglobin 0.9 % (0.4-1.5); Oxygen Device NC; Oxygen Saturation ABG 92.5; PO2 ABG 73.1 mmHg (80.0-100.0); Potassium Level - ABG 3.9 mmol/L (3.5-5.0); Total Hemoglobin 12.8 g/dL (12-16)
[2022-06-22] MEDS: dilTIAZem 100 MG in sodium chloride 0.9% (add-van) 100 ML IV (17:10)
[2022-06-22 17:16] LABS: Basophils % 0.5 %; Eosinophils # 0.2 10^3/uL (0.0-0.8); Eosinophils % 2.4 %; Hematocrit 41.2 % (37.0-47.0); Hemoglobin 12.8 g/dL (11.5-15.3); Lymphocytes % 15.5 %; Mean Corpuscular HGB Conc 31.1 g/dL (30.0-36.0); Mean Corpuscular Hemoglobin 26.1 pg (28.0-34.0); Mean Corpuscular Volume 84.1 fl (81-99); Mean Platelet Volume 10.8 fL (7.4-10.4); Monocytes # 0.5 10^3/uL (0.2-0.9); Monocytes % 8.1 %; Neutrophils # 4.84 10^3/uL (1.8-7.7); Nucleated Red Blood Cells % 0 %; Platelet Count 277 10^3/cmm (130-400); Red Cell Distribution Width 14.2 % (12.1-15.1); White Blood Count 6.6 10^3/uL (4.0-10.0)
[2022-06-22 17:41] LABS: Troponin(5th) Baseline 44 ng/L (0-10)
[2022-06-22 17:55] LABS: Alanine Aminotransferase 44 U/L (0-33); Albumin Level 3.9 g/dL (3.5-5.2); Alkaline Phosphatase 116 U/L (35-105); Anion Gap 14.9 (5-19); Aspartate Amino Transferase 62 U/L (0-32); Blood Urea Nitrogen 12 mg/dL (8-23); Calcium 8.8 mg/dL (8.5-10.5); Carbon Dioxide 32 mmol/L (22-29); Chloride 88 mmol/L (98-107); Glucose 160 mg/dL (65-115); NT Pro B Type Natriuretic Pept 8191 pg/mL (0-450); Osmolality Calculated 275 mOsm/kg (285-295); Potassium 3.9 mmol/L (3.5-5.1); Sodium 131 mmol/L (136-145); Total Bilirubin 0.5 mg/dL (0.15-1.2); Total Protein 6.9 g/dL (6.6-8.7)
[2022-06-22 18:00] LABS: ABG PCO2 76.7 mmHg (35-45)
--- NOTE | 2022-06-22 18:19 | USCV_ITS ---
Rosario Brock Age: 77 Gender: F : 1945 Exam Date: 06/22/2022 19:23 Ordering Phys: Barrera Salamanca MD Technologist: Juan Pinzon Exam Location: [facility] Indication: sob BP: 139 / 67 HR: 72 Rhythm: Sinus Technical Quality: Adequate MEASUREMENTS (Male / Female) Normal Values 2D ECHO LV Diastolic Diameter PLAX 5.0 cm 4.2 - 5.9 / 3.9 - 5.3 cm LV Systolic Diameter PLAX 4.1 cm IVS Diastolic Thickness 1.0 cm 0.6 - 1.0 / 0.6 - 0.9 cm IVS Systolic Thickness 1.1 cm LVPW Diastolic Thickness 0.9 cm 0.6 - 1.0 / 0.6 - 0.9 cm LVPW Systolic Thickness 1.2 cm LVOT Diameter 2.0 cm LV Ejection Fraction 2D Teich 36.1 % LV Ejection Fraction MOD 2C 40.5 % LV Ejection Fraction 2C AL 41.0 % LA Diameter 4.3 cm IVC Diameter 2.3 cm M-MODE Aortic Annulus Diameter 2.5 cm LA Ao Ratio MM 1.6 MV E Point Septal Separation 1.2 cm DOPPLER AV Peak Velocity 158.0 cm/s LVOT Peak Velocity 112.0 cm/s AV Area Cont Eq vti 2.3 cm squared AV Area Cont Eq pk 2.3 cm squared MV Peak Velocity 85.0 cm/s MV Area PHT 4.5 cm squared Mitral E to A Ratio 0.8 MV E' Velocity 42.0 cm/s Mitral E to MV E' Ratio 10.6 Mitral E to LV E' Lateral Ratio 10.4 Mitral E to LV E' Septal Ratio 11.1 TR Peak Velocity 312.0 cm/s TR Peak Gradient 38.9 mmHg TV Peak E Velocity 27.0 cm/s Right Atrial Pressure 3.0 mmHg Pulmonary Artery Systolic Pressu 41.9 mmHg PV Peak Velocity 78.0 cm/s FINDINGS Left Ventricle Left ventricle is mildly dilated. LV systolic function is normal with EF of 50 to 55%. No regional wall motion abnormalities are seen. Grade 1 diastolic dysfunction Right Ventricle Normal in size and function Right Atrium Normal in size Left Atrium Dilated Mitral Valve Structurally normal mitral valve. Mild mitral regurgitation. Aortic Valve Aortic valve is thickened. No significant stenosis or regurgitation. Tricuspid Valve Mild tricuspid regurgitation. Insufficient TR jet to calculate RVSP Pulmonic Valve Not well visualized. Pericardium Normal Aorta Normal in size IVC CONCLUSIONS LV systolic function is nromal with EF of 50-55% Grade 1 diastolic dysfunction Left atrium is dilated Mild mitral regurgitation Mild tricuspid regurgitation Compared to prior echocardiogram from 03/2022, no significant changes are seen Kaushik Adams MD (Electronically Signed) Final Date: 23 June 2022 11:45 S
--- NOTE | 2022-06-22 18:22 | USR_ITS ---
PROCEDURE INFORMATION: Exam: US Duplex Lower Extremity Veins, Bilateral Exam date and time: 06/22/2022 6:50 PM Age: 77 years old Clinical indication: Other: SOB; Additional info: Dvt TECHNIQUE: Imaging protocol: Real-time Duplex ultrasound of the bilateral extremities with 2-D lucas scale, color Doppler flow and spectral waveform analysis with image documentation. Complete exam focused on the bilateral lower extremity veins. COMPARISON: CT hip RT wo con* [id number] 12/17/2019 5:23 PM FINDINGS: Right deep veins: Unremarkable. The common femoral, femoral, proximal profunda femoral and popliteal veins are patent without thrombus. Normal Doppler waveforms. Normal compressibility and/or augmentation response. Right superficial veins: Saphenofemoral junction is patent without thrombus. Left deep veins: Unremarkable. The common femoral, femoral, proximal profunda femoral and popliteal veins are patent without thrombus. Normal Doppler waveforms. Normal compressibility and/or augmentation response. Left superficial veins: Saphenofemoral junction is patent without thrombus. Soft tissues: Unremarkable. US/CV venous duplex [facility] [id number] IMPRESSION: No evidence of deep vein thrombosis.
--- NOTE | 2022-06-22 18:22 | CTR_ITS ---
PROCEDURE INFORMATION: Exam: CTA Chest With Contrast Exam date and time: 06/22/2022 9:16 PM Age: 77 years old Clinical indication: Shortness of breath; Additional info: SOB TECHNIQUE: Imaging protocol: Computed tomographic angiography of the chest with contrast. 3D rendering (Not supervised by radiologist): MIP and/or 3D reconstructed images were created by the technologist. Radiation optimization: All CT scans at this facility use at least one of these dose optimization techniques: automated exposure control; mA and/or kV adjustment per patient size (includes targeted exams where dose is matched to clinical indication); or iterative reconstruction. Contrast material: OMNIPAQUE 350; Contrast volume: 82 ml; Contrast route: INTRAVENOUS (IV); COMPARISON: CT angio chest PE protcl [id number] 03/23/2022 3:49 PM RADIATION DOSE METRICS: Total DLP (mGy-cm): 136.6 FINDINGS: Pulmonary arteries: There is occlusion of a small pulmonary artery branch in the superior left upper lobe, consistent with a small embolus. The other branches appear clear. Aorta: Calcified proximal abdominal aorta measuring 3.4 cm. Lungs: Severe centrilobular emphysema. Posterior consolidation in the lower lobes, right greater than left. Mild airspace opacity in the posterior right upper lobe. Pleural spaces: Small right and trace left pleural effusions. Heart: Coronary artery calcifications. Mild cardiomegaly. The RV/LV ratio is 0.8. Lymph nodes: Unremarkable. No enlarged lymph nodes. Bones/joints: Mild anterior wedge compression fractures of T11 and T12. Thoracic curvature and degenerative changes. Soft tissues: Unremarkable. CT/CT angio chest PE protcl [id number] IMPRESSION: 1. Small pulmonary embolus in the left upper lobe. No evidence for elevated right heart pressure. 2. Dependent opacities in the lower lobes and right upper lobe most likely represents atelectasis. Pneumonia is not entirely excluded. 3. Small right and trace left pleural effusions.
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
[2022-06-22 18:50] LABS: Troponin 5 2HR 47.48 ng/L (0-10)
[2022-06-22 18:56] LABS: C Reactive Protein 9.8 mg/L (0.0-4.9); Ferritin 37 ng/mL (15-150); Iron 47 ug/dL (37-145); Percent Saturation 13.4 % (20-50); Total Iron Binding Capacity 349 mcg/dl; Unsaturated Iron Binding 302 ug/dL (112-347)
[2022-06-22 18:56] LABS: Troponin 5 2HR Delta 3.48 ABS# (0-10)
[2022-06-22 18:57] LABS: Iron 48 ug/dL (37-145)
[2022-06-22 19:03] LABS: Procalcitonin 0.05 ng/mL (0-0.5)
--- NOTE | 2022-06-22 19:47 | ECG_ITS ---
[facility] Test Date: 2022-06-22 Pat Name: Rosario Brock Department: Room: Gender: Female Online Activist: : 1945 Requested By: Chris Do Order Number: [id number] Joel MD: Kaushik Adams M.D. Measurements Intervals [place] Rate: 70 P: 0 [place]: 0 QRS: -66 QRSD: 109 T: 100 QT: 417 QTc: 452 Interpretive Statements SINUS RHYTHM WITH PACs LEFT AXIS DEVIATION [QRS AXIS < -30] INCOMPLETE RIGHT BUNDLE BRANCH BLOCK [90+ ms QRS DURATION, TERMINAL R IN V1/V2, 40+ ms S IN I/aVL/V4/V5/V6] VOLTAGE CRITERIA FOR LVH [MEETS CRITERIA IN ONE OF: R(aVL), S(V1), R(V5), R(V5/V6)+S(V1)] Compared to ECG 06/22/2022 16:45:34 Incomplete right bundle-branch block now present Ventricular premature complex(es) no longer present Aberrant conduction of supraventricular beat(s) no longer present T-wave abnormality no longer present Possible ischemia no longer present Myocardial infarct finding still present Electronically Signed On 06-25-2022 18:34:02 TELESCOPE OPERATOR by Kaushik Adams M.D. [id number]
[2022-06-22 20:18] LABS: Reticulocyte % 0.5 % (0.5-2.0)
[2022-06-22 20:46] LABS: Lactic Sepsis W/Reflex 1.8 mmol/L (0.5-2.2)
[2022-06-22] MEDS: iohexol 350 mg/mL 500 mL Btl (per mL) IV (21:19)
--- NOTE | 2022-06-22 21:55 | PC.NURSE ---
Report was initially called to CSU, NIRU Huerta. took patient to CT and warehouse picker came and advised patient was ICU admitted and needed to call report to ICU. Called report to NIRU Tate in ICU. Patient taken to ICU 2.
[2022-06-22] MEDS: dexmedeTOMIDine 0.9 % NaCL 400 MCG/100 ML PREMIX IV (22:23)
[2022-06-22] MEDS: heparin drip 25,000 UNIT/500 ML PREMIX 11 UNIT IV (22:29)
--- NOTE | 2022-06-22 22:34 | PC.NURSE ---
Pt arrived from ER via stretcher @6239, pt is refusing BIPAP and nasal canula, pulling at lines and attempting to get out of bed. Mulitple episodes of urinary incontinence. Dr. Sagastume notified. New order for dexmedetomidine and dhaliwal catheter.
--- NOTE | 2022-06-22 22:50 | PC.NURSE ---
approved holding PO Diltiazem. Unable to safely take BIPAP mask off at this time. Diltiazem drip running @5ml/hr. HR 73 A.fib
[2022-06-22] MEDS: doxycycline 100 MG in sodium chloride 0.9% (plus) 100 ML IV (23:00)
[2022-06-22] MEDS: FUROsemide 10 mg/mL SDV 4mL 40 MG IVP (23:00)
[2022-06-22] MEDS: heparin 5,000 unit/mL INJ 1 mL IV (23:01)
[2022-06-22 23:25] LABS: Troponin 5 6HR 43.18 ng/L (0-10); Troponin 5 6HR Delta -0.82 ng/L (0-12)
[2022-06-23] VITALS (45 sets, daily range): BP systolic 92–182; BP diastolic 46–104; PULSE 60–93; RESP 9–28; TEMP 36.8; O2SAT 88–100
--- NOTE | 2022-06-23 00:35 | PC.NURSE ---
Addendum entered by Lea Wolf RN 06/23/22 00:47: Noted @2300. 0 entered in error. Addendum entered by Lea Wolf RN 06/23/22 00:46: 06/22/22 @2199 Original Note: rhythm change from A.fib to SR. Current HR 67.
--- NOTE | 2022-06-23 04:24 | PC.NURSE ---
Pt expressed that they are upset about having to wear the BIPAP mask and that they do not feel like they were informed about what was going to happen to them. Pt was educated on how the BIPAP works, why it is important, and what treatment would look like without it. Pt is agreeable to leave the BIPAP on for a couple more hours . All of pts questions are answered at this time.
[2022-06-23 04:46] LABS: ABG PH Result 7.45 (7.35-7.45); Alveolar-Arterial Oxygen Gradi 12.2 mmHg (5-10); Arterial Blood Gas Hematocrit 36.6 % (37-47); Base Excess ABG 8.3 mmol/L (-2.0-2.0); Blood Gas Allen Test Pos; Blood Gas Operator Identificat JB; Blood Gas Sample Site Radial, right; Blood Gas Sample Type Arterial; Carboxyhemoglobin 1.8 %THgb (0.4-20.1); HCO3 ABG 33.6 mmol/L (22-26); HGB O2 Sat 96.5 % (95-100); Ionized Calcium Level - ABG 1.1 mmol/L (1.1-1.4); Methemoglobin 0.8 % (0.4-1.5); Oxygen Device BIPAP; Oxygen Saturation ABG 99.1; PO2 ABG 97.9 mmHg (80.0-100.0); Potassium Level - ABG 3.3 mmol/L (3.5-5.0); Total Hemoglobin 11.9 g/dL (12-16)
--- NOTE | 2022-06-23 05:17 | PC.NURSE ---
Addendum entered by Lea Wolf RN 06/23/22 05:42: New ptt results 61.1 Original Note: Critical ptt. Determined that stick was done in the same arm that the Heparin was in. Dr. Sagastume notified. New order for ptt redraw.
[2022-06-23 05:36] LABS: Partial Thromboplastin Time 61.1 SECONDS (23.9-36.7)
[2022-06-23] MEDS: budesonide 0.5 mg/2 mL Neb INHALATION ×2 (07:42→20:14)
[2022-06-23] MEDS: ipratropium-albuterol 3 mL Neb INHALATION ×4 (07:42→20:14)
[2022-06-23] MEDS: aspirin 81 mg EC Tablet PO (08:34)
[2022-06-23] MEDS: dilTIAZem 30 mg Tablet PO ×4 (08:34→21:33)
[2022-06-23] MEDS: pantoprazole DR 40 mg Tablet PO ×2 (08:34→17:02)
[2022-06-23] MEDS: atorvastatin 40 mg Tablet PO (08:34)
[2022-06-23] MEDS: FUROsemide 10 mg/mL SDV 4mL 40 MG IVP ×2 (08:35→21:33)
[2022-06-23] MEDS: doxycycline 100 MG in sodium chloride 0.9% (plus) 100 ML IV ×2 (09:05→21:33)
--- NOTE | 2022-06-23 13:19 | P.PN_ITS ---
Subjective Subjective: Patient was seen this morning, on BiPAP, following commands, shortness of breath has improved Vitals/I&O/Wt Last Vital Signs Temp 98.2 F 06/23/22 04:15 Pulse 70 06/23/22 12:00 Resp 12 06/23/22 12:00 BP 106/58 06/23/22 12:00 Pulse Ox 96 06/23/22 12:00 O2 Del Method 06/23/22 11:31 O2 Flow Rate 4 06/22/22 16:42 FiO2 35 06/23/22 11:31 06/22/22 06/23/22 06/23/22 22:59 06:59 14:59 Intake Total 139.034 / 139.034 700 / 700 Output Total 1999 Balance -1860.966 / -1860.966 700 / 700 Weight last 48 hrs Weight 39.916 kg Weight 40 kg Physical Exam Const: COMMON NORMALS: no acute distress and patient oriented x3 Resp: COMMON NORMALS: normal respiratory effort, No retractions, No use of accessory muscles and clear to auscultation bilaterally AUSCULTATION: clear to auscultation bilaterally Cardio: COMMON NORMALS: regular rate, regular rhythm, S1 normal heart sound present and S2 normal heart sound present RATE: regular rate RHYTHM: regular rhythm HEART SOUNDS: S1 normal heart sound present and S2 normal heart sound present GI: COMMON NORMALS: Normal to inspection, nondistended, normoactive bowel sounds present and non-tender Extremity: COMMON NORMALS: no pedal edema Neuro: COMMON NORMALS: patient oriented x3 Psych: COMMON NORMALS: mental status grossly normal Urinary Catheter Management: Ortega: Cath Placed During This Visit: yes Reason for Continuing Indwelling Catheter: Accurate Measurement of Urinary Output in Critically Ill Patients Urinary Catheter Date of Insertion: 06/22/22 Urinary Catheter Time of Insertion: 23:34 Data 06/22/22 16:45 06/22/22 16:45 Micro: Microbiology 06/22/22 19:45 Blood Culture - Preliminary Blood SPECIMEN COLLECTED 06/22/22 19:40 Blood Culture - Preliminary Blood SPECIMEN COLLECTED A&P Assessment and plan (1) Acute hypercapnic respiratory failure: (2) Congestive heart failure: (3) COPD (chronic obstructive pulmonary disease): (4) Atrial fibrillation with RVR: (5) History of pulmonary embolism: (6) O2 dependent: (7) Dyspnea: Plan Acute hypercarbic respiratory failure CT angiogram 1. Small pulmonary embolus in the left upper lobe.? No evidence for elevated right heart pressure. 2. Dependent opacities in the lower lobes and right upper lobe most likely represents atelectasis.? Pneumonia is not entirely excluded. 3. Small right and trace left pleural effusions. Plan -We will admit to ICU -Monitor respiratory status closely -Repeat ABG in the morning -blood cultures, sputum cultures -Continue doxycycline Continue Solu-Medrol -DuoNeb, budesonide -Lasix 40 IV twice daily -Heparin drip has a history of acute on chronic anemia, monitor iron studies -A. fib with RVR, switch to p.o. Cardizem -Cardiac echo -Heparin drip as above for pulmonary embolism -Full code -Heparin for DVT prophylaxis Attestations Medical Necessity Statement*: Requires hospitalization for A. 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
[2022-06-23] MEDS: dexmedeTOMIDine 0.9 % NaCL 400 MCG/100 ML PREMIX IV (14:55)
[2022-06-23 17:52] LABS: Partial Thromboplastin Time 53.1 SECONDS (23.9-36.7)
--- NOTE | 2022-06-23 18:44 | PC.NURSE ---
Patient refusing bipap, cusses at staff when it is put on, tolerating NC, uneventful shift
--- NOTE | 2022-06-23 21:51 | PC.NURSE ---
Patient educated on wearing bipap. Patient agreed to attempt to wear bipap. Bipap placed on patient at 2039. Precedex gtt titrated for anxiety. See mar for details. Patient became very anxious saying she could not wear bipap. Bipap removed by patient at 2119. Patient refusing to wear at this time.
[2022-06-24] VITALS (24 sets, daily range): BP systolic 104–162; BP diastolic 42–97; PULSE 59–110; RESP 8–43; TEMP 36.6–36.9; O2SAT 87–98
[2022-06-24 00:04] LABS: Partial Thromboplastin Time 62.4 SECONDS (23.9-36.7)
--- NOTE | 2022-06-24 00:26 | PC.NURSE ---
ptt 62.4 no change to heparin drip per protocol.
[2022-06-24 03:39] LABS: ABG PCO2 47.7 mmHg (35-45); ABG PH Result 7.45 (7.35-7.45); Arterial Blood Gas Hematocrit 35.9 % (37-47); Base Excess ABG 8.3 mmol/L (-2.0-2.0); Blood Gas Allen Test Pos; Blood Gas Sample Site Radial, right; Blood Gas Sample Type Arterial; HCO3 ABG 33.4 mmol/L (22-26); Oxygen Device NC; PO2 ABG 96.9 mmHg (80.0-100.0)
--- NOTE | 2022-06-24 04:00 | XRR_ITS ---
PROCEDURE INFORMATION: Exam: XR Chest Exam date and time: 06/24/2022 5:02 AM Age: 77 years old Clinical indication: Other: Aspiration; Additional info: Possible aspiration TECHNIQUE: Imaging protocol: Radiologic exam of the chest. Views: 1 view. COMPARISON: CR (CHEST, ) 06/22/2022 5:41 PM FINDINGS: Lungs: Normal lung volumes. No confluent interstitial or airspace opacities. Age-related interstitial prominence is seen in the lungs. Pleural spaces: No pleural effusion. No pneumothorax. Heart/Mediastinum: Normal heart size. Unchanged mildly tortuous thoracic aorta is seen. Aortopulmonic window region prominence is seen, suggestive of enlarged central pulmonary arteries. This was also seen on the recent chest CT. Midline trachea. Bones/joints: No acute abnormalities. Soft tissues: Multiple external densities are seen overlying the chest, limiting assessment. XR/XR chest 1V portable 11211 IMPRESSION: No confluent infiltrates in the lungs.
[2022-06-24 05:48] LABS: Basophils % 0.1 %; Hematocrit 36.8 % (37.0-47.0); Hemoglobin 11.8 g/dL (11.5-15.3); Lymphocytes # 0.3 10^3/uL (0.8-4.8); Lymphocytes % 3.7 %; Mean Corpuscular HGB Conc 32.1 g/dL (30.0-36.0); Mean Corpuscular Hemoglobin 26.2 pg (28.0-34.0); Mean Corpuscular Volume 81.8 fl (81-99); Mean Platelet Volume 10.9 fL (7.4-10.4); Monocytes # 0.3 10^3/uL (0.2-0.9); Monocytes % 3.9 %; Neutrophils # 7.71 10^3/uL (1.8-7.7); Neutrophils % 92.1 %; Nucleated Red Blood Cells % 0 %; Platelet Count 274 10^3/cmm (130-400); Red Cell Distribution Width 14.5 % (12.1-15.1); White Blood Count 8.4 10^3/uL (4.0-10.0)
[2022-06-24] MEDS: dexmedeTOMIDine 0.9 % NaCL 400 MCG/100 ML PREMIX IV (05:52)
[2022-06-24 06:01] LABS: Partial Thromboplastin Time 59.6 SECONDS (23.9-36.7)
[2022-06-24 06:04] LABS: Alanine Aminotransferase 29 U/L (0-33); Albumin Level 3.4 g/dL (3.5-5.2); Alkaline Phosphatase 99 U/L (35-105); Anion Gap 12.5 (5-19); Aspartate Amino Transferase 23 U/L (0-32); Blood Urea Nitrogen 25 mg/dL (8-23); Carbon Dioxide 34 mmol/L (22-29); Chloride 86 mmol/L (98-107); Globulin 3.1 g/dL (1.3-4.6); Glucose 117 mg/dL (65-115); Magnesium 1.7 mg/dL (1.7-2.3); Osmolality Calculated 273 mOsm/kg (285-295); Phosphorus 4.2 mg/dL (2.5-4.5); Potassium 3.5 mmol/L (3.5-5.1); Sodium 129 mmol/L (136-145); Total Bilirubin 0.3 mg/dL (0.15-1.2); Total Protein 6.5 g/dL (6.6-8.7)
[2022-06-24 07:11] LABS: NT Pro B Type Natriuretic Pept 2753 pg/mL (0-450)
[2022-06-24] MEDS: budesonide 0.5 mg/2 mL Neb INHALATION ×2 (07:55→20:40)
[2022-06-24] MEDS: ipratropium-albuterol 3 mL Neb INHALATION ×4 (07:55→20:40)
[2022-06-24] MEDS: FUROsemide 40 mg Tablet PO (08:08)
[2022-06-24] MEDS: atorvastatin 40 mg Tablet PO (08:45)
[2022-06-24] MEDS: aspirin 81 mg EC Tablet PO (08:45)
[2022-06-24] MEDS: pantoprazole DR 40 mg Tablet PO ×2 (08:45→17:36)
[2022-06-24] MEDS: apixaban 5 mg Tablet 10 MG PO ×2 (08:45→20:30)
[2022-06-24] MEDS: dilTIAZem 30 mg Tablet PO ×2 (08:45→20:30)
[2022-06-24] MEDS: doxycycline 100 mg Tablet PO ×2 (08:45→17:36)
[2022-06-24] MEDS: predniSONE 20 mg Tablet 40 MG PO (08:46)
[2022-06-24] MEDS: CLONazepam 0.5 mg Tablet 0.25 MG PO (09:15)
--- NOTE | 2022-06-24 09:32 | PC.NURSE ---
Report called to second floor room 279-2, nurse Laura. Patient currently having her morning meal will transfer after meal is completed.
--- NOTE | 2022-06-24 09:59 | PC.NURSE ---
Patient transferred to second floor room 279-1. Patient belongings at bedside. Patient resting in bed on 2L NC, watching TV. Patient chart and antibiotic from med box left with staff at front desk lead.
[2022-06-24 11:58] LABS: Partial Thromboplastin Time 30.8 SECONDS (23.9-36.7)
--- NOTE | 2022-06-24 12:05 | PC.NURSE ---
PT BEHAVIOR: Pt was heard from the hallway yelling for help. This nurse went to check on pt. Pt has home inhaler in hand and was demanding to leave. When this nurse attempted to educate pt on not having home meds at bedside, pt smacked this nurse's hand and shouted, That's mine! I want out of here now! Charge nurse notified.
--- NOTE | 2022-06-24 15:39 | PC.NURSE ---
nurse was notified about low blood pressure
--- NOTE | 2022-06-24 15:55 | P.PN_ITS ---
Subjective Subjective: Patient was seen this morning, she tells me that she continues to feel weak, she would like to try something more substantial to eat Vitals/I&O/Wt Last Vital Signs Temp 98.1 F 06/24/22 15:37 Pulse 77 06/24/22 15:37 Resp 20 H 06/24/22 15:37 BP 104/50 06/24/22 15:37 Pulse Ox 96 06/24/22 15:37 O2 Del Method 06/24/22 15:37 O2 Flow Rate 2 06/24/22 15:37 FiO2 35 06/23/22 11:31 06/24/22 06/24/22 06/24/22 06:59 14:59 22:59 Intake Total 709.133 / 2173.034 1182.216 / 1182.216 Output Total 1400 / 1825 700 / 700 Balance -690.867 / 348.034 482.216 / 482.216 Weight last 48 hrs Weight 44 kg Weight 39.916 kg Weight 40 kg Physical Exam Const: COMMON NORMALS: no acute distress and patient oriented x3 Resp: COMMON NORMALS: normal respiratory effort, No retractions, No use of accessory muscles and clear to auscultation bilaterally AUSCULTATION: clear to auscultation bilaterally Cardio: COMMON NORMALS: regular rate, regular rhythm, S1 normal heart sound present and S2 normal heart sound present RATE: regular rate RHYTHM: regular rhythm HEART SOUNDS: S1 normal heart sound present and S2 normal heart sound present GI: COMMON NORMALS: Normal to inspection, nondistended, normoactive bowel sounds present and non-tender Extremity: COMMON NORMALS: no pedal edema Neuro: COMMON NORMALS: patient oriented x3 Psych: COMMON NORMALS: mental status grossly normal Urinary Catheter Management: Ortega: Cath Placed During This Visit: yes Reason for Continuing Indwelling Catheter: Accurate Measurement of Urinary Output in Critically Ill Patients Urinary Catheter Date of Insertion: 06/22/22 Urinary Catheter Time of Insertion: 23:34 Data 06/24/22 05:30 06/24/22 05:30 Micro: Microbiology 06/22/22 19:40 Blood Culture - Preliminary Blood NEGATIVE TO DATE 06/22/22 19:45 Blood Culture - Preliminary Blood NEGATIVE TO DATE A&P Assessment and plan (1) Acute hypercapnic respiratory failure: (2) Congestive heart failure: (3) COPD (chronic obstructive pulmonary disease): (4) Atrial fibrillation with RVR: (5) History of pulmonary embolism: (6) O2 dependent: (7) Dyspnea: Plan Acute hypercarbic respiratory failure CT angiogram 1. Small pulmonary embolus in the left upper lobe.? No evidence for elevated right heart pressure. 2. Dependent opacities in the lower lobes and right upper lobe most likely represents atelectasis.? Pneumonia is not entirely excluded. 3. Small right and trace left pleural effusions. Plan -Moved to general medical floors -Monitor respiratory status closely -Monitor respiratory status closely -blood cultures, sputum cultures -Continue doxycycline Continue Solu-Medrol -DuoNeb, budesonide -Switch to Lasix 40 p.o. daily -Switch to Eliquis -A. fib with RVR, switch to p.o. 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
[2022-06-24] MEDS: acetaminophen 325 mg Tablet 650 MG PO (17:36)
[2022-06-25] VITALS (11 sets, daily range): BP systolic 139–168; BP diastolic 72–85; PULSE 66–95; RESP 16–20; TEMP 36.7–37.2; O2SAT 86–98; BMI 16.6
[2022-06-25 03:34] LABS: Hemoglobin 10.9 g/dL (11.5-15.3); Lymphocytes # 0.5 10^3/uL (0.8-4.8); Lymphocytes % 5.2 %; Mean Corpuscular HGB Conc 32.1 g/dL (30.0-36.0); Mean Corpuscular Volume 81.1 fl (81-99); Mean Platelet Volume 11.3 fL (7.4-10.4); Monocytes # 0.9 10^3/uL (0.2-0.9); Monocytes % 9.9 %; Neutrophils # 7.39 10^3/uL (1.8-7.7); Neutrophils % 84.6 %; Nucleated Red Blood Cells % 0 %; Platelet Count 263 10^3/cmm (130-400); Red Blood Count 4.19 10^6/uL (4.1-5.3); Red Cell Distribution Width 14.7 % (12.1-15.1); White Blood Count 8.7 10^3/uL (4.0-10.0)
[2022-06-25 04:08] LABS: Alanine Aminotransferase 24 U/L (0-33); Albumin Level 3.1 g/dL (3.5-5.2); Alkaline Phosphatase 82 U/L (35-105); Anion Gap 11.3 (5-19); Aspartate Amino Transferase 17 U/L (0-32); Blood Urea Nitrogen 34 mg/dL (8-23); Carbon Dioxide 35 mmol/L (22-29); Chloride 91 mmol/L (98-107); Globulin 2.7 g/dL (1.3-4.6); Glucose 104 mg/dL (65-115); Magnesium 1.7 mg/dL (1.7-2.3); NT Pro B Type Natriuretic Pept 3621 pg/mL (0-450); Osmolality Calculated 286 mOsm/kg (285-295); Phosphorus 3.8 mg/dL (2.5-4.5); Potassium 3.3 mmol/L (3.5-5.1); Sodium 134 mmol/L (136-145); Total Bilirubin 0.3 mg/dL (0.15-1.2); Total Protein 5.8 g/dL (6.6-8.7)
[2022-06-25] MEDS: lanolin oint 7 gm 1 APPLIC TOPICAL (05:52)
[2022-06-25] MEDS: budesonide 0.5 mg/2 mL Neb INHALATION ×2 (07:36→19:59)
[2022-06-25] MEDS: ipratropium-albuterol 3 mL Neb INHALATION ×4 (07:36→19:59)
[2022-06-25] MEDS: dilTIAZem 30 mg Tablet PO ×4 (08:24→20:40)
[2022-06-25] MEDS: predniSONE 20 mg Tablet 40 MG PO (08:25)
[2022-06-25] MEDS: doxycycline 100 mg Tablet PO ×2 (08:25→17:47)
[2022-06-25] MEDS: aspirin 81 mg EC Tablet PO (08:25)
[2022-06-25] MEDS: FUROsemide 40 mg Tablet PO (08:25)
[2022-06-25] MEDS: atorvastatin 40 mg Tablet PO (08:25)
[2022-06-25] MEDS: apixaban 5 mg Tablet 10 MG PO ×2 (08:25→20:40)
[2022-06-25] MEDS: pantoprazole DR 40 mg Tablet PO ×2 (08:25→17:47)
[2022-06-25] MEDS: guaiFENesin 600 mg Tablet PO ×2 (09:33→17:47)
[2022-06-25] MEDS: potassium chloride ER 20 mEq Tablet 40 MEQ PO (09:33)
--- NOTE | 2022-06-25 12:07 | PM.PN ---
Subjective Subjective: Patient was seen this morning, she continues to complain of fatigue, weakness, she has a lot of congestion Vitals/I&O/Wt Last Vital Signs Temp 98.4 F 06/25/22 11:56 Pulse 92 06/25/22 11:56 Resp 16 06/25/22 11:56 BP 154/76 06/25/22 11:56 Pulse Ox 94 06/25/22 11:56 O2 Del Method 06/25/22 11:56 O2 Flow Rate 2 06/25/22 11:56 FiO2 35 06/23/22 11:31 06/24/22 06/25/22 06/25/22 22:59 06:59 14:59 Intake Total 480 / 1662.216 150 / 1812.216 240 / 240 Output Total 575 / 1275 Balance -95 / 387.216 150 / 537.216 240 / 240 Weight last 48 hrs Weight 44 kg Weight 44 kg Physical Exam Const: COMMON NORMALS: no acute distress and patient oriented x3 Resp: COMMON NORMALS: normal respiratory effort, No retractions, No use of accessory muscles and clear to auscultation bilaterally AUSCULTATION: clear to auscultation bilaterally, rales and wheezes Cardio: COMMON NORMALS: regular rate, regular rhythm, S1 normal heart sound present and S2 normal heart sound present RATE: regular rate RHYTHM: regular rhythm HEART SOUNDS: S1 normal heart sound present and S2 normal heart sound present GI: COMMON NORMALS: Normal to inspection, nondistended, normoactive bowel sounds present and non-tender Extremity: COMMON NORMALS: no pedal edema Neuro: COMMON NORMALS: patient oriented x3 Psych: COMMON NORMALS: mental status grossly normal Urinary Catheter Management: Ortega: Cath Placed During This Visit: yes Reason for Continuing Indwelling Catheter: Other Urinary Catheter Date of Insertion: 06/22/22 Urinary Catheter Time of Insertion: 23:34 Data 06/25/22 02:40 06/25/22 02:40 A&P Assessment and plan (1) Acute hypercapnic respiratory failure: (2) Congestive heart failure: (3) COPD (chronic obstructive pulmonary disease): (4) Atrial fibrillation with RVR: (5) History of pulmonary embolism: (6) O2 dependent: (7) Dyspnea: Plan Acute hypercarbic respiratory failure CT angiogram 1. Small pulmonary embolus in the left upper lobe.? No evidence for elevated right heart pressure. 2. Dependent opacities in the lower lobes and right upper lobe most likely represents atelectasis.? Pneumonia is not entirely excluded. 3. Small right and trace left pleural effusions. Plan -Moved to general medical floors -Monitor respiratory status closely -blood cultures, sputum cultures -Continue doxycycline Continue Solu-Medrol -DuoNeb, budesonide -Switch to Lasix 40 p.o. daily -Switch to Eliquis -A. fib with RVR, on p.o. 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
[2022-06-26] VITALS (27 sets, daily range): BP systolic 104–151; BP diastolic 52–71; PULSE 60–104; RESP 10–21; TEMP 36.4–36.8; O2SAT 93–99
[2022-06-26 06:19] LABS: Hematocrit 31.1 % (37.0-47.0); Hemoglobin 9.8 g/dL (11.5-15.3); Lymphocytes # 1.1 10^3/uL (0.8-4.8); Lymphocytes % 13.7 %; Mean Corpuscular HGB Conc 31.5 g/dL (30.0-36.0); Mean Corpuscular Hemoglobin 26.1 pg (28.0-34.0); Mean Corpuscular Volume 82.9 fl (81-99); Mean Platelet Volume 11.4 fL (7.4-10.4); Monocytes % 12.7 %; Neutrophils # 5.67 10^3/uL (1.8-7.7); Neutrophils % 73.3 %; Nucleated Red Blood Cells % 0 %; Platelet Count 261 10^3/cmm (130-400); Red Blood Count 3.75 10^6/uL (4.1-5.3); Red Cell Distribution Width 14.7 % (12.1-15.1); White Blood Count 7.7 10^3/uL (4.0-10.0)
[2022-06-26 06:47] LABS: Alanine Aminotransferase 20 U/L (0-33); Albumin Level 3.1 g/dL (3.5-5.2); Alkaline Phosphatase 71 U/L (35-105); Aspartate Amino Transferase 16 U/L (0-32); Blood Urea Nitrogen 35 mg/dL (8-23); Calcium 8.8 mg/dL (8.5-10.5); Carbon Dioxide 34 mmol/L (22-29); Chloride 93 mmol/L (98-107); Globulin 2.4 g/dL (1.3-4.6); Glucose 83 mg/dL (65-115); Magnesium 1.8 mg/dL (1.7-2.3); NT Pro B Type Natriuretic Pept 3533 pg/mL (0-450); Osmolality Calculated 291 mOsm/kg (285-295); Sodium 137 mmol/L (136-145); Total Bilirubin 0.3 mg/dL (0.15-1.2); Total Protein 5.5 g/dL (6.6-8.7)
[2022-06-26] MEDS: apixaban 5 mg Tablet 10 MG PO (08:37)
[2022-06-26] MEDS: predniSONE 20 mg Tablet 40 MG PO (08:37)
[2022-06-26] MEDS: pantoprazole DR 40 mg Tablet PO ×2 (08:37→16:52)
[2022-06-26] MEDS: dilTIAZem 30 mg Tablet PO ×4 (08:37→21:13)
[2022-06-26] MEDS: guaiFENesin 600 mg Tablet PO ×2 (08:38→16:52)
[2022-06-26] MEDS: aspirin 81 mg EC Tablet PO (08:38)
[2022-06-26] MEDS: FUROsemide 40 mg Tablet PO (08:38)
[2022-06-26] MEDS: doxycycline 100 mg Tablet PO ×2 (08:38→16:51)
[2022-06-26] MEDS: atorvastatin 40 mg Tablet PO (08:38)
[2022-06-26] MEDS: budesonide 0.5 mg/2 mL Neb INHALATION (08:52)
[2022-06-26] MEDS: ipratropium-albuterol 3 mL Neb INHALATION ×2 (08:52→11:49)
--- NOTE | 2022-06-26 13:21 | P.PN_ITS ---
Subjective Subjective: Patient was seen this morning, she continues to complain of weakness, fatigue, tiredness, shortness of breath is improving Patient had 1 episode of bloody stool, her hemoglobin 9.8, hemodynamically stable, Eliquis held Vitals/I&O/Wt Last Vital Signs Temp 97.6 F 06/26/22 11:35 Pulse 86 06/26/22 11:51 Resp 18 06/26/22 11:51 BP 151/69 06/26/22 11:35 Pulse Ox 98 06/26/22 11:51 O2 Del Method 06/26/22 11:51 O2 Flow Rate 2 06/26/22 11:51 FiO2 35 06/23/22 11:31 06/25/22 06/26/22 06/26/22 22:59 06:59 14:59 Intake Total 480 / 960 480 / 480 Output Total 2400 / 2400 550 / 2950 Balance -1920 / -1440 -550 / -1989 480 / 480 Weight last 48 hrs Weight 39.916 kg Weight 44 kg Physical Exam Const: COMMON NORMALS: no acute distress and patient oriented x3 Resp: COMMON NORMALS: normal respiratory effort, No retractions, No use of accessory muscles and clear to auscultation bilaterally AUSCULTATION: clear to auscultation bilaterally Cardio: COMMON NORMALS: regular rate, regular rhythm, S1 normal heart sound present and S2 normal heart sound present RATE: regular rate RHYTHM: regular rhythm HEART SOUNDS: S1 normal heart sound present and S2 normal heart sound present GI: COMMON NORMALS: Normal to inspection, nondistended, normoactive bowel sounds present and non-tender Extremity: COMMON NORMALS: no pedal edema Neuro: COMMON NORMALS: patient oriented x3 Psych: COMMON NORMALS: mental status grossly normal Urinary Catheter Management: Ortega: Cath Placed During This Visit: yes Reason for Continuing Indwelling Catheter: Accurate Measurement of Urinary Output in Critically Ill Patients Urinary Catheter Date of Insertion: 06/22/22 Urinary Catheter Time of Insertion: 23:34 Data 06/26/22 06:00 06/26/22 06:00 A&P Assessment and plan (1) Acute hypercapnic respiratory failure: (2) Congestive heart failure: (3) COPD (chronic obstructive pulmonary disease): (4) Atrial fibrillation with RVR: (5) History of pulmonary embolism: (6) O2 dependent: (7) Dyspnea: Plan Acute hypercarbic respiratory failure CT angiogram 1. Small pulmonary embolus in the left upper lobe.? No evidence for elevated right heart pressure. 2. Dependent opacities in the lower lobes and right upper lobe most likely represents atelectasis.? Pneumonia is not entirely excluded. 3. Small right and trace left pleural effusions. Plan -Moved to general medical floors -Monitor respiratory status closely -blood cultures, sputum cultures -Continue doxycycline Continue prednisone -DuoNeb, budesonide -Switch to Lasix 40 p.o. daily -Episode of bloody stool hemoglobin down to 9.8, iron studies, Hemoccult stool, hold Eliquis monitor hemodynamics monitor hemoglobin -A. fib with RVR, on p.o. 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
[2022-06-26 14:03] LABS: Hematocrit 30.7 % (37.0-47.0); Hemoglobin 9.8 g/dL (11.5-15.3); Lymphocytes # 0.3 10^3/uL (0.8-4.8); Mean Corpuscular HGB Conc 31.9 g/dL (30.0-36.0); Mean Corpuscular Hemoglobin 26.3 pg (28.0-34.0); Mean Corpuscular Volume 82.5 fl (81-99); Mean Platelet Volume 10.7 fL (7.4-10.4); Monocytes # 0.5 10^3/uL (0.2-0.9); Monocytes % 4.6 %; Neutrophils # 9.12 10^3/uL (1.8-7.7); Neutrophils % 92.1 %; Nucleated Red Blood Cells % 0 %; Platelet Count 256 10^3/cmm (130-400); Red Blood Count 3.72 10^6/uL (4.1-5.3); Red Cell Distribution Width 14.8 % (12.1-15.1); White Blood Count 9.9 10^3/uL (4.0-10.0)
[2022-06-26] MEDS: spironolactone 25 mg Tablet PO (15:20)
[2022-06-26] MEDS: CLONazepam 0.5 mg Tablet 0.25 MG PO (15:22)
[2022-06-26] MEDS: sucralfate 1 gm Tablet PO (16:51)
[2022-06-26 20:11] LABS: Hematocrit 30.9 % (37.0-47.0); Hemoglobin 9.8 g/dL (11.5-15.3); Lymphocytes # 0.2 10^3/uL (0.8-4.8); Lymphocytes % 3.3 %; Mean Corpuscular HGB Conc 31.7 g/dL (30.0-36.0); Mean Corpuscular Hemoglobin 26.4 pg (28.0-34.0); Mean Corpuscular Volume 83.3 fl (81-99); Mean Platelet Volume 11.1 fL (7.4-10.4); Monocytes # 0.3 10^3/uL (0.2-0.9); Neutrophils # 6.24 10^3/uL (1.8-7.7); Neutrophils % 92.4 %; Nucleated Red Blood Cells % 0 %; Platelet Count 255 10^3/cmm (130-400); Red Blood Count 3.71 10^6/uL (4.1-5.3); Red Cell Distribution Width 14.5 % (12.1-15.1); White Blood Count 6.8 10^3/uL (4.0-10.0)
[2022-06-27] VITALS (39 sets, daily range): BP systolic 99–157; BP diastolic 66–115; PULSE 64–98; RESP 2–34; TEMP 36.6–37.1; O2SAT 92–97; BMI 15.0
[2022-06-27] MEDS: sucralfate 1 gm Tablet PO (05:16)
[2022-06-27 05:42] LABS: Hematocrit 29.9 % (37.0-47.0); Hemoglobin 9.3 g/dL (11.5-15.3); Lymphocytes # 0.8 10^3/uL (0.8-4.8); Lymphocytes % 10.4 %; Mean Corpuscular HGB Conc 31.1 g/dL (30.0-36.0); Mean Corpuscular Hemoglobin 26.5 pg (28.0-34.0); Mean Corpuscular Volume 85.2 fl (81-99); Mean Platelet Volume 11.1 fL (7.4-10.4); Monocytes # 0.9 10^3/uL (0.2-0.9); Monocytes % 11.9 %; Neutrophils # 5.68 10^3/uL (1.8-7.7); Neutrophils % 77.4 %; Nucleated Red Blood Cells % 0 %; Platelet Count 247 10^3/cmm (130-400); Red Blood Count 3.51 10^6/uL (4.1-5.3); Red Cell Distribution Width 14.7 % (12.1-15.1); White Blood Count 7.3 10^3/uL (4.0-10.0)
[2022-06-27 05:59] LABS: Alanine Aminotransferase 17 U/L (0-33); Albumin Level 3.1 g/dL (3.5-5.2); Alkaline Phosphatase 68 U/L (35-105); Anion Gap 11.1 (5-19); Aspartate Amino Transferase 11 U/L (0-32); Blood Urea Nitrogen 43 mg/dL (8-23); Calcium 8.8 mg/dL (8.5-10.5); Carbon Dioxide 35 mmol/L (22-29); Chloride 95 mmol/L (98-107); Globulin 2.3 g/dL (1.3-4.6); Glucose 98 mg/dL (65-115); Magnesium 1.9 mg/dL (1.7-2.3); Osmolality Calculated 295 mOsm/kg (285-295); Potassium 4.1 mmol/L (3.5-5.1); Sodium 137 mmol/L (136-145); Total Bilirubin 0.2 mg/dL (0.15-1.2); Total Protein 5.4 g/dL (6.6-8.7)
--- NOTE | 2022-06-27 08:39 | PC.SOCIAL ---
IMM update IMM updated with patient. Verbalized an understanding. Copy Pg 2 provided. Initialled, dated, timed, and placed in chart.
[2022-06-27] MEDS: spironolactone 25 mg Tablet PO (08:45)
[2022-06-27] MEDS: guaiFENesin 600 mg Tablet PO (08:45)
[2022-06-27] MEDS: atorvastatin 40 mg Tablet PO (08:45)
[2022-06-27] MEDS: aspirin 81 mg EC Tablet PO (08:45)
[2022-06-27] MEDS: doxycycline 100 mg Tablet PO (08:45)
[2022-06-27] MEDS: FUROsemide 40 mg Tablet PO (08:45)
[2022-06-27] MEDS: dilTIAZem 30 mg Tablet PO ×2 (08:45→16:18)
[2022-06-27] MEDS: pantoprazole DR 40 mg Tablet PO (08:45)
[2022-06-27] MEDS: predniSONE 20 mg Tablet 40 MG PO (08:49)
[2022-06-27] MEDS: budesonide 0.5 mg/2 mL Neb INHALATION (08:51)
[2022-06-27] MEDS: ipratropium-albuterol 3 mL Neb INHALATION ×3 (08:51→16:02)
--- NOTE | 2022-06-27 10:01 | XACV_ITS ---
Exam Room: [facility] Ht: 163 cm Wt: 40 kg BSA: 1.33 m2 Gender: Female : 1945 Any Known Allergies: Other Exam Priority: Routine Procedure(s): Procedure Description: Diagnostic procedure Procedure Description: Peripheral vascular Intervention Procedure Description: PV IVC Filter Placement Procedure Description: Miscellaneous Abdominal Interventional Findings INDICATION: 77 year old female who has been found to have pulmonary embolism. No DVT was found. She was started on anticoagulation with Eliquis however hemoglobin dropped and she has been having bloody stools. Eliquis had to be stopped. Plan for IVC filter placement as patient can not be on anticoagulation currently. PROCEDURE DETAIL: We obtained access in the right common femoral vein using ultrasound guidance. 6 Fr sheath was inserted and using pigtail catheter, we obtained IVC venogram. Renal veins were identified. We then placed Cook Neel Tulip IVC filter. Filter sheath was removed and pressure was held to obtain hemostasis. 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 Conclusions Successful deployment of IVC filter. Recommendations Transfer back to CSU. GI work up to assess source of GI bleed per primary team. Clinical Evaluation EBL: 5mL-10mL Procedural Details Procedure Consent Obtained. Pre-Procedure Time Out. Identified patient by full name and date of as verbalized by the patient/guarantor. Does the consent match the physician's order: Yes. Accurate & Complete Informed Consent: Yes. Inpatient/Outpatient History & Physical on Chart: Yes. If H&P is completed, is and addenduem needed: No; If yes, is the addendum complete: N/A. Visualize and Verify Site with Patient/Guarantor: N/A. Relevant Radiology Images available: Yes. The risks, benefits, and alternatives of sedation and/or procedure were discussed by physician. The patient agrees to continue. Procedure started. Correct patient, site and procedure confirmed by cath team. Current diagnosis: PE. PERRLA. 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 Lungs clear x 5 lobes. IV Site on Arrival: 20 gauge in the right anticubital. Pre Procedural Pulses: bilateral radial was 2+. Oxygen started at 2liters/min via nasal canula. bilateral groins was prepped with chloroprep then draped in the usual sterile fashion. Physician notified. Physician arrived. Dr. Foreign webb and the patient tried to call her and could not get ahold of him. Equipment: 6F - Femoral. Cardiac Cath Pack. ACIST Manifold Kit Model BT 2000. Heparinized Saline (2 units/mL), 1000 mL bag. Kit, Micropuncture. Baseline sample Acquired. HR: 122 BPM. A 16Fr dhaliwal catheter was in place on arrival to the labor supervisor. Bag to gravity with clear urine returning. Physician scrubbed in. Immediate Pre-Procedure Time Out. Correct Patient: Yes; Correct Procedure: Yes; Correct Site: Yes; Correct Patient Position: Yes; Correct Supplies: Yes; Dried Flammable Prep: Yes; Blood Products Available: N/A;. Lidocaine 1% infiltrated to the right groin. Venous access obtained with a micropuncture set using ultrasound guidance. Exchange J wire in through the micro dilator. Micro dilator out. A 5 bahamian Angled Pig catheter in over the exchange J wire. Venogram performed of the IVC in AP @ 10 mL/second for a total of 30 mL. Hand injection of the IVC performed. Catheter removed over the exchange J wire. Lidocaine 1% infiltrated to the right groin. Sheath upsized to a 7 Fr. 7Fr. Cook dilator and wire out. IVC filter in through the 7 Fr. sheath and deployed. A Manual Compression was successful obtaining hemostatsis at the Right Femoral vein insertion site. Dr. Adams scrubbed out. Sheath(s) removed and manual pressure held until hemostasis was achieved. Sterile 4x4 and Op-site applied to the puncture site. No oozing or hematoma noted. Post sheath removal instructions were given and the patient verbalized understanding. PERRLA. 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 No VTE prophylaxis required. Medication's Wasted: Heparin = 1000 units. Medication's Wasted: Other = Fentanyl 87.5 mcg. Vital chart was stopped. Post Procedure: bilateral dorsalis pedis pulse 3+. Post Procedure: bilateral posterior tibial pulse 3+. Post-op diagnosis: S/P IVC filter insertion. Complications: none. Estimated blood loss: 5mL-10mL. Responsiveness - Normal response to verbal stimuli; alert and oriented, PERRLA. Airway - Unaffected, no intervention required; spontaneous ventilation. Circulation: W/N/L, pulses unchanged. Nausea/Vomiting: No. Patient transferred by bed to 1st floor. Access Site Site: Right Femoral vein Sheath Size: 6 Fr Hemostasis Method: Manual Compression Hemostasis Success: Successful Procedure Medications Start: 10:57 AM Stop: 10:57 AM Medication: Fentanyl Amount: 12.5 mg Route: I.V. I, the attending physician, have reviewed and verified all procedure medications. Yes, all medications given per verbal order History/Risk Factors Hypertension: Yes Dyslipidemia: Yes Peripheral Arterial Disease (PAD): No Myocardial Infarction (AL): Yes Obesity: No Renal Disease: No Tobacco Use: Current/Recent(w/in 1 year) Prior Interventions PCI: No CABG: No Valve Surgery: No Report Signatures Finalized by Kaushik Adams MD on 07/10/2022 05:36 PM
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
--- NOTE | 2022-06-27 10:22 | PC.CHAP ---
Pastoral Care Encounter/Spiritual Assessment Type of Contact [] Declined cover marker visit [] Patient/Family/Request visit [] Outpatient visit [] Follow-up visit [] Physician referral [] Code/Alert [x] Routine visit [x] Staff referral [] Actively dying [] Patient sleeping [] Family support [] [] Out of room [] Palliative care [] [] Receiving care in room [] Pre-surgical visit [] Trauma [] Long length of stay [] ICU visit [] Other: Relational/Emotional Strength [] Patient feels connected with others/family/visitors/staff [] Distress [] Loneliness/isolation [] Abandonment Spirituality of Patient []x Person of Tresa [] Attends Judaism of their Tresa [x] Believes in Prayer [] Reads Bible or Confucianism materials [] There are Spiritual issues to be addressed Booster Pump Operator Interventions [x] Prayer [x] Active listening [x] Non-anxious presence [x] Spiritual/emotional support [] Crisis/trauma care [] Spiritual counseling [] Bereavement support [] Provided bereavement packet [] Provided Bible/devotional materials [] Provided toy/stuffed animal, coloring book to patient or family member [] Provided Communion [] Anointing/[place] [] Salvation [x] Completed spiritual assessment [] Other: Impact on Illness or Injury [] Angry [] Fearful [] Anxious [] Often cries [] Exhaustion [] Unable to work [] Unable to attend anabaptist [] Unable to walk/stand [] Unable to read [] Unable to drive [] Unable to eat/drink [] Unable to sleep [] Unable to be with family [] Patient intubated [] Other: Summary Time spent with patient 10 min
--- NOTE | 2022-06-27 10:27 | W.PM.OPSUD ---
Surgery/Procedure H&P Update DATE OF PROCEDURE: June 27, 2022 DATE H&P PERFORMED: 06/27/22 PREOP DIAGNOSIS: Pulmonary embolism/ GI bleeding PRIMARY INDICATION FOR PROCEDURE: Pulmonary embolism PLANNED PROCEDURE: IVC filter placement PATIENT REASSESSED PRIOR TO SEDATION, WITH NO CHANGE NOTED: Yes PHYSICAL EXAM: alert and oriented x 3 OTHER PERTINENT EXAM FINDINGS: Decreased breath sounds. Irregularly irregular heart rhythm AIRWAY EVAL/ANESTHESIA PLAN: normal airway, ASA IV, Local Anesthesia, Risks, benefits & alternatives of sedation and/or procedure discussed and Patient agrees to continue as planned ADDITIONAL INFORMATION: Moderate sedation
--- NOTE | 2022-06-27 10:37 | PC.NURSE ---
Patient to prestressed concrete laborer for procedure, report called to NIRU Truong in ICU.
--- NOTE | 2022-06-27 11:07 | PM.PROC ---
Procedure Note: Date of procedure: 06/27/22 Pre-procedure diagnosis: Pulmonary embolism/ GI bleed Post-procedure diagnosis: same Procedure: IVC filter placement: We obtained access in the right common femoral vein using ultrasound guidance. 6 Fr sheath was inserted and using pigtail catheter, we obtained IVC venogram. Renal veins were identified. We then placed [place] IVC filter. Filter sheath was removed and pressure was held to obtain hemostasis. Patient left the coreroom foundry laborer in a stable condition Performing Provider: Kaushik Adams Estimated blood loss (mL): 5 Complications: None Condition: stable Disposition: floor (Cardiac stepdown unit) Coding Level of Care Code Acute Display Screen Fabricator for Payam Wilkinson
--- NOTE | 2022-06-27 11:14 | PM.DCS ---
Discharge Providers Date of Admission: 06/22/22 17:56 Date of Discharge: June 27, 2022 Attending Provider at Admission: Barrera Salamanca MD Attending Provider at Discharge: Barrera Salamanca MD Primary Care Provider: Candie Brock MD Diagnoses at Discharge Discharge Diagnosis (1) Pulmonary embolism: Status: Acute (2) Atrial fibrillation: Status: Acute (3) Dyspnea: Status: Acute Reason for Visit Reason for Visit: respiratory distress Hospital Course Hospital Course Rosario Brock is a 77 year old female with a past medical history COPD 2 L oxygen dependent, systolic and diastolic CHF, history of pulmonary embolism, history of positive stress test, hypertension, hyperlipidemia, chronic anemia who presents [facility] due to shortness of breath.? Patient was admitted to [facility] for acute hypercapnic respiratory failure secondary to COPD and CHF exacerbation systolic and diastolic. She received ICU care, receiving BiPAP therapy, broad-spectrum antibiotic therapy, steroid therapy, and clinically monitored. Patient overall clinically improved, discharged home with a prednisone burst, her home Lasix therapy, doxycycline with close follow-up with pulmonary as outpatient. Patient was advised to stop smoking Patient was also found to have a small pulmonary embolus of the left upper lobe, she has a history of pulmonary embolisms, back in March she had pulmonary embolisms of bilateral lower lobes. She is not on anticoagulation, she was managed with heparin drip initially due to concerns for bleeding however hemoglobin remained stable she was switched over to Eliquis. However after 24 hours of Eliquis therapy, she developed bloody stools with a hemoglobin dropped to 9.3, no hemodynamic compromise. It seems like a slow low GI bleed,. Her venous ultrasounds were negative for DVT. After discussing the risks and benefits of IVC filter placement, she voiced understanding, all questions answered, agreed to proceed. I was clear with her that the IVC filter will not prevent her from developing recurrent DVTs, but will decrease the risk of her developing a embolic DVT resulting in a pulmonary embolism. Decrease morbidity mentality associated. She had IVC filter placed, tolerated procedure well. Patient also had atrial fibrillation on hospital admission, managed with Cardizem drip, transition to p.o. Cardizem. Discharged on Cardizem 120 every 24 hours and metoprolol 25 twice daily. In terms of anticoagulation, concerns for GI bleed I cannot anticoagulate her. Discussed risks of stroke she voiced understanding, all questions answered, declined anticoagulation for now. Discharged on aspirin 81 mg with close follow-up with cardiology as outpatient In terms of her anemia hemoglobin 9.3, and concerns for slow GI bleed, and discharged on Protonix, Carafate. She will follow-up with general surgery in a month for consideration of EGD and/or colonoscopy Physical Exam Const: COMMON NORMALS: no acute distress and patient oriented x3 Resp: COMMON NORMALS: normal respiratory effort, No retractions, No use of accessory muscles and clear to auscultation bilaterally AUSCULTATION: clear to auscultation bilaterally Cardio: COMMON NORMALS: regular rate, regular rhythm, S1 normal heart sound present and S2 normal heart sound present RATE: regular rate RHYTHM: regular rhythm HEART SOUNDS: S1 normal heart sound present and S2 normal heart sound present GI: COMMON NORMALS: Normal to inspection, nondistended, normoactive bowel sounds present and non-tender Extremity: COMMON NORMALS: no pedal edema Neuro: COMMON NORMALS: patient oriented x3 Psych: COMMON NORMALS: mental status grossly normal Urinary Catheter Management: Ortega: Cath Placed During This Visit: yes Reason for Continuing Indwelling Catheter: Accurate Measurement of Urinary Output in Critically Ill Patients Urinary Catheter Date of Insertion: 06/22/22 Urinary Catheter Time of Insertion: 23:34 Discharge Data Studies Completed and Pending Completed Studies During Hospitalization Category Date Time Status CT angio chest PE protcl [id number] Stat Cat Scan 06/22/22 18:22 Completed XR chest 1V portable [id number] Routine Exams 06/24/22 04:00 Completed XR chest 1V portable [id number] Stat Exams 06/22/22 16:35 [place] [id number] Stat Ultrasound 06/22/22 18:22 Completed CV. echo complete* [id number] Stat Ultrasound 06/22/22 18:19 Completed Pending at discharge Category Date Time Status [employer] request for service Routine Exams 06/27/22 10:01 Taken Blood Culture Stat Lab 06/22/22 19:45 Results Complete Blood Count w/Auto AM LABS Lab 06/28/22 04:00 Ordered Complete Blood Count w/Auto AM LABS Lab 06/29/22 04:00 Ordered Comprehensive Metabolic Panel AM LABS Lab 06/28/22 04:00 Ordered Comprehensive Metabolic Panel AM LABS Lab 06/29/22 04:00 Ordered Magnesium AM LABS Lab 06/28/22 04:00 Ordered Magnesium AM LABS Lab 06/29/22 04:00 Ordered Occult Blood Stool [Immunochemical Fecal OCB] Routine Lab 06/26/22 10:54 Ordered Phosphorus AM LABS Lab 06/28/22 04:00 Ordered Phosphorus AM LABS Lab 06/29/22 04:00 Ordered Radiology Impressions Chest CTA 06/22/22 18:22 IMPRESSION: 1. Small pulmonary embolus in the left upper lobe. No evidence for elevated right heart pressure. 2. Dependent opacities in the lower lobes and right upper lobe most likely represents atelectasis. Pneumonia is not entirely excluded. 3. Small right and trace left pleural effusions. ADDENDUM: 06/22/228 THIS REPORT CONTAINS FINDINGS THAT MAY BE CRITICAL TO PATIENT CARE. The findings were verbally communicated via telephone conference with Dr. Sagastume at 10:16 PM GM VIDEO on 06/22/2022. The occluded pulmonary artery branch in the left upper lobe is new since the prior study and is presumably acute. The findings were acknowledged and understood. Venous Duplex 06/22/22 18:22 IMPRESSION: No evidence of deep vein thrombosis. Chest X-Ray 06/24/22 04:00 IMPRESSION: No confluent infiltrates in the lungs. Laboratory Results WBC 7.3 10^3/uL (4.0-10.0) 06/27/22 05:19 RBC 3.51 10^6/uL (4.1-5.3) L 06/27/22 05:19 Hgb 9.3 g/dL (11.5-15.3) L 06/27/22 05:19 Hct 29.9 % (37.0-47.0) L 06/27/22 05:19 MCV 85.2 fl (81-99) 06/27/22 05:19 MCH 26.5 pg (28.0-34.0) L 06/27/22 05:19 MCHC 31.1 g/dL (30.0-36.0) 06/27/22 05:19 RDW 14.7 % (12.1-15.1) 06/27/22 05:19 Plt Count 247 10^3/cmm (130-400) 06/27/22 05:19 MPV 11.1 fL (7.4-10.4) H 06/27/22 05:19 Neut % (Auto) 77.4 % 06/27/22 05:19 Lymph % (Auto) 10.4 % 06/27/22 05:19 [place] % (Auto) 11.9 % 06/27/22 05:19 Eos % (Auto) 0.0 % 06/27/22 05:19 Baso % (Auto) 0.0 % 06/27/22 05:19 Reticulocyte % (Auto) 0.5 % (0.5-2.0) 06/22/22 19:40 Neut # (Auto) 5.68 10^3/uL (1.8-7.7) 06/27/22 05:19 Lymph # (Auto) 0.8 10^3/uL (0.8-4.8) 06/27/22 05:19 [place] # (Auto) 0.9 10^3/uL (0.2-0.9) 06/27/22 05:19 Eos # (Auto) 0.0 10^3/uL (0.0-0.8) 06/27/22 05:19 Baso # (Auto) 0.0 10^3/uL (0.0-0.1) 06/27/22 05:19 Nucleated RBC % (auto) 0 % 06/27/22 05:19 Nucleated RBCs # 0.0 /100WBC 06/27/22 05:19 APTT 30.8 SECONDS (23.9-36.7) 06/24/22 11:30 Specimen Type Arterial 06/24/22 04:00 Sample Site Radial, right 06/24/22 04:00 ABG pH 7.45 (7.35-7.45) 06/24/22 04:00 ABG pCO2 47.7 mmHg (35-45) H 06/24/22 04:00 ABG pO2 96.9 mmHg (80.0-100.0) 06/24/22 04:00 ABG HCO3 33.4 mmol/L (22-26) H 06/24/22 04:00 ABG O2 Saturation 99.1 06/23/22 04:30 ABG Base Excess 8.3 mmol/L (-2.0-2.0) H 06/24/22 04:00 Ha Test Pos 06/24/22 04:00 A-a O2 Gradient 12.2 mmHg (5-10) H 06/23/22 04:30 Hematocrit 35.9 % (37-47) L 06/24/22 04:00 Hgb O2 Saturation 96.5 % (95-100) 06/23/22 04:30 Carboxyhemoglobin 1.8 %THgb (0.4-20.1) 06/23/22 04:30 Methemoglobin 0.8 % (0.4-1.5) 06/23/22 04:30 Total Hemoglobin 11.9 g/dL (12-16) L 06/23/22 04:30 Sodium 131.0 mmol/L (131-143) 06/23/22 04:30 Potassium 3.3 mmol/L (3.5-5.0) L 06/23/22 04:30 Glucose 142.0 mg/dL (70-115) H 06/23/22 04:30 Ionized Calcium 1.1 mmol/L (1.1-1.4) 06/23/22 04:30 O2 Delivery Device Nc 06/24/22 04:00 O2 Liters/Min 2.0 % 06/24/22 04:00 FiO2 35.0 % 06/23/22 04:30 Treatment Plant Mechanic ID ellpe 06/24/22 04:00 Sodium 137 mmol/L (136-145) 06/27/22 05:19 Potassium 4.1 mmol/L (3.5-5.1) 06/27/22 05:19 Chloride 95 mmol/L (98-107) L 06/27/22 05:19 Carbon Dioxide 35 mmol/L (22-29) H 06/27/22 05:19 Anion Gap 11.1 (5-19) 06/27/22 05:19 BUN 43 mg/dL (8-23) H 06/27/22 05:19 Creatinine 0.7 mg/dL (0.5-0.9) 06/27/22 05:19 GFR Calculation Not Reportable 06/27/22 05:19 Glucose 98 mg/dL (65-115) 06/27/22 05:19 Calculated Osmolality 295 mOsm/kg (285-295) 06/27/22 05:19 Lactic Acid 1.8 mmol/L (0.5-2.2) 06/22/22 19:40 Calcium 8.8 mg/dL (8.5-10.5) 06/27/22 05:19 Phosphorus 4.0 mg/dL (2.5-4.5) 06/27/22 05:19 Magnesium 1.9 mg/dL (1.7-2.3) 06/27/22 05:19 Iron 47 ug/dL (37-145) 06/22/22 16:45 Iron 48 ug/dL (37-145) 06/22/22 16:45 TIBC 349 mcg/dl 06/22/22 16:45 % Saturation 13.4 % (20-50) L 06/22/22 16:45 Unsat Iron Binding 302 ug/dL (112-347) 06/22/22 16:45 Ferritin 37 ng/mL (15-150) 06/22/22 16:45 Total Bilirubin 0.2 mg/dL (0.15-1.2) 06/27/22 05:19 AST 11 U/L (0-32) 06/27/22 05:19 ALT 17 U/L (0-33) 06/27/22 05:19 Alkaline Phosphatase 68 U/L (35-105) 06/27/22 05:19 Troponin T Baseline 44 ng/L (0-10) H 06/22/22 16:45 Troponin T 120 Minute 47.48 ng/L (0-10) H 06/22/22 18:20 Delta Troponin T 3.48 ABS# (0-10) 06/22/22 18:20 Troponin T Hi Sens 6Hr 43.18 ng/L (0-10) H 06/22/22 22:45 Troponin T Hi Sens 6Hr Delta -0.82 ng/L (0-12) L 06/22/22 22:45 C-Reactive Protein 9.8 mg/L (0.0-4.9) H 06/22/22 16:45 NT-Pro-B Natriuret Pep 3533 pg/mL (0-450) H 06/26/22 06:00 Total Protein 5.4 g/dL (6.6-8.7) L 06/27/22 05:19 Albumin 3.1 g/dL (3.5-5.2) L 06/27/22 05:19 Globulin 2.3 g/dL (1.3-4.6) 06/27/22 05:19 Procalcitonin 0.05 ng/mL (0-0.5) 06/22/22 16:45 Vitals Last Vital Signs Temp 98.4 F 06/27/22 08:00 Pulse 89 06/27/22 08:56 Resp 18 06/27/22 08:54 BP 157/107 06/27/22 08:00 Pulse Ox 97 06/27/22 08:54 O2 Del Method 06/27/22 08:54 O2 Flow Rate 2 06/27/22 08:54 FiO2 35 06/23/22 11:31 Discharge Plan Discharge Patient Disposition: Home Condition: Stable Prescriptions: New sucralfate 1 gram Tablet 1 g PO Q12H 30 Days Qty: 60 0RF prednisone 20 mg Tablet 40 mg PO DAILY 5 Days Qty: 10 0RF doxycycline monohydrate 100 mg Tablet 100 mg PO BID 7 Days Qty: 14 0RF spironolactone 25 mg Tablet 25 mg PO DAILY 30 Days Qty: 30 0RF Mucinex 600 mg Tablet Extended Release 12hr 600 mg PO BID PRN (Reason: congestion) 30 Days Qty: 30 0RF Protonix 40 mg tablet,delayed release (DR/EC) 40 mg PO BID 30 Days Qty: 60 0RF Cardizem LA 120 mg tablet extended release 24 hr 120 mg PO DAILY 30 Days Qty: 30 0RF metoprolol tartrate 25 mg tablet 25 mg PO BID 30 Days Qty: 60 0RF Continued albuterol sulfate [Ventolin HFA] 90 mcg/actuation HFA aerosol inhaler See Rx Instructions .ROUTE .COMPLEX Qty: 18 0RF Dose Instruction: USE TWO puffs BY MOUTH EVERY 4 HOURS NEEDED FOR shortness of breath OR wheezing Rx Instructions: USE TWO puffs BY MOUTH EVERY 4 HOURS NEEDED FOR shortness of breath OR wheezing atorvastatin 40 mg tablet 40 mg PO DAILY Qty: 30 4RF furosemide 20 mg tablet 40 mg PO DAILY Qty: 30 3RF lidocaine 5 % adhesive patch,medicated 1 patch topical DAILY PRN (Reason: pain) 30 Days Qty: 30 3RF Rx Instructions: leave on most painful area for up to 12 hrs pantoprazole 40 mg tablet,delayed release (DR/EC) 40 mg PO BID Qty: 60 3RF nitroglycerin 0.4 mg tablet, sublingual 0.4 mg sublingual Q5M PRN (Reason: Chest Pain) Qty: 20 0RF Rx Instructions: do not exceed 3 doses per episode potassium chloride 20 mEq tablet,ER particles/crystals 20 meq PO DAILY Qty: 30 2RF aspirin 81 mg tablet,delayed release (DR/EC) 81 mg PO DAILY Qty: 90 1RF ipratropium-albuterol 0.5 mg-3 mg(2.5 mg base)/3 mL solution for nebulization See Rx Instructions .ROUTE .COMPLEX Qty: 360 2RF Dose Instruction: inhale THE contents of ONE vial PER NEBULIZER EVERY 6 HOURS NEEDED FOR wheezing Rx Instructions: inhale THE contents of ONE vial PER NEBULIZER EVERY 6 HOURS NEEDED FOR wheezing gabapentin 300 mg capsule See Rx Instructions .ROUTE .COMPLEX Qty: 90 0RF Dose Instruction: TAKE ONE CAPSULE BY MOUTH THREE TIMES DAILY Rx Instructions: TAKE ONE CAPSULE BY MOUTH THREE TIMES DAILY albuterol sulfate 90 mcg/actuation HFA aerosol inhaler 2 inh INHALATION Q4H PRN (Reason: shortness of breath or wheezing) Qty: 18 0RF melatonin 3 mg Tablet 3 mg PO BEDTIME Discontinued lisinopril 10 mg tablet 10 mg PO DAILY 30 Days Qty: 30 3RF metoprolol tartrate 50 mg tablet 50 mg PO BID Qty: 60 3RF amlodipine 10 mg tablet See Rx Instructions .ROUTE .COMPLEX Qty: 30 0RF Dose Instruction: TAKE ONE TABLET BY MOUTH EVERY DAY Rx Instructions: TAKE ONE TABLET BY MOUTH EVERY DAY Discharge Orders: Discharge Order (Routine); Ordered 06/27/22 Ordered By: Barrera Salamanca Referrals: Ray Santos DO [Physician] - 1 month (egd and colonoscopy) DanielrAdrian MD [Physician] - 1 month Kaushik Adams M.D [Physician] - 2 weeks Candie Brock MD [Primary Care Provider] - 07/10/22 10:00 am Discharge Diet: Cardiac Discharge Activity: Resume usual activity Patient Instructions: Opioid Safety Activity Restrictions/Additional Instructions: - If you have any recurrent bloody or black stools go to the emergency room -Please stop smoking -If you develop any strokelike symptoms please call 911 or go to the emergency room -If you develop any lightheadedness or dizziness go to emergency room -Follow-up with pulmonary in a month -Follow-up with cardiology for atrial fibrillation -Follow-up with general surgery in a month for consideration of EGD and colonoscopy for your bloody stools -IVC filter has been placed -However you can still develop blood clots if you develop calf pain or calf swelling go to the emergency room Discharge Attestations Time Spent in Discharge Care*: less than 30 min Status at Discharge: Cognitive status at discharge: cognitively intact, Behavioral status at discharge: cooperative, Quality Metrics Clinical Quality Measures [ No reported AMI, CVA or VTE this stay] Coding Level of Care Code Acute [facility] note Diagnoses Pulmonary embolism I26.99 Atrial fibrillation I48.91 Dyspnea R06.00
--- NOTE | 2022-06-27 16:04 | PC.NURSE ---
received from cardiac laboratory coordinator at 1120 post insertion ivc filter.right groin with drsg dry and intact (was venous sheath..pulled by laboratory coordinator).pt alert and oriented x 4.afib on monitor at controlled rate.oriented to room environment.instructed in activity restrictions s/p procedure...and instructed to notify staff for any bleeding,pain,or for any concerns at all.pt verb understanding of instruction
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
[2022-06-27] MEDS: metoprolol tartrate 25 mg Tablet PO (16:18)
--- NOTE | 2022-06-27 16:48 | PC.NURSE ---
pt has ambulated and voided.medications to be provided by [facility].
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
--- NOTE | 2022-06-27 19:04 | PC.NURSE ---
security finally found pt's car.security and shelbie morgan icu suspect that pt's not competent to drive pt home.he is forgetfull and unsteady on feet.pt and agree to have [employer] drive them home.uber called.pt and waiting in er.
== END 2022-06-27 17:00 | disposition home or self-care (01) | DRG 175 ==
LOC: ER 17:04 → CSU 20:12 → ICU 21:29 → MEDSURG 06-24 09:48 → CSU 06-27 11:10
PROVIDERS: Internal Medicine; Student in an Organized Health Care Education/Training Program; Admitting Provider Family Medicine; Emergency Provider Family Medicine; PCP Family Medicine; Visit Provider Family Medicine
PROC: 06H03DZ Insertion of Intraluminal Device into Inferior Vena Cava, Percutaneous Approach (ICD-10-PCS; CPT 37191; principal; 2022-06-27 10:30)
DX: I26.99 Other pulmonary embolism without acute cor pulmonale (principal); I50.43 Acute on chronic combined systolic (congestive) and diastolic (congestive) heart failure; J96.02 Acute respiratory failure with hypercapnia; Z68.1 Body mass index [BMI] 19.9 or less, adult; E44.0 Moderate protein-calorie malnutrition; I48.91 Unspecified atrial fibrillation; J43.2 Centrilobular emphysema; Z99.81 Dependence on supplemental oxygen; I11.0 Hypertensive heart disease with heart failure; Z86.711 Personal history of pulmonary embolism; E78.5 Hyperlipidemia, unspecified; D64.9 Anemia, unspecified; F17.200 Nicotine dependence, unspecified, uncomplicated; Z88.1 Allergy status to other antibiotic agents; Z88.2 Allergy status to sulfonamides; Z79.82 Long term (current) use of aspirin; Z79.51 Long term (current) use of inhaled steroids
CPT/HCPCS: 36010; 36415; 36600; 37191; 51702; 71045; 71275; 80051; 80053; 82330; 82728; 82803; 82805; 83540; 83550; 83605; 83735; 83880; 84100; 84145; 84484; 85025; 85045; 85730; 86140; 87040; 93005; 93306; 93970; 94640; 94660; 94664; 96365; 96366; 96375; 97116; 97161; 97165; 97530; 99152; 99291; C1769; C1880; C1887; C1894; J1644; J1940; J2250; J2920; J2930; J3010; J3490; J7512; J7626; Q9967

== ENCOUNTER 2022-07-04 15:19 | Observation (INO) | payer MEDICARE, SELFPAY ==
[2022-07-04 15:22] VITALS: BP 157/85; PULSE 88; RESP 21; O2SAT 99; BMI 14.6
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
[2022-07-04 15:51] VITALS: BP 133/92; PULSE 105; RESP 18; TEMP 36.3; O2SAT 91
[2022-07-04] MEDS: sodium chloride 0.9% 500 ML IV (16:22)
--- NOTE | 2022-07-04 16:23 | PC.PHAR ---
pt states she takes care of her own medications but isnt sure of all the names of her medications-pt states whatever she was discharged with on 06/27/22 is what she is taking-pts discharged papers from 06/27/22 has the amlodipine 10mg daily and lisinopril 10mg daily was dced-medications entered are meds from the pts med list from 06/27/22
[2022-07-04 17:36] LABS: Basophils % 0.1 %; Hematocrit 30.7 % (37.0-47.0); Hemoglobin 9.5 g/dL (11.5-15.3); Lymphocytes # 0.6 10^3/uL (0.8-4.8); Lymphocytes % 6.6 %; Mean Corpuscular HGB Conc 30.9 g/dL (30.0-36.0); Mean Corpuscular Hemoglobin 26.5 pg (28.0-34.0); Mean Corpuscular Volume 85.5 fl (81-99); Mean Platelet Volume 10.3 fL (7.4-10.4); Monocytes # 0.1 10^3/uL (0.2-0.9); Monocytes % 1.2 %; Neutrophils # 7.58 10^3/uL (1.8-7.7); Neutrophils % 91.6 %; Nucleated Red Blood Cells % 0 %; Platelet Count 535 10^3/cmm (130-400); Red Blood Count 3.59 10^6/uL (4.1-5.3); Red Cell Distribution Width 15.6 % (12.1-15.1); White Blood Count 8.3 10^3/uL (4.0-10.0)
[2022-07-04 17:53] LABS: Partial Thromboplastin Time 27.9 SECONDS (23.9-36.7)
[2022-07-04 17:56] LABS: Alanine Aminotransferase 11 U/L (0-33); Albumin Level 3.6 g/dL (3.5-5.2); Alkaline Phosphatase 85 U/L (35-105); Anion Gap 13.2 (5-19); Aspartate Amino Transferase 14 U/L (0-32); Blood Urea Nitrogen 23 mg/dL (8-23); Calcium 8.9 mg/dL (8.5-10.5); Carbon Dioxide 28 mmol/L (22-29); Chloride 96 mmol/L (98-107); Creatinine Clr Calc Pharmacy 34.7062; Globulin 3.2 g/dL (1.3-4.6); Glucose 117 mg/dL (65-115); Osmolality Calculated 281 mOsm/kg (285-295); Potassium 4.2 mmol/L (3.5-5.1); Sodium 133 mmol/L (136-145); Total Bilirubin 0.3 mg/dL (0.15-1.2); Total Protein 6.8 g/dL (6.6-8.7)
[2022-07-04 20:27] VITALS: PULSE 77; RESP 17; O2SAT 100
--- NOTE | 2022-07-04 21:33 | XRR_ITS ---
PROCEDURE INFORMATION: Exam: XR Chest Exam date and time: 07/04/2022 9:38 PM Age: 77 years old Clinical indication: Shortness of breath; Additional info: SOB TECHNIQUE: Imaging protocol: Radiologic exam of the chest. Views: 1 view. COMPARISON: CR (CHEST, ) 06/24/2022 5:02 AM FINDINGS: Lungs: There is no consolidation. Pleural spaces: There is no pleural effusion or pneumothorax. Heart/Mediastinum: There is mild enlargement of the cardiac silhouette. Bones/joints: There is a healed fracture of the right proximal humerus. No acute fracture. XR/XR chest 1V portable [id number] IMPRESSION: 1. Lungs are clear. 2. Cardiac enlargement.
[2022-07-04 21:38] VITALS: BP 131/80
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
[2022-07-04] MEDS: sucralfate 1 gm Tablet PO (23:16)
[2022-07-05] VITALS (8 sets, daily range): BP systolic 125–190; BP diastolic 58–76; PULSE 71–100; RESP 16–22; TEMP 36.3–37; O2SAT 90–98
[2022-07-05 05:20] LABS: Anion Gap 8.4 (5-19); Blood Urea Nitrogen 23 mg/dL (8-23); C Reactive Protein 9.5 mg/L (0.0-4.9); Calcium 8.8 mg/dL (8.5-10.5); Carbon Dioxide 32 mmol/L (22-29); Chloride 101 mmol/L (98-107); Creatinine Clr Calc Pharmacy 34.7062; Glucose 93 mg/dL (65-115); Osmolality Calculated 287 mOsm/kg (285-295); Potassium 4.4 mmol/L (3.5-5.1); Sodium 137 mmol/L (136-145)
[2022-07-05 07:08] LABS: Add Urine Microscopic? NO; Charge for UA Resulting for Rev
[2022-07-05 07:15] LABS: Bilirubin Urine Neg (Negative); Blood Urine Neg (Negative); Glucose Urine UA Norm (Normal); Ketones Urine Negative (Negative); Leukocyte Esterase Urine Negative (Negative); Nitrate Urine Negative (Negative); Protein Urine Neg (Negative); Specific Gravity, Urine 1.015 (1.005-1.030); Urine Appearance Clear (CLEAR); Urine Color Yellow (Yellow); Urobilinogen Urine Norm (Negative); pH Urine 6 (5-7)
[2022-07-05 07:19] LABS: Glucose Point of Care 99 mg/dL (70-110)
[2022-07-05] MEDS: pantoprazole DR 40 mg Tablet PO ×2 (08:50→17:30)
[2022-07-05] MEDS: potassium chloride ER 20 mEq Tablet PO (08:50)
[2022-07-05] MEDS: FUROsemide 40 mg Tablet PO (08:50)
[2022-07-05] MEDS: dilTIAZem ER (24HR) 120 mg Capsule PO (08:50)
[2022-07-05] MEDS: ipratropium-albuterol 3 mL Neb INHALATION ×2 (09:09→20:42)
[2022-07-05] MEDS: sucralfate 1 gm Tablet PO ×2 (09:27→22:09)
[2022-07-05] MEDS: ALPRAZolam 0.5 mg Tablet PO (09:27)
--- NOTE | 2022-07-05 10:49 | PC.CHAP ---
Pastoral Care Encounter/Spiritual Assessment Type of Contact [] Declined real estate appraiser visit [] Patient/Family/Request visit [] Outpatient visit [] Follow-up visit [] Physician referral [] Code/Alert [x] Routine visit [] Staff referral [] Actively dying [] Patient sleeping [] Family support [] [] Out of room [] Palliative care [] [x] Receiving care in room [] Pre-surgical visit [] Trauma [] Long length of stay [] ICU visit [] Other: Relational/Emotional Strength [x] Patient feels connected with others/family/visitors/staff [] Distress [] Loneliness/isolation [] Abandonment Spirituality of Patient [x] Person of Tresa [] Attends Anabaptism of their Tresa [x] Believes in Prayer [] Reads Bible or Mandaen materials [] There are Spiritual issues to be addressed Councilor Interventions [x] Prayer [x] Active listening [x] Non-anxious presence [x] Spiritual/emotional support [] Crisis/trauma care [x] Spiritual counseling [] Bereavement support [] Provided bereavement packet [] Provided Bible/devotional materials [] Provided toy/stuffed animal, coloring book to patient or family member [] Provided Communion [] Anointing/[place] [] Salvation [x] Completed spiritual assessment [] Other: Impact on Illness or Injury [] Angry [] Fearful [] Anxious [] Often cries [] Exhaustion [x] Unable to work [] Unable to attend confucianism [] Unable to walk/stand [] Unable to read [] Unable to drive [] Unable to eat/drink [] Unable to sleep [] Unable to be with family [] Patient intubated [] Other: Summary under stress family problems doesn't know about her health staff wel deal with her problems well go home at some point Time spent with patient 10 mins
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
[2022-07-06] VITALS (9 sets, daily range): BP systolic 124–153; BP diastolic 59–84; PULSE 53–95; RESP 16–19; TEMP 36.5–36.7; O2SAT 92–100
[2022-07-06 04:49] LABS: Basophils % 0.3 %; Eosinophils # 0.1 10^3/uL (0.0-0.8); Eosinophils % 1.7 %; Hematocrit 28.4 % (37.0-47.0); Hemoglobin 8.6 g/dL (11.5-15.3); Lymphocytes # 1.6 10^3/uL (0.8-4.8); Lymphocytes % 23.3 %; Mean Corpuscular HGB Conc 30.3 g/dL (30.0-36.0); Mean Corpuscular Hemoglobin 26.1 pg (28.0-34.0); Mean Corpuscular Volume 86.1 fl (81-99); Mean Platelet Volume 9.5 fL (7.4-10.4); Monocytes # 0.7 10^3/uL (0.2-0.9); Monocytes % 9.7 %; Neutrophils # 4.45 10^3/uL (1.8-7.7); Neutrophils % 64.7 %; Nucleated Red Blood Cells % 0 %; Platelet Count 488 10^3/cmm (130-400); Red Cell Distribution Width 15.6 % (12.1-15.1); White Blood Count 6.9 10^3/uL (4.0-10.0)
[2022-07-06 05:14] LABS: Anion Gap 9.7 (5-19); Blood Urea Nitrogen 34 mg/dL (8-23); Calcium 8.7 mg/dL (8.5-10.5); Carbon Dioxide 35 mmol/L (22-29); Chloride 97 mmol/L (98-107); Glucose 96 mg/dL (65-115); Osmolality Calculated 291 mOsm/kg (285-295); Potassium 4.7 mmol/L (3.5-5.1); Sodium 137 mmol/L (136-145)
[2022-07-06] MEDS: ipratropium-albuterol 3 mL Neb INHALATION ×2 (07:37→21:50)
[2022-07-06] MEDS: dilTIAZem ER (24HR) 120 mg Capsule PO (08:39)
[2022-07-06] MEDS: pantoprazole DR 40 mg Tablet PO ×2 (08:39→17:59)
[2022-07-06] MEDS: potassium chloride ER 20 mEq Tablet PO (08:39)
[2022-07-06] MEDS: FUROsemide 40 mg Tablet PO (08:39)
--- NOTE | 2022-07-06 10:26 | PC.CHAP ---
Pastoral Care Encounter/Spiritual Assessment Type of Contact [] Declined bone char operator visit [] Patient/Family/Request visit [] Outpatient visit [] Follow-up visit [] Physician referral [] Code/Alert [x] Routine visit [] Staff referral [] Actively dying [] Patient sleeping [] Family support [] [] Out of room [] Palliative care [] [] Receiving care in room [] Pre-surgical visit [] Trauma [] Long length of stay [] ICU visit [] Other: Relational/Emotional Strength [] Patient feels connected with others/family/visitors/staff [x] Distress [] Loneliness/isolation [x] Abandonment Spirituality of Patient [x] Person of Tresa [] Attends Caodaism of their Tresa [x] Believes in Prayer [] Reads Bible or Lutheran materials [] There are Spiritual issues to be addressed Mechanical Apprentice Interventions [x] Prayer [] Active listening [] Non-anxious presence [] Spiritual/emotional support [] Crisis/trauma care [] Spiritual counseling [] Bereavement support [] Provided bereavement packet [] Provided Bible/devotional materials [] Provided toy/stuffed animal, coloring book to patient or family member [] Provided Communion [] Anointing/[place] [] Salvation [x] Completed spiritual assessment [] Other: Impact on Illness or Injury [] Angry [x] Fearful [x] Anxious [] Often cries [] Exhaustion [] Unable to work [] Unable to attend spiritism [] Unable to walk/stand [] Unable to read [] Unable to drive [] Unable to eat/drink [] Unable to sleep [] Unable to be with family [] Patient intubated [] Other: Summary Time spent with patient 10 min
[2022-07-06] MEDS: sucralfate 1 gm Tablet PO ×2 (14:23→23:44)
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
[2022-07-06] MEDS: ALPRAZolam 0.5 mg Tablet PO (18:04)
[2022-07-07] VITALS (9 sets, daily range): BP systolic 109–159; BP diastolic 69–81; PULSE 60–95; RESP 16–18; TEMP 36.3–37.1; O2SAT 90–100
--- NOTE | 2022-07-07 07:44 | PC.SOCIAL ---
IMM Update pg 2 of IMM not updated @ this time as patient is currently in observation status.
[2022-07-07] MEDS: pantoprazole DR 40 mg Tablet PO ×2 (08:58→17:57)
[2022-07-07] MEDS: dilTIAZem ER (24HR) 120 mg Capsule PO (08:58)
[2022-07-07] MEDS: sucralfate 1 gm Tablet PO ×2 (08:58→20:47)
[2022-07-07] MEDS: potassium chloride ER 20 mEq Tablet PO (08:59)
[2022-07-07] MEDS: FUROsemide 40 mg Tablet PO (08:59)
[2022-07-07] MEDS: ipratropium-albuterol 3 mL Neb INHALATION (10:03)
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
[2022-07-08] VITALS (8 sets, daily range): BP systolic 123–164; BP diastolic 68–89; PULSE 72–102; RESP 16–22; TEMP 36.4–36.9; O2SAT 94–100
[2022-07-08] MEDS: ipratropium-albuterol 3 mL Neb INHALATION (09:35)
[2022-07-08] MEDS: dilTIAZem ER (24HR) 120 mg Capsule PO (10:56)
[2022-07-08] MEDS: potassium chloride ER 20 mEq Tablet PO (10:56)
[2022-07-08] MEDS: sucralfate 1 gm Tablet PO ×2 (10:56→22:00)
[2022-07-08] MEDS: pantoprazole DR 40 mg Tablet PO ×2 (10:57→16:49)
[2022-07-08] MEDS: FUROsemide 40 mg Tablet PO (10:57)
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
--- NOTE | 2022-07-09 00:16 | PC.NURSE ---
Patient had no IV. Report from dayshift nurse was that patient was awaiting placement and would d/c this AM. Patient currently has no IV. Dr Martin notified of situation, and when asked if patient needed IV, he said no.
[2022-07-09 04:00] VITALS: BP 146/89; PULSE 72; RESP 17; TEMP 37; O2SAT 97
[2022-07-09 08:00] VITALS: BP 144/60; PULSE 72; RESP 16; TEMP 36.7; O2SAT 97
[2022-07-09 08:40] VITALS: PULSE 81; RESP 18; O2SAT 98
[2022-07-09] MEDS: ipratropium-albuterol 3 mL Neb INHALATION (08:42)
[2022-07-09] MEDS: potassium chloride ER 20 mEq Tablet PO (10:01)
[2022-07-09] MEDS: pantoprazole DR 40 mg Tablet PO ×2 (10:01→17:18)
[2022-07-09] MEDS: FUROsemide 40 mg Tablet PO (10:02)
[2022-07-09] MEDS: dilTIAZem ER (24HR) 120 mg Capsule PO (10:02)
[2022-07-09 12:00] VITALS: PULSE 84; RESP 18; TEMP 36.4; O2SAT 96
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
[2022-07-09 16:00] VITALS: BP 124/50; PULSE 73; RESP 16; TEMP 36.7; O2SAT 96
[2022-07-09 19:59] VITALS: BP 135/69; PULSE 85; RESP 17; TEMP 36.9; O2SAT 94
[2022-07-09] MEDS: sucralfate 1 gm Tablet PO (21:50)
--- NOTE | 2022-07-09 21:54 | PC.NURSE ---
Patient has refused her 2L of oxygen.
[2022-07-10] VITALS: BP 170/67; PULSE 76; RESP 16; TEMP 36.9; O2SAT 91
[2022-07-10 04:00] VITALS: BP 155/87; PULSE 71; RESP 16; TEMP 36.8; O2SAT 98
[2022-07-10 09:22] LABS: Glucose Point of Care 143 mg/dL (70-110)
[2022-07-10 09:40] VITALS: PULSE 81; RESP 17; O2SAT 98
[2022-07-10] MEDS: potassium chloride ER 20 mEq Tablet PO (10:13)
[2022-07-10] MEDS: pantoprazole DR 40 mg Tablet PO (10:13)
[2022-07-10] MEDS: dilTIAZem ER (24HR) 120 mg Capsule PO (10:13)
[2022-07-10] MEDS: FUROsemide 40 mg Tablet PO (10:13)
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
[2022-07-10 12:00] VITALS: PULSE 76; RESP 18; TEMP 36.8; O2SAT 97
[2022-07-10 12:51] LABS: SARS Covid-2 Antigen negative (Negative)
[2022-07-10 14:12] VITALS: PULSE 79; RESP 18; O2SAT 97
== END 2022-07-10 14:00 | disposition skilled nursing facility (03) ==
LOC: ER 21:28 → MEDSURG 21:46
PROVIDERS: Emergency Medicine; Admitting Provider Internal Medicine; Emergency Provider Emergency Medicine; PCP Family Medicine; Visit Provider Internal Medicine
DX: J43.9 Emphysema, unspecified (principal); I48.91 Unspecified atrial fibrillation; Z86.711 Personal history of pulmonary embolism; E46 Unspecified protein-calorie malnutrition; Z68.1 Body mass index [BMI] 19.9 or less, adult; R53.1 Weakness; I11.0 Hypertensive heart disease with heart failure; I50.9 Heart failure, unspecified; Z79.82 Long term (current) use of aspirin
CPT/HCPCS: 36415; 36416; 71045; 80048; 80053; 81003; 82962; 83735; 85025; 85610; 85730; 86140; 86850; 86900; 87426; 94640; 96360; 97110; 97116; 97161; 97167; 97530; 99285; G0378; J7040

== ENCOUNTER 2023-01-29 12:33 | Inpatient (IN) | payer MEDICARE, MEDICAID, SELFPAY ==
[2023-01-29 12:34] VITALS: BP 125/60; PULSE 98; RESP 25; TEMP 39.3; O2SAT 95
--- NOTE | 2023-01-29 12:36 | CTR_ITS ---
PROCEDURE INFORMATION: Exam: CT Head Without Contrast Exam date and time: 01/29/2023 12:46 PM Age: 78 years old Clinical indication: Altered mental status/memory loss; Additional info: AMS TECHNIQUE: Imaging protocol: Computed tomography of the head without contrast. Radiation optimization: All CT scans at this facility use at least one of these dose optimization techniques: automated exposure control; mA and/or kV adjustment per patient size (includes targeted exams where dose is matched to clinical indication); or iterative reconstruction. REPORTING DATA: Count of CT and Cardiac NM exams in prior 12 months: This patient has received 4 known CTs and 0 known cardiac nuclear medicine studies in the 12 months prior to the current study. COMPARISON: CT head wo con* [id number] 04/04/2022 9:23 PM RADIATION DOSE METRICS: Total DLP (mGy-cm): 934.65 FINDINGS: Brain: There is diffuse cerebral atrophy and chronic microvascular white matter disease. There is no acute intracranial hemorrhage. Cerebral ventricles: There is mild ex vacuo dilation of the lateral ventricles. The basal cisterns are unremarkable. Paranasal sinuses: The paranasal sinuses are clear. Mastoid air cells: The mastoid air cells are clear. Bones/joints: The calvarium is intact. Soft tissues: The visible extracranial soft tissues are unremarkable. CT/CT head wo con* [id number] IMPRESSION: No acute intracranial abnormality.
--- NOTE | 2023-01-29 12:37 | XR_ITS ---
WS: [id number] Exam: XR chest 1V portable [id number] Date/Time of Exam: 01/29/2023 12:43 PM Reason For Exam: fever Comparison 07/04/2022. There is infiltrate in the middle and lower lobes the right lung suspicious for pneumonia. The left l mony is clear. There is pulmonary hyperinflation. The heart is enlarged. The mediastinum is normal in contour. Regional bony elements are intact. An IVC filter is noted. There is degenerative change and dextroscoliosis of the lower thoracic spine. XR/XR chest 1V portable [id number] IMPRESSION: 1. Infiltrate in the middle and lower lobes the right lung suggesting pneumonia . 2. Cardiac enlargement.
--- NOTE | 2023-01-29 13:02 | ECG_ITS ---
[facility] Test Date: 2023-01-29 Pat Name: Rosario Brock Department: Room: Gender: Female Clinical Nursing Coordinator: : 1945 Requested By: Lloyd Clemente Order Number: [id number] Joel MD: Flory Díaz M.D. Measurements Intervals [place] Rate: 96 P: 74 IN: 176 QRS: 56 QRSD: 86 T: 68 QT: 323 QTc: 409 Interpretive Statements Multifocal atrial rhythm POSSIBLE RIGHT VENTRICULAR CONDUCTION DELAY [RSR (QR) IN V1/V2] VOLTAGE CRITERIA FOR LVH [MEETS CRITERIA IN ONE OF: R(aVL), S(V1), R(V5), R(V5/V6)+S(V1)] POSSIBLE SEPTAL MYOCARDIAL INFARCTION , OF INDETERMINATE AGE [30 ms Q WAVE IN V1/V2] Compared to ECG 06/22/2022 19:47:46 Myocardial infarct finding now present Left-axis deviation no longer present Incomplete right bundle-branch block no longer present Electronically Signed On 01-31-2023 9:59:36 CDT by Flory Díaz M.D. [email or web address]
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
[2023-01-29 13:24] LABS: ABG PCO2 45.7 mmHg (35-45); ABG PH Result 7.45 (7.35-7.45); Arterial Blood Gas Hematocrit 29.8 % (37-47); Base Excess ABG 7.1 mmol/L (-2.0-2.0); Blood Gas Allen Test Pos; Blood Gas Operator Identificat WALCI; Blood Gas Sample Site Radial, right; Blood Gas Sample Type Arterial; Carboxyhemoglobin 1.4 %THgb (0.4-20.1); HCO3 ABG 31.9 mmol/L (22-26); HGB O2 Sat 93.6 % (95-100); Methemoglobin 0.4 % (0.4-1.5); Oxygen Device NC; PO2 ABG 67.3 mmHg (80.0-100.0); Total Hemoglobin 9.7 g/dL (12-16)
[2023-01-29] MEDS: cefTRIAXone 1,000 MG in sodium chloride 0.9% (plus) 50 ML 100 MG IV (13:33)
[2023-01-29] MEDS: acetaminophen 500 mg Tablet 1000 MG PO (13:37)
[2023-01-29 13:43] LABS: Basophils # 0.1 10^3/uL (0.0-0.1); Basophils % 0.5 %; Eosinophils # 0.2 10^3/uL (0.0-0.8); Eosinophils % 1.3 %; Hematocrit 34.1 % (37.0-47.0); Hemoglobin 10.3 g/dL (11.5-15.3); Lymphocytes # 0.6 10^3/uL (0.8-4.8); Lymphocytes % 3.9 %; Mean Corpuscular HGB Conc 30.2 g/dL (30.0-36.0); Mean Corpuscular Hemoglobin 24.2 pg (28.0-34.0); Mean Platelet Volume 9.5 fL (7.4-10.4); Monocytes # 0.8 10^3/uL (0.2-0.9); Monocytes % 5.5 %; Neutrophils # 12.63 10^3/uL (1.8-7.7); Neutrophils % 88.3 %; Nucleated Red Blood Cells % 0 %; Platelet Count 429 10^3/cmm (130-400); Red Blood Count 4.26 10^6/uL (4.1-5.3); Red Cell Distribution Width 14.7 % (12.1-15.1); White Blood Count 14.3 10^3/uL (4.0-10.0)
[2023-01-29 13:51] VITALS: BP 110/37; PULSE 86; O2SAT 91
[2023-01-29 13:51] LABS: INR 0.92 (0.8-1.2)
[2023-01-29 14:01] LABS: Lactic Sepsis W/Reflex 1.2 mmol/L (0.5-2.2)
[2023-01-29] MEDS: azithromycin 500 MG in sodium chloride 0.9% 250 ML 250 MG IV (14:03)
[2023-01-29 14:12] LABS: Alanine Aminotransferase 8 U/L (0-33); Albumin Level 3.7 g/dL (3.5-5.2); Alkaline Phosphatase 86 U/L (35-105); Anion Gap 16.5 (5-19); Aspartate Amino Transferase 14 U/L (0-32); Blood Urea Nitrogen 27 mg/dL (8-23); Calcium 9.3 mg/dL (8.5-10.5); Carbon Dioxide 30 mmol/L (22-29); Chloride 92 mmol/L (98-107); Globulin 3.6 g/dL (1.3-4.6); Glucose 84 mg/dL (65-115); Lipase 35 U/L (13-60); NT Pro B Type Natriuretic Pept 503 pg/mL (0-450); Osmolality Calculated 282 mOsm/kg (285-295); Potassium 4.5 mmol/L (3.5-5.1); Sodium 134 mmol/L (136-145); Total Bilirubin 0.3 mg/dL (0.15-1.2); Total Protein 7.3 g/dL (6.6-8.7)
[2023-01-29] MEDS: sodium chloride 0.9% 1,000 ML 999 ML IV ×2 (14:26→15:08)
[2023-01-29 14:37] LABS: SARS Covid-2 Antigen negative (Negative)
[2023-01-29 14:59] LABS: Add Urine Microscopic? YES; Bilirubin Urine Neg (Negative); Blood Urine Neg (Negative); Glucose Urine UA Norm (Normal); Ketones Urine Negative (Negative); Leukocyte Esterase Urine 2+ (Negative); Nitrate Urine Negative (Negative); Protein Urine Neg (Negative); RBC Urine 0-4 /hpf (0-2); Specific Gravity, Urine 1.015 (1.005-1.030); Sulfosalicylic Acid Urine Negative (Negative); Urine Color Light yellow (Yellow); Urobilinogen Urine Norm (Negative); WBC Urine TOO NUMEROUS TO CNT /hpf (0-5); pH Urine 8 (5-7)
[2023-01-29 15:00] LABS: Add Urine Culture? Yes; Bacteria Urine 2+ /hpf
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
--- NOTE | 2023-01-29 15:20 | XR_ITS ---
WS: [id number] Exam: XR chest 1V portable [id number] Date/Time of Exam: 01/29/2023 3:20 PM Reason For Exam: central line Comparison May the latest exam performed on the same day at 12:53 PM. A right-sided IJ catheter has been placed and ends in the lower one third of the SVC in good position . The lungs remain fully expanded. Again noted is infiltrate in the right lower lung zone unchanged. Mild cardiac enlargement. XR/XR chest 1V portable [id number] IMPRESSION: 1. Right IJ catheter ending in the lower one third of the SVC. 2. The chest is otherwise unchanged when compared to the latest exam.
--- NOTE | 2023-01-29 15:52 | CTR_ITS ---
PROCEDURE INFORMATION: Exam: CTA Chest With Contrast Exam date and time: 01/29/2023 4:48 PM Age: 78 years old Clinical indication: Other: Septic shock; Other: Septic shot TECHNIQUE: Imaging protocol: Computed tomographic angiography of the chest with contrast. Exam focused on the arteries. 3D rendering (Not supervised by radiologist): MIP and/or 3D reconstructed images were created by the technologist. Radiation optimization: All CT scans at this facility use at least one of these dose optimization techniques: automated exposure control; mA and/or kV adjustment per patient size (includes targeted exams where dose is matched to clinical indication); or iterative reconstruction. Contrast material: OMNI 350; Contrast volume: 100 ml; Contrast route: INTRAVENOUS (IV); REPORTING DATA: Count of CT and Cardiac NM exams in prior 12 months: This patient has received 4 known CTs and 0 known cardiac nuclear medicine studies in the 12 months prior to the current study. COMPARISON: CT angio chest PE protcl [id number] 06/22/2022 9:16 PM RADIATION DOSE METRICS: Total DLP (mGy-cm): 558 FINDINGS: Pulmonary arteries: Normal. No pulmonary emboli. Aorta: Mild aneurysmal dilatation of the descending thoracic aorta measuring up to 3.2 cm. Lungs: Emphysema. Mild interlobular septal thickening in the upper lobes and right lower lobe. Consolidation in the posterior and central right lower lobe. Multiple filling defects or fluid within right lower lobe bronchi. Mild dependent atelectasis in the left lower lobe and lingula. Pleural spaces: Unremarkable. No pneumothorax. No pleural effusion. Heart: The heart size is normal. Lymph nodes: Calcified right hilar lymph nodes. Bones/joints: Rightward thoracic curvature and degenerative changes. Stable mild anterior wedge compression fracture of T12. No acute fracture. Soft tissues: Unremarkable. PROCEDURE INFORMATION: Exam: CT Abdomen And Pelvis With Contrast Exam date and time: 01/29/2023 4:48 PM Age: 78 years old Clinical indication: Other: Septic shock; Other: Septic shot TECHNIQUE: Imaging protocol: Computed tomography of the abdomen and pelvis with contrast. Radiation optimization: All CT scans at this facility use at least one of these dose optimization techniques: automated exposure control; mA and/or kV adjustment per patient size (includes targeted exams where dose is matched to clinical indication); or iterative reconstruction. Contrast material: OMNI 350; Contrast volume: 100 ml; Contrast route: INTRAVENOUS (IV); REPORTING DATA: Count of CT and Cardiac NM exams in prior 12 months: This patient has received 4 known CTs and 0 known cardiac nuclear medicine studies in the 12 months prior to the current study. COMPARISON: CT abdomen pelvis w con* [id number] 03/15/2020 4:45 PM RADIATION DOSE METRICS: Total DLP (mGy-cm): 558 FINDINGS: Liver: Normal. No mass. Gallbladder and bile ducts: Irregular wall thickening and enhancement in the fundus of the gallbladder which is contracted. The proximal and mid gallbladder are distended with fluid. The bile ducts are unremarkable. Pancreas: Normal. No ductal dilation. Spleen: Normal. No splenomegaly. Adrenal glands: Normal. No mass. Kidneys and ureters: Multiple clustered left renal cysts, Hounsfield units less than 20. Hypodense lesions in both kidneys are too small to characterize but are most likely cysts. No follow-up imaging is recommended. Stomach and bowel: Diverticulosis of the colon. No diverticulitis. Moderate stool scattered throughout the colon. The stomach is decompressed. The small bowel is unremarkable. No wall thickening or obstruction. Appendix: The appendix is not visualized. No secondary signs of appendicitis. Intraperitoneal space: Unremarkable. No free air. No significant fluid collection. Vasculature: Infrarenal IVC filter. 5.1 cm fusiform infrarenal abdominal aortic aneurysm. This has increased significantly in size. Diffuse arterial calcifications. Lymph nodes: Unremarkable. No enlarged lymph nodes. Urinary bladder: Distended urinary bladder. No wall thickening. Reproductive: The uterus and ovaries are absent. Bones/joints: Multiple compression screws in the proximal right femur. Intramedullary lacie with compression screw in the proximal left femur. Degenerative changes of the lumbar spine. No acute fracture. Soft tissues: Unremarkable. CT/CT angio chest w abd pel w con IMPRESSION: 1. No evidence for pulmonary embolus. 2. Aspiration versus pneumonia in the right lower lobe with fluid or filling defects in the bronchi. IMPRESSION: 1. Chronic irregular wall thickening and enhancement in the fundus of the gallbladder. This could represent chronic scarring but a neoplastic process is not excluded. 2. Increased 5.1 cm infrarenal abdominal aortic aneurysm. 3. Diverticulosis of the colon. COMMENTS: 1. Consistent with the [employer]'s Incidental Findings Committee white paper (J Am Juan Radiol 2018): Any incidental renal lesion less than 1 cm or classified as too small to characterize, or any incidental cystic renal lesion characterized as simple-appearing, is likely benign. No follow-up imaging is recommended for these lesions per consensus recommendations based on imaging criteria. 2. For patients with an IVC filter, recommend assessment for a management plan for the patient's IVC filter. If there is no established management plan, recommend referral to an interventional clinician on a nonemergent basis for evaluation.
[2023-01-29] MEDS: iohexol 350 mg/mL 500 mL Btl (per mL) IV (16:59)
[2023-01-29 17:11] VITALS: BP 111/53; PULSE 80; O2SAT 94
--- NOTE | 2023-01-29 17:23 | USCV_ITS ---
Rosario Brock Age: 78 Gender: F : 1945 Exam Date: 01/29/2023 22:30 Ordering Phys: Fabiola Martin MD Technologist: MELO Exam Location: [facility] [place] Indication: sepsis, SOB, COPD, O2 dependent at home on 3L, patient is irrational, no other history available. BP: 111 / 53 HR: 102 Rhythm: Sinus Technical Quality: Adequate MEASUREMENTS (Male / Female) Normal Values 2D ECHO LV Diastolic Diameter PLAX 3.9 cm 4.2 - 5.9 / 3.9 - 5.3 cm LV Systolic Diameter PLAX 2.6 cm IVS Diastolic Thickness 1.2 cm 0.6 - 1.0 / 0.6 - 0.9 cm IVS Systolic Thickness 1.5 cm LVPW Diastolic Thickness 1.1 cm 0.6 - 1.0 / 0.6 - 0.9 cm LVPW Systolic Thickness 1.4 cm LVOT Diameter 1.8 cm LV Ejection Fraction 2D Teich 61.7 % LV Ejection Fraction MOD 2C 77.8 % LV Ejection Fraction 2C AL 78.5 % LA Diameter 3.6 cm LA Width 2.6 cm LA Height 4.8 cm RA Width 2.7 cm RA Height 3.5 cm Aorta at Sinotubular Diameter 2.6 cm IVC Diameter 0.7 cm M-MODE Aortic Annulus Diameter 2.4 cm LA Ao Ratio MM 1.5 DOPPLER AV Peak Velocity 127.0 cm/s LVOT Peak Velocity 93.0 cm/s AV Area Cont Eq vti 2.5 cm squared AV Area Cont Eq pk 1.8 cm squared MV Peak Velocity 105.0 cm/s MV Area PHT 4.0 cm squared Mitral E to A Ratio 0.7 MV E' Velocity 47.0 cm/s Mitral E to MV E' Ratio 8.1 Mitral E to LV E' Lateral Ratio 7.8 Mitral E to LV E' Septal Ratio 8.6 TR Peak Velocity 262.0 cm/s TR Peak Gradient 27.5 mmHg TV Peak E Velocity 75.0 cm/s Right Atrial Pressure 5.0 mmHg Pulmonary Artery Systolic Pressu 32.5 mmHg PV Peak Velocity 108.0 cm/s RV Acceleration Time 0.1 s RV Ejection Time 0.3 s RV AcT/ET 0.4 FINDINGS Left Ventricle Normal left ventricular size and systolic function, EF 77 %. No regional wall motion abnormalities. Right Ventricle The right ventricle is normal in size and function. Right Atrium The right atrium is normal in size. Left Atrium The left atrium is normal in size. Mitral Valve No masses or vegetations noted Aortic Valve No masses or vegetations noted. Minimally thickened leaflets Tricuspid Valve No gross abnormalities noted.trace tricuspid valve regurgitation. Pulmonic Valve Not visualized well Pericardium Normal pericardium without effusion. Aorta Normal ascending aorta dimension. IVC The inferior vena cava appears normal. CONCLUSIONS Normal left ventricular size and systolic function, EF 77 %. No regional wall motion abnormalities. Minimally thickened aortic valve. No intracardiac masses or vegetations noted. Pulmonic valve was not visualized well Trace tricuspid valve regurgitation. Estimated pulmonary artery peak systolic pressure 33 mmHg There is no pericardial effusion. Compared to the study from 06/22/2022, there may not be a significant change Dr Flory Díaz MD FACC (Electronically Signed) Final Date: 30 January 2023 07:39 S
--- NOTE | 2023-01-29 17:23 | PC.NURSE ---
Arrived from ED, AO to person month and being in hospital. no C/O at this time
--- NOTE | 2023-01-29 17:34 | PC.PHAR ---
Patient: Floor: Age: 78 yo Serum creatinine: 0.9 mg/dL Height: 63.8 Inches Weight (kg): 45 IBW (kg): 54.24 Dosing wt(kg): 45 Estimated Creatinine clearance (ml/min): 35.4 CRCL method: Cockcroft and Gault using ibw(default). Drug selected: Vancomycin Loading dose (mg): Vd (liters): 31.5 (factor used: 0.7 L/kg) Arron (hr-1): 0.034 Half life (hrs): 20.39 CLvanco=?? 1.071 L/hr Recommended dose: 750 mg Interval: 24 hrs Infusion time (hrs): 1 Predicted peak (mcg/mL): 42.0 Predicted trough (mcg/mL): 19.21 Total body weight is being used for vancomycin dosing. Recommendations: Give Vancomycin 750 mg q 24 hrs with an expected Cpeak of 42.0 mcg/ml and an expected Ctrough of 19.21 mcg/ml AUC 0-24 /SEN Data: SEN 0.5 mcg/mL:?? AUC/SEN:? 1400.6 SEN 1.0 mcg/mL:?? AUC/SEN:? 700.3 --------- SEN 1.5 mcg/mL:?? AUC/SEN:? 466.9 SEN 2.0 mcg/mL:?? AUC/SEN:? 350.1 Renal dosing of other antibiotics (review renal dosing of other medications and list guidelines here): Thank you for the consult, will continue to follow. Signature: Doron Byrne, BettinaD
[2023-01-29 17:48] VITALS: PULSE 69; RESP 20; O2SAT 94
[2023-01-29] MEDS: lactated ringers 500 ML 999 ML IV (17:48)
[2023-01-29] MEDS: piperacillin-tazobactam 3.375 GM in sodium chloride 0.9% (plus) 50 ML IV (17:49)
[2023-01-29] MEDS: sodium chloride 0.9% 1,000 ML 75 ML IV (17:49)
[2023-01-29] MEDS: vancomycin 750 MG in sodium chloride 0.9% 250 ML 250 MG IV (17:50)
[2023-01-29 19:56] VITALS: PULSE 94; RESP 19; O2SAT 93
[2023-01-29 22:00] VITALS: PULSE 0
[2023-01-30] VITALS (100 sets, daily range): BP systolic 93–128; BP diastolic 43–66; PULSE 54–102; RESP 7–30; TEMP 36.6–37.1; O2SAT 91–100
[2023-01-30] MEDS: piperacillin-tazobactam 3.375 GM in sodium chloride 0.9% (plus) 50 ML IV ×3 (01:04→18:40)
[2023-01-30 03:21] LABS: Basophils # 0.1 10^3/uL (0.0-0.1); Basophils % 0.4 %; Eosinophils % 0.2 %; Hematocrit 30.5 % (37.0-47.0); Hemoglobin 9.5 g/dL (11.5-15.3); Lymphocytes # 1.3 10^3/uL (0.8-4.8); Mean Corpuscular HGB Conc 31.1 g/dL (30.0-36.0); Mean Corpuscular Hemoglobin 24.9 pg (28.0-34.0); Mean Corpuscular Volume 79.8 fl (81-99); Mean Platelet Volume 9.7 fL (7.4-10.4); Monocytes # 1.4 10^3/uL (0.2-0.9); Monocytes % 6.6 %; Neutrophils # 18.13 10^3/uL (1.8-7.7); Neutrophils % 86.1 %; Nucleated Red Blood Cells % 0 %; Platelet Count 375 10^3/cmm (130-400); Red Blood Count 3.82 10^6/uL (4.1-5.3)
[2023-01-30 03:40] LABS: Anion Gap 11.8 (5-19); Blood Urea Nitrogen 17 mg/dL (8-23); C Reactive Protein 106.6 mg/L (0.0-4.9); Calcium 7.8 mg/dL (8.5-10.5); Carbon Dioxide 27 mmol/L (22-29); Chloride 101 mmol/L (98-107); Glucose 103 mg/dL (65-115); Magnesium 1.7 mg/dL (1.7-2.3); Osmolality Calculated 284 mOsm/kg (285-295); Phosphorus 2.6 mg/dL (2.5-4.5); Potassium 3.8 mmol/L (3.5-5.1); Sodium 136 mmol/L (136-145)
[2023-01-30] MEDS: sodium chloride 0.9% 1,000 ML 75 ML IV (05:50)
[2023-01-30 06:27] LABS: ABG PCO2 40.6 mmHg (35-45); ABG PH Result 7.44 (7.35-7.45); Arterial Blood Gas Hematocrit 30.2 % (37-47); Base Excess ABG 3.4 mmol/L (-2.0-2.0); Blood Gas Sample Site Brachial, right; Blood Gas Sample Type Arterial; HCO3 ABG 27.8 mmol/L (22-26); Oxygen Device NC
[2023-01-30] MEDS: FUROsemide 20 mg Tablet 40 MG PO (08:51)
[2023-01-30] MEDS: potassium chloride ER 20 mEq Tablet PO (08:51)
[2023-01-30] MEDS: aspirin 81 mg EC Tablet PO (08:51)
--- NOTE | 2023-01-30 15:05 | P.PN_ITS ---
Subjective Subjective: Patient endorsing feeling better Short attention span Memory deficit Levophed at 2 mics Febrile event noted, I do not see repeat vitals from today Vitals/I&O/Wt Last Vital Signs Temp 102.8 F H 01/29/23 12:34 Pulse 76 01/30/23 08:58 Resp 17 01/30/23 08:58 BP 111/53 01/29/23 17:11 Pulse Ox 96 01/30/23 08:58 O2 Del Method Nasal Cannula 01/30/23 08:58 O2 Flow Rate 3 01/30/23 08:58 01/30/23 01/30/23 01/30/23 06:59 14:59 22:59 Intake Total 1252.75 / 2285.10 490 / 490 Output Total 700 / 2950 Balance 552.75 / -664.90 490 / 490 Weight last 48 hrs Weight 45.541 kg Physical Exam Narrative: Patient has short attention span Nonfocal neuro exam NIH 0 GCS 15 Currently on 3 L Bilateral breath sounds without significant rhonchi or crackles Abdomen soft Able to answer my question appropriate Patient is pleasant and cooperative No signs of meningitis levo at 2 mics Data 01/30/23 02:58 01/30/23 02:58 Micro: Microbiology 01/29/23 13:20 Blood Culture - Preliminary Blood NEGATIVE TO DATE 01/29/23 13:20 Blood Culture - Preliminary Blood NEGATIVE TO DATE 01/29/23 18:34 Bacterial Antigens - Final Urine,Voided 01/29/23 18:34 Legionella Urinary Antigen - Final Urine Catheterized A&P Assessment and plan (1) UTI (urinary tract infection): (2) Septic shock: (3) Community acquired pneumonia: (4) Sepsis: (5) Chronic hyponatremia: (6) Pulmonary embolism: (7) Congestive heart failure: Plan Septic shock Currently 2 mics Wean off Levophed today Sputum and urine cultures negative so far No sign of meningitis COPD exacerbation: No active wheezing, she is getting better Currently back to her 3 L at 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
--- NOTE | 2023-01-30 15:14 | USR_ITS ---
PROCEDURE INFORMATION: Exam: US Abdomen, Limited; Right Upper Quadrant Exam date and time: 01/30/2023 4:29 PM Age: 78 years old Clinical indication: Abnormal findings; Abnormal radiologic finding of the abdomen; Radiologic exam and body structure: CT gb; Additional info: Sludge, PT is [id number] TECHNIQUE: Imaging protocol: Real time ultrasound of the abdomen with image documentation. Limited exam focused on the right upper quadrant. COMPARISON: US gall bladder [id number] 03/16/2020 6:38 AM FINDINGS: Liver: 13.8 cm liver. 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 Series 1, image 71. Biliary ducts: Normal 5.1 mm common bile duct. Pancreas: Visualized pancreas is unremarkable. Right kidney: 7.9 x 3.1 x 3.4 cm right kidney. 0.8 cm right renal cortex. Echogenic right renal cortex compared to the liver consistent with bilateral medical renal disease. Aorta: Fusiform 5.0 cm infrarenal abdominal aortic aneurysm without rupture. Inferior vena cava: 1.5 cm IVC. US/US gall bladder [id number] IMPRESSION: 1. 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 Series 1, image 71. 2. Echogenic right renal cortex compared to the liver consistent with bilateral medical renal disease.
[2023-01-30] MEDS: vancomycin 750 MG in sodium chloride 0.9% 250 ML 250 MG IV (18:39)
[2023-01-30] MEDS: morphine IR 15 mg Tablet PO (19:31)
[2023-01-30] MEDS: hyDROXYzine 25 mg Capsule PO (22:13)
[2023-01-31] VITALS (63 sets, daily range): BP systolic 96–147; BP diastolic 54–112; PULSE 54–114; RESP 9–33; TEMP 36.6; O2SAT 86–99
[2023-01-31] MEDS: piperacillin-tazobactam 3.375 GM in sodium chloride 0.9% (plus) 50 ML IV ×3 (00:56→18:36)
[2023-01-31 03:48] LABS: Basophils # 0.1 10^3/uL (0.0-0.1); Basophils % 0.7 %; Eosinophils # 0.5 10^3/uL (0.0-0.8); Lymphocytes # 1.5 10^3/uL (0.8-4.8); Lymphocytes % 15.5 %; Mean Corpuscular Hemoglobin 24.1 pg (28.0-34.0); Mean Corpuscular Volume 80.4 fl (81-99); Mean Platelet Volume 9.6 fL (7.4-10.4); Monocytes # 0.8 10^3/uL (0.2-0.9); Monocytes % 8.6 %; Neutrophils # 6.61 10^3/uL (1.8-7.7); Neutrophils % 69.9 %; Nucleated Red Blood Cells % 0 %; Platelet Count 337 10^3/cmm (130-400); Red Blood Count 3.73 10^6/uL (4.1-5.3); Red Cell Distribution Width 15.3 % (12.1-15.1); White Blood Count 9.5 10^3/uL (4.0-10.0)
[2023-01-31 04:09] LABS: Alanine Aminotransferase < 5 U/L (0-33); Albumin Level 2.8 g/dL (3.5-5.2); Alkaline Phosphatase 66 U/L (35-105); Aspartate Amino Transferase 10 U/L (0-32); Blood Urea Nitrogen 18 mg/dL (8-23); Calcium 8.3 mg/dL (8.5-10.5); Carbon Dioxide 27 mmol/L (22-29); Chloride 103 mmol/L (98-107); Globulin 3.1 g/dL (1.3-4.6); Glucose 80 mg/dL (65-115); Osmolality Calculated 289 mOsm/kg (285-295); Sodium 139 mmol/L (136-145); Total Bilirubin 0.4 mg/dL (0.15-1.2); Total Protein 5.9 g/dL (6.6-8.7)
[2023-01-31] MEDS: LORazepam 2 mg/mL INJ 1 mL IVP (08:02)
--- NOTE | 2023-01-31 08:10 | PC.NURSE ---
Patient non complaint with cares. Spitting medication out and screaming non stop for nurse or doctor. Removing oxygen. Dr. Martin bedside orders Ativan to help calm patient down for medical necessity. Received verbal orders to remove central line
--- NOTE | 2023-01-31 10:12 | PM.PN ---
Subjective Subjective: Patient need cholecystectomy Dr. Santos recommended outpatient evaluation because she is right now she is being treated for sepsis with UTI and pneumonia Spoke with her sister who told me that patient has a guardian Afshan Rosenberg [phone] She is the guardian for both and Patient is experiencing panic attack She was given Ativan Sister did endorse that she gets confused and suffers with panic attacks sometimes Vitals/I&O/Wt Last Vital Signs Temp 97.9 F 01/30/23 20:40 Pulse 92 01/31/23 08:15 Resp 22 H 01/31/23 08:15 BP 147/112 01/31/23 08:15 Pulse Ox 91 01/31/23 08:15 O2 Del Method Nasal Cannula 01/31/23 08:00 O2 Flow Rate 3 01/31/23 08:00 01/30/23 01/31/23 01/31/23 22:59 06:59 14:59 Intake Total 300 / 790 280 / 1070 Output Total 650 / 650 Balance 300 / 790 -370 / 420 Weight last 48 hrs Weight 45.541 kg Physical Exam Narrative: She is on 2 L Bilateral breath sounds without rhonchi or crackles Looks slightly dehydrated GCS 15 Awake and alert Experiencing panic attacks Lower extremity no edema Data 01/31/23 03:24 01/31/23 03:24 Micro: Microbiology 01/30/23 02:26 MRSA Culture - Final Nose 01/29/23 13:20 Blood Culture - Preliminary Blood NEGATIVE TO DATE 01/29/23 13:20 Blood Culture - Preliminary Blood NEGATIVE TO DATE 01/29/23 18:34 Bacterial Antigens - Final Urine,Voided A&P Assessment and plan (1) UTI (urinary tract infection): (2) Septic shock: (3) Community acquired pneumonia: (4) Acute hypercapnic respiratory failure: (5) Acute exacerbation of chronic obstructive airways disease: (6) Chronic hyponatremia: (7) Confusion and disorientation: (8) COPD (chronic obstructive pulmonary disease): (9) Gallbladder polyp: Plan Sepsis related to UTI pneumonia Resolved Afebrile Cultures negative MRSA nares negative Discontinue vancomycin Continue Zosyn Agitation, panic attack Given Ativan this morning Continue Ativan which she was taking at their facility Added Seroquel for tonight Gallbladder polyp Concern for malignancy versus benign tumor Dr. Santos consulted who has recommended outpatient evaluation and cholecystectomy after 2-3 weeks Spoke with her sister, her guardian is Afshan Rosenberg, public building code administrator Still lives in [place] We can move her right IJ central line COPD without acute exacerbation currently doing well on 2 to 3 L No active wheezing Patient will go back to her nursing facility Continue cardiac diet Full code History of A-fib, continue Cardizem, not a candidate for anticoagulation due to history of GI bleed, Out of ICU Attestations Medical Necessity Statement*: Awaiting placement Diagnoses UTI (urinary tract infection) N39.0 Septic shock A41.9; R65.21 Community acquired pneumonia J18.9 Acute hypercapnic respiratory failure J96.02 Acute exacerbation of chronic obstructive airways disease J44.1 Chronic hyponatremia E87.1 Confusion and disorientation R41.0 COPD (chronic obstructive pulmonary disease) J44.9 Gallbladder polyp K82.4
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
--- NOTE | 2023-01-31 13:00 | PC.NURSE ---
Patient transferred to [facility] at 1250
[2023-01-31] MEDS: LORazepam 2 mg/mL INJ 1 mL 0.5 MG IVP (16:24)
[2023-01-31] MEDS: ALPRAZolam 0.5 mg Tablet 0.25 MG PO (18:36)
[2023-01-31] MEDS: sucralfate 1 gm Tablet PO (18:36)
[2023-01-31] MEDS: quetiapine 25 mg Tablet PO (20:44)
[2023-01-31] MEDS: LORazepam 2 mg/mL INJ 1 mL 1 MG IVP (22:46)
[2023-02-01] MEDS: valproic acid inj 500 MG in sodium chloride 0.9% 50 ML 55 MG IV ×2 (00:06→08:20)
[2023-02-01] MEDS: piperacillin-tazobactam 3.375 GM in sodium chloride 0.9% (plus) 50 ML IV ×3 (01:59→17:55)
[2023-02-01 03:33] VITALS: BP 120/64; PULSE 90; RESP 17; TEMP 36.6; O2SAT 96
[2023-02-01 05:27] LABS: Basophils # 0.1 10^3/uL (0.0-0.1); Eosinophils # 0.7 10^3/uL (0.0-0.8); Eosinophils % 11.5 %; Hematocrit 31.3 % (37.0-47.0); Hemoglobin 9.7 g/dL (11.5-15.3); Lymphocytes # 1.4 10^3/uL (0.8-4.8); Lymphocytes % 23.4 %; Mean Corpuscular Hemoglobin 24.7 pg (28.0-34.0); Mean Corpuscular Volume 79.8 fl (81-99); Monocytes # 0.5 10^3/uL (0.2-0.9); Monocytes % 7.8 %; Neutrophils # 3.32 10^3/uL (1.8-7.7); Nucleated Red Blood Cells % 0 %; Platelet Count 341 10^3/cmm (130-400); Red Blood Count 3.92 10^6/uL (4.1-5.3); White Blood Count 5.9 10^3/uL (4.0-10.0)
[2023-02-01 05:45] LABS: Blood Urea Nitrogen 20 mg/dL (8-23); Calcium 8.5 mg/dL (8.5-10.5); Carbon Dioxide 24 mmol/L (22-29); Chloride 105 mmol/L (98-107); Glucose 72 mg/dL (65-115); Osmolality Calculated 289 mOsm/kg (285-295); Sodium 139 mmol/L (136-145)
[2023-02-01 05:47] LABS: Anion Gap 14.3 (5-19); Potassium 4.3 mmol/L (3.5-5.1)
[2023-02-01] MEDS: LORazepam 2 mg/mL INJ 1 mL 1 MG IVP ×2 (06:36→14:06)
[2023-02-01 07:11] VITALS: PULSE 74; RESP 16; O2SAT 98
[2023-02-01 07:45] VITALS: BP 116/72; PULSE 71; RESP 18; TEMP 36.7; O2SAT 97
[2023-02-01] MEDS: dilTIAZem ER (24HR) 120 mg Capsule PO (08:21)
[2023-02-01] MEDS: ALPRAZolam 0.5 mg Tablet 0.25 MG PO ×2 (08:21→17:55)
[2023-02-01] MEDS: potassium chloride ER 20 mEq Tablet PO (08:21)
[2023-02-01] MEDS: FUROsemide 20 mg Tablet 40 MG PO (08:21)
[2023-02-01] MEDS: pantoprazole DR 40 mg Tablet PO (08:22)
[2023-02-01] MEDS: sucralfate 1 gm Tablet PO ×2 (08:22→17:56)
[2023-02-01] MEDS: aspirin 81 mg EC Tablet PO (08:22)
--- NOTE | 2023-02-01 10:28 | PM.PN ---
Subjective Subjective: Patient doing well, afebrile, no leukocytosis, cultures negative Awaiting placement She will need gallbladder surgery outpatient patient has a guardian Afshan Rosenberg [phone], public data warehouse administrator, sister is out of state Vitals/I&O/Wt Last Vital Signs Temp 98.0 F 02/01/23 07:45 Pulse 71 02/01/23 07:45 Resp 18 02/01/23 07:45 BP 116/72 02/01/23 07:45 Pulse Ox 97 02/01/23 07:45 O2 Del Method Nasal Cannula 02/01/23 07:11 O2 Flow Rate 2 02/01/23 07:11 01/31/23 02/01/23 02/01/23 22:59 06:59 14:59 Intake Total 50 / 100 105 / 205 55 / 55 Output Total 800 / 800 200 / 1000 Balance -750 / -700 -95 / -795 55 / 55 Physical Exam Narrative: Dehydrated Able to follow commands Morbidly directable Short attention span Dementia related confusion Radial S1-S2 abdomen soft Ortega catheter in place Currently on 2 L nasal cannula Pursed lip breathing Data 02/01/23 04:58 02/01/23 04:58 Micro: Microbiology 01/29/23 14:28 Urine Culture - Preliminary Urine,Clean Catch Gram Negative Rods A&P Assessment and plan (1) Gallbladder mass: (2) Gallbladder polyp: (3) UTI (urinary tract infection): (4) Septic shock: (5) Community acquired pneumonia: (6) Sepsis: (7) Acute hypercapnic respiratory failure: (8) Acute exacerbation of chronic obstructive airways disease: (9) COPD (chronic obstructive pulmonary disease): Plan Awaiting placement Continue antibiotics Discontinue Ortega catheter Sepsis: Resolved Cultures negative COPD exacerbation related to pneumonia: Improved Currently patient is at baseline 2 L She has chronic pursed lip breathing Delirium related to dementia: Improving Full code Consistent carb diet Attestations Medical Necessity Statement*: Awaiting placement Coding Diagnoses Gallbladder mass K82.8 Gallbladder polyp K82.4 UTI (urinary tract infection) N39.0 Septic shock A41.9; R65.21 Community acquired pneumonia J18.9 Sepsis A41.9 Acute hypercapnic respiratory failure J96.02 Acute exacerbation of chronic obstructive airways disease J44.1 COPD (chronic obstructive pulmonary disease) J44.9
--- NOTE | 2023-02-01 10:30 | P.DS_ITS ---
Discharge Providers Date of Admission: 01/29/23 16:07 Date of Discharge: February 01, 2023 Attending Provider at Admission: Fabiola Martin MD Attending Provider at Discharge: Fabiola Martin MD Primary Care Provider: Candie Brock MD Diagnoses at Discharge Discharge Diagnosis (1) Gallbladder mass: Status: Acute (2) Gallbladder polyp: Status: Acute (3) UTI (urinary tract infection): Status: Acute (4) Septic shock: Status: Acute (5) Community acquired pneumonia: Status: Acute (6) Sepsis: Status: Acute (7) Acute hypercapnic respiratory failure: Status: Acute (8) Acute exacerbation of chronic obstructive airways disease: Status: Acute (9) COPD (chronic obstructive pulmonary disease): Status: Acute Reason for Visit Reason for Visit: AMS Hospital Course Hospital Course 78-year-old female [place] [facility] resident, history of dementia, at baseline requires 2 to 3 L of oxygen, pursed lip breathing is chronic, she was admitted for management of sepsis related with UTI and pneumonia, cultures positive with gram-negative lacie in her urine, no signs of bacteremia, MRSA nares negative, her symptoms improved, initially she required central line placement for septic shock and required Levophed for few hours, patient becomes agitated quite frequently in the hospital, she seems to be back to her baseline, please note during hospitalization there is incidental finding of gallbladder mass, there is concern for malignancy as well, Dr. Santos was consulted who has recommended elective cholecystectomy. Once she is recovered from infection she should see Dr. Santos with close follow-up. At the time of discharge she will require levofloxacin 5-day regimen, I will give her referral to see Dr. Santos within 7 to 10 days. Patient is full code Please note her sister lives in [place], Ms. Brock has a guardian public imaging system administrator patient has a guardian Afshan Rosenberg [phone] This public imaging system administrator is the guardian of both and the Physical Exam Narrative: Awake and alert Pursed lip breathing Currently on 2 L Agitation improved Nonfocal neuro exam Euvolemic No signs of edema of legs Able to follow commands Discharge Data Studies Completed and Pending Completed Studies During Hospitalization Category Date Time Status CT angio chest w abd pel w con Stat Cat Scan 01/29/23 15:[address] head wo con* [id number] Stat Cat Scan 01/29/23 12:36 Completed CXRP [XR chest 1V portable [id number]] Stat Exams 01/29/23 15:20 Completed XR chest 1V portable [id number] Stat Exams 01/29/23 12:37 Completed CV. echo complete* [id number] Routine Ultrasound 01/29/23 17:23 Completed US gall bladder [id number] Routine Ultrasound 01/30/23 15:14 Completed Pending at discharge Category Date Time Status Blood Culture Stat Lab 01/29/23 13:20 Results Sputum Culture and Gram Stain Stat Lab 01/29/23 15:14 Uncollected Urine Culture Stat Lab 01/29/23 14:28 Results Radiology Impressions Head CT 01/29/23 12:36 IMPRESSION: No acute intracranial abnormality. Chest X-Ray 01/29/23 15:20 IMPRESSION: 1. Right IJ catheter ending in the lower one third of the SVC. 2. The chest is otherwise unchanged when compared to the latest exam. Chest/Abdomen/Pelvis CT 01/29/23 15:52 IMPRESSION: 1. No evidence for pulmonary embolus. 2. Aspiration versus pneumonia in the right lower lobe with fluid or filling defects in the bronchi. IMPRESSION: 1. Chronic irregular wall thickening and enhancement in the fundus of the gallbladder. This could represent chronic scarring but a neoplastic process is not excluded. 2. Increased 5.1 cm infrarenal abdominal aortic aneurysm. 3. Diverticulosis of the colon. COMMENTS: 1. Consistent with the [employer]'s Incidental Findings Committee white paper (J Am Juan Radiol 2018): Any incidental renal lesion less than 1 cm or classified as too small to characterize, or any incidental cystic renal lesion characterized as simple-appearing, is likely benign. No follow-up imaging is recommended for these lesions per consensus recommendations based on imaging criteria. 2. For patients with an IVC filter, recommend assessment for a management plan for the patient's IVC filter. If there is no established management plan, recommend referral to an interventional clinician on a nonemergent basis for evaluation. Gallbladder Ultrasound 01/30/23 15:14 IMPRESSION: 1. 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 Series 1, image 71. 2. Echogenic right renal cortex compared to the liver consistent with bilateral medical renal disease. Laboratory Results WBC 5.9 10^3/uL (4.0-10.0) 02/01/23 04:58 RBC 3.92 10^6/uL (4.1-5.3) L 02/01/23 04:58 Hgb 9.7 g/dL (11.5-15.3) L 02/01/23 04:58 Hct 31.3 % (37.0-47.0) L 02/01/23 04:58 MCV 79.8 fl (81-99) L 02/01/23 04:58 MCH 24.7 pg (28.0-34.0) L 02/01/23 04:58 MCHC 31.0 g/dL (30.0-36.0) 02/01/23 04:58 RDW 15.0 % (12.1-15.1) 02/01/23 04:58 Plt Count 341 10^3/cmm (130-400) 02/01/23 04:58 MPV 10.0 fL (7.4-10.4) 02/01/23 04:58 Neut % (Auto) 56.0 % 02/01/23 04:58 Lymph % (Auto) 23.4 % 02/01/23 04:58 Hughes % (Auto) 7.8 % 02/01/23 04:58 Eos % (Auto) 11.5 % 02/01/23 04:58 Baso % (Auto) 1.0 % 02/01/23 04:58 Neut # (Auto) 3.32 10^3/uL (1.8-7.7) 02/01/23 04:58 Lymph # (Auto) 1.4 10^3/uL (0.8-4.8) 02/01/23 04:58 Hughes # (Auto) 0.5 10^3/uL (0.2-0.9) 02/01/23 04:58 Eos # (Auto) 0.7 10^3/uL (0.0-0.8) 02/01/23 04:58 Baso # (Auto) 0.1 10^3/uL (0.0-0.1) 02/01/23 04:58 Nucleated RBC % (auto) 0 % 02/01/23 04:58 Nucleated RBCs # 0.0 /100WBC 02/01/23 04:58 PT 12.60 SECONDS (12.1-14.9) 01/29/23 13:20 INR 0.92 (0.8-1.2) 01/29/23 13:20 D-Dimer 2.40 ug/mIFEU (0-0.59) H 01/29/23 13:20 Specimen Type Arterial 01/30/23 06:15 Sample Site Brachial, right 01/30/23 06:15 ABG pH 7.44 (7.35-7.45) 01/30/23 06:15 ABG pCO2 40.6 mmHg (35-45) 01/30/23 06:15 ABG pO2 64.0 mmHg (80.0-100.0) L 01/30/23 06:15 ABG HCO3 27.8 mmol/L (22-26) H 01/30/23 06:15 ABG Base Excess 3.4 mmol/L (-2.0-2.0) H 01/30/23 06:15 Ha Test N/a 01/30/23 06:15 Hematocrit 30.2 % (37-47) L 01/30/23 06:15 Hgb O2 Saturation 93.6 % (95-100) L 01/29/23 13:12 Carboxyhemoglobin 1.4 %THgb (0.4-20.1) 01/29/23 13:12 Methemoglobin 0.4 % (0.4-1.5) 01/29/23 13:12 Total Hemoglobin 9.7 g/dL (12-16) L 01/29/23 13:12 O2 Delivery Device Nc 01/30/23 06:15 O2 Liters/Min 4.0 % 01/30/23 06:15 FiO2 36.0 % 01/30/23 06:15 Software Quality Analyst ID Irisluis fernando 01/30/23 06:15 Sodium 139 mmol/L (136-145) 02/01/23 04:58 Potassium 4.3 mmol/L (3.5-5.1) 02/01/23 04:58 Chloride 105 mmol/L (98-107) 02/01/23 04:58 Carbon Dioxide 24 mmol/L (22-29) 02/01/23 04:58 Anion Gap 14.3 (5-19) 02/01/23 04:58 BUN 20 mg/dL (8-23) 02/01/23 04:58 Creatinine 1.0 mg/dL (0.5-0.9) H 02/01/23 04:58 GFR Calculation Not Reportable 02/01/23 04:58 Glucose 72 mg/dL (65-115) 02/01/23 04:58 Calculated Osmolality 289 mOsm/kg (285-295) 02/01/23 04:58 Lactic Acid 1.2 mmol/L (0.5-2.2) 01/29/23 13:20 Calcium 8.5 mg/dL (8.5-10.5) 02/01/23 04:58 Phosphorus 2.6 mg/dL (2.5-4.5) 01/30/23 02:58 Magnesium 1.7 mg/dL (1.7-2.3) 01/30/23 02:58 Total Bilirubin 0.4 mg/dL (0.15-1.2) 01/31/23 03:24 AST 10 U/L (0-32) 01/31/23 03:24 ALT < 5 U/L (0-33) 01/31/23 03:24 Alkaline Phosphatase 66 U/L (35-105) 01/31/23 03:24 C-Reactive Protein 106.6 mg/L (0.0-4.9) H 01/30/23 02:58 NT-Pro-B Natriuret Pep 503 pg/mL (0-450) H 01/29/23 13:20 Total Protein 5.9 g/dL (6.6-8.7) L 01/31/23 03:24 Albumin 2.8 g/dL (3.5-5.2) L 01/31/23 03:24 Globulin 3.1 g/dL (1.3-4.6) 01/31/23 03:24 Lipase 35 U/L (13-60) 01/29/23 13:20 Procalcitonin 0.10 ng/mL (0-0.5) 01/29/23 13:20 Urine Color Light yellow (Yellow) 01/29/23 14:28 Urine Appearance Sl cloudy (CLEAR) A 01/29/23 14:28 Urine pH 8 (5-7) H 01/29/23 14:28 Ur Specific [place] 1.015 (1.005-1.030) 01/29/23 14:28 Urine Protein Neg (Negative) 01/29/23 14:28 Urine Glucose (UA) Norm (Normal) 01/29/23 14:28 Urine Ketones Negative (Negative) 01/29/23 14:28 Urine Blood Neg (Negative) 01/29/23 14:28 Urine Nitrate Negative (Negative) 01/29/23 14:28 Urine Bilirubin Neg (Negative) 01/29/23 14:28 Prot Sulfosalicylic Acd Negative (Negative) 01/29/23 14:28 Urine Urobilinogen Norm mg/dL (Negative) 01/29/23 14:28 Ur Leukocyte Esterase 2+ (Negative) H 01/29/23 14:28 Urine RBC 0-4 /hpf (0-2) H 01/29/23 14:28 Urine WBC Too numerous to cnt /hpf (0-5) H 01/29/23 14:28 Ur Squamous Epith Cells None /hpf (0-5) 01/29/23 14:28 Amorphous Sediment Not Reportable 01/29/23 14:28 Urine Bacteria 2+ /hpf (NONE) H 01/29/23 14:28 SARS-CoV-2 Ag (Rapid) negative (Negative) 01/29/23 14:05 Vitals Last Vital Signs Temp 98.0 F 02/01/23 07:45 Pulse 71 02/01/23 07:45 Resp 18 02/01/23 07:45 BP 116/72 02/01/23 07:45 Pulse Ox 97 02/01/23 07:45 O2 Del Method Nasal Cannula 02/01/23 07:11 O2 Flow Rate 2 02/01/23 07:11 Discharge Plan Discharge Patient Disposition: Xfer SNF Condition: Stable Prescriptions: New levofloxacin 750 mg tablet 750 mg PO DAILY 5 Days Qty: 5 0RF quetiapine [Seroquel] 50 mg tablet 50 mg PO BEDTIME Qty: 14 0RF Continued lidocaine 5 % adhesive patch,medicated 1 patch topical DAILY PRN (Reason: pain) 30 Days Qty: 30 3RF Rx Instructions: leave on most painful area for up to 12 hrs nitroglycerin 0.4 mg tablet, sublingual 0.4 mg sublingual Q5M PRN (Reason: Chest Pain) Qty: 20 0RF Rx Instructions: do not exceed 3 doses per episode aspirin 81 mg tablet,delayed release (DR/EC) 81 mg PO DAILY Qty: 90 1RF albuterol sulfate 90 mcg/actuation HFA aerosol inhaler 2 inh INHALATION Q4H PRN (Reason: shortness of breath or wheezing) Qty: 18 0RF acetaminophen 325 mg Tablet 650 mg PO QID PRN (Reason: Pain) sucralfate 1 gram tablet 1 g PO BID spironolactone 25 mg tablet 25 mg PO DAILY alprazolam 0.25 mg tablet 0.25 mg PO BID alprazolam 0.25 mg tablet 0.25 mg PO DAILY PRN (Reason: Anxiety) Milk of Magnesia 400 mg/5 mL Suspension 30 ml PO DAILY PRN (Reason: Constipation) Protonix 40 mg Tablet,Delayed Release (Dr/Ec) 40 mg PO DAILY diltiazem HCl 120 mg capsule,extended release 24hr 120 mg PO DAILY fluticasone propionate 50 mcg/actuation spray,suspension 1 spray INTRANASAL DAILY Claritin 10 mg Tablet 10 mg PO DAILY metoprolol tartrate 25 mg tablet 12.5 mg PO BID Symbicort 160-4.5 mcg/actuation HFA aerosol inhaler 2 puff INHALATION BID Pro-Stat 101 15-101 gram-kcal/30 mL Liquid 1 ea PO DAILY Mucus Relief ER 600 mg tablet extended release 12hr 600 mg PO BID PRN (Reason: Congestion) melatonin 3 mg Tablet 3 mg PO BEDTIME PRN (Reason: Sleep) ipratropium-albuterol 0.5 mg-3 mg(2.5 mg base)/3 mL solution for nebulization 3 ml inhalation Q6H PRN (Reason: Wheezing) gabapentin 300 mg capsule 300 mg PO TID Held furosemide 20 mg tablet 20 mg PO DAILY Hold Instructions: Resume on 02/08/23. Discontinued atorvastatin 40 mg tablet 40 mg PO DAILY Qty: 30 4RF Discharge Orders: Discharge Order (Routine); Ordered 02/01/23 Ordered By: Fabiola Martin Referrals: Ray Santos DO [Physician] - 1 week Candie Brock MD [Primary Care Provider] - Discharge Attestations Time Spent in Discharge Care*: greater than 30 min Status at Discharge: Cognitive status at discharge: cognitively intact , Behavioral status at discharge: cooperative , Quality Metrics Clinical Quality Measures [ No reported AMI, CVA or VTE this stay] Coding Level of Care Code Acute Code for Chg Fwd Diagnoses Gallbladder mass K82.8 Gallbladder polyp K82.4 UTI (urinary tract infection) N39.0 Septic shock A41.9; R65.21 Community acquired pneumonia J18.9 Sepsis A41.9 Acute hypercapnic respiratory failure J96.02 Acute exacerbation of chronic obstructive airways disease J44.1 COPD (chronic obstructive pulmonary disease) J44.9
--- NOTE | 2023-02-01 11:42 | P.PN_ITS ---
Subjective Subjective: Patient seen and examined. She was resting comfortably when I came in. Still only oriented to self Vitals/I&O/Wt Last Vital Signs Temp 98.0 F 02/01/23 07:45 Pulse 71 02/01/23 07:45 Resp 18 02/01/23 07:45 BP 116/72 02/01/23 07:45 Pulse Ox 97 02/01/23 07:45 O2 Del Method Nasal Cannula 02/01/23 07:11 O2 Flow Rate 2 02/01/23 07:11 01/31/23 02/01/23 02/01/23 22:59 06:59 14:59 Intake Total 50 / 100 105 / 205 55 / 55 Output Total 800 / 800 200 / 1000 500 / 500 Balance -750 / -700 -95 / -795 -445 / -445 Physical Exam Narrative: General: No acute distress, oriented only to self Abdomen: Soft nontender nondistended Urinary Catheter Management: Ortega: Cath Placed During This Visit: yes, but has since been removed by the nurse Reason for Continuing Indwelling Catheter: Decision to DC Catheter Date Urinary Catheter Removed: 02/01/23 Time Urinary Catheter Discontinued: 11:23 Data 02/01/23 04:58 02/01/23 04:58 Micro: Microbiology 01/29/23 14:28 Urine Culture - Final Urine,Clean Catch Escherichia coli esbl A&P Assessment and plan (1) Gallbladder mass: Plan He should undergo laparoscopic cholecystectomy on an elective basis. Please follow-up in my office as soon as possible. Medical management per hospitalist Attestations Medical Necessity Statement*: per primary Coding Level of Care Code Acute Code for [facility] Diagnoses Gallbladder mass K82.8
[2023-02-01 12:48] VITALS: BP 127/75; PULSE 71; RESP 16; TEMP 36.7; O2SAT 97
--- NOTE | 2023-02-01 14:01 | PC.NURSE ---
GENERAL SURG FOLLOW UP IS THE SOONEST THEY HAVE DUE TO DR. CLAYTON BEING OUT OF OFFICE NEXT WEEK.
[2023-02-01 19:00] VITALS: BP 127/75; PULSE 71; RESP 16; TEMP 36.7; O2SAT 97
== END 2023-02-01 19:07 | disposition skilled nursing facility (03) | DRG 871 ==
LOC: ER 15:59 → ICU 16:07 → MEDSURG 01-31 12:52
PROVIDERS: Admitting Provider Internal Medicine; Emergency Provider Emergency Medicine; PCP Family Medicine; Visit Provider Internal Medicine
DX: A41.9 Sepsis, unspecified organism (principal); G93.41 Metabolic encephalopathy; J18.9 Pneumonia, unspecified organism; R65.21 Severe sepsis with septic shock; J44.1 Chronic obstructive pulmonary disease with (acute) exacerbation; J44.0 Chronic obstructive pulmonary disease with (acute) lower respiratory infection; N39.0 Urinary tract infection, site not specified; F03.911 Unspecified dementia, unspecified severity, with agitation; E46 Unspecified protein-calorie malnutrition; Z68.1 Body mass index [BMI] 19.9 or less, adult; E87.1 Hypo-osmolality and hyponatremia; K82.9 Disease of gallbladder, unspecified; Z99.81 Dependence on supplemental oxygen; Z79.82 Long term (current) use of aspirin; Z79.51 Long term (current) use of inhaled steroids; I48.91 Unspecified atrial fibrillation; E78.5 Hyperlipidemia, unspecified; I10 Essential (primary) hypertension; F17.200 Nicotine dependence, unspecified, uncomplicated
CPT/HCPCS: 36415; 36556; 36600; 70450; 71045; 71275; 74177; 76705; 80048; 80053; 81001; 82803; 82805; 83605; 83690; 83735; 83880; 84100; 84145; 85025; 85378; 85610; 86140; 86403; 87040; 87077; 87086; 87186; 87426; 87449; 87641; 93005; 93306; 96365; 96367; 96375; 97161; 97530; 99285; J0456; J0696; J2060; J2543; J3370; J3490; J7030; J7050; J7060; J7120; Q9967

== ENCOUNTER → 2023-02-12 10:22 | Outpatient (BNVA) | payer MEDICARE, MEDICAID, SELFPAY | PROVIDERS: PCP Family Medicine; Visit Provider Surgery | DX: Z09 Encounter for follow-up examination after completed treatment for conditions other than malignant neoplasm (principal); K82.8 Other specified diseases of gallbladder | CPT/HCPCS: 99203; 99213 ==

== ENCOUNTER → 2023-02-18 13:00 | Outpatient (BNVA) | payer MEDICARE, MEDICAID, SELFPAY | PROVIDERS: PCP Family Medicine; Visit Provider Podiatrist Foot & Ankle Surgery | DX: I73.9 Peripheral vascular disease, unspecified (principal); L60.3 Nail dystrophy | CPT/HCPCS: 11721; 99203 ==

== ENCOUNTER 2023-03-25 07:39 | Day surgery (SDC) | payer MEDICARE, MEDICAID, SELFPAY ==
[2023-03-21 10:19] VITALS: BMI 16.2
[2023-03-21 11:09] LABS: Basophils # 0.1 10^3/uL (0.0-0.1); Basophils % 1.3 %; Eosinophils # 0.2 10^3/uL (0.0-0.8); Eosinophils % 2.6 %; Hematocrit 34.1 % (37.0-47.0); Hemoglobin 10.3 g/dL (11.5-15.3); Lymphocytes % 11.7 %; Mean Corpuscular HGB Conc 30.2 g/dL (30.0-36.0); Mean Corpuscular Hemoglobin 24.3 pg (28.0-34.0); Mean Corpuscular Volume 80.4 fl (81-99); Monocytes # 0.7 10^3/uL (0.2-0.9); Monocytes % 7.9 %; Neutrophils # 6.64 10^3/uL (1.8-7.7); Neutrophils % 76.2 %; Nucleated Red Blood Cells % 0 %; Platelet Count 517 10^3/cmm (130-400); Red Blood Count 4.24 10^6/uL (4.1-5.3); Red Cell Distribution Width 15.3 % (12.1-15.1); White Blood Count 8.7 10^3/uL (4.0-10.0)
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
[2023-03-21 11:35] LABS: Blood Urea Nitrogen 49 mg/dL (8-23); Carbon Dioxide 25 mmol/L (22-29); Chloride 98 mmol/L (98-107); Glucose 128 mg/dL (65-115); Osmolality Calculated 295 mOsm/kg (285-295); Sodium 135 mmol/L (136-145)
[2023-03-25] VITALS (11 sets, daily range): BP systolic 137–173; BP diastolic 67–95; PULSE 61–87; RESP 16–24; TEMP 36.1–36.2; O2SAT 91–100
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
[2023-03-25] MEDS: sodium chloride 0.9% 1,000 ML 30 ML IV (08:14)
[2023-03-25] MEDS: ceFAZolin 2,000 MG in sodium chloride 0.9% (plus) 50 ML 100 MG IV (09:26)
[2023-03-25] MEDS: lidocaine-epi 2% 20 mL INJ INJECTION (09:48)
--- NOTE | 2023-03-25 10:12 | P.OP_ITS ---
Operative Report Date of procedure: March 25, 2023 Pre-op diagnosis: Gallbladder mass Post-op diagnosis: same Procedure done: Laparoscopic cholecystectomy Implants: Surgicel x2 Specimens removed/disposition: Gallbladder Surgeon: Dr. Ray Santos DO Anesthesia: General Estimated blood loss (mL): 10 Complications: None apparent Brief History: This very pleasant 78-year-old female was found to have a 1.3 cm polypoid mass in her gallbladder on ultrasound. Laparoscopic cholecystectomy is indicated. Risk benefits explained and documented. Procedure: Patient was wheeled into the operative room and placed on the OR table in a supine position. Abdomen was inspected prepped and draped in usual sterile fashion. Time-out was performed and all present were in agreement. A 15 blade scalp was used to make a stab incision in the left upper quadrant and intra-a bdominal insufflation was achieved using a Veress needle. After localizing the tissue incisions were made and a 5 millimeter trocar was placed into the umbilicus as well as 2 in the right upper quadrant. A 12 millimeter trocar was placed in the epigastrium. Gallbladder was grasped and elevated. The triangle of Calot was carefully dissected using blunt dissection and electrocautery until the triangle of Calot clearly identified. The cystic duct was clipped proximally and double clipped distally. The duct was then ligated proximally. The cystic artery was doubly clipped and ligated. The gallbladder was then removed from the liver bed using electrocautery. The gallbladder was removed from the abdomen using an Endo-Catch bag through the epigastric incision. The liver bed was inspected and some bleeding from the liver bed was encountered. This was controlled with electrocautery and 2 pieces of Surgicel.. The abdomen was irrigated and suctioned. All ports removed. Skin was washed and dried. Incisions were closed with 4-0 Monocryl in a subcuticular interrupted fashion. Skin glue was applied. Patient tolerated the procedure well.
[2023-03-25] MEDS: fentaNYL 50 mcg/mL INJ 2mL 100 MCG IVP (11:15)
[2023-03-25] MEDS: HYDROcodone-acetaminophen 5-325 mg Tablet 1 TAB PO (12:34)
--- NOTE | 2023-03-25 13:07 | PC.NURSE ---
Pt AOx4 upon discharge. Medicated per emar for pain. Discharge instructions reviewed and given to caregiver, pt and caregiver verbalized understanding.
--- NOTE | 2023-03-25 16:51 | ANE.PACU2 ---
Inpatient post-anesthesia follow up: Airway intact: Yes Vital signs: Temperature 97.0 F Pulse Rate 84 Respiratory Rate 16 Blood Pressure 143/75 Pulse Oximetry 94 Oxygen Delivery Me thod Nasal Cannula Oxygen Flow Rate 3 Fraction of Inspir ed Oxygen Hydration adequate: Yes Nausea and vomiting: No Pain level: 2 Mental status: Baseline
== END 2023-03-25 12:59 | disposition home or self-care (01) ==
PROVIDERS: Anesthesiology; PCP Family Medicine; Visit Provider Surgery
PROC: 0FT44ZZ Resection of Gallbladder, Percutaneous Endoscopic Approach (ICD-10-PCS; CPT 47562; principal; 2023-03-25 09:05)
DX: K81.1 Chronic cholecystitis (principal); J44.9 Chronic obstructive pulmonary disease, unspecified; Z99.81 Dependence on supplemental oxygen; I48.91 Unspecified atrial fibrillation; K21.9 Gastro-esophageal reflux disease without esophagitis; Z79.82 Long term (current) use of aspirin; F17.210 Nicotine dependence, cigarettes, uncomplicated
CPT/HCPCS: 47562; 80048; 85025; 88304; J0690; J1100; J1200; J2371; J2405; J2704; J3010; J3490; J7030

== ENCOUNTER → 2023-04-17 12:37 | Outpatient (BNVA) | payer MEDICAID, SELFPAY | PROVIDERS: PCP Family Medicine; Visit Provider Surgery | DX: Z90.49 Acquired absence of other specified parts of digestive tract (principal); Z98.890 Other specified postprocedural states | CPT/HCPCS: 99024 ==

== ENCOUNTER → 2023-05-20 09:51 | Outpatient (BNVA) | payer MEDICAID, SELFPAY | PROVIDERS: PCP Family Medicine; Visit Provider Podiatrist Foot & Ankle Surgery | DX: L60.8 Other nail disorders (principal); L60.3 Nail dystrophy; I73.9 Peripheral vascular disease, unspecified; L84 Corns and callosities | CPT/HCPCS: 11056; 11721 ==

== ENCOUNTER 2023-08-12 05:06 | Inpatient (IN) | payer MEDICARE, SELFPAY ==
[2023-08-12] VITALS (99 sets, daily range): BP systolic 98–138; BP diastolic 48–93; PULSE 67–97; RESP 9–36; TEMP 36.5–36.9; O2SAT 80–100; BMI 18.4; BMI 17.9
--- NOTE | 2023-08-12 05:22 | XRR_ITS ---
PROCEDURE INFORMATION: Exam: XR Chest Exam date and time: 08/12/2023 5:27 AM Age: 78 years old Clinical indication: Shortness of breath; Patient HX: C/O SOB TECHNIQUE: Imaging protocol: Radiologic exam of the chest. Views: 1 view. COMPARISON: CT angio chest w abd pel w con 01/29/2023 4:48 PM FINDINGS: Lungs: Lungs appear hyperinflated, compatible with emphysema. Interstitial prominence in the right lung base, likely representing fibrosis. No focal airspace consolidation is identified. Pleural spaces: No significant pleural fluid. No pneumothorax detected. Heart/Mediastinum: Heart size appears mildly prominent. There is no pulmonary vascular congestion. Bones/joints: The bones appear diffusely osteopenic. XR/XR chest 1V portable [id number] IMPRESSION: Chronic emphysema and presumed fibrosis in the right base. Otherwise, no definite acute abnormality.
[2023-08-12] MEDS: ipratropium-albuterol 3 mL Neb INHALATION ×5 (05:31→23:26)
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
[2023-08-12 05:37] LABS: Basophils # 0.1 10^3/uL (0.0-0.1); Basophils % 1.2 %; Eosinophils # 0.3 10^3/uL (0.0-0.8); Eosinophils % 3.6 %; Hematocrit 34.6 % (36-47); Lymphocytes # 1.7 10^3/uL (0.8-4.8); Lymphocytes % 20.8 %; Mean Corpuscular HGB Conc 29.5 g/dL (30-55); Mean Corpuscular Hemoglobin 22.4 pg (27-33); Mean Platelet Volume 9.1 fL (7.4-10.4); Monocytes # 0.7 10^3/uL (0.2-0.9); Monocytes % 8.9 %; Neutrophils # 5.46 10^3/uL (1.8-7.7); Neutrophils % 65.3 %; Nucleated Red Blood Cells % 0 %; Platelet Count 456 10^3/cmm (157-399); Red Blood Count 4.55 10^6/uL (3.85-5.65); Red Cell Distribution Width 21.5 % (12.1-15.1); White Blood Count 8.36 10^3/uL (3.29-11.43)
[2023-08-12 05:42] LABS: ABG PCO2 58.5 mmHg (35-45); ABG PH Result 7.35 (7.35-7.45); Arterial Blood Gas Hematocrit 30.2 % (37-47); Base Excess ABG 5.1 mmol/L (-2.0-2.0); Blood Gas Allen Test Pos; Blood Gas Operator Identificat MONRO; Blood Gas Sample Site Radial, right; Blood Gas Sample Type Arterial; Carboxyhemoglobin 1.6 %THgb (0.4-20.1); HCO3 ABG 31.9 mmol/L (22-26); HGB O2 Sat 91.7 % (95-100); Methemoglobin 0.5 % (0.4-1.5); Oxygen Device NC; PO2 ABG 69.4 mmHg (80.0-100.0); PO2 FiO2 Ratio Arterial Blood 0; Total Hemoglobin 9.9 g/dL (12-16)
[2023-08-12] MEDS: FUROsemide 10 mg/mL SDV 10mL 60 MG IVP (05:53)
[2023-08-12 05:54] LABS: Lactic Sepsis W/Reflex 1.1 mmol/L (0.5-2.2)
[2023-08-12 05:55] LABS: Troponin(5th) Baseline 65 ng/L (0-10)
[2023-08-12 06:05] LABS: Alanine Aminotransferase 7 U/L (0-33); Albumin Level 3.4 g/dL (3.5-5.2); Alkaline Phosphatase 84 U/L (35-105); Aspartate Amino Transferase 14 U/L (0-32); Blood Urea Nitrogen 18 mg/dL (8-23); Calcium 9.2 mg/dL (8.5-10.5); Carbon Dioxide 30 mmol/L (22-29); Chloride 97 mmol/L (98-107); Globulin 3.5 g/dL (1.3-4.6); Glucose 101 mg/dL (65-115); Magnesium 2.1 mg/dL (1.7-2.3); NT Pro B Type Natriuretic Pept 576 pg/mL (0-450); Osmolality Calculated 284 mOsm/kg (285-295); Sodium 136 mmol/L (136-145); Total Bilirubin 0.2 mg/dL (0.15-1.2); Total Protein 6.9 g/dL (6.6-8.7)
[2023-08-12 06:15] LABS: Anion Gap 13.2 (5-19); Potassium 4.2 mmol/L (3.5-5.1)
--- NOTE | 2023-08-12 07:25 | ECG_ITS ---
[facility] Test Date: 2023-08-12 Pat Name: Rosario Brock Department: Room: Gender: Female Event Security Officer: : 1945 Requested By: Hernandez Valencia Order Number: [id number] Joel MD: Kaushik Adams M.D. Measurements Intervals [place] Rate: 71 P: 82 AK: 178 QRS: -61 QRSD: 94 T: 78 QT: 406 QTc: 442 Interpretive Statements SINUS RHYTHM WITH FREQUENT SUPRAVENTRICULAR PREMATURE COMPLEXES LEFT AXIS DEVIATION [QRS AXIS < -30] POSSIBLE RIGHT VENTRICULAR CONDUCTION DELAY [RSR (QR) IN V1/V2] Compared to ECG 08/12/2023 05:11:46 Atrial fibrillation no longer present Myocardial infarct finding no longer present Electronically Signed On 08-12-2023 10:52:35 DOUGHNUT DOUGH MIXER by Kaushik Adams M.D. [email or web address] GroupSunesis [email or web address] township district [facility].[email or web address]/[id number]
[2023-08-12] MEDS: levofloxacin-dextrose 5 % 750 MG/150 ML PREMIX 100 MG IV (07:30)
[2023-08-12 08:01] LABS: Troponin 5 2HR 70.99 ng/L (0-10); Troponin 5 2HR Delta 5.99 ABS# (0-10)
[2023-08-12 08:04] LABS: Adenovirus Not Detected (NOT DETECT); Chlamydia Pneumoniae Not Detected (NOT DETECT); Coronavirus 229E,HKU1,NL63,OC4 Not Detected (NOT DETECT); Human Metapneumovirus Not Detected (NOT DETECT); Human Rhinovirus/Enterovirus Not Detected (NOT DETECT); Influenza A Not Detected (NOT DETECT); Influenza A H1 Not Detected (NOT DETECT); Influenza A H1-2009 Not Detected (NOT DETECT); Influenza A H3 Not Detected (NOT DETECT); Influenza B Not Detected (NOT DETECT); Mycoplasma Pneumoniae Not Detected (NOT DETECT); Parainfluenza Virus Type 1 Not Detected (NOT DETECT); Parainfluenza Virus Type 2 Not Detected (NOT DETECT); Parainfluenza Virus Type 3 Not Detected (NOT DETECT); Parainfluenza Virus Type 4 Not Detected (NOT DETECT); Respiratory Syncytial Virus A Not Detected (NOT DETECT); Respiratory Syncytial Virus B Not Detected (NOT DETECT); SARS-COV-2 Not Detected (NOT DETECT)
[2023-08-12] MEDS: vancomycin 1,000 MG in sodium chloride 0.9% 250 ML 250 MG IV (09:06)
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
[2023-08-12] MEDS: enoxaparin 40 mg/0.4 mL Syringe SUBCUT (11:16)
[2023-08-12] MEDS: predniSONE 20 mg Tablet 40 MG PO (11:16)
--- NOTE | 2023-08-12 11:22 | ECG_ITS ---
[facility] Test Date: 2023-08-12 Pat Name: Rosario Brock Department: Room: Gender: Female Mower Operator: : 1945 Requested By: Hernandez Valencia Order Number: [id number] Joel MD: Kaushik Adams M.D. Measurements Intervals [place] Rate: 87 P: 0 [place]: 0 QRS: -55 QRSD: 83 T: 69 QT: 382 QTc: 460 Interpretive Statements WANDERING PACEMAKER LEFT AXIS DEVIATION [QRS AXIS < -30] POSSIBLE RIGHT VENTRICULAR CONDUCTION DELAY [RSR (QR) IN V1/V2] ANTEROSEPTAL MYOCARDIAL INFARCTION , OF INDETERMINATE AGE [40+ ms Q WAVE IN V1-V4] Compared to ECG 01/29/2023 13:02:53 Left-axis deviation now present Left ventricular hypertrophy no longer present Myocardial infarct finding still present Electronically Signed On 08-12-2023 10:53:13 MACHINE ASSISTANT by Kaushik Adams M.D. [id number]
[2023-08-12 12:17] LABS: Add Urine Culture? No; Bacteria Urine TRACE /hpf; Bilirubin Urine Neg (Negative); Blood Urine Neg (Negative); Glucose Urine UA Norm (Normal); Ketones Urine Negative (Negative); Leukocyte Esterase Urine 2+ (Negative); Nitrate Urine Negative (Negative); Protein Urine Neg (Negative); RBC Urine 0-4 /hpf (0-2); Specific Gravity, Urine 1.005 (1.005-1.030); Squamous Epithelial Cell Urine 0-4 /hpf (0-5); Sulfosalicylic Acid Urine Negative (Negative); Urine Appearance SL Hazy (CLEAR); Urine Color Colorless (Yellow); Urobilinogen Urine Norm (Negative); pH Urine 8 (5-7)
[2023-08-12 13:01] LABS: Troponin 5 6HR 66.98 ng/L (0-10); Troponin 5 6HR Delta 1.98 ng/L (0-12)
[2023-08-12] MEDS: gabapentin 300 mg Capsule PO ×2 (15:33→21:22)
[2023-08-12] MEDS: FUROsemide 10 mg/mL SDV 4mL 40 MG IVP (17:25)
[2023-08-12] MEDS: metoprolol tartrate 25 mg Tablet 12.5 MG PO (17:26)
[2023-08-12] MEDS: sucralfate 1 gm Tablet PO (17:27)
[2023-08-12] MEDS: ferrous sulfate EC 325 mg Tablet PO (17:27)
[2023-08-12] MEDS: doxycycline 100 mg Tablet PO (17:28)
[2023-08-12] MEDS: ALPRAZolam 0.5 mg Tablet 0.25 MG PO (17:28)
[2023-08-12] MEDS: meropenem 1,000 MG in sodium chloride 0.9% (plus) 50 ML 100 MG IV (17:29)
[2023-08-12] MEDS: budesonide 0.5 mg/2 mL Neb INHALATION (19:54)
[2023-08-13] VITALS (19 sets, daily range): BP systolic 106–134; BP diastolic 47–66; PULSE 58–87; RESP 10–26; TEMP 36.5–37; O2SAT 91–99
[2023-08-13] MEDS: meropenem 1,000 MG in sodium chloride 0.9% (plus) 50 ML 100 MG IV ×3 (01:15→15:49)
--- NOTE | 2023-08-13 04:06 | PC.NURSE ---
[place] [facility] [place] [facility] and the trip was uneventful.
--- NOTE | 2023-08-13 04:13 | PC.NURSE ---
Patient arrived to Med/Surg 251 bed 1 by wheelchair. Patient transferred to bed with a 1 assist. Patient oriented to self and year only and is alert. patient requested in bed and requested a sprite. Patients request met. No further needs at this time.
[2023-08-13] MEDS: FUROsemide 10 mg/mL SDV 4mL 40 MG IVP ×2 (05:10→15:50)
[2023-08-13 06:01] LABS: Basophils % 0.2 %; Eosinophils % 0.1 %; Hematocrit 31.7 % (36-47); Lymphocytes % 11.8 %; Mean Corpuscular HGB Conc 28.7 g/dL (30-55); Mean Corpuscular Volume 76.8 fl (85-98); Mean Platelet Volume 9.9 fL (7.4-10.4); Monocytes # 0.7 10^3/uL (0.2-0.9); Monocytes % 8.3 %; Neutrophils # 6.61 10^3/uL (1.8-7.7); Neutrophils % 79.2 %; Nucleated Red Blood Cells % 0 %; Platelet Count 389 10^3/cmm (157-399); Red Blood Count 4.13 10^6/uL (3.85-5.65); Red Cell Distribution Width 21.5 % (12.1-15.1); White Blood Count 8.34 10^3/uL (3.29-11.43)
--- NOTE | 2023-08-13 06:02 | ECG_ITS ---
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 Measurements Intervals [place] Rate: 75 P: 73 [place]: 182 QRS: -37 QRSD: 93 T: 48 QT: 378 QTc: 424 Interpretive Statements SINUS RHYTHM WITH FREQUENT ECTOPIC PREMATURE COMPLEXES LEFT AXIS DEVIATION [QRS AXIS < -30] SEPTAL MYOCARDIAL INFARCTION , PROBABLY OLD [40+ ms Q WAVE IN V1/V2] Compared to ECG 08/12/2023 07:25:02 Myocardial infarct finding now present Electronically Signed On 08-13-2023 21:36:37 ELECTROPLATING TECHNICIAN by Flory Díaz M.D. [id number]
[2023-08-13 06:29] LABS: Alanine Aminotransferase 7 U/L (0-33); Albumin Level 3.1 g/dL (3.5-5.2); Alkaline Phosphatase 75 U/L (35-105); Anion Gap 12.9 (5-19); Aspartate Amino Transferase 10 U/L (0-32); Blood Urea Nitrogen 19 mg/dL (8-23); Calcium 8.8 mg/dL (8.5-10.5); Carbon Dioxide 33 mmol/L (22-29); Chloride 96 mmol/L (98-107); Globulin 3.1 g/dL (1.3-4.6); Glucose 112 mg/dL (65-115); Magnesium 2.1 mg/dL (1.7-2.3); Osmolality Calculated 289 mOsm/kg (285-295); Potassium 3.9 mmol/L (3.5-5.1); Sodium 138 mmol/L (136-145); Total Bilirubin 0.2 mg/dL (0.15-1.2); Total Protein 6.2 g/dL (6.6-8.7)
[2023-08-13] MEDS: ipratropium-albuterol 3 mL Neb INHALATION ×4 (07:45→20:32)
[2023-08-13] MEDS: budesonide 0.5 mg/2 mL Neb INHALATION ×2 (07:45→20:32)
[2023-08-13] MEDS: doxycycline 100 mg Tablet PO ×2 (08:09→17:39)
[2023-08-13] MEDS: pantoprazole DR 40 mg Tablet PO (08:09)
[2023-08-13] MEDS: loratadine 10 mg Tablet PO (08:09)
[2023-08-13] MEDS: sucralfate 1 gm Tablet PO ×2 (08:09→17:39)
[2023-08-13] MEDS: gabapentin 300 mg Capsule PO ×3 (08:09→20:30)
[2023-08-13] MEDS: enoxaparin 40 mg/0.4 mL Syringe SUBCUT (08:09)
[2023-08-13] MEDS: predniSONE 20 mg Tablet 40 MG PO (08:09)
[2023-08-13] MEDS: aspirin 81 mg EC Tablet PO (08:09)
[2023-08-13] MEDS: ALPRAZolam 0.5 mg Tablet 0.25 MG PO ×2 (08:12→17:39)
[2023-08-13] MEDS: metoprolol tartrate 25 mg Tablet 12.5 MG PO ×2 (08:12→17:39)
[2023-08-13] MEDS: ferrous sulfate EC 325 mg Tablet PO ×2 (08:35→17:39)
--- NOTE | 2023-08-13 09:18 | PC.CHAP ---
Pastoral Care Encounter/Spiritual Assessment Type of Contact [] Declined layaway clerk visit [] Patient/Family/Request visit [] Outpatient visit [] Follow-up visit [] Physician referral [] Code/Alert [x] Routine visit [] Staff referral [] Actively dying [] Patient sleeping [] Family support [] [] Out of room [] Palliative care [] [] Receiving care in room [] Pre-surgical visit [] Trauma [] Long length of stay [] ICU visit [] Other: Relational/Emotional Strength [x] Patient feels connected with others/family/visitors/staff [] Distress [] Loneliness/isolation [] Abandonment Spirituality of Patient [x] Person of Tresa [] Attends Baptism of their Tresa [x] Believes in Prayer [] Reads Bible or Hinduism materials [] There are Spiritual issues to be addressed Cold Patcher Interventions [x] Prayer [x] Active listening [x] Non-anxious presence [x] Spiritual/emotional support [] Crisis/trauma care [] Spiritual counseling [] Bereavement support [] Provided bereavement packet [] Provided Bible/devotional materials [] Provided toy/stuffed animal, coloring book to patient or family member [] Provided Communion [] Anointing/Roland [] Salvation [x] Completed spiritual assessment [] Other: Impact on Illness or Injury [] Angry [] Fearful [] Anxious [] Often cries [] Exhaustion [] Unable to work [] Unable to attend restorationism [] Unable to walk/stand [] Unable to read [] Unable to drive [] Unable to eat/drink [] Unable to sleep [] Unable to be with family [] Patient intubated [] Other: Summary Time spent with patient 5 min
--- NOTE | 2023-08-13 09:19 | P.PN_ITS ---
Documented by User: ralph Laureano 08/13/23 09:32 Subjective 2 Subjective: Patient was evaluated this morning lying in bed on 3L/NC. Patient is able to state place, name, current year. Reports that she overall feels improved. Able to complete full sentences without becoming short of breath. does have some complaints of lower extremity pain but is currently on gabapentin for neuropathy. Denies any increase shortness of breath, chest pain, abdominal pain. Medications: Reviewed: Yes Vitals/I&O/Wt Last Vital Signs Temp 98.1 F 08/13/23 07:39 Pulse 87 08/13/23 07:45 Resp 16 08/13/23 07:45 BP 128/53 08/13/23 07:39 Pulse Ox 94 08/13/23 07:45 O2 Del Method Nasal Cannula 08/13/23 07:45 O2 Flow Rate 3 08/13/23 08:00 08/12/23 08/13/23 08/13/23 22:59 06:59 14:59 Intake Total 290 / 810 50 / 860 290 / 290 Balance 290 / 810 50 / 860 290 / 290 Weight last 48 hrs Weight 45.926 kg Weight 45.926 kg Weight 45.813 kg Physical Exam 2 Narrative: General exam is white female, alert, pleasant HEENT: Atraumatic normocephalic. Pupils equally round. Oropharynx is clear. Neck is supple no lymphadenopathy thyromegaly Cardiovascular regular rate and rhythm without murmur, heart sounds distant, Lungs diminished breath sounds bilaterally. Occasional wheeze. No crackles. Abdomen soft nontender positive bowel sounds. No obvious organomegaly exams deferred Extremities show 1+ edema bilaterally. Venous stasis changes are noted. Skin no significant rash, dry skin noted throughout Neuro no obvious focal deficits Data 08/13/23 05:09 08/13/23 05:09 Other Labs: Hemoglobin 9.1, hematocrit 31.7, creatinine 1.2, A&P Assessment and plan (1) Acute diastolic heart failure: Continue Lasix, 40 mg IV every 12 hours Cardiac diet Continue low-dose beta-kendy Telemetry CBC, CMP, magnesium level tomorrow (2) COPD (chronic obstructive pulmonary disease): Patient presents with COPD with exacerbation Prednisone 40 mg a day DuoNeb every 4 hours Budesonide twice daily Doxycycline 100 mg p.o. twice daily Qualifiers: COPD type: emphysema Emphysema type: unspecified Qualified Code(s): J 43.9 - Emphysema, unspecified (3) Acute hypoxic respiratory failure: Improving. On 3L/NC at this time. Acute hypoxic respiratory failure secondary to COPD exacerbation acute diastolic heart failure. Monitor closely to make sure BiPAP is not needed. She did have CO2 retention on admission. (4) Atrial fibrillation: Patient with past history of A-fib. She is not on anticoagulation. Apparently heart rate has been controlled on her current medication. Continue to follow closely. Secondary to lower blood pressures, concern of lower heart rate, will hold her diltiazem today. Plan Plan as stated above. Urinalysis revealed slight cystitis. Patient placed on meropenem IV. Full code currently Lovenox for DVT prophylaxis Coding Level of Care Code 16462 Diagnoses Acute diastolic heart failure I50.31 Pulmonary emphysema, unspecified emphysema type J43.9 COPD type: emphysema Emphysema type: unspecified Acute hypoxic respiratory failure J96.01 Atrial fibrillation I48.91 Time Spent (min) 21 Documented by User: Alvarez Dykes MD 08/13/23 10:04 Subjective 2 Subjective: Patient was evaluated this morning lying in bed on 3.5 L/NC. Patient is able to state place, name, current year. Reports that she overall feels improved. Able to complete full sentences without becoming short of breath. does have some complaints of lower extremity pain but is currently on gabapentin for neuropathy. Denies any increase shortness of breath, chest pain, abdominal pain. Data 08/13/23 05:09 08/13/23 05:09 A&P Assessment and plan (1) Acute diastolic heart failure: (2) COPD (chronic obstructive pulmonary disease): Qualifiers: COPD type: emphysema Emphysema type: unspecified Qualified Code(s): J 43.9 - Emphysema, unspecified (3) Acute hypoxic respiratory failure: (4) Atrial fibrillation: Attestations 2 Medical Necessity Statement*: Needs continued hospital stay for weaning oxygen, frequent nebulized treatments in this patient with severe COPD exacerbation. Diagnoses Acute diastolic heart failure I50.31 Pulmonary emphysema, unspecified emphysema type J43.9 COPD type: emphysema Emphysema type: unspecified Acute hypoxic respiratory failure J96.01 Atrial fibrillation I48.91 Time Spent (min) 21
[2023-08-13] MEDS: docusate sodium 100 mg Capsule PO ×2 (10:42→17:39)
[2023-08-14] VITALS (8 sets, daily range): BP systolic 112–159; BP diastolic 58–98; PULSE 73–114; RESP 15–18; TEMP 36.3–36.5; O2SAT 91–98
[2023-08-14] MEDS: meropenem 1,000 MG in sodium chloride 0.9% (plus) 50 ML 100 MG IV ×2 (00:22→08:52)
[2023-08-14] MEDS: ipratropium-albuterol 3 mL Neb INHALATION ×3 (01:02→08:23)
[2023-08-14] MEDS: FUROsemide 10 mg/mL SDV 4mL 40 MG IVP (04:55)
[2023-08-14] MEDS: budesonide 0.5 mg/2 mL Neb INHALATION (08:23)
[2023-08-14] MEDS: metoprolol tartrate 25 mg Tablet 12.5 MG PO (08:53)
[2023-08-14] MEDS: docusate sodium 100 mg Capsule PO (08:53)
[2023-08-14] MEDS: ferrous sulfate EC 325 mg Tablet PO (08:53)
[2023-08-14] MEDS: doxycycline 100 mg Tablet PO (08:53)
[2023-08-14] MEDS: aspirin 81 mg EC Tablet PO (08:53)
[2023-08-14] MEDS: gabapentin 300 mg Capsule PO ×2 (08:53→14:03)
[2023-08-14] MEDS: sucralfate 1 gm Tablet PO (08:53)
[2023-08-14] MEDS: predniSONE 20 mg Tablet 40 MG PO (08:54)
[2023-08-14] MEDS: loratadine 10 mg Tablet PO (08:54)
[2023-08-14] MEDS: pantoprazole DR 40 mg Tablet PO (08:54)
[2023-08-14] MEDS: ALPRAZolam 0.5 mg Tablet 0.25 MG PO (08:54)
[2023-08-14] MEDS: enoxaparin 30 mg/0.3 mL Syringe SUBCUT (10:19)
--- NOTE | 2023-08-14 11:02 | PM.DCS ---
Discharge Providers Date of Admission: 08/12/23 09:25 Date of Discharge: August 14, 2023 Attending Provider at Admission: Alvarez Dykes MD Attending Provider at Discharge: Alvarez Dykes MD Primary Care Provider: Tyrell Tapia Jr, MD Diagnoses at Discharge Discharge Diagnosis (1) Acute diastolic heart failure: Status: Acute (2) COPD (chronic obstructive pulmonary disease): Status: Acute Qualifiers: COPD type: emphysema Emphysema type: unspecified Qualified Code(s): J43.9 - Emphysema, unspecified (3) Acute hypoxic respiratory failure: Status: Acute (4) Atrial fibrillation: Status: Acute Reason for Visit Reason for Visit: SOB Hospital Course Hospital Course Rosario is an 78-year-old white female who [facility]. She was diagnosed with acute COPD exacerbation, acute diastolic heart failure. She was placed on prednisone, frequent breathing treatments, doxycycline as well as IV Lasix. During her hospital stay she had significant improvement in her breathing is admitted and was able to be weaned down to 3 L of oxygen which was her baseline. She will complete a short course of prednisone. She will continue DuoNeb 4 times daily at the nursing facility. She will complete a short course of doxycycline. Her Lasix dose was increased to 40 mg a day and she needs a BMP in approximately 3 to 5 days. She was given opportunity ask questions, and agreed with the plan. I did discuss her hospital case briefly with her sister as well. She will follow-up with pulmonary as an outpatient as requested by her guardian. She was encouraged not to smoke. Physical Exam Narrative: General exam no distress Neck is supple Cardiovascular regular in rhythm Lungs diminished breath sounds bilaterally Abdomen is soft Extremities no cyanosis clubbing or edema Discharge Data Studies Completed and Pending Completed Studies During Hospitalization Category Date Time Status XR chest 1V portable [id number] Stat Exams 08/12/23 05:22 Completed Pending at discharge Category Date Time Status Blood Cultures ([facility]) Routine Lab 08/12/23 06:17 Received Blood Cultures ([facility]) Routine Lab 08/12/23 07:21 Results Radiology Impressions Chest X-Ray 08/12/23 05:22 IMPRESSION: Chronic emphysema and presumed fibrosis in the right base. Otherwise, no definite acute abnormality. Laboratory Results WBC 8.34 10^3/uL (3.29-11.43) 08/13/23 05:09 RBC 4.13 10^6/uL (3.85-5.65) 08/13/23 05:09 Hgb 9.10 g/dL (11.27-16.99) L 08/13/23 05:09 Hct 31.7 % (36-47) L 08/13/23 05:09 MCV 76.8 fl (85-98) L 08/13/23 05:09 MCH 22.0 pg (27-33) L 08/13/23 05:09 MCHC 28.7 g/dL (30-55) L 08/13/23 05:09 RDW 21.5 % (12.1-15.1) H 08/13/23 05:09 Plt Count 389 10^3/cmm (157-399) 08/13/23 05:09 MPV 9.9 fL (7.4-10.4) 08/13/23 05:09 Neut % (Auto) 79.2 % 08/13/23 05:09 Lymph % (Auto) 11.8 % 08/13/23 05:09 [place] % (Auto) 8.3 % 08/13/23 05:09 Eos % (Auto) 0.1 % 08/13/23 05:09 Baso % (Auto) 0.2 % 08/13/23 05:09 Neut # (Auto) 6.61 10^3/uL (1.8-7.7) 08/13/23 05:09 Lymph # (Auto) 1.0 10^3/uL (0.8-4.8) 08/13/23 05:09 [place] # (Auto) 0.7 10^3/uL (0.2-0.9) 08/13/23 05:09 Eos # (Auto) 0.0 10^3/uL (0.0-0.8) 08/13/23 05:09 Baso # (Auto) 0.0 10^3/uL (0.0-0.1) 08/13/23 05:09 Nucleated RBC % (auto) 0 % 08/13/23 05:09 Nucleated RBCs # 0.0 /100WBC 08/13/23 05:09 Specimen Type Arterial 08/12/23 05:28 Sample Site Radial, right 08/12/23 05:28 ABG pH 7.35 (7.35-7.45) 08/12/23 05:28 ABG pCO2 58.5 mmHg (35-45) H 08/12/23 05:28 ABG pO2 69.4 mmHg (80.0-100.0) L 08/12/23 05:28 ABG PO2/FiO2 Ratio 0 08/12/23 05:28 ABG HCO3 31.9 mmol/L (22-26) H 08/12/23 05:28 ABG Base Excess 5.1 mmol/L (-2.0-2.0) H 08/12/23 05:28 Ha Test Pos 08/12/23 05:28 Hematocrit 30.2 % (37-47) L 08/12/23 05:28 Hgb O2 Saturation 91.7 % (95-100) L 08/12/23 05:28 Carboxyhemoglobin 1.6 %THgb (0.4-20.1) 08/12/23 05:28 Methemoglobin 0.5 % (0.4-1.5) 08/12/23 05:28 Total Hemoglobin 9.9 g/dL (12-16) L 08/12/23 05:28 O2 Delivery Device Nc 08/12/23 05:28 O2 Liters/Min 3.0 % 08/12/23 05:28 FiO2 32.0 % 08/12/23 05:28 Shot Lighter ID [place] 08/12/23 05:28 Sodium 138 mmol/L (136-145) 08/13/23 05:09 Potassium 3.9 mmol/L (3.5-5.1) 08/13/23 05:09 Chloride 96 mmol/L (98-107) L 08/13/23 05:09 Carbon Dioxide 33 mmol/L (22-29) H 08/13/23 05:09 Anion Gap 12.9 (5-19) 08/13/23 05:09 BUN 19 mg/dL (8-23) 08/13/23 05:09 Creatinine 1.2 mg/dL (0.5-0.9) H 08/13/23 05:09 GFR Calculation Not Reportable 08/13/23 05:09 Glucose 112 mg/dL (65-115) 08/13/23 05:09 Calculated Osmolality 289 mOsm/kg (285-295) 08/13/23 05:09 Lactic Acid 1.1 mmol/L (0.5-2.2) 08/12/23 05:30 Calcium 8.8 mg/dL (8.5-10.5) 08/13/23 05:09 Magnesium 2.1 mg/dL (1.7-2.3) 08/13/23 05:09 Total Bilirubin 0.2 mg/dL (0.15-1.2) 08/13/23 05:09 AST 10 U/L (0-32) 08/13/23 05:09 ALT 7 U/L (0-33) 08/13/23 05:09 Alkaline Phosphatase 75 U/L (35-105) 08/13/23 05:09 Troponin T Baseline 65 ng/L (0-10) H 08/12/23 05:30 Troponin T 120 Minute 70.99 ng/L (0-10) H 08/12/23 07:16 Delta Troponin T 5.99 ABS# (0-10) 08/12/23 07:16 Troponin T Hi Sens 6Hr 66.98 ng/L (0-10) H 08/12/23 12:16 Troponin T Hi Sens 6Hr Delta 1.98 ng/L (0-12) 08/12/23 12:16 NT-Pro-B Natriuret Pep 576 pg/mL (0-450) H 08/12/23 05:30 Total Protein 6.2 g/dL (6.6-8.7) L 08/13/23 05:09 Albumin 3.1 g/dL (3.5-5.2) L 08/13/23 05:09 Globulin 3.1 g/dL (1.3-4.6) 08/13/23 05:09 Urine Color Colorless (Yellow) 08/12/23 11:46 Urine Appearance Sl hazy (CLEAR) A 08/12/23 11:46 Urine pH 8 (5-7) H 08/12/23 11:46 Ur Specific [place] 1.005 (1.005-1.030) 08/12/23 11:46 Urine Protein Neg (Negative) 08/12/23 11:46 Urine Glucose (UA) Norm (Normal) 08/12/23 11:46 Urine Ketones Negative (Negative) 08/12/23 11:46 Urine Blood Neg (Negative) 08/12/23 11:46 Urine Nitrate Negative (Negative) 08/12/23 11:46 Urine Bilirubin Neg (Negative) 08/12/23 11:46 Prot Sulfosalicylic Acd Negative (Negative) 08/12/23 11:46 Urine Urobilinogen Norm mg/dL (Negative) 08/12/23 11:46 Ur Leukocyte Esterase 2+ (Negative) H 08/12/23 11:46 Urine RBC 0-4 /hpf (0-2) H 08/12/23 11:46 Urine WBC 10-15 /hpf (0-5) H 08/12/23 11:46 Ur Squamous Epith Cells 0-4 /hpf (0-5) H 08/12/23 11:46 Amorphous Sediment Not Reportable 08/12/23 11:46 Urine Bacteria Trace /hpf (NONE) 08/12/23 11:46 Adenovirus (PCR) Not detected (NOT DETECT) 08/12/23 05:28 C. pneumoniae DNA (PCR) Not detected (NOT DETECT) 08/12/23 05:28 Coronavirus 229E (PCR) Not detected (NOT DETECT) 08/12/23 05:28 Human Metapneumovir PCR Not detected (NOT DETECT) 08/12/23 05:28 Influenza A (H1) PCR Not detected (NOT DETECT) 08/12/23 05:28 Influ A (H1/09) PCR Not detected (NOT DETECT) 08/12/23 05:28 Influenza A (H3) PCR Not detected (NOT DETECT) 08/12/23 05:28 Influenza Type A (PCR) Not detected (NOT DETECT) 08/12/23 05:28 Influenza Type B (PCR) Not detected (NOT DETECT) 08/12/23 05:28 M. pneumoniae (PCR) Not detected (NOT DETECT) 08/12/23 05:28 Parainfluenza 1 (PCR) Not detected (NOT DETECT) 08/12/23 05:28 Parainfluenza 2 (PCR) Not detected (NOT DETECT) 08/12/23 05:28 Parainfluenza 3 (PCR) Not detected (NOT DETECT) 08/12/23 05:28 Parainfluenza 4 (PCR) Not detected (NOT DETECT) 08/12/23 05:28 RSV Type A (PCR) Not detected (NOT DETECT) 08/12/23 05:28 RSV Type B (PCR) Not detected (NOT DETECT) 08/12/23 05:28 Entero/Rhino (PCR) Not detected (NOT DETECT) 08/12/23 05:28 SARS-CoV-2 (PCR) Not detected (NOT DETECT) 08/12/23 05:28 Vitals Last Vital Signs Temp 97.7 F 08/14/23 08:00 Pulse 77 08/14/23 08:31 Resp 16 08/14/23 08:31 BP 123/60 08/14/23 08:00 Pulse Ox 93 08/14/23 08:31 O2 Del Method Nasal Cannula 08/14/23 08:31 O2 Flow Rate 2.5 08/14/23 08:31 Discharge Plan Discharge Patient Disposition: Home Condition: Stable Prescriptions: New prednisone 20 mg Tablet 40 mg PO DAILY Qty: 6 0RF doxycycline monohydrate 100 mg Tablet 100 mg PO BID Qty: 14 0RF ipratropium-albuterol 0.5 mg-3 mg(2.5 mg base)/3 mL solution for nebulization 3 ml inhalation QID Qty: 180 0RF Lasix 40 mg tablet 40 mg PO QAM Qty: 30 0RF Continued aspirin 81 mg tablet,delayed release (DR/EC) 81 mg PO DAILY Qty: 90 1RF acetaminophen 325 mg Tablet 650 mg PO QID PRN (Reason: Pain) sucralfate 1 gram tablet 1 g PO BID alprazolam 0.25 mg tablet 0.25 mg PO BID magnesium hydroxide [Milk of Magnesia] 400 mg/5 mL Suspension 30 ml PO DAILY PRN (Reason: Constipation) pantoprazole [Protonix] 40 mg Tablet,Delayed Release (Dr/Ec) 40 mg PO DAILY diltiazem HCl 120 mg capsule,extended release 24hr 120 mg PO DAILY fluticasone propionate 50 mcg/actuation spray,suspension 1 spray INTRANASAL DAILY loratadine [Claritin] 10 mg Tablet 10 mg PO DAILY metoprolol tartrate 25 mg tablet 12.5 mg PO BID budesonide-formoterol [Symbicort] 160-4.5 mcg/actuation HFA aerosol inhaler 2 puff INHALATION BID guaifenesin [Mucus Relief ER] 600 mg tablet extended release 12hr 600 mg PO BID PRN (Reason: Congestion) iron 325 mg (65 mg iron) Tablet 325 mg PO BID alprazolam 0.25 mg tablet 0.25 mg PO Q6H PRN (Reason: Anxiety) melatonin 3 mg Tablet 3 mg PO BEDTIME PRN (Reason: Sleep) gabapentin 300 mg capsule 300 mg PO TID Discontinued albuterol sulfate 90 mcg/actuation HFA aerosol inhaler 2 inh INHALATION Q4H PRN (Reason: shortness of breath or wheezing) Qty: 18 0RF furosemide 20 mg tablet 40 mg PO DAILY Hold Instructions: Resume on 02/08/23. Discharge Orders: Discharge Order (Routine); Ordered 08/14/23 Ordered By: Alvarez Dykes Referrals: Datar,Adrian Payton MD [Physician] - 2 weeks (COPD severe) Tyrell Tapia Jr, MD [Primary Care Provider] - 4-7 days Discharge Diet: Usual diet Discharge Activity: Increase activity as tolerated Patient Instructions: Opioid Safety Activity Restrictions/Additional Instructions: Compresses prescribed [facility] 3 to 5 days BMP, 3 to 5 days Resume oxygen at 3 L per nasal cannula at nursing facility. No smoking Discharge Attestations Time Spent in Discharge Care*: greater than 30 min Status at Discharge: Cognitive status at discharge: cognitively intact, Behavioral status at discharge: cooperative, Quality Metrics Clinical Quality Measures [ No reported AMI, CVA or VTE this stay] Coding Level of Care Code 95250 Total time (in minutes) for Discharge: 35 Diagnoses Acute diastolic heart failure I50.31 Pulmonary emphysema, unspecified emphysema type J43.9 COPD type: emphysema Emphysema type: unspecified Acute hypoxic respiratory failure J96.01 Atrial fibrillation I48.91
--- NOTE | 2023-08-14 11:35 | PC.SOCIAL ---
Pg 2 IMM Explained to pt's guardian, Afshan Rosenberg, Pg 2 IMM. No questions voiced. Provided pt a copy. Initialed, dated, & timed a copy & placed in chart.
[2023-08-14 11:41] LABS: SARS Covid-2 Antigen negative (Negative)
--- NOTE | 2023-08-14 12:54 | PC.NURSE ---
This nurse called report to Sarah at [facility] at 1250. D/C pending [facility].
== END 2023-08-14 14:50 | disposition skilled nursing facility (03) | DRG 291 ==
LOC: ER 05:45 → ICU 09:55 → MEDSURG 08-13 03:59
PROVIDERS: Admitting Provider Internal Medicine; Emergency Provider Emergency Medicine; PCP Family Medicine; Visit Provider Internal Medicine
DX: I11.0 Hypertensive heart disease with heart failure (principal); I50.33 Acute on chronic diastolic (congestive) heart failure; J96.01 Acute respiratory failure with hypoxia; E46 Unspecified protein-calorie malnutrition; Z68.1 Body mass index [BMI] 19.9 or less, adult; I48.91 Unspecified atrial fibrillation; J43.9 Emphysema, unspecified; E78.5 Hyperlipidemia, unspecified; G62.9 Polyneuropathy, unspecified; Z79.82 Long term (current) use of aspirin; Z87.440 Personal history of urinary (tract) infections; Z87.01 Personal history of pneumonia (recurrent); Z86.711 Personal history of pulmonary embolism; Z99.81 Dependence on supplemental oxygen; Z11.52 Encounter for screening for COVID-19
CPT/HCPCS: 36415; 36600; 71045; 80053; 81001; 82805; 83605; 83735; 83880; 84484; 85025; 87040; 87426; 87486; 87581; 87633; 93005; 94640; 94760; 96365; 96367; 96372; 96375; 99285; J1650; J1940; J1956; J2185; J3370; J7050; J7512; J7626

== ENCOUNTER → 2023-08-27 09:28 | Outpatient (BNVA) | payer MEDICARE, SELFPAY | PROVIDERS: PCP Family Medicine; Visit Provider Podiatrist Foot & Ankle Surgery | DX: L60.8 Other nail disorders (principal); L60.3 Nail dystrophy; I73.9 Peripheral vascular disease, unspecified; L84 Corns and callosities | CPT/HCPCS: 11056; 11721 ==

== ENCOUNTER → 2023-09-20 09:43 | Outpatient (BNVA) | payer MEDICARE, SELFPAY | PROVIDERS: PCP Family Medicine; Visit Provider Internal Medicine Pulmonary Disease | DX: Z09 Encounter for follow-up examination after completed treatment for conditions other than malignant neoplasm (principal); J43.9 Emphysema, unspecified; F17.210 Nicotine dependence, cigarettes, uncomplicated; Z99.81 Dependence on supplemental oxygen; Z71.6 Tobacco abuse counseling | CPT/HCPCS: 99204 ==

== ENCOUNTER 2023-09-23 00:54 | Emergency (ER) | payer MEDICARE, SELFPAY ==
[2023-09-23 00:54] VITALS: BP 80/41; PULSE 79; RESP 17; O2SAT 95; BMI 17.9
--- NOTE | 2023-09-23 01:00 | CTR_ITS ---
PROCEDURE INFORMATION: Exam: CT Head Without Contrast Exam date and time: 09/23/2023 1:09 AM Age: 78 years old Clinical indication: Injury or trauma; Blunt trauma (contusions or hematomas); Patient HX: EMS arrival from skilled nursing for fall with headstrike. Patient lethargic and hypotensive. TECHNIQUE: Imaging protocol: Computed tomography of the head without contrast. Radiation optimization: All CT scans at this facility use at least one of these dose optimization techniques: automated exposure control; mA and/or kV adjustment per patient size (includes targeted exams where dose is matched to clinical indication); or iterative reconstruction. COMPARISON: CT head wo con* [id number] 01/29/2023 12:46 PM RADIATION DOSE METRICS: Total DLP (mGy-cm): 899.28 FINDINGS: Brain: Subcortical and periventricular white matter changes consistent with small-vessel ischemic disease in the appropriate clinical setting. Small-vessel ischemic disease. Cerebral ventricles: No ventriculomegaly. Paranasal sinuses: Visualized sinuses are unremarkable. No fluid levels. Mastoid air cells: Visualized mastoid air cells are well aerated. Bones/joints: Unremarkable. No acute fracture. Soft tissues: Unremarkable. CT/CT head wo con* [id number] IMPRESSION: 1. No acute intracranial abnormality. 2. Small-vessel ischemic disease.
--- NOTE | 2023-09-23 01:00 | CTR_ITS ---
PROCEDURE INFORMATION: Exam: CT Cervical Spine Without Contrast Exam date and time: 09/23/2023 1:11 AM Age: 78 years old Clinical indication: Injury or trauma; Blunt trauma; Patient HX: EMS arrival from [facility] for fall with headstrike. Patient lethargic and hypotensive. TECHNIQUE: Imaging protocol: Computed tomography of the cervical spine without contrast. Radiation optimization: All CT scans at this facility use at least one of these dose optimization techniques: automated exposure control; mA and/or kV adjustment per patient size (includes targeted exams where dose is matched to clinical indication); or iterative reconstruction. COMPARISON: CR XR cervical spine 3V* [id number] 01/25/2022 5:25 AM RADIATION DOSE METRICS: Total DLP (mGy-cm): 133.87 FINDINGS: Bones/joints: Grade 1 anterolisthesis of C3 on C4 grade 1 posterior listhesis of C4 on C5 and C5 on C6. Severe degenerative disc disease at C3-C4, C4-C5, C5-C6 and C6-C7. Lungs: Lung apices are normal. Soft tissues: Unremarkable. CT/CT cervical spin wo con* [id number] IMPRESSION: 1. No acute cervical spine fracture. 2. Multilevel severe degenerative changes.
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
[2023-09-23 01:38] VITALS: BP 103/51; PULSE 79; O2SAT 100
[2023-09-23] MEDS: sodium chloride 0.9% 1,000 ML 999 ML IV (02:04)
--- NOTE | 2023-09-23 04:22 | PC.NURSE ---
Report called to Karely Bravo took report and verbalized understanding and denies questions.
[2023-09-23 04:47] VITALS: BP 109/58; PULSE 62; O2SAT 99
[2023-09-23 08:29] VITALS: BP 108/52; PULSE 57; O2SAT 100
== END 2023-09-23 09:21 | disposition home or self-care (01) ==
PROVIDERS: Emergency Provider Emergency Medicine; PCP Family Medicine
DX: S09.8XXA Other specified injuries of head, initial encounter (principal); Z79.82 Long term (current) use of aspirin; F17.210 Nicotine dependence, cigarettes, uncomplicated; J44.9 Chronic obstructive pulmonary disease, unspecified; I11.0 Hypertensive heart disease with heart failure; I50.9 Heart failure, unspecified; E78.5 Hyperlipidemia, unspecified; W01.0XXA Fall on same level from slipping, tripping and stumbling without subsequent striking against object, initial encounter; Y92.129 Unspecified place in nursing home as the place of occurrence of the external cause
CPT/HCPCS: 70450; 72125; 99284; J7030

== ENCOUNTER 2023-10-17 10:12 | Outpatient (CLI) | payer MEDICARE, SELFPAY ==
[2023-10-17 10:34] VITALS: PULSE 84; RESP 18; O2SAT 92
[2023-10-17] MEDS: albuterol 2.5 mg/3 mL Neb INHALATION (10:34)
[2023-10-17 10:38] VITALS: PULSE 83
== END 2023-10-17 10:13 | disposition home or self-care (01) ==
LOC: RT 10:12
PROVIDERS: PCP Family Medicine; Visit Provider Internal Medicine Pulmonary Disease
DX: J43.9 Emphysema, unspecified (principal)
CPT/HCPCS: 94060; 94729; J7613

== ENCOUNTER → 2023-11-22 09:37 | Outpatient (BNVA) | payer MEDICARE, SELFPAY | PROVIDERS: PCP Family Medicine; Visit Provider Internal Medicine Pulmonary Disease | DX: J43.9 Emphysema, unspecified (principal); F17.210 Nicotine dependence, cigarettes, uncomplicated; J44.9 Chronic obstructive pulmonary disease, unspecified; Z99.81 Dependence on supplemental oxygen | CPT/HCPCS: 99214 ==

== ENCOUNTER → 2023-11-26 09:27 | Outpatient (BNVA) | payer MEDICARE, SELFPAY | PROVIDERS: PCP Family Medicine; Visit Provider Podiatrist Foot & Ankle Surgery | DX: L60.3 Nail dystrophy (principal); I73.9 Peripheral vascular disease, unspecified; L84 Corns and callosities | CPT/HCPCS: 11056; 11721 ==

== ENCOUNTER 2024-02-22 05:39 | Emergency (ER) | payer MEDICARE, SELFPAY ==
[2024-02-22 05:41] VITALS: BP 137/73; PULSE 81; RESP 16; TEMP 36.4; O2SAT 95; BMI 19.3
--- NOTE | 2024-02-22 06:01 | XRR_ITS ---
PROCEDURE INFORMATION: Exam: XR Chest Exam date and time: 02/22/2024 6:05 AM Age: 79 years old Clinical indication: Cough and shortness of breath; Smoker's cough; Patient HX: Cough with SOB; Additional info: Dyspnea/cough TECHNIQUE: Imaging protocol: Radiologic exam of the chest. Views: 1 view. COMPARISON: CR XR chest 1V portable [id number] 08/12/2023 5:27 AM FINDINGS: Lungs: Bilateral hyperinflated lungs with emphysematous changes. No focal consolidation. Pleural spaces: Unremarkable. No pleural effusion. No pneumothorax. Heart/Mediastinum: Unremarkable. No cardiomegaly. Vasculature: Unfolding of the thoracic aorta. Aortic arch calcifications. Bones/joints: Mild degenerative disease of bilateral acromioclavicular joint. sLeft rotator cuff calcific tendinosis. Mild curvature of the thoracic spine convex to the right. XR/XR chest 1V portable [id number] IMPRESSION: No acute cardiopulmonary process.
[2024-02-22 06:10] VITALS: BP 137/73; PULSE 70; RESP 21; O2SAT 96
[2024-02-22 06:15] LABS: Basophils # 0.1 10^3/uL (0.0-0.1); Basophils % 1.6 %; Eosinophils # 0.8 10^3/uL (0.0-0.8); Eosinophils % 12.5 %; Lymphocytes % 15.8 %; Mean Corpuscular HGB Conc 31.4 g/dL (30-55); Mean Corpuscular Volume 79.5 fl (85-98); Mean Platelet Volume 9.7 fL (7.4-10.4); Monocytes # 0.9 10^3/uL (0.2-0.9); Monocytes % 14.4 %; Neutrophils # 3.54 10^3/uL (1.8-7.7); Neutrophils % 55.4 %; Nucleated Red Blood Cells % 0 %; Platelet Count 510 10^3/cmm (157-399); Red Cell Distribution Width 13.2 % (12.1-15.1); White Blood Count 6.39 10^3/uL (3.29-11.43)
[2024-02-22 06:36] LABS: Add Urine Microscopic? YES; Bilirubin Urine Neg (Negative); Blood Urine Neg (Negative); Glucose Urine UA Norm (Normal); Ketones Urine Negative (Negative); Leukocyte Esterase Urine Negative (Negative); Nitrate Urine Negative (Negative); Protein Urine Trace (Negative); Specific Gravity, Urine 1.015 (1.005-1.030); Urine Appearance Clear (CLEAR); Urine Color Yellow (Yellow); Urobilinogen Urine Norm (Negative); pH Urine 5 (5-7)
[2024-02-22 06:37] LABS: Troponin(5th) Baseline 98 ng/L (0-10)
[2024-02-22 06:37] LABS: Add Urine Culture? No; Bacteria Urine TRACE /hpf; WBC Urine 0-4 /hpf (0-5)
[2024-02-22 06:42] LABS: NT Pro B Type Natriuretic Pept 442 pg/mL (0-450); Procalcitonin 0.12 ng/mL (0-0.5)
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
--- NOTE | 2024-02-22 06:50 | XRR_ITS ---
PROCEDURE INFORMATION: Exam: XR Lumbosacral Spine Exam date and time: 02/22/2024 7:25 AM Age: 79 years old Clinical indication: Low back pain TECHNIQUE: Imaging protocol: Radiologic exam of the lumbosacral spine. Views: 2 or 3 views. COMPARISON: CT angio chest w abd pel w con 01/29/2023 4:48 PM FINDINGS: Bones/joints: There is a curvature of the lumbar spine convex to the left. Moderate degenerative disease of the sacroiliac joints. Mild retrolisthesis L1 over L2 and L2 over L3. Chronic mild compression deformity of T12. Multilevel moderate to severe degenerative disease of the lumbar spine, most pronounced at L1-L2 with disc space narrowing, anterior and posterior osteophytes. Soft tissues: Unremarkable. Organs: Post cholecystectomy clips. Post cholecystectomy. Vasculature: IVC filter. Unfolding of the thoracic aorta. Vascular calcifications. IVC filter. XR/XR lumbar spine 2-3V* [id number] IMPRESSION: Degenerative disease of the lumbar spine, most pronounced at L1-L2.
--- NOTE | 2024-02-22 06:50 | XRR_ITS ---
PROCEDURE INFORMATION: Exam: XR Thoracic Spine Exam date and time: 02/22/2024 7:25 AM Age: 79 years old Clinical indication: Pain in thoracic spine TECHNIQUE: Imaging protocol: Radiologic exam of the thoracic spine. Views: 3 views. COMPARISON: CR (PELVIS, ) 02/22/2024 7:25 AM FINDINGS: Bones/joints: There is a curvature of the thoracic spine convex to the right. Diffuse demineralization of the visualized bones. Multilevel degenerative of the thoracic spine with anterior osteophytes. No acute fracture or dislocation. Soft tissues: Unremarkable. Organs: Post cholecystectomy. Vasculature: IVC filter. Aortic calcifications. XR/XR thoracic spine 3V* [id number] IMPRESSION: Curvature of the thoracic spine convex right with multilevel lega-vd-[id number] degenerative disease.
[2024-02-22 06:53] LABS: Alanine Aminotransferase < 5 U/L (0-33); Albumin Level 3.3 g/dL (3.5-5.2); Alkaline Phosphatase 86 U/L (35-105); Aspartate Amino Transferase 10 U/L (0-32); Blood Urea Nitrogen 21 mg/dL (8-23); Calcium 8.7 mg/dL (8.5-10.5); Carbon Dioxide 32 mmol/L (22-29); Chloride 93 mmol/L (98-107); Globulin 2.6 g/dL (1.3-4.6); Glucose 100 mg/dL (65-115); Magnesium 1.9 mg/dL (1.7-2.3); Osmolality Calculated 285 mOsm/kg (285-295); Sodium 136 mmol/L (136-145); Total Bilirubin 0.2 mg/dL (0.15-1.2); Total Protein 5.9 g/dL (6.6-8.7)
[2024-02-22 06:58] LABS: Creatinine Clr Calc Pharmacy 35.6739
[2024-02-22 06:59] LABS: Anion Gap 14.9 (5-19); Potassium 3.9 mmol/L (3.5-5.1)
[2024-02-22 07:03] VITALS: BP 118/78; PULSE 68; O2SAT 96
[2024-02-22] MEDS: FUROsemide 10 mg/mL SDV 2mL 20 MG IVP (08:21)
[2024-02-22 08:28] LABS: Troponin 5 2HR 70.38 ng/L (0-10)
[2024-02-22 09:00] LABS: Troponin 5 2HR Delta -27.62 ABS# (0-10)
--- NOTE | 2024-02-22 09:03 | PC.NURSE ---
pt refusing ekg. pt combative and hitting staff.
[2024-02-22] MEDS: ziprasidone 20 mg/mL SDV 5 MG IM (09:21)
[2024-02-22 09:25] VITALS: BP 141/82; PULSE 85; O2SAT 97
[2024-02-22 11:40] VITALS: BP 141/82; PULSE 82; O2SAT 97
--- NOTE | 2024-02-22 12:01 | ECG_ITS ---
[facility] Test Date: 2024-02-22 Pat Name: Rosario Brock Department: Room: Gender: Female Transportation Department Supervisor: : 1945 Requested By: Chris Do Order Number: [id number] Joel MD: Mega Maier M.D. Measurements Intervals [place] Rate: 66 P: 81 [place]: 185 QRS: -25 QRSD: 95 T: 47 QT: 416 QTc: 437 Interpretive Statements SINUS RHYTHM WITH FREQUENT SUPRAVENTRICULAR PREMATURE COMPLEXES MINIMAL VOLTAGE CRITERIA FOR LVH, CONSIDER NORMAL VARIANT [MEETS CRITERIA IN ONE OF: R(aVL), S(V1), R(V5), R(V5/V6)+S(V1)] SEPTAL MYOCARDIAL INFARCTION , OF INDETERMINATE AGE [40+ ms Q WAVE IN V1/V2] Compared to ECG 08/13/2023 06:10:21 Left-axis deviation no longer present Myocardial infarct finding still present Electronically Signed On 02-22-2024 9:05:50 CDT by Mega Maier M.D. [email or web address]
== END 2024-02-22 11:43 | disposition home or self-care (01) ==
PROVIDERS: Emergency Provider Family Medicine; PCP Family Medicine
DX: R07.89 Other chest pain (principal); F41.9 Anxiety disorder, unspecified; I48.91 Unspecified atrial fibrillation; F03.90 Unspecified dementia, unspecified severity, without behavioral disturbance, psychotic disturbance, mood disturbance, and anxiety; Z79.82 Long term (current) use of aspirin; F17.210 Nicotine dependence, cigarettes, uncomplicated; J44.9 Chronic obstructive pulmonary disease, unspecified; I11.0 Hypertensive heart disease with heart failure; I50.9 Heart failure, unspecified; E78.5 Hyperlipidemia, unspecified
CPT/HCPCS: 71045; 72072; 72100; 80053; 81001; 83735; 83880; 84145; 84484; 85025; 93005; 96372; 96374; 99285; J1940; J3486

== ENCOUNTER → 2024-03-03 09:27 | Outpatient (BNVA) | payer MEDICARE, SELFPAY | PROVIDERS: PCP Family Medicine; Visit Provider Podiatrist Foot & Ankle Surgery | DX: L60.3 Nail dystrophy (principal); I73.9 Peripheral vascular disease, unspecified; L84 Corns and callosities | CPT/HCPCS: 11056; 11721 ==

== ENCOUNTER → 2024-06-02 09:00 | Outpatient (BNVA) | payer MEDICARE, SELFPAY | PROVIDERS: PCP Family Medicine; Visit Provider Podiatrist Foot & Ankle Surgery | DX: L60.3 Nail dystrophy (principal); I73.9 Peripheral vascular disease, unspecified; L84 Corns and callosities | CPT/HCPCS: 11056; 11721 ==

== ENCOUNTER → 2024-10-07 09:20 | Outpatient (BNVA) | payer MEDICARE, MEDICAID, SELFPAY | PROVIDERS: PCP Family Medicine; Visit Provider Podiatrist Foot & Ankle Surgery | DX: I73.9 Peripheral vascular disease, unspecified (principal); L60.3 Nail dystrophy; L84 Corns and callosities | CPT/HCPCS: 11056; 11721 ==

== ENCOUNTER 2024-11-16 20:57 | Emergency (ER) | payer MEDICARE, MEDICAID, SELFPAY ==
[2024-11-16 20:59] VITALS: BP 98/44; PULSE 77; RESP 20; TEMP 37.2; O2SAT 97; BMI 20.7
--- NOTE | 2024-11-16 21:01 | XRR_ITS ---
PROCEDURE INFORMATION: Exam: XR Chest Exam date and time: 11/16/2024 9:04 PM Age: 79 years old Clinical indication: Shortness of breath; Additional info: SOB TECHNIQUE: Imaging protocol: Radiologic exam of the chest. Views: 1 view. COMPARISON: CR XR chest 1V portable [id number] 02/22/2024 6:05 AM FINDINGS: Lungs: Bilateral lower lobe atelectasis, [id number]-[id number]-eyio-right. Pleural spaces: Unremarkable. No pleural effusion. No pneumothorax. Heart/Mediastinum: Unremarkable. No cardiomegaly. Vasculature: Aortic calcification. Partially included IVC filter. Bones/joints: Unremarkable. Intraperitoneal space: Right upper quadrant surgical clips. XR/XR chest 1V portable [id number] IMPRESSION: Bilateral lower lobe atelectasis, [id number]-csby-right.
--- NOTE | 2024-11-16 21:01 | CTR_ITS ---
PROCEDURE INFORMATION: Exam: CT Abdomen And Pelvis With Contrast Exam date and time: 11/16/2024 9:59 PM Age: 79 years old Clinical indication: Abdominal pain; Generalized; Prior surgery; Surgery date: 6+ months; Surgery type: Ivc; Additional info: Abd pain TECHNIQUE: Imaging protocol: Computed tomography of the abdomen and pelvis with contrast. Radiation optimization: All CT scans at this facility use at least one of these dose optimization techniques: automated exposure control; mA and/or kV adjustment per patient size (includes targeted exams where dose is matched to clinical indication); or iterative reconstruction. Contrast material: OMNIPAQUE 350; Contrast volume: 90 ml; Contrast route: INTRAVENOUS (IV); COMPARISON: CT angio chest w abd pel w con 01/29/2023 4:48 PM RADIATION DOSE METRICS: Total DLP (mGy-cm): 244.88 FINDINGS: Lungs: Bilateral lower lobe atelectasis, [id number]-[id number]-hxsj-right. Liver: Unremarkable. Gallbladder and biliary ducts: Cholecystectomy. Pancreas: Unremarkable. Spleen: Unremarkable. Adrenal glands: Unremarkable. Kidneys and ureters: Bilateral simple cortical renal cysts. The left upper pole cortical cyst is minimally complex with thin internal septa. Right interpolar cortical renal scarring. Right-sided nonobstructive calcified calyceal renal stone. No hydronephrosis. Stomach and bowel: Colonic diverticulosis without diverticulitis. No mechanical obstruction. No mucosal thickening. Appendix: Unremarkable. Intraperitoneal space: Unremarkable. No free air. No significant fluid collection. Vasculature: Severe atherosclerotic changes of the aorta and its major branches. Interval enlargement of the infrarenal abdominal aortic aneurysm measuring 5.9 cm AP (previously 4.8 cm). 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 Lymph nodes: Unremarkable. Urinary bladder: Unremarkable. Reproductive: Hysterectomy. Bones/joints: Cephalomedullary nail with interlocking screw fixation of the left femur. Screw fixation of the right femur. Moderate multilevel spondylosis. Unchanged anterior wedging of the T12 vertebral body. Soft tissues: Unremarkable. CT/CT abdomen pelvis w con* [id number] IMPRESSION: Interval enlargement of the infrarenal abdominal aortic aneurysm measuring 5.9 cm AP (previously 4.8 cm). COMMENTS: Consistent with the [employer]'s Incidental Findings Committee white paper (J Am Juan Radiol 2018): Any incidental renal lesion less than 1 cm or classified as too small to characterize, or any incidental cystic renal lesion characterized as simple-appearing, is likely benign. No follow-up imaging is recommended for these lesions per consensus recommendations based on imaging criteria.
[2024-11-16 21:22] LABS: Basophils # 0.1 10^3/uL (0.0-0.1); Basophils % 0.8 %; Eosinophils # 0.2 10^3/uL (0.0-0.8); Eosinophils % 2.3 %; Hematocrit 27.5 % (36-47); Lymphocytes # 1.3 10^3/uL (0.8-4.8); Lymphocytes % 17.8 %; Mean Corpuscular HGB Conc 30.9 g/dL (30-55); Mean Corpuscular Hemoglobin 24.2 pg (27-33); Mean Corpuscular Volume 78.3 fl (85-98); Mean Platelet Volume 9.5 fL (7.4-10.4); Monocytes # 0.9 10^3/uL (0.2-0.9); Monocytes % 12.3 %; Neutrophils # 4.82 10^3/uL (1.8-7.7); Neutrophils % 66.7 %; Nucleated Red Blood Cells % 0 %; Platelet Count 408 10^3/cmm (157-399); Red Blood Count 3.51 10^6/uL (3.85-5.65); Red Cell Distribution Width 15.6 % (12.1-15.1); White Blood Count 7.24 10^3/uL (3.29-11.43)
--- NOTE | 2024-11-16 21:24 | ECG_ITS ---
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 Measurements Intervals [place] Rate: 85 P: 0 PA: 0 QRS: -31 QRSD: 108 T: 65 QT: 382 QTc: 455 Interpretive Statements ATRIAL FIBRILLATION LEFT AXIS DEVIATION [QRS AXIS < -30] INCOMPLETE RIGHT BUNDLE BRANCH BLOCK [90+ ms QRS DURATION, TERMINAL R IN V1/V2, 40+ ms S IN I/aVL/V4/V5/V6] SEPTAL MYOCARDIAL INFARCTION , OF INDETERMINATE AGE [40+ ms Q WAVE IN V1/V2] Compared to ECG 07/23/2024 10:33:33 Incomplete right bundle-branch block now present Myocardial infarct finding now present Sinus rhythm no longer present Atrial premature complex(es) no longer present T-wave abnormality no longer present Electronically Signed On 11-16-2024 21:29:32 CDT by Flory Díaz M.D. [email or web address]
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
[2024-11-16 21:39] LABS: Alanine Aminotransferase 8 U/L (0-33); Albumin Level 3.4 g/dL (3.5-5.2); Anion Gap 15.4 (5-19); Aspartate Amino Transferase 11 U/L (0-32); Blood Urea Nitrogen 36 mg/dL (8-23); Calcium 8.9 mg/dL (8.5-10.5); Carbon Dioxide 30 mmol/L (22-29); Chloride 93 mmol/L (98-107); Creatinine Clr Calc Pharmacy 30.5706; Globulin 3.4 g/dL (1.3-4.6); Glucose 122 mg/dL (65-115); Lipase 29 U/L (13-60); Magnesium 1.8 mg/dL (1.7-2.3); Osmolality Calculated 290 mOsm/kg (285-295); Potassium 3.4 mmol/L (3.5-5.1); Sodium 135 mmol/L (136-145); Total Bilirubin 0.2 mg/dL (0.15-1.2); Total Protein 6.8 g/dL (6.6-8.7)
[2024-11-16 21:40] LABS: Lactic Sepsis W/Reflex 1.5 mmol/L (0.5-2.2)
[2024-11-16 21:52] LABS: Add Urine Microscopic? NO
[2024-11-16 22:01] LABS: Bacteria Urine 3+ /hpf; Hyaline Casts Urine 5.36 /lpf; RBC Urine 0-2 /hpf (0-2); Squamous Epithelial Cell Urine 0-5 /hpf (0-5); WBC Urine >100 /hpf (0-5)
[2024-11-16] MEDS: iohexol 350 mg/mL 500 mL Btl (per mL) IV (22:02)
[2024-11-16 22:08] LABS: Bilirubin Urine Neg (Negative); Blood Urine 2+ (Negative); Glucose Urine UA Norm (Normal); Ketones Urine Negative (Negative); Leukocyte Esterase Urine 2+ (Negative); Nitrate Urine Negative (Negative); Protein Urine Trace (Negative); Urine Appearance Slightly Cloudy (CLEAR); Urine Color Yellow (Yellow); Urobilinogen Urine Norm (Negative); pH Urine 5 (5-7)
[2024-11-16 22:09] LABS: Add Urine Culture? Yes; Charge for UA Resulting for Rev
[2024-11-16 22:36] LABS: Alkaline Phosphatase 79 U/L (35-105)
[2024-11-16 22:56] VITALS: BP 107/47; PULSE 71; RESP 17; O2SAT 100
[2024-11-16] MEDS: sodium chloride 0.9% 500 ML IV (23:01)
[2024-11-16 23:41] VITALS: BP 119/54; PULSE 69; RESP 18; O2SAT 99
[2024-11-17 00:18] VITALS: BP 105/56; PULSE 71; RESP 17; O2SAT 100
== END 2024-11-17 00:15 | disposition home or self-care (01) ==
PROVIDERS: Emergency Medicine; Emergency Provider Student in an Organized Health Care Education/Training Program; PCP Family Medicine
DX: N39.0 Urinary tract infection, site not specified (principal); I71.43 Infrarenal abdominal aortic aneurysm, without rupture; Z79.82 Long term (current) use of aspirin; F17.210 Nicotine dependence, cigarettes, uncomplicated; J44.9 Chronic obstructive pulmonary disease, unspecified; I10 Essential (primary) hypertension; E78.5 Hyperlipidemia, unspecified
CPT/HCPCS: 36415; 51701; 71045; 74177; 80053; 81003; 83605; 83690; 83735; 85025; 87086; 87186; 93005; 99285; J7040

== ENCOUNTER → 2025-01-05 10:29 | Outpatient (BNVA) | payer MEDICARE, MEDICAID, SELFPAY | PROVIDERS: PCP Family Medicine; Visit Provider Podiatrist Foot & Ankle Surgery | DX: I73.9 Peripheral vascular disease, unspecified (principal); L60.8 Other nail disorders; L84 Corns and callosities; L60.3 Nail dystrophy | CPT/HCPCS: 11055; 11721 ==